=== PATIENT | female | born 1960 | race Caucasian/White ===

== ENCOUNTER 2020-06-25 07:39 | Outpatient (REF) | payer MEDICARE, MEDICAID, SELFPAY ==
[2020-06-25 11:40] LABS: Basophils Percent Auto 0.2 % (0-2); Hematocrit 39.4 % (37-47); Hemoglobin 12.2 g/dl (12.0-16.0); Imm Gran Abs Auto 0.05 X10*3/uL (0.00-0.03); Imm Gran Pct Auto 0.4 % (0.0-0.4); Lymphocytes Absolute Auto 5.1 X10*3/uL (1.2-4.9); Lymphocytes Percent Auto 36.4 % (20-40); MANUAL DIFF FLAG SCAN; Mean Corpuscular Hemoglobin 30.9 pg (27.0-33.0); Mean Corpuscular Volume 99.7 fL (80-98); Mean Platelet Volume 11.7 fL (9.4-12.3); Monocytes Percent Auto 7.2 % (2-11); Neut%MD 55.8 %; Neutrophils Absolute Auto 7.8 X10*3/uL (2.0-8.3); Neutrophils Percent Auto 55.8 % (45-73); Platelet Count 412 X10*3/uL (160-400); Red Blood Count 3.95 X10*6/uL (4.20-5.50); Red Cell Distribution Width 15.4 % (11.0-16.0); SCAN SMEAR FLAG 1; WBCANC 13.9 X10*3/uL; White Blood Count 13.9 X10*3/uL (4.8-10.8)
[2020-06-25 12:06] LABS: SLIDE REVIEW VERIFIED
== END 2020-06-25 07:40 | disposition home or self-care (01) ==
LOC: HO.HMGCLR 07:39
PROVIDERS: PCP Internal Medicine; Visit Provider Psychiatry & Neurology Psychiatry
DX: Z79.899 Other long term (current) drug therapy (principal)
CPT/HCPCS: 36415; 85025

== ENCOUNTER → 2020-07-15 09:27 | Outpatient (BNVA) | payer MEDICARE, MEDICAID, SELFPAY | PROVIDERS: PCP Internal Medicine; Referring Provider Internal Medicine; Visit Provider Dietitian, Registered | DX: Z76.89 Persons encountering health services in other specified circumstances (principal) ==

== ENCOUNTER → 2020-07-17 11:12 | Outpatient (BNVA) | payer MEDICARE, MEDICAID, SELFPAY | PROVIDERS: PCP Internal Medicine; Referring Provider Internal Medicine; Visit Provider Dietitian, Registered | DX: Z76.89 Persons encountering health services in other specified circumstances (principal) ==

== ENCOUNTER 2020-07-22 07:43 | Outpatient (REF) | payer MEDICARE, MEDICAID, SELFPAY ==
[2020-07-22 11:24] LABS: Basophils Percent Auto 0.2 % (0-2); Hematocrit 40.6 % (37-47); Hemoglobin 12.8 g/dl (12.0-16.0); Imm Gran Abs Auto 0.07 X10*3/uL (0.00-0.03); Imm Gran Pct Auto 0.4 % (0.0-0.4); Lymphocytes Percent Auto 30.1 % (20-40); MANUAL DIFF FLAG SCAN; Mean Corpuscular HGB Conc 31.5 g/dl (31.0-35.0); Mean Corpuscular Hemoglobin 30.9 pg (27.0-33.0); Mean Corpuscular Volume 98.1 fL (80-98); Mean Platelet Volume 11.6 fL (9.4-12.3); Monocytes Absolute Auto 1.4 X10*3/uL (0.1-1.2); Monocytes Percent Auto 8.3 % (2-11); Neutrophils Absolute Auto 10.1 X10*3/uL (2.0-8.3); Platelet Count 424 X10*3/uL (160-400); Red Blood Count 4.14 X10*6/uL (4.20-5.50); Red Cell Distribution Width 15.2 % (11.0-16.0); SCAN SMEAR FLAG 1; White Blood Count 16.6 X10*3/uL (4.8-10.8)
[2020-07-22 12:11] LABS: SLIDE REVIEW VERIFIED
== END 2020-07-22 07:44 | disposition home or self-care (01) ==
LOC: HO.HMGCLR 07:43
PROVIDERS: PCP Internal Medicine; Visit Provider Psychiatry & Neurology Psychiatry
DX: Z51.81 Encounter for therapeutic drug level monitoring (principal)
CPT/HCPCS: 36415; 85025

== ENCOUNTER 2020-07-26 09:50 | Outpatient (REF) | payer MEDICARE, MEDICAID, SELFPAY | END 2020-07-26 09:51 | disposition home or self-care (01) | LOC: HO.LAB 09:50 | PROVIDERS: PCP Internal Medicine; Visit Provider Internal Medicine | DX: Z20.828 Contact with and (suspected) exposure to other viral communicable diseases (principal) | CPT/HCPCS: C9803; U0003 ==

== ENCOUNTER 2020-08-24 07:47 | Outpatient (REF) | payer MEDICARE, MEDICAID, SELFPAY ==
[2020-08-24 08:33] LABS: Hematocrit 41.1 % (37-47); Hemoglobin 12.8 g/dl (12.0-16.0); Mean Corpuscular HGB Conc 31.1 g/dl (31.0-35.0); Mean Corpuscular Hemoglobin 30.6 pg (27.0-33.0); Mean Corpuscular Volume 98.3 fL (80-98); Mean Platelet Volume 11.6 fL (9.4-12.3); Platelet Count 395 X10*3/uL (160-400); Red Blood Count 4.18 X10*6/uL (4.20-5.50); Red Cell Distribution Width 14.8 % (11.0-16.0); White Blood Count 17.9 X10*3/uL (4.8-10.8)
== END 2020-08-24 07:48 | disposition home or self-care (01) ==
LOC: HO.LAB 07:47
PROVIDERS: PCP Internal Medicine; Visit Provider Psychiatry & Neurology Psychiatry
DX: Z79.899 Other long term (current) drug therapy (principal)
CPT/HCPCS: 36415; 85027

== ENCOUNTER → 2020-08-28 13:07 | Outpatient (BNVA) | payer MEDICARE, MEDICAID, SELFPAY | PROVIDERS: PCP Internal Medicine; Visit Provider Dietitian, Registered | DX: Z76.89 Persons encountering health services in other specified circumstances (principal) ==

== ENCOUNTER 2020-08-29 05:35 | Outpatient (REF) | payer MEDICARE, MEDICAID, SELFPAY ==
[2020-08-29 10:53] LABS: Basophils Percent Auto 0.1 % (0-2); Hematocrit 39.2 % (37-47); Hemoglobin 12.4 g/dl (12.0-16.0); Imm Gran Abs Auto 0.05 X10*3/uL (0.00-0.03); Imm Gran Pct Auto 0.3 % (0.0-0.4); Lymphocytes Absolute Auto 5.6 X10*3/uL (1.2-4.9); Lymphocytes Percent Auto 36.4 % (20-40); MANUAL DIFF FLAG SCAN; Mean Corpuscular HGB Conc 31.6 g/dl (31.0-35.0); Mean Platelet Volume 11.9 fL (9.4-12.3); Monocytes Absolute Auto 1.2 X10*3/uL (0.1-1.2); Monocytes Percent Auto 7.5 % (2-11); Neutrophils Absolute Auto 8.6 X10*3/uL (2.0-8.3); Neutrophils Percent Auto 55.7 % (45-73); Platelet Count 390 X10*3/uL (160-400); Red Cell Distribution Width 14.8 % (11.0-16.0); SCAN SMEAR FLAG 1; White Blood Count 15.4 X10*3/uL (4.8-10.8)
[2020-08-29 11:28] LABS: SLIDE REVIEW VERIFIED
== END 2020-08-29 05:36 | disposition home or self-care (01) ==
LOC: HO.LHD 05:35
PROVIDERS: Visit Provider Psychiatry & Neurology Psychiatry
DX: Z79.899 Other long term (current) drug therapy (principal); E11.9 Type 2 diabetes mellitus without complications
CPT/HCPCS: 36415; 85025

== ENCOUNTER 2020-09-16 13:23 | Outpatient (REF) | payer MEDICARE, MEDICAID, SELFPAY | END 2020-09-16 13:24 | disposition home or self-care (01) | LOC: HO.LAB 13:23 | PROVIDERS: Visit Provider Internal Medicine | DX: Z20.822 Contact with and (suspected) exposure to COVID-19 (principal) | CPT/HCPCS: 36415; C9803; U0003 ==

== ENCOUNTER 2020-09-19 08:38 | Outpatient (REF) | payer MEDICARE, MEDICAID, SELFPAY ==
[2020-09-19 11:32] LABS: Basophils Percent Auto 0.2 % (0-2); Hematocrit 40.2 % (37-47); Hemoglobin 12.6 g/dl (12.0-16.0); Imm Gran Abs Auto 0.06 X10*3/uL (0.00-0.03); Imm Gran Pct Auto 0.4 % (0.0-0.4); Lymphocytes Absolute Auto 5.1 X10*3/uL (1.2-4.9); Lymphocytes Percent Auto 33.6 % (20-40); MANUAL DIFF FLAG SCAN; Mean Corpuscular HGB Conc 31.3 g/dl (31.0-35.0); Mean Corpuscular Volume 98.8 fL (80-98); Mean Platelet Volume 11.9 fL (9.4-12.3); Monocytes Percent Auto 6.8 % (2-11); Neutrophils Absolute Auto 8.9 X10*3/uL (2.0-8.3); Platelet Count 413 X10*3/uL (160-400); Red Blood Count 4.07 X10*6/uL (4.20-5.50); Red Cell Distribution Width 15.2 % (11.0-16.0); SCAN SMEAR FLAG 1; White Blood Count 15.1 X10*3/uL (4.8-10.8)
[2020-09-19 13:46] LABS: SLIDE REVIEW VERIFIED
== END 2020-09-19 08:39 | disposition home or self-care (01) ==
LOC: HO.HMGCLR 08:38
PROVIDERS: PCP Internal Medicine; Visit Provider Psychiatry & Neurology Psychiatry
DX: Z79.899 Other long term (current) drug therapy (principal)
CPT/HCPCS: 36415; 85025

== ENCOUNTER → 2020-10-09 10:28 | Outpatient (BNVA) | payer MEDICARE, MEDICAID, SELFPAY | PROVIDERS: PCP Internal Medicine; Visit Provider Dietitian, Registered ==

== ENCOUNTER 2020-10-23 09:06 | Outpatient (REF) | payer MEDICARE, MEDICAID, SELFPAY ==
[2020-10-23 11:51] LABS: Alanine Aminotransferase 25 U/L (0-31); Alkaline Phosphatase 132 U/L (39-117); Anion Gap 12 (12-20); Aspartate Amino Transferase 19 U/L (5-31); Bilirubin Total 0.4 mg/dL (0.0-1.0); Blood Urea Nitrogen 22 mg/dL (9-16); Calcium 8.9 mg/dL (8.4-10.2); Carbon Dioxide 29 mmol/L (22-29); Chloride 102 mmol/L (96-108); Estimated Glomerular Filt Rate > 60; Glucose Random 179 mg/dL (60-115); Potassium 3.4 mmol/L (3.3-5.1); Sodium 140 mmol/L (135-145)
== END 2020-10-23 09:07 | disposition home or self-care (01) ==
LOC: HO.HMGCLDS 09:06
PROVIDERS: PCP Internal Medicine; Visit Provider Hospitalist
DX: R19.04 Left lower quadrant abdominal swelling, mass and lump (principal)
CPT/HCPCS: 36415; 80053

== ENCOUNTER 2020-10-25 10:05 | Outpatient (REF) | payer MEDICARE, MEDICAID, SELFPAY ==
--- NOTE | ~2020-10-25 | CT_ITS ---
EXAMINATION: CT ABDOMEN AND PELVIS WITH CONTRAST CLINICAL INFORMATION: Left lower quadrant abdominal swelling, mass, lump. COMPARISON: 09/24/2015 TECHNIQUE: Multidetector volumetric images were obtained from the superior aspect of the liver through the pubic symphysis following administration 85 mL of Omnipaque 350 intravenous contrast. Sagittal and coronal reformatted images were obtained on the technologist's workstation. Oral contrast: No This CT examination was performed using dose optimization techniques as appropriate, variously including the following: *Automated exposure control *Adjustment of mA and/or kV according to patient size (this includes techniques or standardized protocols for targeted exams where dose is matched to indication/reason for exam; i.e. extremities or head) *Use of iterative reconstruction technique DLP: 696 mGy-cm FINDINGS: LUNG BASES: Mild atelectasis in the lingula. Otherwise unremarkable. LIVER, GALLBLADDER, AND BILIARY TREE: No focal liver lesions. No biliary duct dilatation. Gallbladder appears unremarkable. PANCREAS: Stable small calcifications in the uncinate process of the pancreas. No acute inflammatory changes. SPLEEN: Spleen is not visualized, with surgical clips in the left upper quadrant, suggesting postsurgical changes. ADRENAL GLANDS: Unremarkable. KIDNEYS AND URETERS: Small hypodense lesion in the upper pole, left kidney, too small to characterize, probable cysts. No suspicious lesions otherwise seen. No calculi. No hydronephrosis. BLADDER: Unremarkable. GASTROINTESTINAL TRACT: Moderate to large volume of fecal matter in the large colon. There is heterogeneity in the region of the ascending colon, with intraluminal contents limiting evaluation. Underlying mass lesion cannot be excluded. No colonic wall thickening or pericolonic inflammatory changes. The stomach is nondistended. No dilated small bowel loops seen. Normal appendix. No ascites. No free air. ABDOMINAL WALL: There is an umbilical/left paraumbilical anterior abdominal wall hernia with a neck of approximately 7.1 cm transverse, 4.0 cm craniocaudal, containing herniated fat with mild stranding within the fatty tissue. Superior to this, there are 2 smaller foci of central ventral abdominal wall hernias containing fat noted. LYMPH NODES: No lymphadenopathy seen in the abdomen or pelvis. VASCULAR: No aneurysmal dilatation of the aorta. PELVIC VISCERA: Within normal limits. OSSEOUS STRUCTURES: Mild degenerative changes in the spine. Deformity of the left pubis, suspected to be related to remote trauma. No acute or suspicious osseous abnormality seen. CT/CT abdomen pelvis w con IMPRESSION: 1. There is umbilical/left periumbilical anterior abdominal wall hernia, with mild strandy signal changes in the herniating fatty tissue. The hernia has a neck of approximately 7.1 x 40. cm. There are 2 smaller areas of central anterior abdominal wall hernia superior to this, as detailed above. 2. No acute findings are seen within the abdomen or pelvis. 3. Moderate to large volume fecal matter in the large colon. This limits evaluation for mass lesions. Heterogeneous luminal contents of the colon. Clinically correlate. Further evaluation with endoscopy as clinically warranted.
[2020-10-25] MEDS: iohexoL 350 MG/ML 100 ML INFUS..BTL 85 ML IV (10:58)
[2020-10-25 11:42] LABS: MANUAL DIFF FLAG NO
[2020-10-25 11:53] LABS: Basophils Percent Auto 0.2 % (0-2); Hematocrit 35.7 % (37-47); Hemoglobin 11.2 g/dl (12.0-16.0); Imm Gran Abs Auto 0.05 X10*3/uL (0.00-0.03); Imm Gran Pct Auto 0.3 % (0.0-0.4); Lymphocytes Percent Auto 34.3 % (20-40); Mean Corpuscular HGB Conc 31.4 g/dl (31.0-35.0); Mean Corpuscular Volume 98.9 fL (80-98); Mean Platelet Volume 11.3 fL (9.4-12.3); Monocytes Absolute Auto 1.3 X10*3/uL (0.1-1.2); Monocytes Percent Auto 8.7 % (2-11); Neut%MD 56.5 %; Neutrophils Absolute Auto 8.1 X10*3/uL (2.0-8.3); Neutrophils Percent Auto 56.5 % (45-73); Platelet Count 365 X10*3/uL (160-400); Red Blood Count 3.61 X10*6/uL (4.20-5.50); Red Cell Distribution Width 15.2 % (11.0-16.0); WBCANC 14.4 X10*3/uL; White Blood Count 14.4 X10*3/uL (4.8-10.8)
== END 2020-10-25 10:06 | disposition home or self-care (01) ==
LOC: HO.CT 10:05
PROVIDERS: Absent Provider Psychiatry & Neurology Psychiatry; PCP Internal Medicine; Visit Provider Hospitalist
DX: R19.04 Left lower quadrant abdominal swelling, mass and lump (principal)
CPT/HCPCS: 36415; 74177; 85025; 85048; Q9967

== ENCOUNTER 2020-10-29 08:42 | Outpatient (REF) | payer MEDICARE, MEDICAID, SELFPAY ==
[2020-10-29 09:14] LABS: MANUAL DIFF FLAG NO
[2020-10-29 09:18] LABS: Basophils Percent Auto 0.1 % (0-2); Hematocrit 37.3 % (37-47); Hemoglobin 11.7 g/dl (12.0-16.0); Imm Gran Abs Auto 0.04 X10*3/uL (0.00-0.03); Imm Gran Pct Auto 0.3 % (0.0-0.4); Lymphocytes Absolute Auto 4.9 X10*3/uL (1.2-4.9); Lymphocytes Percent Auto 34.8 % (20-40); Mean Corpuscular HGB Conc 31.4 g/dl (31.0-35.0); Mean Corpuscular Hemoglobin 30.9 pg (27.0-33.0); Mean Corpuscular Volume 98.4 fL (80-98); Mean Platelet Volume 10.9 fL (9.4-12.3); Monocytes Absolute Auto 0.9 X10*3/uL (0.1-1.2); Monocytes Percent Auto 6.7 % (2-11); Neutrophils Absolute Auto 8.1 X10*3/uL (2.0-8.3); Neutrophils Percent Auto 58.1 % (45-73); Platelet Count 385 X10*3/uL (160-400); Red Blood Count 3.79 X10*6/uL (4.20-5.50); Red Cell Distribution Width 15.4 % (11.0-16.0)
[2020-10-29 09:22] LABS: Glucose Urine UA NEG (NEG); Leukocyte Esterase Urine 1+ (NEG); Nitrite Urine NEG (NEG); Specific Gravity - Urine 1.015 (1.005-1.025); UACC Culture Trigger YES; Urine Blood NEG (NEG); Urine Ketones NEG (NEG); Urine Protein NEG (NEG-TRACE)
[2020-10-29 09:23] LABS: Appearance Urine HAZY; Color Urine STRAW
[2020-10-29 09:39] LABS: Bacteria Urine 4+ /LPF; RBC Urine 0 /HPF (0); Squamous Epithelial Cell Urine TRACE /LPF
[2020-10-29 09:56] LABS: Alanine Aminotransferase 27 U/L (0-31); Alkaline Phosphatase 131 U/L (39-117); Anion Gap 10 (12-20); Aspartate Amino Transferase 17 U/L (5-31); Bilirubin Total 0.5 mg/dL (0.0-1.0); Blood Urea Nitrogen 19 mg/dL (9-16); Calcium 8.9 mg/dL (8.4-10.2); Carbon Dioxide 32 mmol/L (22-29); Chloride 107 mmol/L (96-108); Cholesterol 150 mg/dL; Estimated Glomerular Filt Rate > 60; Glucose Fasting 117 mg/dL (60-99); HDL Cholesterol 46 mg/dL; LDL Cholesterol Calculated 77 mg/dl; Potassium 3.9 mmol/L (3.3-5.1); Sodium 145 mmol/L (135-145); Total Protein 6.8 g/dL (6.5-8.0); Triglycerides 135 mg/dL
[2020-10-29 10:18] LABS: TSH reflex Free T4 2.14 uIU/mL (0.32-4.0); Vitamin D 25-OH Total 31.6 ng/mL (>30)
[2020-10-29 10:34] LABS: Estimated Average Glucose 131 mg/dL; Hemoglobin A1C 133.2393 umol/L; Hemoglobin A1c % 6.2 %
== END 2020-10-29 08:43 | disposition home or self-care (01) ==
LOC: HO.LAB 08:42
PROVIDERS: Absent Provider Nurse Practitioner Family; PCP Internal Medicine; Visit Provider Internal Medicine
DX: D72.829 Elevated white blood cell count, unspecified (principal); I87.303 Chronic venous hypertension (idiopathic) without complications of bilateral lower extremity; E78.00 Pure hypercholesterolemia, unspecified; E11.9 Type 2 diabetes mellitus without complications; E55.9 Vitamin D deficiency, unspecified; E66.9 Obesity, unspecified; R82.81 Pyuria
CPT/HCPCS: 36415; 80053; 80061; 81001; 81003; 82306; 83036; 84443; 85025; 87086; 87088; 87186

== ENCOUNTER 2020-11-15 08:07 | Outpatient (REF) | payer MEDICARE, MEDICAID, SELFPAY ==
[2020-11-15 09:30] LABS: Basophils Percent Auto 0.1 % (0-2); Eosinophils Percent Auto 0.1 % (0-4); Hematocrit 39.2 % (37-47); Hemoglobin 12.3 g/dl (12.0-16.0); Imm Gran Abs Auto 0.07 X10*3/uL (0.00-0.03); Imm Gran Pct Auto 0.4 % (0.0-0.4); Lymphocytes Absolute Auto 5.7 X10*3/uL (1.2-4.9); Lymphocytes Percent Auto 36.5 % (20-40); MANUAL DIFF FLAG SCAN; Mean Corpuscular HGB Conc 31.4 g/dl (31.0-35.0); Mean Corpuscular Hemoglobin 30.4 pg (27.0-33.0); Mean Platelet Volume 11.4 fL (9.4-12.3); Monocytes Absolute Auto 1.2 X10*3/uL (0.1-1.2); Monocytes Percent Auto 7.4 % (2-11); Neutrophils Absolute Auto 8.7 X10*3/uL (2.0-8.3); Neutrophils Percent Auto 55.5 % (45-73); Platelet Count 329 X10*3/uL (160-400); Red Blood Count 4.04 X10*6/uL (4.20-5.50); SCAN SMEAR FLAG 1; White Blood Count 15.6 X10*3/uL (4.8-10.8)
[2020-11-15 09:38] LABS: Estimated Average Glucose 134 mg/dL; Hemoglobin A1c % 6.3 %
[2020-11-15 09:42] LABS: Blood Urea Nitrogen 26 mg/dL (9-16); Estimated Glomerular Filt Rate > 60
[2020-11-15 09:53] LABS: SLIDE REVIEW VERIFIED
== END 2020-11-15 08:08 | disposition home or self-care (01) ==
LOC: HO.LAB 08:07
PROVIDERS: Nurse Practitioner Family; Absent Provider Psychiatry & Neurology Psychiatry; PCP Internal Medicine; Visit Provider Internal Medicine
DX: R19.04 Left lower quadrant abdominal swelling, mass and lump (principal); Z79.899 Other long term (current) drug therapy
CPT/HCPCS: 36415; 82565; 83036; 84520; 85025

== ENCOUNTER → 2020-11-27 09:19 | Outpatient (BNVA) | payer MEDICARE, MEDICAID, SELFPAY | PROVIDERS: PCP Internal Medicine; Visit Provider Surgery | DX: K43.2 Incisional hernia without obstruction or gangrene (principal) | CPT/HCPCS: 99202 ==

== ENCOUNTER 2020-12-06 08:57 | Outpatient (REF) | payer MEDICARE, MEDICAID, SELFPAY ==
[2020-12-06 09:33] LABS: MANUAL DIFF FLAG NO
[2020-12-06 09:38] LABS: Basophils Percent Auto 0.2 % (0-2); Hemoglobin 12.2 g/dl (12.0-16.0); Imm Gran Abs Auto 0.06 X10*3/uL (0.00-0.03); Imm Gran Pct Auto 0.4 % (0.0-0.4); Lymphocytes Absolute Auto 4.5 X10*3/uL (1.2-4.9); Lymphocytes Percent Auto 30.5 % (20-40); Mean Corpuscular HGB Conc 31.3 g/dl (31.0-35.0); Mean Corpuscular Hemoglobin 30.4 pg (27.0-33.0); Mean Corpuscular Volume 97.3 fL (80-98); Mean Platelet Volume 10.7 fL (9.4-12.3); Monocytes Absolute Auto 1.1 X10*3/uL (0.1-1.2); Monocytes Percent Auto 7.3 % (2-11); Neut%MD 61.6 %; Neutrophils Absolute Auto 9.2 X10*3/uL (2.0-8.3); Neutrophils Percent Auto 61.6 % (45-73); Platelet Count 389 X10*3/uL (160-400); Red Blood Count 4.01 X10*6/uL (4.20-5.50); Red Cell Distribution Width 14.7 % (11.0-16.0); WBCANC 14.9 X10*3/uL; White Blood Count 14.9 X10*3/uL (4.8-10.8)
== END 2020-12-06 08:58 | disposition home or self-care (01) ==
LOC: HO.LABR 08:57
PROVIDERS: PCP Internal Medicine; Visit Provider Psychiatry & Neurology Psychiatry
DX: Z79.899 Other long term (current) drug therapy (principal)
CPT/HCPCS: 36415; 85025; 85048

== ENCOUNTER 2021-01-06 07:54 | Outpatient (REF) | payer MEDICARE, MEDICAID, SELFPAY ==
[2021-01-06 09:10] LABS: MANUAL DIFF FLAG NO
[2021-01-06 09:15] LABS: Basophils Percent Auto 0.2 % (0-2); Hematocrit 39.3 % (37-47); Hemoglobin 12.3 g/dl (12.0-16.0); Imm Gran Abs Auto 0.05 X10*3/uL (0.00-0.03); Imm Gran Pct Auto 0.4 % (0.0-0.4); Lymphocytes Absolute Auto 4.6 X10*3/uL (1.2-4.9); Lymphocytes Percent Auto 33.7 % (20-40); Mean Corpuscular HGB Conc 31.3 g/dl (31.0-35.0); Mean Corpuscular Hemoglobin 30.6 pg (27.0-33.0); Mean Corpuscular Volume 97.8 fL (80-98); Mean Platelet Volume 10.8 fL (9.4-12.3); Monocytes Absolute Auto 1.1 X10*3/uL (0.1-1.2); Monocytes Percent Auto 7.8 % (2-11); Neutrophils Absolute Auto 7.8 X10*3/uL (2.0-8.3); Neutrophils Percent Auto 57.9 % (45-73); Platelet Count 388 X10*3/uL (160-400); Red Blood Count 4.02 X10*6/uL (4.20-5.50); Red Cell Distribution Width 14.9 % (11.0-16.0); White Blood Count 13.5 X10*3/uL (4.8-10.8)
[2021-01-06 09:31] LABS: Glucose Urine UA NEG (NEG); Leukocyte Esterase Urine 1+ (NEG); Nitrite Urine POS (NEG); UACC Culture Trigger YES; Urine Blood TRACE (NEG); Urine Ketones NEG (NEG); Urine Protein NEG (NEG-TRACE)
[2021-01-06 09:33] LABS: Appearance Urine HAZY; Color Urine YELLOW
[2021-01-06 09:37] LABS: Alanine Aminotransferase 40 U/L (0-31); Alkaline Phosphatase 141 U/L (39-117); Anion Gap 16 (12-20); Aspartate Amino Transferase 21 U/L (5-31); Bilirubin Total 0.6 mg/dL (0.0-1.0); Blood Urea Nitrogen 30 mg/dL (9-16); Calcium 9.1 mg/dL (8.4-10.2); Carbon Dioxide 30 mmol/L (22-29); Chloride 104 mmol/L (96-108); Cholesterol 166 mg/dL; Estimated Glomerular Filt Rate 54; Glucose Fasting 121 mg/dL (60-99); HDL Cholesterol 44 mg/dL; LDL Cholesterol Calculated 92 mg/dl; Potassium 3.8 mmol/L (3.3-5.1); Sodium 146 mmol/L (135-145); Total Protein 6.8 g/dL (6.5-8.0); Triglycerides 154 mg/dL
[2021-01-06 09:55] LABS: Bacteria Urine 1+ /LPF; RBC Urine 0-2 /HPF (0); Squamous Epithelial Cell Urine 1+ /LPF
[2021-01-06 09:58] LABS: Vitamin D 25-OH Total 33.5 ng/mL (>30)
[2021-01-06 10:22] LABS: Estimated Average Glucose 146 mg/dL; Hemoglobin A1c % 6.7 %
[2021-01-06 10:33] LABS: Creatinine Urine 62.57 mg/dL; Microalbum/Creatinine Ratio Ur 11.1 ug/mg cr
== END 2021-01-06 07:55 | disposition home or self-care (01) ==
LOC: HO.LABR 07:54
PROVIDERS: Absent Provider Internal Medicine; PCP Internal Medicine; Visit Provider Psychiatry & Neurology Psychiatry
DX: E11.9 Type 2 diabetes mellitus without complications (principal); R82.81 Pyuria; E66.9 Obesity, unspecified; E78.00 Pure hypercholesterolemia, unspecified; D72.829 Elevated white blood cell count, unspecified; I87.303 Chronic venous hypertension (idiopathic) without complications of bilateral lower extremity; E55.9 Vitamin D deficiency, unspecified; Z79.899 Other long term (current) drug therapy
CPT/HCPCS: 36415; 80053; 80061; 81001; 81003; 82043; 82306; 83036; 84443; 85025; 87086; 87088; 87186

== ENCOUNTER 2021-01-10 10:25 | Inpatient (IN) | payer MEDICARE, MEDICAID, SELFPAY ==
[2021-01-06 14:54] VITALS: BMI 35.9
--- NOTE | 2021-01-08 09:36 | HO.ANESPROP2 ---
Documented by User: Marina Edita 01/08/21 09:39 HPI - Anesthesia Eval Consult details Narrative: 60yo F for Incisional Hernia Repair with Possible Mesh Placement PMFSH Active Problems Active Problems: All Active Problems (Updated 11/27/20 @ 09:44 by Bassam Rubio MD) T2DM (type 2 diabetes mellitus) (Acute) Dermatitis (Acute) Abdominal wall mass of left lower quadrant (Acute) Incisional hernia (Acute) Umbilical hernia (Acute) Obesity (BMI 30-39.9) (Acute) Schizophrenia (Acute) Constipation (Acute) Pyuria (Acute) Leukocytosis (Acute) Primary osteoarthritis of both knees (Acute) Stasis edema of both lower extremities (Acute) Vitamin D deficiency (Acute) Diabetes mellitus (Acute) Pure hypercholesterolemia (Acute) Past Medical History Medical History Constipation Diabetes mellitus Incisional hernia Leukocytosis Obesity (BMI 30-39.9) Primary osteoarthritis of both knees Pure hypercholesterolemia Pyuria Schizophrenia Stasis edema of both lower extremities Umbilical hernia Vitamin D deficiency Family History Family History Father Medical history unknown Mother Diabetes Family/Other FH: mental illness Surgical History Surgical History H/O colonoscopy History of splenectomy Social History Social History Alcohol intake: never Smoking Status: Former smoker Use of substances other than those prescribed or required for medical reasons: No Advance Directives Information Provided: No Meds Allergies Allergy/AdvReac Type Severity Reaction Status Date / Time haloperidol [From HALDOL] Allergy Intermediate RASH,ACNE Verified 11/27/20 09:27 lithium [LITHIUM] Allergy Intermediate RASH,ACNE Verified 11/27/20 09:27 simvastatin Allergy Intermediate headaches Verified 01/06/21 14:44 furosemide AdvReac Intermediate rash Verified 01/06/21 14:44 hydroxyzine AdvReac Intermediate rash Verified 01/06/21 14:44 Home Medications Medication Instructions Recorded Confirmed Last Taken Type aripiprazole 10 mg tablet 10 mg PO DAILY 07/31/20 01/06/21 Unknown History clonazepam 1 mg tablet 1 mg PO BID PRN 07/31/20 01/06/21 Unknown History clozapine 100 mg tablet 200 mg PO BEDTIME 07/31/20 01/06/21 Unknown History clozapine 50 mg tablet 50 mg PO BEDTIME 07/31/20 01/06/21 Unknown History lurasidone 80 mg tablet 80 mg PO BEDTIME 07/31/20 01/06/21 Unknown History lactulose 10 g PO BEDTIME 01/06/21 01/06/21 Unknown History linaclotide [Linzess] 1 cap PO DAILY 01/06/21 01/06/21 Unknown History Exam Exam Date and Time: January 08, 2021 0936 Height,Weight and Vital Signs: Height 5 ft 3 in Weight 92 kg Pertinent Lab Results Pertinent Lab Results: Laboratory Tests 01/06/21 01/06/21 08:20 08:20 WBC 13.5 H Hgb 12.3 Hct 39.3 Plt Count 388 Sodium 146 H Potassium 3.8 Chloride 104 Carbon Dioxide 30 H BUN 30 H Creatinine 1.03 Assessment and Plan Assessment Anesthesia Assessment: Chart Reviewed Documented by User: Apple Huber 01/10/21 10:31 [facility] Past Medical History Medical History Constipation Diabetes mellitus Incisional hernia Leukocytosis Obesity (BMI 30-39.9) Primary osteoarthritis of both knees Pure hypercholesterolemia Pyuria Schizophrenia Stasis edema of both lower extremities Umbilical hernia Vitamin D deficiency Family History Family History Father Medical history unknown Mother Diabetes Family/Other FH: mental illness Surgical History Surgical History H/O colonoscopy History of splenectomy Social History Social History Alcohol intake: never Smoking Status: Former smoker Use of substances other than those prescribed or required for medical reasons: No Advance Directives Information Provided: No Meds Allergies Allergy/AdvReac Type Severity Reaction Status Date / Time haloperidol [From HALDOL] Allergy Intermediate RASH,ACNE Verified 11/27/20 09:27 lithium [LITHIUM] Allergy Intermediate RASH,ACNE Verified 11/27/20 09:27 simvastatin Allergy Intermediate headaches Verified 01/06/21 14:44 furosemide AdvReac Intermediate rash Verified 01/06/21 14:44 hydroxyzine AdvReac Intermediate rash Verified 01/06/21 14:44 Home Medications Medication Instructions Recorded Confirmed Last Taken Type aripiprazole 10 mg tablet 10 mg PO DAILY 07/31/20 01/06/21 Unknown History clonazepam 1 mg tablet 1 mg PO BID PRN 07/31/20 01/06/21 Unknown History clozapine 100 mg tablet 200 mg PO BEDTIME 07/31/20 01/06/21 Unknown History clozapine 50 mg tablet 50 mg PO BEDTIME 07/31/20 01/06/21 Unknown History lurasidone 80 mg tablet 80 mg PO BEDTIME 07/31/20 01/06/21 Unknown History lactulose 10 g PO BEDTIME 01/06/21 01/06/21 Unknown History linaclotide [Linzess] 1 cap PO DAILY 01/06/21 01/06/21 Unknown History Exam Airway Mallampati Class: II TM Dist: >3cm Neck ROM: Full Assessment and Plan Assessment Anesthesia Assessment: Anesthesia Plan Discussed Final Anesthetic Review NPO: Yes ASA Class: III Final Preanesthetic Review: No Changes in Pt Med Stat, Meds/Allgs Chart Reviewed, Consent Obtained/Reviewed and Anes Risks/Benef Reviewed Patient Risk: Intermediate Procedure Risk: Low Assessment/Block/Sedation in SS: Assess/Block/Sedation-SS Anesthetic Plan Anesthetic Plan: GA Disposition: Standard PACU
[2021-01-10] VITALS (12 sets, daily range): BP systolic 104–136; BP diastolic 67–75; PULSE 72–99; RESP 16–18; TEMP 36–36.8; O2SAT 93–97
--- NOTE | 2021-01-10 | ECG_ITS ---
Test Reason : DM,PVD, OBESITY Blood Pressure : / mmHG Vent. Rate : 092 BPM Atrial Rate : 092 BPM P-R Int : 172 ms QRS Dur : 084 ms QT Int : 392 ms P-R-T Axes : 050 036 031 degrees QTc Int : 484 ms Normal sinus rhythm Nonspecific ST abnormality Abnormal ECG When compared with ECG of 18-OCT-2019 11:36, No significant change was found Referred By: Marina Kohler Electronically Signed By:ARMAAN AYERS MD
[2021-01-10 10:46] LABS: COVID-19 Test Negative (Negative)
--- NOTE | 2021-01-10 10:52 | MHC.SHP ---
Pre-Procedural Eval Section A The patient is an INPATIENT: No Section B Chief Complaint: s/p Incisional hernia repair Details of Present Illness: has had large umbilical mass - had previous incision for splenectomy Relevant Family History (Specify if Yes): No Relevant Social History: None Present Medications: see Short Stay Collaborative assessment Medical History: Significant History (DM, schizophrenia,obesity, hyperlipidemia) History of Previous Operations: Relevant previous surgery/procedure and date(s) (splenectomy) Allergies: Allergies Allergy/AdvReac Type Severity Reaction Status Date / Time haloperidol [From HALDOL] Allergy Intermediate RASH,ACNE Verified 01/10/21 10:35 lithium [LITHIUM] Allergy Intermediate RASH,ACNE Verified 01/10/21 10:35 simvastatin Allergy Intermediate headaches Verified 01/10/21 10:35 risperidone [From Risperdal] Allergy Unknown Verified 01/10/21 10:35 furosemide AdvReac Intermediate rash Verified 01/10/21 10:35 hydroxyzine AdvReac Intermediate rash Verified 01/10/21 10:35 Review of Systems Sugical H&P ROS: Negative: Constitution, Cardiovascular, Respiratory, Neurological, Psychiatric, Hem-Onc, Allergic/Immunologic, Gastrointestinal, Genitourinary, Musculoskeletal, Integumentary, Endocrine and Eyes/Ears/Nose/Throat Exam Surgical H&P Exam: Normal: HEENT, Normal: Heart, Normal: Lungs, Normal: Extremities, Normal: Skin and Normal: Neurological and Significant Findings: Abdomen (hernia at level of umbilicus) Plan Diagnosis/Plan: Unchanged I have reviewed the history and physical and performed a pertinent physical examination on my patient. No changes have occurred unless specified.
[2021-01-10 10:55] LABS: Glucose, Whole Blood 113 mg/dL (60-115)
[2021-01-10] MEDS: Lactated Ringers 1,000 ML 100 ML IVCONT (11:05)
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
--- NOTE | 2021-01-10 12:34 | P.BOP_ITS ---
Brief Operative Note Date of Service: 01/10/21 Pre-op diagnosis: Multiple incisional hernias Post-op diagnosis: same Procedure: Repair of multiple incisional hernias with Ventralex mesh Implants: Mesh Surgeon: Bassam Rubio MD Anesthesia: GETA Was an Assistant Food Service Manager used for this Procedure?: No Estimated blood loss (mL): 20 Pathology: none sent Condition: stable Disposition: PACU
--- NOTE | 2021-01-10 14:21 | PC.NURSE ---
ROOM OBTAINED AND REPORT FAXED TO [facility]/SURG FLOOR. TELEPHONE REPORT ALSO GIVE TO BRIANNA CARDONA
[2021-01-10] MEDS: Lactated Ringers 1,000 ML 60 ML IVCONT (15:06)
--- NOTE | 2021-01-10 15:21 | MHC.CM.PN ---
PATIENT IS ACTIVE WITH [employer] [facility] OF [employer]. AGENCY ([phone]) IS AWARE OF POTENTIAL DC TOMORROW. PATIENT WILL NEED WOUND RN SKILLS FOR INCISION CARE AND SURGEON IS CONCERNED ABOUT PATIENT'S ABILITY TO MANAGE THIS
--- NOTE | 2021-01-10 15:38 | PM.EVENT ---
Event Note Date of Service: 01/10/21 Event Note: pt seen postop she underwent repair of incisional hernias with mesh looks well good pain control stable VS abd soft pt has schizophrenia, lives along, unreliable with self care discussed with telephonic case manager - pt may go home to her mother temporarily on discharge I explained to pt postop care, instructions hopefully she can be discharged tomorrow
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
[2021-01-10] MEDS: metFORMIN HCl ER 500 MG TAB.ER.24H PO (19:51)
[2021-01-10] MEDS: Lurasidone HCl 80 MG TABLET PO (19:52)
[2021-01-10] MEDS: oxyCODONE HCl Immed Release 5 MG TABLET 10 MG PO (20:02)
[2021-01-10] MEDS: ondansetron HCL 4 MG/2 ML VIAL IVPUSH (22:11)
[2021-01-10] MEDS: cloZAPine 25 MG TABLET 50 MG PO (22:16)
[2021-01-10] MEDS: cloZAPine 100 MG TABLET 200 MG PO (22:16)
[2021-01-11 00:07] VITALS: BP 106/66; PULSE 83; RESP 16; TEMP 36.4; O2SAT 90
[2021-01-11 04:45] VITALS: BP 113/70; PULSE 88; RESP 18; TEMP 36.1; O2SAT 94
--- NOTE | 2021-01-11 07:19 | HO.POSTANES ---
Post Anesthesia Evaluation Post Anesthesia Evaluation Vital Signs: Vital Signs Temp Pulse Resp BP Pulse Ox 01/11/21 04:45 97.0 F 88 18 113/70 94 01/11/21 00:07 97.5 F 83 16 106/66 90 L 01/10/21 19:56 97.9 F 99 18 136/75 94 Anesthesia: General Endotracheal-GETA Mental Status: Awake Pain Control: Satisfactory Nausea/Vomiting: None Hydration: Adequate Anesthesia-Related Issues: No Anes. Related Issues
[2021-01-11 07:46] VITALS: BP 114/68; PULSE 88; RESP 19; TEMP 36.3; O2SAT 94
--- NOTE | 2021-01-11 08:35 | P.PNGS_ITS ---
Subjective Subjective Date of Service: 01/11/21 Interval history: Patient is awake and alert, feels comfortable with only some incisional discomfort. She feels ready to go home to her mother's house. She reports she needs a ride to her mother's house Physical Exam Vital Signs: Vital Signs: Last Vital Signs Temp 97.4 F 01/11/21 07:46 Pulse 88 01/11/21 07:46 Resp 19 01/11/21 07:46 BP 114/68 01/11/21 07:46 Pulse Ox 94 01/11/21 07:46 Body Mass Index 35.9 Const: General: cooperative, comfortable and no acute distress Resp: Effort & Inspection: normal respiratory effort, no stridor and not tachypneic Auscultation: no wheezes GI: Other: Incision in the upper abdomen is clean, dry, and intact. Minimal incisional tenderness is identified. Skin: Other: Warm, dry, no rash Extrem: General: Yes no clubbing, cyanosis or edema Progress Note: A&P Assessment and plan (1) Incisional hernia: Status: Acute Assessment and Plan: Patient is stable postoperative day 1 following repair of an incisional hernia. Patient's abdomen is soft with mild incisional tenderness, wounds are clean and intact. Patient is ready for discharge to her mother's home with visiting nurses. She will require transportation to her mother's home. She should follow up with Dr. Rosalina carl in approximately 2 weeks. She should avoid any lifting greater than 10 lb. She will need visiting nurses for wound management. Fall Risk Details Current Medications: Current Medications Generic Name Dose Route Start Last Admin Trade Name Freq PRN Reason Stop Dose Admin Acetaminophen 650 mg 01/10/21 10:31 Acetaminophen 325 Mg Tablet PO ONCE PRN Pain, Mild (Pain Scale 1-3) Aripiprazole 10 mg 01/11/21 09:00 Aripiprazole 10 Mg Tablet PO DAILY RADHA Atorvastatin Calcium 10 mg 01/11/21 21:00 Atorvastatin Calcium 10 Mg Tablet PO BEDTIME RADHA Calcium Carbonate 500 mg 01/10/21 21:00 01/10/21 19:50 Calcium Carbonate 500 Mg Tablet PO 500 mg BID RADHA Administration Clonazepam 1 mg 01/10/21 14:43 Clonazepam 1 Mg Tablet PO BID PRN Anxiety Clozapine 50 mg 01/10/21 21:00 01/10/21 22:16 Clozapine 25 Mg Tablet PO 50 mg BEDTIME RADHA Administration Clozapine 200 mg 01/10/21 21:00 01/10/21 22:16 Clozapine 100 Mg Tablet PO 200 mg BEDTIME RADHA Administration Fentanyl 50 mcg 01/10/21 10:31 Fentanyl Citrate/Pf 100 Mcg/2 Ml Vial IVPUSH Q5M PRN Pain, Severe (Pain Scale 7-10) Hydrochlorothiazide 25 mg 01/11/21 09:00 Hydrochlorothiazide 25 Mg Tablet PO DAILY [facility] Protocol Lactated Ringer's 1,000 mls @ 60 mls/hr 01/10/21 13:00 01/11/21 06:52 Lr IVCONT Not Given .[id number] [facility] Ibuprofen 600 mg 01/10/21 12:34 Ibuprofen 600 Mg Tablet PO Q6H PRN Pain, Moderate (Pain Scale 4-6 Lactulose 10 gm 01/10/21 21:00 01/10/21 19:53 Lactulose 20 Gm/30 Ml Solution PO Not Given BEDTIME [facility] Lurasidone HCl 80 mg 01/10/21 21:00 01/10/21 19:52 Lurasidone Hcl 80 Mg Tablet PO 80 mg BEDTIME RADHA Administration Metformin HCl 500 mg 01/10/21 21:00 01/10/21 19:51 Metformin Hcl Er 500 Mg Tab.Er.24h PO 500 mg BEDTIME RADHA Administration Morphine Sulfate 3 mg 01/10/21 12:34 Morphine Sulfate 4 Mg/Ml Cartridge IVPUSH Q4H PRN Pain, Severe (Pain Scale 7-10) Non-Formulary Medication 1 cap 01/11/21 09:00 Linaclotide [Linzess] PO DAILY [facility] Ondansetron HCl 4 mg 01/10/21 10:31 01/10/21 22:11 Ondansetron Hcl 4 Mg/2 Ml Vial IVPUSH 4 mg ONCE PRN Administration Nausea and Vomiting Ondansetron HCl 4 mg 01/10/21 12:50 Ondansetron Hcl 4 Mg/2 Ml Vial IVPUSH Q8H PRN Nausea Oxycodone HCl 5 mg 01/10/21 10:31 Oxycodone Hcl Immed Release 5 Mg Tablet PO ONCE PRN Pain, Severe (Pain Scale 7-10) Oxycodone HCl 10 mg 01/10/21 12:34 01/10/21 20:02 Oxycodone Hcl Immed Release 5 Mg Tablet PO 10 mg Q4H PRN Administration Pain, Moderate (Pain Scale 4-6 Time Spent With Patient Time: Total time spent is greater than 50% in coordination of care (as documented) at patient's floor/unit and/or counseling patient: Time with patient: 15 - 24 minutes
--- NOTE | 2021-01-11 08:44 | P.F2F_ITS ---
Service Date Service Date: 01/11/21 Encounter Date of encounter: 01/11/21 Encounter: Patient evaluated following repair of incisional hernia and deemed ready for discharge. Reasons for Services Signs and symptoms assessed: Vital signs, abdominal examination Reason for care home: CV/CP assess and/or care, wound care and posto perative assessment and/or care MD Overseeing Care: Bassam Rubio Homebound: Leaving the home is medically contraindicated at this time without the asist of a device and/or another person due th the listed conditions above and below. Reason homebound: pain with ambulation, cognitively impaired / unsafe and weakness related to hospital stay Homebound supporting statement: Patient underwent recent abdominal surgery and has underlying medical conditions including diabetes and bipolar disorder. It is unsafe for the patient to leave the home as she has weak from the surgery. Certification: Based on the above findings, I certify that this patient is confined to the home and needs intermittent care home care, physical therapy and/or speech therapy, or continues to need occupational therapy. The patient is under my care, and I have initiated the establishment of the plan of care. The patient will be followed by a physician who will periodically review the plan of care.
[2021-01-11] MEDS: ARIPiprazole 10 MG TABLET PO (09:04)
[2021-01-11] MEDS: hydroCHLOROthiazide 25 MG TABLET PO (09:04)
--- NOTE | 2021-01-11 10:04 | P.PNIM_ITS ---
Subjective Subjective Date of Service: 01/11/21 Interval History: Seen in f/u for med consult, post day 1 for incicisional hernia, doing well, no acut issues Review of Systems Gen: no fever Resp: no sob, no cough CV: no chest, no NEVAREZ, no leg edema GI: No n/v, mild abd pain from incision Neuro: No confusion Physical Exam Vital Signs: Vital Signs: Last Vital Signs Temp 97.4 F 01/11/21 07:46 Pulse 88 01/11/21 07:46 Resp 19 01/11/21 07:46 BP 114/68 01/11/21 07:46 Pulse Ox 94 01/11/21 07:46 Body Mass Index 35.9 Const: General: cooperative, comfortable and no acute distress Resp: Effort & Inspection: normal respiratory effort, no stridor and not tachypneic Auscultation: no wheezes Cardio: Rate: regular rate Rhythm: regular rhythm Heart sounds: S1 normal heart sound present and S2 normal heart sound present GI: Other: Incision in the upper abdomen is clean, dry, and intact. Minimal incisional tenderness is identified. Extrem: General: Yes no clubbing, cyanosis or edema Objective Data Current Medications Generic Name Dose Route Start Last Admin Trade Name Freq PRN Reason Stop Dose Admin Acetaminophen 650 mg 01/10/21 10:31 Acetaminophen 325 Mg Tablet PO ONCE PRN Pain, Mild (Pain Scale 1-3) Aripiprazole 10 mg 01/11/21 09:00 01/11/21 09:04 Aripiprazole 10 Mg Tablet PO 10 mg DAILY RADHA Administration Atorvastatin Calcium 10 mg 01/11/21 21:00 Atorvastatin Calcium 10 Mg Tablet PO BEDTIME RADHA Calcium Carbonate 500 mg 01/10/21 21:00 01/11/21 09:04 Calcium Carbonate 500 Mg Tablet PO 500 mg BID RADHA Administration Clonazepam 1 mg 01/10/21 14:43 Clonazepam 1 Mg Tablet PO BID PRN Anxiety Clozapine 50 mg 01/10/21 21:00 01/10/21 22:16 Clozapine 25 Mg Tablet PO 50 mg BEDTIME RADHA Administration Clozapine 200 mg 01/10/21 21:00 01/10/21 22:16 Clozapine 100 Mg Tablet PO 200 mg BEDTIME RADHA Administration Fentanyl 50 mcg 01/10/21 10:31 Fentanyl Citrate/Pf 100 Mcg/2 Ml Vial IVPUSH Q5M PRN Pain, Severe (Pain Scale 7-10) Hydrochlorothiazide 25 mg 01/11/21 09:00 01/11/21 09:04 Hydrochlorothiazide 25 Mg Tablet PO 25 mg DAILY RADHA Administration Protocol Lactated Ringer's 1,000 mls @ 60 mls/hr 01/10/21 13:00 01/11/21 09:04 Lr IVCONT Infused .[id number] RADHA Infusion Ibuprofen 600 mg 01/10/21 12:34 Ibuprofen 600 Mg Tablet PO Q6H PRN Pain, Moderate (Pain Scale 4-6 Lactulose 10 gm 01/10/21 21:00 01/10/21 19:53 Lactulose 20 Gm/30 Ml Solution PO Not Given BEDTIME RADHA Lurasidone HCl 80 mg 01/10/21 21:00 01/10/21 19:52 Lurasidone Hcl 80 Mg Tablet PO 80 mg BEDTIME RADHA Administration Metformin HCl 500 mg 01/10/21 21:00 01/10/21 19:51 Metformin Hcl Er 500 Mg Tab.Er.24h PO 500 mg BEDTIME RADHA Administration Morphine Sulfate 3 mg 01/10/21 12:34 Morphine Sulfate 4 Mg/Ml Cartridge IVPUSH Q4H PRN Pain, Severe (Pain Scale 7-10) Non-Formulary Medication 1 cap 01/11/21 09:00 Linaclotide [Linzess] PO DAILY [facility] Ondansetron HCl 4 mg 01/10/21 10:31 01/10/21 22:11 Ondansetron Hcl 4 Mg/2 Ml Vial IVPUSH 4 mg ONCE PRN Administration Nausea and Vomiting Ondansetron HCl 4 mg 01/10/21 12:50 Ondansetron Hcl 4 Mg/2 Ml Vial IVPUSH Q8H PRN Nausea Oxycodone HCl 5 mg 01/10/21 10:31 Oxycodone Hcl Immed Release 5 Mg Tablet PO ONCE PRN Pain, Severe (Pain Scale 7-10) Oxycodone HCl 10 mg 01/10/21 12:34 01/10/21 20:02 Oxycodone Hcl Immed Release 5 Mg Tablet PO 10 mg Q4H PRN Administration Pain, Moderate (Pain Scale 4-6 Assessment and Plan (1) Incisional hernia: Status: Acute Assessment and Plan: 60 year female with HLD, schizophrenia s/p incisional hernia repair, pod 1, doing well. continue currentl management and if discharge can resume all previous home meds, singing off. Thanks
--- NOTE | 2021-01-11 10:26 | MHC.CM.PN ---
PATIENT IS DISCHARGED TO HER MOTHER'S HOUSE ([address] [place] [address]) VIA [facility]. TRANSPORT SCHEDULED FOR 1100 TRANSPORT. [facility] TO RESUME SERVICES.
--- NOTE | 2021-01-11 10:31 | MHC.CM.PN ---
DC PAPERWORK FAXED TO [phone] PER CONVERSATION WITH TAMANNA OF [facility] ([phone])
--- NOTE | 2021-02-04 16:51 | PM.DS ---
DS: Providers Provider Date of Service: 01/11/21 Date of admission: 01/10/21 10:25 Primary care physician: Abel Mejía MD Consults: 01/10/21 12:55 Consult to Hospitalist Routine Consulting Provider: Hospitalist Reason For Exam: DM DS: Diagnosis Discharge Diagnosis (1) Incisional hernia: Status: Resolved Problem details: 61-year-old female who underwent elective repair of multiple incisional hernias with a large Ventralex mesh, on January 10, 2021. She tolerated the procedure well. She had schizophrenia and lives alone so I felt that she would not be good with self-care discharge. I therefore kept her overnight. She was started or regular diet postoperatively. She continued to do well during her postop course. On postop day 1, she continued to have good pain control. After discussions with the case loader operator, it was felt that she would be okay to go home to her mother temporarily. She was therefore discharged on 2020. At the time of her discharge, she was tolerating diet, had stable vital signs. DS: Medications Discharge Medications Home Medications: Home Medications Medication Instructions Recorded Confirmed aripiprazole 10 mg tablet 10 mg PO DAILY 07/31/20 01/23/21 clonazepam 1 mg tablet 1 mg PO BID PRN 07/31/20 01/23/21 clozapine 100 mg tablet 200 mg PO BEDTIME 07/31/20 01/23/21 clozapine 50 mg tablet 50 mg PO BEDTIME 07/31/20 01/23/21 lurasidone 80 mg tablet 80 mg PO BEDTIME 07/31/20 01/23/21 Linzess 1 cap PO DAILY 01/06/21 01/23/21 lactulose 10 g PO BEDTIME 01/06/21 01/23/21 Previous Rx's Medication Instructions Recorded atorvastatin 10 mg tablet 10 mg PO DAILY 90 Days #90 tab 08/19/20 hydrochlorothiazide 25 mg tablet 25 mg PO DAILY #90 tab 09/27/20 triamcinolone acetonide 0.1 % 1 appl TOPICAL BID 30 Days #30 g 10/01/20 topical cream calcium carbonate 500 mg calcium 500 mg PO BID #56 tab 10/22/20 (1,250 mg) tablet metformin 500 mg tablet,extended 500 mg PO BEDTIME #28 tab 10/22/20 release 24 hr polyethylene glycol 3350 17 17 g PO DAILY #510 g 11/21/20 gram/dose oral powder ibuprofen 600 mg PO Q6H PRN #30 tab 01/10/21 oxycodone-acetaminophen [Percocet] 1 - 2 tab PO Q4-6H PRN #30 tab 01/10/21 DS: Summary Time Spent with Patient Time attestation: Total time spent providing and/or coordinating discharge services: Discharge coordination time: Less than 30 minutes Quality: Stroke Does the patient have a stroke diagnosis?: No Physical Exam Vital Signs: Vital Signs: Last Vital Signs Temp 97.4 F 01/11/21 07:46 Pulse 88 01/11/21 07:46 Resp 19 01/11/21 07:46 BP 114/68 01/11/21 07:46 Pulse Ox 94 01/11/21 07:46 Body Mass Index 35.9 Const: General: comfortable and no acute distress Orientation/consciousness: patient oriented x3 Neck: Neck: Yes no lymphadenopathy Resp: Auscultation: clear to auscultation bilaterally Cardio: Rhythm: regular rhythm GI: Other: Incisions clean and dry Palpation (GI): Soft to palpation, nontender and no guarding Neuro: General: patient oriented x3 DS: Data Data Completed and Pending Completed studies during hospitalization [Text1]: Procedures Supplement Abdominal Wall with Synthetic Substitute, Open Approach (01/10/21) Discharge Plan Discharge Patient Disposition: Home Health Service Discharge Diagnosis: incisional hernias [facility]errals: [facility] [Outside] - 1 Week Abel Mejía MD [Primary Care Provider] - 1 Week Bassam Rubio MD [Physician] - 1 Week Discharge Medications: New ibuprofen 600 mg tablet 600 mg PO Q6H PRN (Reason: pain) Qty: 30 RF: 0 oxycodone-acetaminophen [Percocet] 5-325 mg tablet 1 - 2 tab PO Q4-6H PRN (Reason: pain) Qty: 30 RF: 0 Continued atorvastatin 10 mg tablet 10 mg PO DAILY 90 Days Qty: 90 RF: 3 hydrochlorothiazide 25 mg tablet 25 mg PO DAILY Qty: 90 RF: 1 calcium carbonate [Oyster Shell Calcium 500] 500 mg calcium (1,250 mg) tablet 500 mg PO BID Qty: 56 RF: 3 metformin 500 mg tablet extended release 24 hr 500 mg PO BEDTIME Qty: 28 RF: 3 polyethylene glycol 3350 17 gram/dose powder 17 g PO DAILY Qty: 510 RF: 12 lactulose 10 gram/15 mL Syrup 10 g PO BEDTIME RF: 0 Linzess 290 mcg capsule 1 cap PO DAILY RF: 0 triamcinolone acetonide 0.1 % cream 1 appl topical BID 30 Days Qty: 30 RF: 0 clozapine 50 mg tablet 50 mg PO BEDTIME RF: 0 aripiprazole 10 mg tablet 10 mg PO DAILY RF: 0 clonazepam 1 mg tablet 1 mg PO BID PRN (Reason: Anxiety) RF: 0 clozapine 100 mg tablet 200 mg PO BEDTIME RF: 0 lurasidone 80 mg tablet 80 mg PO BEDTIME RF: 0 Discharge Orders: Discharge Order (Routine); Ordered 01/11/21 Ordered By: Roman Price Diet: advance to usual diet Activity on Discharge: No heavy lifting Stand Alone Forms: Patient Portal Discharge page Activity Restrictions/Additional Instructions: If the incision area is tender, you may apply an ice pack for short intervals (No more than 20 minutes on, followed by at least 20 minutes off). Do not apply heat. Do not use creams, lotions, or topical antibiotics unless instructed to do so by your surgeon. These can cause infection or allergic reaction. OK to shower Ok to change dressings daily with gauze No lifting more than 15 lb No strenuous activities Call the office for follow-up in 2 weeks - with Dr. Rubio Call Your Doctor If: -Your temperature exceeds 101.5? F -You experience excessive pain or swelling -You have an unexpected reaction to medication -You have excessive bleeding -You experience continued vomiting/nausea -Your incision begins to separate -Your incision shows signs of infection such as increased redness, swelling, excessive pain, drainage (light blood or clear fluid is normal) or heat Care Plan Goals: pain management Health Concerns: diabetes control pain control Plan of Treatment: pain management blood sugar control ffup in office no lifting Assessment: doing well postop Discharge Date/Time: 01/11/21 11:15
== END 2021-01-11 11:15 | disposition home health service (06) | DRG 355 ==
LOC: HO.SSSA 12:48 → HO.S3 14:07
PROVIDERS: Admitting Provider Surgery; PCP Internal Medicine; Visit Provider Surgery
PROC: 0WUF0JZ Supplement Abdominal Wall with Synthetic Substitute, Open Approach (ICD-10-PCS; principal; 2021-01-10 11:30)
DX: K43.2 Incisional hernia without obstruction or gangrene (principal); Z20.822 Contact with and (suspected) exposure to COVID-19; Z79.899 Other long term (current) drug therapy
CPT/HCPCS: 36415; 82947; 87635; 93005; 99024; C1781; J0131; J0690; J1100; J2250; J2405; J3010

== ENCOUNTER → 2021-01-23 11:25 | Outpatient (BNVA) | payer MEDICARE, MEDICAID, SELFPAY | PROVIDERS: PCP Internal Medicine; Visit Provider Surgery | DX: Z48.815 Encounter for surgical aftercare following surgery on the digestive system (principal); Z87.19 Personal history of other diseases of the digestive system | CPT/HCPCS: 99212 ==

== ENCOUNTER 2021-02-10 08:59 | Outpatient (REF) | payer MEDICARE, MEDICAID, SELFPAY ==
[2021-02-10 09:52] LABS: Basophils Percent Auto 0.1 % (0-2); Hematocrit 37.9 % (37-47); Imm Gran Abs Auto 0.06 X10*3/uL (0.00-0.03); Imm Gran Pct Auto 0.4 % (0.0-0.4); Lymphocytes Absolute Auto 5.1 X10*3/uL (1.2-4.9); Lymphocytes Percent Auto 34.8 % (20-40); MANUAL DIFF FLAG SCAN; Mean Corpuscular HGB Conc 31.7 g/dl (31.0-35.0); Mean Corpuscular Hemoglobin 30.7 pg (27.0-33.0); Mean Corpuscular Volume 96.9 fL (80-98); Mean Platelet Volume 10.7 fL (9.4-12.3); Monocytes Absolute Auto 1.2 X10*3/uL (0.1-1.2); Monocytes Percent Auto 8.4 % (2-11); Neutrophils Absolute Auto 8.2 X10*3/uL (2.0-8.3); Neutrophils Percent Auto 56.3 % (45-73); Platelet Count 378 X10*3/uL (160-400); Red Blood Count 3.91 X10*6/uL (4.20-5.50); Red Cell Distribution Width 15.4 % (11.0-16.0); SCAN SMEAR FLAG 1; White Blood Count 14.6 X10*3/uL (4.8-10.8)
[2021-02-10 10:22] LABS: SLIDE REVIEW VERIFIED
== END 2021-02-10 09:00 | disposition home or self-care (01) ==
LOC: HO.LABR 08:59
PROVIDERS: PCP Internal Medicine; Visit Provider Psychiatry & Neurology Psychiatry
DX: Z79.899 Other long term (current) drug therapy (principal)
CPT/HCPCS: 36415; 85025

== ENCOUNTER 2021-03-10 08:05 | Outpatient (REF) | payer MEDICARE, MEDICAID, SELFPAY ==
[2021-03-10 08:36] LABS: MANUAL DIFF FLAG NO
[2021-03-10 08:39] LABS: Basophils Percent Auto 0.1 % (0-2); Hematocrit 38.1 % (37-47); Imm Gran Abs Auto 0.06 X10*3/uL (0.00-0.03); Imm Gran Pct Auto 0.4 % (0.0-0.4); Lymphocytes Absolute Auto 4.8 X10*3/uL (1.2-4.9); Lymphocytes Percent Auto 34.2 % (20-40); Mean Corpuscular HGB Conc 31.5 g/dl (31.0-35.0); Mean Corpuscular Hemoglobin 30.5 pg (27.0-33.0); Mean Corpuscular Volume 96.9 fL (80-98); Mean Platelet Volume 10.4 fL (9.4-12.3); Monocytes Absolute Auto 1.2 X10*3/uL (0.1-1.2); Monocytes Percent Auto 8.3 % (2-11); Neutrophils Absolute Auto 8.1 X10*3/uL (2.0-8.3); Platelet Count 422 X10*3/uL (160-400); Red Blood Count 3.93 X10*6/uL (4.20-5.50); Red Cell Distribution Width 15.3 % (11.0-16.0); White Blood Count 14.2 X10*3/uL (4.8-10.8)
== END 2021-03-10 08:06 | disposition home or self-care (01) ==
LOC: HO.LABR 08:05
PROVIDERS: PCP Internal Medicine; Visit Provider Psychiatry & Neurology Psychiatry
DX: Z79.899 Other long term (current) drug therapy (principal)
CPT/HCPCS: 36415; 85025

== ENCOUNTER 2021-04-14 07:28 | Outpatient (REF) | payer MEDICARE, MEDICAID, SELFPAY ==
[2021-04-14 09:01] LABS: MANUAL DIFF FLAG NO
[2021-04-14 09:12] LABS: Estimated Average Glucose 143 mg/dL; Hemoglobin A1c % 6.6 %
[2021-04-14 09:13] LABS: Basophils Percent Auto 0.3 % (0-2); Hematocrit 39.7 % (37-47); Hemoglobin 12.5 g/dl (12.0-16.0); Imm Gran Abs Auto 0.07 X10*3/uL (0.00-0.03); Imm Gran Pct Auto 0.5 % (0.0-0.4); Lymphocytes Absolute Auto 4.9 X10*3/uL (1.2-4.9); Lymphocytes Percent Auto 35.4 % (20-40); Mean Corpuscular HGB Conc 31.5 g/dl (31.0-35.0); Mean Corpuscular Hemoglobin 30.6 pg (27.0-33.0); Mean Corpuscular Volume 97.3 fL (80-98); Mean Platelet Volume 11.5 fL (9.4-12.3); Monocytes Percent Auto 7.3 % (2-11); Neutrophils Absolute Auto 7.8 X10*3/uL (2.0-8.3); Neutrophils Percent Auto 56.5 % (45-73); Platelet Count 371 X10*3/uL (160-400); Red Blood Count 4.08 X10*6/uL (4.20-5.50); Red Cell Distribution Width 15.1 % (11.0-16.0); White Blood Count 13.8 X10*3/uL (4.8-10.8)
[2021-04-14 09:39] LABS: Alanine Aminotransferase 22 U/L (0-31); Albumin Level 4.1 g/dL (3.5-5.0); Alkaline Phosphatase 127 U/L (39-117); Anion Gap 14 (12-20); Aspartate Amino Transferase 14 U/L (5-31); Bilirubin Total 0.3 mg/dL (0.0-1.0); Blood Urea Nitrogen 24 mg/dL (9-16); Calcium 9.2 mg/dL (8.4-10.2); Carbon Dioxide 30 mmol/L (22-29); Chloride 104 mmol/L (96-108); Cholesterol 176 mg/dL; Estimated Glomerular Filt Rate 54; Glucose Fasting 122 mg/dL (60-99); HDL Cholesterol 49 mg/dL; LDL Cholesterol Calculated 90 mg/dl; Potassium 4.1 mmol/L (3.3-5.1); Sodium 144 mmol/L (135-145); Triglycerides 187 mg/dL
[2021-04-14 09:41] LABS: TSH reflex Free T4 1.47 uIU/mL (0.32-4.0); Vitamin D 25-OH Total 34.8 ng/mL (>30)
== END 2021-04-14 07:29 | disposition home or self-care (01) ==
LOC: HO.LAB 07:28
PROVIDERS: Absent Provider Internal Medicine; PCP Internal Medicine; Visit Provider Internal Medicine
DX: D72.829 Elevated white blood cell count, unspecified (principal); K59.00 Constipation, unspecified; E78.00 Pure hypercholesterolemia, unspecified; E11.9 Type 2 diabetes mellitus without complications; E66.9 Obesity, unspecified; E55.9 Vitamin D deficiency, unspecified
CPT/HCPCS: 36415; 80053; 80061; 82306; 83036; 84443; 85025

== ENCOUNTER 2021-04-15 10:34 | Outpatient (REF) | payer MEDICARE, MEDICAID, SELFPAY ==
[2021-04-15 10:51] LABS: Glucose Urine UA NEG (NEG); Leukocyte Esterase Urine 2+ (NEG); Nitrite Urine POS (NEG); PH 7.5 (5.0-8.0); UACC Culture Trigger YES; Urine Blood TRACE (NEG); Urine Ketones NEG (NEG); Urine Protein NEG (NEG-TRACE)
[2021-04-15 10:53] LABS: Appearance Urine HAZY; Color Urine YELLOW
[2021-04-15 11:29] LABS: Bacteria Urine 4+ /LPF; RBC Urine 0-2 /HPF (0); Renal Epithelial Cells Urine TRACE /LPF; Squamous Epithelial Cell Urine TRACE /LPF
[2021-04-15 11:47] LABS: Creatinine Urine 78.57 mg/dL; Microalbum/Creatinine Ratio Ur 17.8 ug/mg cr
== END 2021-04-15 10:35 | disposition home or self-care (01) ==
LOC: HO.LNP 10:34
PROVIDERS: Visit Provider Internal Medicine
DX: E11.9 Type 2 diabetes mellitus without complications (principal)
CPT/HCPCS: 81001; 82043

== ENCOUNTER 2021-05-06 08:25 | Outpatient (REF) | payer MEDICARE, MEDICAID, SELFPAY ==
[2021-05-06 09:34] LABS: Basophils Percent Auto 0.2 % (0-2); Hematocrit 39.1 % (37-47); Hemoglobin 12.4 g/dl (12.0-16.0); Imm Gran Abs Auto 0.08 X10*3/uL (0.00-0.03); Imm Gran Pct Auto 0.5 % (0.0-0.4); Lymphocytes Absolute Auto 5.5 X10*3/uL (1.2-4.9); MANUAL DIFF FLAG SCAN; Mean Corpuscular HGB Conc 31.7 g/dl (31.0-35.0); Mean Corpuscular Hemoglobin 30.8 pg (27.0-33.0); Mean Corpuscular Volume 97.3 fL (80-98); Mean Platelet Volume 11.4 fL (9.4-12.3); Monocytes Absolute Auto 1.1 X10*3/uL (0.1-1.2); Monocytes Percent Auto 6.7 % (2-11); Neutrophils Percent Auto 57.6 % (45-73); Platelet Count 368 X10*3/uL (160-400); Red Blood Count 4.02 X10*6/uL (4.20-5.50); Red Cell Distribution Width 14.9 % (11.0-16.0); SCAN SMEAR FLAG 1; White Blood Count 15.6 X10*3/uL (4.8-10.8)
[2021-05-06 10:11] LABS: SLIDE REVIEW VERIFIED
== END 2021-05-06 08:26 | disposition home or self-care (01) ==
LOC: HO.LABR 08:25
PROVIDERS: PCP Internal Medicine; Visit Provider Psychiatry & Neurology Psychiatry
DX: Z79.899 Other long term (current) drug therapy (principal)
CPT/HCPCS: 36415; 85025

== ENCOUNTER 2021-05-21 11:29 | Outpatient (REF) | payer MEDICARE, MEDICAID, SELFPAY ==
--- NOTE | ~2021-05-21 | MM_ITS ---
EXAMINATION: MM SCREENING DIGITAL BREAST TOMOSYNTHESIS, BILATERAL CLINICAL INFORMATION: Screening. Asymptomatic. The lifetime risk of breast cancer based on the Tyrer-Cuzick Model is 6.1%. COMPARISON: Mammography: September 12, 2018 and studies dating back to May 29, 2015 TECHNIQUE: Digital breast tomosynthesis is performed in both the craniocaudal and mediolateral oblique views along with computer-aided detection (CAD). Synthesized 2D images are generated from the tomosynthesis. Additional exaggerated craniocaudal view left breast performed. FINDINGS: The breasts are extremely dense, which lowers the sensitivity of mammography (ACR BI-RADS breast composition Category d). There are again noted to be prominent retroareolar ducts. There are some bilateral circumscribed densities again noted. MM/MM tomosynthesis screening BI IMPRESSION: There are no significant changes from prior study. ASSESSMENT: BI-RADS 2: Benign RECOMMENDATION: Routine annual mammography screening. This patient's information was entered into a reminder system with a target due date for their next mammogram.
== END 2021-05-21 11:30 | disposition home or self-care (01) ==
LOC: HO.MAMMO 11:29
PROVIDERS: PCP Internal Medicine; Visit Provider Nurse Practitioner Family
DX: Z12.31 Encounter for screening mammogram for malignant neoplasm of breast (principal)
CPT/HCPCS: 77063; 77067

== ENCOUNTER 2021-06-02 07:20 | Outpatient (REF) | payer MEDICARE, MEDICAID, SELFPAY ==
[2021-06-02 08:30] LABS: Basophils Percent Auto 0.2 % (0-2); Hematocrit 38.3 % (37-47); Hemoglobin 12.3 g/dl (12.0-16.0); Imm Gran Abs Auto 0.05 X10*3/uL (0.00-0.03); Imm Gran Pct Auto 0.4 % (0.0-0.4); Lymphocytes Absolute Auto 5.2 X10*3/uL (1.2-4.9); Lymphocytes Percent Auto 36.7 % (20-40); MANUAL DIFF FLAG SCAN; Mean Corpuscular HGB Conc 32.1 g/dl (31.0-35.0); Mean Corpuscular Hemoglobin 31.2 pg (27.0-33.0); Mean Corpuscular Volume 97.2 fL (80-98); Mean Platelet Volume 11.7 fL (9.4-12.3); Monocytes Absolute Auto 1.2 X10*3/uL (0.1-1.2); Monocytes Percent Auto 8.2 % (2-11); Neutrophils Absolute Auto 7.7 X10*3/uL (2.0-8.3); Neutrophils Percent Auto 54.5 % (45-73); Platelet Count 365 X10*3/uL (160-400); Red Blood Count 3.94 X10*6/uL (4.20-5.50); SCAN SMEAR FLAG 1; White Blood Count 14.1 X10*3/uL (4.8-10.8)
== END 2021-06-02 07:21 | disposition home or self-care (01) ==
LOC: HO.LABR 07:20
PROVIDERS: PCP Internal Medicine; Visit Provider Psychiatry & Neurology Psychiatry
DX: Z79.899 Other long term (current) drug therapy (principal)
CPT/HCPCS: 36415; 85025

== ENCOUNTER 2021-06-30 07:31 | Outpatient (REF) | payer MEDICARE, MEDICAID, SELFPAY ==
[2021-06-30 07:58] LABS: MANUAL DIFF FLAG NO
[2021-06-30 08:46] LABS: Basophils Percent Auto 0.1 % (0-2); Hematocrit 37.4 % (37.0-47.0); Hemoglobin 12.1 g/dl (12.0-16.0); Imm Gran Abs Auto 0.07 X10*3/uL (0.00-0.03); Imm Gran Pct Auto 0.4 % (0.0-0.4); Lymphocytes Absolute Auto 4.8 X10*3/uL (1.2-4.9); Lymphocytes Percent Auto 30.2 % (20-40); Mean Corpuscular HGB Conc 32.4 g/dl (31.0-35.0); Mean Corpuscular Hemoglobin 31.1 pg (27.0-33.0); Mean Corpuscular Volume 96.1 fL (80.0-98.0); Mean Platelet Volume 11.2 fL (9.4-12.3); Monocytes Absolute Auto 1.2 X10*3/uL (0.1-1.2); Monocytes Percent Auto 7.6 % (2-11); Neutrophils Absolute Auto 9.83 x10*3/uL (2.0-8.3); Neutrophils Percent Auto 61.7 % (45-73); Platelet Count 379 X10*3/uL (160-400); Red Blood Count 3.89 X10*6/uL (4.20-5.50); Red Cell Distribution Width 15.3 % (11.0-16.0)
[2021-06-30 08:54] LABS: Estimated Average Glucose 146 mg/dL; Hemoglobin A1c % 6.7 %
[2021-06-30 09:16] LABS: Alanine Aminotransferase 30 U/L (0-31); Albumin Level 4.2 g/dL (3.5-5.0); Alkaline Phosphatase 132 U/L (39-117); Anion Gap 14 (12-20); Aspartate Amino Transferase 18 U/L (5-31); Bilirubin Total 0.6 mg/dL (0.0-1.0); Blood Urea Nitrogen 22 mg/dL (9-16); Calcium 9.3 mg/dL (8.4-10.2); Carbon Dioxide 31 mmol/L (22-29); Chloride 102 mmol/L (96-108); Cholesterol 179 mg/dL; Estimated Glomerular Filt Rate 59; Glucose Fasting 131 mg/dL (60-99); HDL Cholesterol 47 mg/dL; LDL Cholesterol Calculated 96 mg/dl; Potassium 3.7 mmol/L (3.3-5.1); Sodium 143 mmol/L (135-145); Triglycerides 182 mg/dL
[2021-06-30 09:31] LABS: TSH reflex Free T4 1.85 uIU/mL (0.32-4.0); Vitamin D 25-OH Total 33.1 ng/mL (>30)
[2021-06-30 09:35] LABS: Appearance Urine HAZY; Color Urine YELLOW; Glucose Urine UA NEG (NEG); Leukocyte Esterase Urine 1+ (NEG); Nitrite Urine POS (NEG); UACC Culture Trigger YES; Urine Blood NEG (NEG); Urine Ketones NEG (NEG); Urine Protein NEG (NEG-TRACE)
[2021-06-30 10:01] LABS: Creatinine Urine 54.48 mg/dL
[2021-06-30 10:54] LABS: Bacteria Urine 2+ /LPF; Mucus Urine 1+ /LPF; RBC Urine 0 /HPF (0); Squamous Epithelial Cell Urine 1+ /LPF
== END 2021-06-30 07:32 | disposition home or self-care (01) ==
LOC: HO.LAB 07:31
PROVIDERS: Absent Provider Psychiatry & Neurology Psychiatry; PCP Internal Medicine; Visit Provider Internal Medicine
DX: E11.9 Type 2 diabetes mellitus without complications (principal); E78.00 Pure hypercholesterolemia, unspecified; I10 Essential (primary) hypertension; E55.9 Vitamin D deficiency, unspecified; Z79.899 Other long term (current) drug therapy
CPT/HCPCS: 36415; 80053; 80061; 81001; 82043; 82306; 83036; 84443; 85025; 87086; 87088; 87186

== ENCOUNTER 2021-08-05 08:33 | Outpatient (REF) | payer MEDICARE, MEDICAID, SELFPAY ==
[2021-08-05 08:46] LABS: MANUAL DIFF FLAG NO
[2021-08-05 08:58] LABS: Basophils Percent Auto 0.2 % (0-2); Hemoglobin 12.2 g/dl (12.0-16.0); Imm Gran Abs Auto 0.06 X10*3/uL (0.00-0.03); Imm Gran Pct Auto 0.4 % (0.0-0.4); Lymphocytes Percent Auto 26.1 % (20-40); Mean Corpuscular HGB Conc 32.1 g/dl (31.0-35.0); Mean Corpuscular Volume 96.7 fL (80.0-98.0); Mean Platelet Volume 10.8 fL (9.4-12.3); Monocytes Absolute Auto 1.1 X10*3/uL (0.1-1.2); Monocytes Percent Auto 7.3 % (2-11); Platelet Count 353 X10*3/uL (160-400); Red Blood Count 3.93 X10*6/uL (4.20-5.50); Red Cell Distribution Width 14.7 % (11.0-16.0); White Blood Count 15.2 X10*3/uL (4.8-10.8)
== END 2021-08-05 08:34 | disposition home or self-care (01) ==
LOC: HO.LAB 08:33
PROVIDERS: PCP Internal Medicine; Visit Provider Psychiatry & Neurology Psychiatry
DX: Z79.899 Other long term (current) drug therapy (principal)
CPT/HCPCS: 36415; 85025

== ENCOUNTER 2021-09-04 08:33 | Outpatient (REF) | payer MEDICARE, MEDICAID, SELFPAY ==
[2021-09-04 08:54] LABS: MANUAL DIFF FLAG NO
[2021-09-04 09:11] LABS: Basophils Percent Auto 0.1 % (0-2); Hematocrit 38.3 % (37.0-47.0); Hemoglobin 12.1 g/dl (12.0-16.0); Imm Gran Abs Auto 0.06 X10*3/uL (0.00-0.03); Imm Gran Pct Auto 0.4 % (0.0-0.4); Lymphocytes Absolute Auto 4.5 X10*3/uL (1.2-4.9); Lymphocytes Percent Auto 32.4 % (20-40); Mean Corpuscular HGB Conc 31.6 g/dl (31.0-35.0); Mean Corpuscular Hemoglobin 30.9 pg (27.0-33.0); Mean Corpuscular Volume 97.7 fL (80.0-98.0); Mean Platelet Volume 10.9 fL (9.4-12.3); Monocytes Absolute Auto 0.9 X10*3/uL (0.1-1.2); Monocytes Percent Auto 6.8 % (2-11); Neutrophils Absolute Auto 8.3 x10*3/uL (2.0-8.3); Neutrophils Percent Auto 60.3 % (45-73); Platelet Count 361 X10*3/uL (160-400); Red Blood Count 3.92 X10*6/uL (4.20-5.50); White Blood Count 13.8 X10*3/uL (4.8-10.8)
== END 2021-09-04 08:34 | disposition home or self-care (01) ==
LOC: HO.LABR 08:33
PROVIDERS: PCP Internal Medicine; Visit Provider Psychiatry & Neurology Psychiatry
DX: Z79.899 Other long term (current) drug therapy (principal)
CPT/HCPCS: 36415; 85025

== ENCOUNTER 2021-10-06 08:38 | Outpatient (REF) | payer MEDICARE, MEDICAID, SELFPAY ==
[2021-10-06 09:07] LABS: MANUAL DIFF FLAG NO
[2021-10-06 09:13] LABS: Basophils Percent Auto 0.2 % (0-2); Hematocrit 37.1 % (37.0-47.0); Hemoglobin 11.9 g/dl (12.0-16.0); Imm Gran Abs Auto 0.05 X10*3/uL (0.00-0.03); Imm Gran Pct Auto 0.4 % (0.0-0.4); Lymphocytes Absolute Auto 4.7 X10*3/uL (1.2-4.9); Lymphocytes Percent Auto 35.9 % (20-40); Mean Corpuscular HGB Conc 32.1 g/dl (31.0-35.0); Mean Corpuscular Hemoglobin 31.5 pg (27.0-33.0); Mean Corpuscular Volume 98.1 fL (80.0-98.0); Mean Platelet Volume 11.1 fL (9.4-12.3); Monocytes Percent Auto 7.9 % (2-11); Neutrophils Absolute Auto 7.3 x10*3/uL (2.0-8.3); Neutrophils Percent Auto 55.6 % (45-73); Platelet Count 355 X10*3/uL (160-400); Red Blood Count 3.78 X10*6/uL (4.20-5.50); Red Cell Distribution Width 15.1 % (11.0-16.0); White Blood Count 13.2 X10*3/uL (4.8-10.8)
== END 2021-10-06 08:39 | disposition home or self-care (01) ==
LOC: HO.LABR 08:38
PROVIDERS: PCP Internal Medicine; Visit Provider Psychiatry & Neurology Psychiatry
DX: Z79.899 Other long term (current) drug therapy (principal)
CPT/HCPCS: 36415; 85025

== ENCOUNTER 2021-11-04 08:42 | Outpatient (REF) | payer MEDICARE, MEDICAID, SELFPAY ==
[2021-11-04 09:09] LABS: MANUAL DIFF FLAG NO
[2021-11-04 10:02] LABS: Basophils Percent Auto 0.2 % (0-2); Hematocrit 36.7 % (37.0-47.0); Hemoglobin 11.4 g/dl (12.0-16.0); Imm Gran Abs Auto 0.05 X10*3/uL (0.00-0.03); Imm Gran Pct Auto 0.4 % (0.0-0.4); Lymphocytes Percent Auto 31.5 % (20-40); Mean Corpuscular HGB Conc 31.1 g/dl (31.0-35.0); Mean Corpuscular Hemoglobin 30.7 pg (27.0-33.0); Mean Corpuscular Volume 98.9 fL (80.0-98.0); Mean Platelet Volume 11.2 fL (9.4-12.3); Monocytes Absolute Auto 0.9 X10*3/uL (0.1-1.2); Neutrophils Absolute Auto 7.7 x10*3/uL (2.0-8.3); Neutrophils Percent Auto 60.9 % (45-73); Platelet Count 350 X10*3/uL (160-400); Red Blood Count 3.71 X10*6/uL (4.20-5.50); Red Cell Distribution Width 15.2 % (11.0-16.0); White Blood Count 12.6 X10*3/uL (4.8-10.8)
== END 2021-11-04 08:43 | disposition home or self-care (01) ==
LOC: HO.LABR 08:42
PROVIDERS: PCP Internal Medicine; Visit Provider Psychiatry & Neurology Psychiatry
DX: Z79.899 Other long term (current) drug therapy (principal)
CPT/HCPCS: 36415; 85025

== ENCOUNTER 2021-12-08 08:54 | Outpatient (REF) | payer MEDICARE, MEDICAID, SELFPAY ==
[2021-12-08 09:14] LABS: MANUAL DIFF FLAG NO
[2021-12-08 09:41] LABS: Basophils Percent Auto 0.2 % (0-2); Hematocrit 37.5 % (37.0-47.0); Hemoglobin 12.1 g/dl (12.0-16.0); Imm Gran Abs Auto 0.06 X10*3/uL (0.00-0.03); Imm Gran Pct Auto 0.3 % (0.0-0.4); Lymphocytes Absolute Auto 4.9 X10*3/uL (1.2-4.9); Lymphocytes Percent Auto 28.3 % (20-40); Mean Corpuscular HGB Conc 32.3 g/dl (31.0-35.0); Mean Corpuscular Hemoglobin 31.3 pg (27.0-33.0); Mean Corpuscular Volume 96.9 fL (80.0-98.0); Mean Platelet Volume 11.3 fL (9.4-12.3); Monocytes Absolute Auto 1.1 X10*3/uL (0.1-1.2); Monocytes Percent Auto 6.5 % (2-11); Neutrophils Absolute Auto 11.2 x10*3/uL (2.0-8.3); Neutrophils Percent Auto 64.7 % (45-73); Platelet Count 354 X10*3/uL (160-400); Red Blood Count 3.87 X10*6/uL (4.20-5.50); Red Cell Distribution Width 14.9 % (11.0-16.0); White Blood Count 17.3 X10*3/uL (4.8-10.8)
== END 2021-12-08 08:55 | disposition home or self-care (01) ==
LOC: HO.LABR 08:54
PROVIDERS: PCP Internal Medicine; Visit Provider Psychiatry & Neurology Psychiatry
DX: Z79.899 Other long term (current) drug therapy (principal)
CPT/HCPCS: 36415; 85025

== ENCOUNTER 2022-01-01 07:43 | Outpatient (REF) | payer MEDICARE, MEDICAID, SELFPAY ==
[2022-01-01 08:33] LABS: Basophils Percent Auto 0.2 % (0-2); Hematocrit 36.7 % (37.0-47.0); Imm Gran Abs Auto 0.06 X10*3/uL (0.00-0.03); Imm Gran Pct Auto 0.4 % (0.0-0.4); Lymphocytes Absolute Auto 2.5 X10*3/uL (1.2-4.9); Lymphocytes Percent Auto 17.8 % (20-40); MANUAL DIFF FLAG SCAN; Mean Corpuscular HGB Conc 32.7 g/dl (31.0-35.0); Mean Corpuscular Hemoglobin 31.2 pg (27.0-33.0); Mean Corpuscular Volume 95.3 fL (80.0-98.0); Mean Platelet Volume 11.1 fL (9.4-12.3); Monocytes Absolute Auto 1.9 X10*3/uL (0.1-1.2); Monocytes Percent Auto 13.7 % (2-11); Neutrophils Absolute Auto 9.4 x10*3/uL (2.0-8.3); Neutrophils Percent Auto 67.9 % (45-73); Platelet Count 352 X10*3/uL (160-400); Red Blood Count 3.85 X10*6/uL (4.20-5.50); Red Cell Distribution Width 14.9 % (11.0-16.0); SCAN SMEAR FLAG 1; White Blood Count 13.8 X10*3/uL (4.8-10.8)
[2022-01-01 08:40] LABS: Estimated Average Glucose 137 mg/dL; Hemoglobin A1c % 6.4 %
[2022-01-01 09:07] LABS: Alanine Aminotransferase 23 U/L (0-31); Albumin Level 3.9 g/dL (3.5-5.0); Alkaline Phosphatase 115 U/L (39-117); Anion Gap 15 (12-20); Aspartate Amino Transferase 18 U/L (5-31); Bilirubin Total 0.4 mg/dL (0.0-1.0); Blood Urea Nitrogen 25 mg/dL (9-16); Calcium 9.2 mg/dL (8.4-10.2); Carbon Dioxide 27 mmol/L (22-29); Chloride 103 mmol/L (96-108); Cholesterol 160 mg/dL; Estimated Glomerular Filt Rate 52; Glucose Fasting 128 mg/dL (60-99); HDL Cholesterol 47 mg/dL; LDL Cholesterol Calculated 92 mg/dl; Potassium 3.7 mmol/L (3.3-5.1); Sodium 141 mmol/L (135-145); Total Protein 6.7 g/dL (6.5-8.0); Triglycerides 108 mg/dL
[2022-01-01 09:19] LABS: SLIDE REVIEW VERIFIED
[2022-01-01 09:20] LABS: TSH reflex Free T4 0.77 uIU/mL (0.32-4.0); Vitamin D 25-OH Total 32.9 ng/mL (>30)
== END 2022-01-01 07:44 | disposition home or self-care (01) ==
LOC: HO.LAB 07:43
PROVIDERS: Absent Provider Internal Medicine; PCP Internal Medicine; Visit Provider Psychiatry & Neurology Psychiatry
DX: K59.00 Constipation, unspecified (principal); E11.9 Type 2 diabetes mellitus without complications; I10 Essential (primary) hypertension; E55.9 Vitamin D deficiency, unspecified; E78.00 Pure hypercholesterolemia, unspecified
CPT/HCPCS: 36415; 80053; 80061; 82306; 83036; 84443; 85025

== ENCOUNTER 2022-02-05 07:37 | Outpatient (REF) | payer MEDICARE, MEDICAID, SELFPAY ==
[2022-02-05 07:56] LABS: MANUAL DIFF FLAG NO
[2022-02-05 08:42] LABS: Basophils Percent Auto 0.2 % (0-2); Hematocrit 37.2 % (37.0-47.0); Hemoglobin 11.8 g/dl (12.0-16.0); Imm Gran Abs Auto 0.05 X10*3/uL (0.00-0.03); Imm Gran Pct Auto 0.4 % (0.0-0.4); Lymphocytes Absolute Auto 4.9 X10*3/uL (1.2-4.9); Lymphocytes Percent Auto 40.7 % (20-40); Mean Corpuscular HGB Conc 31.7 g/dl (31.0-35.0); Mean Corpuscular Hemoglobin 31.1 pg (27.0-33.0); Mean Corpuscular Volume 98.2 fL (80.0-98.0); Mean Platelet Volume 11.3 fL (9.4-12.3); Monocytes Absolute Auto 0.9 X10*3/uL (0.1-1.2); Monocytes Percent Auto 7.4 % (2-11); Neutrophils Absolute Auto 6.2 x10*3/uL (2.0-8.3); Neutrophils Percent Auto 51.3 % (45-73); Platelet Count 349 X10*3/uL (160-400); Red Blood Count 3.79 X10*6/uL (4.20-5.50); Red Cell Distribution Width 14.8 % (11.0-16.0); White Blood Count 12.1 X10*3/uL (4.8-10.8)
== END 2022-02-05 07:38 | disposition home or self-care (01) ==
LOC: HO.LABR 07:37
PROVIDERS: PCP Internal Medicine; Visit Provider Psychiatry & Neurology Psychiatry
DX: Z79.899 Other long term (current) drug therapy (principal)
CPT/HCPCS: 36415; 85025

== ENCOUNTER 2022-03-05 11:51 | Outpatient (REF) | payer MEDICARE, MEDICAID, SELFPAY ==
[2022-03-05 12:03] LABS: MANUAL DIFF FLAG NO
[2022-03-05 12:37] LABS: Basophils Percent Auto 0.2 % (0-2); Hematocrit 36.5 % (37.0-47.0); Hemoglobin 11.6 g/dl (12.0-16.0); Imm Gran Abs Auto 0.07 X10*3/uL (0.00-0.03); Imm Gran Pct Auto 0.5 % (0.0-0.4); Lymphocytes Percent Auto 30.1 % (20-40); Mean Corpuscular HGB Conc 31.8 g/dl (31.0-35.0); Mean Corpuscular Hemoglobin 30.7 pg (27.0-33.0); Mean Corpuscular Volume 96.6 fL (80.0-98.0); Mean Platelet Volume 11.3 fL (9.4-12.3); Monocytes Absolute Auto 0.8 X10*3/uL (0.1-1.2); Monocytes Percent Auto 6.1 % (2-11); Neutrophils Absolute Auto 8.4 x10*3/uL (2.0-8.3); Neutrophils Percent Auto 63.1 % (45-73); Platelet Count 394 X10*3/uL (160-400); Red Blood Count 3.78 X10*6/uL (4.20-5.50); Red Cell Distribution Width 14.6 % (11.0-16.0); White Blood Count 13.4 X10*3/uL (4.8-10.8)
== END 2022-03-05 11:52 | disposition home or self-care (01) ==
LOC: HO.LABR 11:51
PROVIDERS: PCP Internal Medicine; Visit Provider Psychiatry & Neurology Psychiatry
DX: Z79.899 Other long term (current) drug therapy (principal)
CPT/HCPCS: 36415; 85025

== ENCOUNTER 2022-04-02 08:39 | Outpatient (REF) | payer MEDICARE, MEDICAID, SELFPAY ==
[2022-04-02 09:00] LABS: MANUAL DIFF FLAG NO
[2022-04-02 09:42] LABS: Basophils Percent Auto 0.3 % (0-2); Hematocrit 36.8 % (37.0-47.0); Hemoglobin 11.5 g/dl (12.0-16.0); Imm Gran Abs Auto 0.06 X10*3/uL (0.00-0.03); Imm Gran Pct Auto 0.5 % (0.0-0.4); Lymphocytes Absolute Auto 4.4 X10*3/uL (1.2-4.9); Lymphocytes Percent Auto 37.5 % (20-40); Mean Corpuscular HGB Conc 31.3 g/dl (31.0-35.0); Mean Corpuscular Hemoglobin 30.4 pg (27.0-33.0); Mean Corpuscular Volume 97.4 fL (80.0-98.0); Mean Platelet Volume 11.1 fL (9.4-12.3); Monocytes Absolute Auto 1.5 X10*3/uL (0.1-1.2); Monocytes Percent Auto 12.4 % (2-11); Neutrophils Absolute Auto 5.8 x10*3/uL (2.0-8.3); Neutrophils Percent Auto 49.3 % (45-73); Platelet Count 341 X10*3/uL (160-400); Red Blood Count 3.78 X10*6/uL (4.20-5.50); White Blood Count 11.7 X10*3/uL (4.8-10.8)
== END 2022-04-02 08:40 | disposition home or self-care (01) ==
LOC: HO.LAB 08:39
PROVIDERS: PCP Internal Medicine; Visit Provider Psychiatry & Neurology Psychiatry
DX: Z79.899 Other long term (current) drug therapy (principal)
CPT/HCPCS: 36415; 85025

== ENCOUNTER 2022-04-11 07:07 | Outpatient (REF) | payer MEDICARE, MEDICAID, SELFPAY ==
[2022-04-11 07:55] LABS: Basophils Percent Auto 0.2 % (0-2); Eosinophils Percent Auto 0.1 % (0-4); Hematocrit 37.9 % (37.0-47.0); Hemoglobin 12.2 g/dl (12.0-16.0); Imm Gran Abs Auto 0.05 X10*3/uL (0.00-0.03); Imm Gran Pct Auto 0.3 % (0.0-0.4); Lymphocytes Absolute Auto 5.1 X10*3/uL (1.2-4.9); Lymphocytes Percent Auto 32.5 % (20-40); MANUAL DIFF FLAG SCAN; Mean Corpuscular HGB Conc 32.2 g/dl (31.0-35.0); Mean Corpuscular Hemoglobin 31.2 pg (27.0-33.0); Mean Corpuscular Volume 96.9 fL (80.0-98.0); Mean Platelet Volume 10.9 fL (9.4-12.3); Monocytes Absolute Auto 1.1 X10*3/uL (0.1-1.2); Monocytes Percent Auto 7.2 % (2-11); Neutrophils Absolute Auto 9.3 x10*3/uL (2.0-8.3); Neutrophils Percent Auto 59.7 % (45-73); Platelet Count 380 X10*3/uL (160-400); Red Blood Count 3.91 X10*6/uL (4.20-5.50); Red Cell Distribution Width 14.8 % (11.0-16.0); SCAN SMEAR FLAG 1; White Blood Count 15.6 X10*3/uL (4.8-10.8)
[2022-04-11 08:04] LABS: Estimated Average Glucose 131 mg/dL; Hemoglobin A1c % 6.2 %
[2022-04-11 08:16] LABS: Alanine Aminotransferase 37 U/L (0-31); Albumin Level 4.1 g/dL (3.5-5.0); Alkaline Phosphatase 137 U/L (39-117); Anion Gap 15 (12-20); Aspartate Amino Transferase 21 U/L (5-31); Bilirubin Total 0.5 mg/dL (0.0-1.0); Blood Urea Nitrogen 25 mg/dL (9-16); Calcium 8.9 mg/dL (8.4-10.2); Carbon Dioxide 31 mmol/L (22-29); Chloride 100 mmol/L (96-108); Cholesterol 185 mg/dL; Estimated Glomerular Filt Rate > 60; Glucose Fasting 123 mg/dL (60-99); HDL Cholesterol 52 mg/dL; LDL Cholesterol Calculated 97 mg/dl; Potassium 3.4 mmol/L (3.3-5.1); Sodium 143 mmol/L (135-145); Triglycerides 181 mg/dL
[2022-04-11 08:37] LABS: TSH reflex Free T4 1.94 uIU/mL (0.32-4.0); Vitamin D 25-OH Total 27.4 ng/mL (>30)
[2022-04-11 08:43] LABS: SLIDE REVIEW VERIFIED
[2022-04-11 10:02] LABS: Appearance Urine HAZY; Color Urine YELLOW; Glucose Urine UA NEG (NEG); Leukocyte Esterase Urine 1+ (NEG); Nitrite Urine NEG (NEG); UACC Culture Trigger YES; Urine Blood TRACE (NEG); Urine Ketones NEG (NEG); Urine Protein NEG (NEG-TRACE)
[2022-04-11 10:25] LABS: Microalbum/Creatinine Ratio Ur 9.9 ug/mg cr
[2022-04-11 10:53] LABS: Bacteria Urine 4+ /LPF; RBC Urine 0 /HPF (0); Renal Epithelial Cells Urine 1+ /LPF; Squamous Epithelial Cell Urine 2+ /LPF
== END 2022-04-11 07:08 | disposition home or self-care (01) ==
LOC: HO.LAB 07:07
PROVIDERS: PCP Internal Medicine; Visit Provider Internal Medicine
DX: E78.00 Pure hypercholesterolemia, unspecified (principal); E11.9 Type 2 diabetes mellitus without complications; E55.9 Vitamin D deficiency, unspecified; I10 Essential (primary) hypertension
CPT/HCPCS: 36415; 80053; 80061; 81001; 81003; 82043; 82306; 83036; 84443; 85025; 87086; 87088; 87186

== ENCOUNTER 2022-05-03 15:04 | Emergency (ER) | payer MEDICARE, MEDICAID, SELFPAY ==
[2022-05-03 15:28] VITALS: BP 138/90; PULSE 112; O2SAT 96
[2022-05-03 15:51] VITALS: BP 128/79; PULSE 97; RESP 20; TEMP 36.5; O2SAT 97; BMI 37.2
--- NOTE | 2022-05-03 18:41 | ED.EYEPROB ---
HPI - Eye Problem General Chief complaint: Eye Problems Stated complaint: L eye pain Time Seen by Provider: 05/03/22 18:41 Source: patient Mode of arrival: ambulatory Limitations: no limitations History of Present Illness HPI Narrative: Patient noticed purulent discharge from the left eye since yesterday getting worse with reaching thinks that something bit her in her eye with no swelling of the lid her right is also slightly red but no significant discharge no fever no chills no sore throat no other family member with same symptoms Related Data Home Medications Medication Instructions Recorded Confirmed aripiprazole 10 mg tablet 10 mg PO DAILY 07/31/20 01/23/22 clonazepam 1 mg tablet 1 mg PO BID PRN Anxiety 07/31/20 01/23/22 lurasidone 80 mg tablet 80 mg PO BEDTIME 07/31/20 01/23/22 furosemide 40 mg tablet 40 mg PO DAILY 11/18/21 01/23/22 Previous Rx's Medication Instructions Recorded polyethylene glycol 3350 17 17 g PO DAILY #510 grams 11/21/20 gram/dose oral powder ibuprofen 600 mg tablet 600 mg PO Q6H PRN pain #30 tabs 01/10/21 lancets 28 gauge (FreeStyle 28 gauge topical BID #100 caps 04/10/21 Lancets) nystatin 100,000 unit/gram topical 1 appl topical BID #60 grams 05/22/21 powder (Nystop) triamcinolone acetonide 0.1 % 1 appl topical BID 2 weeks #30 07/08/21 topical cream grams meclizine 12.5 mg tablet 12.5 mg PO TID PRN dizziness 30 07/16/21 days #90 tabs mometasone 0.1 % topical cream 1 appl topical DAILY PRN skin 07/18/21 irritation #45 grams bisacodyl 10 mg/30 mL enema (Fleet 10 mg (30 mL) CO DAILY PRN 08/01/21 Bisacodyl) constipation #888 mL hydrocortisone 1 % topical cream 1 appl topical TID PRN skin 08/01/21 (Anti-Itch (hydrocortisone)) irritation #28.4 grams cephalexin 500 mg tablet 500 mg PO Q12H 7 days #14 tabs 11/18/21 blood sugar diagnostic (FreeStyle #100 strips 12/01/21 Lite Strips) clozapine 100 mg tablet 200 mg PO BEDTIME 30 days #60 tabs 12/30/21 clozapine 50 mg tablet 50 mg PO BEDTIME 30 days #30 tabs 12/30/21 lactulose 10 gram/15 mL oral 10 g (15 mL) PO BEDTIME PRN 01/01/22 solution constipation #237 mL metformin 500 mg tablet,extended 500 mg PO BEDTIME #90 tabs 01/13/22 release 24 hr calcium carbonate 500 mg calcium 500 mg PO BID #56 tabs 02/10/22 (1,250 mg) tablet (Oyster Shell Calcium 500) atorvastatin 10 mg tablet 10 mg PO DAILY #28 tabs 03/10/22 hydrochlorothiazide 25 mg tablet 25 mg PO DAILY 30 days #30 tabs 03/10/22 amoxicillin 500 mg capsule 500 mg PO Q8H 7 days #21 caps 04/30/22 tobramycin 0.3 % eye drops 2 drp ophthalmic (eye) Q4H #5 mL 05/03/22 Allergies Allergy/AdvReac Type Severity Reaction Status Date / Time haloperidol [From HALDOL] Allergy Intermediate RASH,ACNE Verified 01/23/22 09:12 lithium [LITHIUM] Allergy Intermediate RASH,ACNE Verified 01/23/22 09:12 simvastatin Allergy Intermediate headaches Verified 01/23/22 09:12 risperidone [From Risperdal] Allergy Unknown Verified 01/23/22 09:12 furosemide AdvReac Intermediate rash Verified 01/23/22 09:12 hydroxyzine AdvReac Intermediate rash Verified 01/23/22 09:12 Review of Systems Review of Systems: Yes all other systems are reviewed and are negative PMFSH Past Medical History Medical History Constipation Diabetes mellitus type 2, controlled, without complications Incisional hernia Leukocytosis Obesity (BMI 30-39.9) Primary osteoarthritis of both knees Pure hypercholesterolemia Pyuria Schizophrenia Screening for breast cancer Stasis edema of both lower extremities Umbilical hernia Vitamin D deficiency Surgical History H/O colonoscopy History of incisional hernia repair (~01/10/21) History of splenectomy Family History Family History Father Medical history unknown Mother Diabetes Family/Other FH: mental illness Mental health disorder Social History Social History Household Members: None Housing: Apartment Do you presently have visiting nurse or other home services: Yes Alcohol intake: never Patient Tobacco Use Status: Former Tobacco user Quit Date: 35 years ago e-Cigarette/Vaping Use: Never Used Second Hand Smoke Exposure: No Advance Directives: No Advance Directives Information Provided: No service: No Current occupational status: disabled Cognitive needs: No Hearing needs: No Vision needs: No Physical Exam Vital Signs: Vital Signs: Last Vital Signs Temp 98.3 F 05/03/22 18:44 Pulse 100 05/03/22 18:44 Resp 18 05/03/22 18:44 BP 135/73 05/03/22 18:44 Pulse Ox 100 05/03/22 18:44 O2 Del Method 05/03/22 18:44 BMI result Body Mass Index 37.2 Appearance: Alert. Oriented X3. No acute distress. Eyes: PERRLA, left eye injected conjunctiva with purulent discharge right eye is slightly injected without discharge anterior chamber intact normal vision ENT: Pharynx normal. Oral Mucosa moist Neck: Normal inspection. Neck supple. CVS: Normal heart rate and rhythm. Pulses normal. Respiratory: No respiratory distress. Equal air entry bilateral, no wheezing/rales/rhonchi Skin: Skin warm and dry. Normal skin color. Normal skin turgor. Extremities: No lower extremity edema. No calf tenderness Neuro: Oriented X 3. Discharge Plan Discharge Clinical Impression: Bacterial conjunctivitis Patient Disposition: Home, Self-Care Instructions: Conjunctivitis (ED) Additional Instructions: Use eye drops as provided 1-2 drops every 4 hours to clear follow Up with PCP if not better Prescriptions: New tobramycin 0.3 % drops 2 drp ophthalmic (eye) Q4H Qty: 5 0RF No Action polyethylene glycol 3350 17 gram/dose powder 17 g PO DAILY Qty: 510 12RF lancets [FreeStyle Lancets] 28 gauge misc 28 gauge topical BID Qty: 100 6RF nystatin [Nystop] 100,000 unit/gram powder 1 appl topical BID Qty: 60 0RF triamcinolone acetonide 0.1 % cream 1 appl topical BID 14 Days Qty: 30 0RF meclizine 12.5 mg tablet 12.5 mg PO TID PRN (Reason: dizziness) 30 Days Qty: 90 0RF mometasone 0.1 % cream 1 appl topical DAILY PRN (Reason: skin irritation) Qty: 45 0RF Fleet Bisacodyl 10 mg/30 mL enema 10 mg CO DAILY PRN (Reason: constipation) Qty: 888 0RF (DME) FreeStyle Lite Strips Strip See Rx Instructions .ROUTE .COMPLEX Qty: 100 11RF Dose Instruction: USE TO TEST BLOOD SUGAR TWICE A DAY Rx Instructions: USE TO TEST BLOOD SUGAR TWICE A DAY clozapine 50 mg tablet 50 mg PO BEDTIME 30 Days Qty: 30 0RF clozapine 100 mg tablet 200 mg PO BEDTIME 30 Days Qty: 60 0RF lactulose 10 gram/15 mL solution 10 g PO BEDTIME PRN (Reason: constipation) Qty: 237 0RF metformin 500 mg tablet extended release 24 hr 500 mg PO BEDTIME Qty: 90 3RF calcium carbonate [Oyster Shell Calcium 500] 500 mg calcium (1,250 mg) tablet 500 mg PO BID Qty: 56 3RF atorvastatin 10 mg tablet 10 mg PO DAILY Qty: 28 6RF hydrochlorothiazide 25 mg tablet 25 mg PO DAILY 30 Days Qty: 30 2RF amoxicillin 500 mg capsule 500 mg PO Q8H 7 Days Qty: 21 0RF ibuprofen 600 mg tablet 600 mg PO Q6H PRN (Reason: pain) Qty: 30 0RF aripiprazole 10 mg tablet 10 mg PO DAILY clonazepam 1 mg tablet 1 mg PO BID PRN (Reason: Anxiety) lurasidone 80 mg tablet 80 mg PO BEDTIME hydrocortisone [Anti-Itch (HC)] 1 % cream 1 appl topical TID PRN (Reason: skin irritation) Qty: 28.4 0RF furosemide 40 mg tablet 40 mg PO DAILY cephalexin 500 mg tablet 500 mg PO Q12H 7 Days Qty: 14 0RF
[2022-05-03 18:44] VITALS: BP 135/73; PULSE 100; RESP 18; TEMP 36.8; O2SAT 100
[2022-05-03] MEDS: Tobramycin Sulfate 0.3% Sol Op 5 ML BTL 2 DROP EYE-BOTH (19:15)
== END 2022-05-03 19:16 | disposition home or self-care (01) ==
PROVIDERS: Emergency Provider Internal Medicine; PCP Internal Medicine
DX: H10.33 Unspecified acute conjunctivitis, bilateral (principal)
CPT/HCPCS: 99283

== ENCOUNTER 2022-05-05 08:53 | Outpatient (REF) | payer MEDICARE, MEDICAID, SELFPAY ==
[2022-05-05 09:04] LABS: MANUAL DIFF FLAG NO
[2022-05-05 09:20] LABS: Basophils Percent Auto 0.2 % (0-2); Hematocrit 38.6 % (37.0-47.0); Hemoglobin 12.4 g/dl (12.0-16.0); Imm Gran Abs Auto 0.14 X10*3/uL (0.00-0.03); Mean Corpuscular HGB Conc 32.1 g/dl (31.0-35.0); Mean Corpuscular Hemoglobin 30.5 pg (27.0-33.0); Mean Corpuscular Volume 95.1 fL (80.0-98.0); Monocytes Absolute Auto 0.9 X10*3/uL (0.1-1.2); Monocytes Percent Auto 6.3 % (2-11); Neutrophils Absolute Auto 8.5 x10*3/uL (2.0-8.3); Neutrophils Percent Auto 58.5 % (45-73); Platelet Count 384 X10*3/uL (160-400); Red Blood Count 4.06 X10*6/uL (4.20-5.50); Red Cell Distribution Width 14.7 % (11.0-16.0); White Blood Count 14.5 X10*3/uL (4.8-10.8)
== END 2022-05-05 08:54 | disposition home or self-care (01) ==
LOC: HO.LABR 08:53
PROVIDERS: PCP Internal Medicine; Visit Provider Psychiatry & Neurology Psychiatry
DX: Z79.899 Other long term (current) drug therapy (principal)
CPT/HCPCS: 36415; 85025

== ENCOUNTER 2022-06-02 08:38 | Outpatient (REF) | payer MEDICARE, MEDICAID, SELFPAY ==
[2022-06-02 08:48] LABS: MANUAL DIFF FLAG NO
[2022-06-02 09:22] LABS: Basophils Percent Auto 0.2 % (0-2); Hematocrit 38.3 % (37.0-47.0); Hemoglobin 12.2 g/dl (12.0-16.0); Imm Gran Abs Auto 0.06 X10*3/uL (0.00-0.03); Imm Gran Pct Auto 0.4 % (0.0-0.4); Lymphocytes Absolute Auto 4.5 X10*3/uL (1.2-4.9); Lymphocytes Percent Auto 27.9 % (20-40); Mean Corpuscular HGB Conc 31.9 g/dl (31.0-35.0); Mean Corpuscular Hemoglobin 30.4 pg (27.0-33.0); Mean Corpuscular Volume 95.5 fL (80.0-98.0); Mean Platelet Volume 10.8 fL (9.4-12.3); Monocytes Absolute Auto 1.1 X10*3/uL (0.1-1.2); Monocytes Percent Auto 6.6 % (2-11); Neutrophils Absolute Auto 10.6 x10*3/uL (2.0-8.3); Neutrophils Percent Auto 64.9 % (45-73); Platelet Count 382 X10*3/uL (160-400); Red Blood Count 4.01 X10*6/uL (4.20-5.50); Red Cell Distribution Width 15.3 % (11.0-16.0); White Blood Count 16.3 X10*3/uL (4.8-10.8)
== END 2022-06-02 08:39 | disposition home or self-care (01) ==
LOC: HO.LAB 08:38
PROVIDERS: PCP Internal Medicine; Visit Provider Psychiatry & Neurology Psychiatry
DX: Z79.899 Other long term (current) drug therapy (principal)
CPT/HCPCS: 36415; 85025

== ENCOUNTER 2022-07-06 08:50 | Outpatient (REF) | payer MEDICARE, MEDICAID, SELFPAY ==
[2022-07-06 10:13] LABS: Basophils Percent Auto 0.2 % (0-2); Hematocrit 36.4 % (37.0-47.0); Hemoglobin 11.6 g/dl (12.0-16.0); Imm Gran Abs Auto 0.04 X10*3/uL (0.00-0.03); Imm Gran Pct Auto 0.3 % (0.0-0.4); Lymphocytes Absolute Auto 5.1 X10*3/uL (1.2-4.9); Lymphocytes Percent Auto 35.8 % (20-40); MANUAL DIFF FLAG SCAN; Mean Corpuscular HGB Conc 31.9 g/dl (31.0-35.0); Mean Corpuscular Hemoglobin 30.9 pg (27.0-33.0); Mean Corpuscular Volume 96.8 fL (80.0-98.0); Mean Platelet Volume 11.6 fL (9.4-12.3); Monocytes Absolute Auto 0.9 X10*3/uL (0.1-1.2); Monocytes Percent Auto 6.6 % (2-11); Neutrophils Absolute Auto 8.2 x10*3/uL (2.0-8.3); Neutrophils Percent Auto 57.1 % (45-73); Platelet Count 377 X10*3/uL (160-400); Red Blood Count 3.76 X10*6/uL (4.20-5.50); Red Cell Distribution Width 15.9 % (11.0-16.0); SCAN SMEAR FLAG 1; White Blood Count 14.3 X10*3/uL (4.8-10.8)
[2022-07-06 10:44] LABS: SLIDE REVIEW VERIFIED
== END 2022-07-06 08:51 | disposition home or self-care (01) ==
LOC: HO.LAB 08:50
PROVIDERS: Absent Provider Psychiatry & Neurology Psychiatry; PCP Internal Medicine; Visit Provider Internal Medicine
DX: I10 Essential (primary) hypertension (principal); Z79.899 Other long term (current) drug therapy
CPT/HCPCS: 36415; 85025

== ENCOUNTER 2022-07-31 12:07 | Outpatient (REF) | payer MEDICARE, MEDICAID, SELFPAY ==
--- NOTE | ~2022-07-31 | MM_ITS ---
EXAMINATION: MM SCREENING DIGITAL BREAST TOMOSYNTHESIS, BILATERAL CLINICAL INFORMATION: Screening. Asymptomatic. The lifetime risk of breast cancer based on the Tyrer-Cuzick Model is 5%. COMPARISON: Mammography: 05/21/2021, 09/12/2018, 07/30/2017, 07/08/2017 TECHNIQUE: Digital breast tomosynthesis is performed in both the craniocaudal and mediolateral oblique views along with computer-aided detection (CAD). Synthesized 2D images are generated from the tomosynthesis. FINDINGS: The breasts are heterogeneously dense, which may obscure small masses (ACR BI-RADS breast composition Category c). There is a fibronodular parenchymal pattern similar to prior studies. Dominant focal nodular asymmetry anterior upper outer right breast is stable. There is no interval architectural abnormality. Scattered calcifications are again seen similar in number and distribution. The axilla and skin contours are unremarkable. There are no significant changes from prior studies. MM/MM tomosynthesis screening BI IMPRESSION: No mammographic evidence of malignancy. ASSESSMENT: BI-RADS 2: Benign RECOMMENDATION: Routine annual mammography screening. This patient's information was entered into a reminder system with a target due date for their next mammogram.
== END 2022-07-31 12:08 | disposition home or self-care (01) ==
LOC: HO.MAMMO 12:07
PROVIDERS: PCP Internal Medicine; Visit Provider Nurse Practitioner Family
DX: Z12.31 Encounter for screening mammogram for malignant neoplasm of breast (principal)
CPT/HCPCS: 77063; 77067

== ENCOUNTER 2022-08-03 08:56 | Outpatient (REF) | payer MEDICARE, MEDICAID, SELFPAY ==
[2022-08-03 09:11] LABS: MANUAL DIFF FLAG NO
[2022-08-03 09:57] LABS: Basophils Percent Auto 0.2 % (0-2); Hematocrit 36.8 % (37.0-47.0); Hemoglobin 11.5 g/dl (12.0-16.0); Imm Gran Abs Auto 0.06 X10*3/uL (0.00-0.03); Imm Gran Pct Auto 0.4 % (0.0-0.4); Lymphocytes Absolute Auto 4.8 X10*3/uL (1.2-4.9); Lymphocytes Percent Auto 35.4 % (20-40); Mean Corpuscular HGB Conc 31.3 g/dl (31.0-35.0); Mean Corpuscular Hemoglobin 30.4 pg (27.0-33.0); Mean Corpuscular Volume 97.4 fL (80.0-98.0); Monocytes Absolute Auto 1.1 X10*3/uL (0.1-1.2); Monocytes Percent Auto 7.9 % (2-11); Neutrophils Absolute Auto 7.6 x10*3/uL (2.0-8.3); Neutrophils Percent Auto 56.1 % (45-73); Platelet Count 390 X10*3/uL (160-400); Red Blood Count 3.78 X10*6/uL (4.20-5.50); Red Cell Distribution Width 15.5 % (11.0-16.0); White Blood Count 13.5 X10*3/uL (4.8-10.8)
== END 2022-08-03 08:57 | disposition home or self-care (01) ==
LOC: HO.LABR 08:56
PROVIDERS: PCP Internal Medicine; Visit Provider Psychiatry & Neurology Psychiatry
DX: Z79.899 Other long term (current) drug therapy (principal)
CPT/HCPCS: 36415; 85025

== ENCOUNTER 2022-08-28 08:52 | Outpatient (REF) | payer MEDICARE, MEDICAID, SELFPAY ==
[2022-08-28 09:29] LABS: Basophils Percent Auto 0.2 % (0-2); Hematocrit 37.3 % (37.0-47.0); Hemoglobin 11.8 g/dl (12.0-16.0); Imm Gran Abs Auto 0.07 X10*3/uL (0.00-0.03); Imm Gran Pct Auto 0.5 % (0.0-0.4); Lymphocytes Absolute Auto 5.5 X10*3/uL (1.2-4.9); Lymphocytes Percent Auto 36.5 % (20-40); MANUAL DIFF FLAG SCAN; Mean Corpuscular HGB Conc 31.6 g/dl (31.0-35.0); Mean Corpuscular Hemoglobin 30.8 pg (27.0-33.0); Mean Corpuscular Volume 97.4 fL (80.0-98.0); Mean Platelet Volume 10.1 fL (9.4-12.3); Monocytes Percent Auto 6.6 % (2-11); Neutrophils Absolute Auto 8.4 x10*3/uL (2.0-8.3); Neutrophils Percent Auto 56.2 % (45-73); Platelet Count 375 X10*3/uL (160-400); Red Blood Count 3.83 X10*6/uL (4.20-5.50); Red Cell Distribution Width 14.7 % (11.0-16.0); SCAN SMEAR FLAG 1; White Blood Count 14.9 X10*3/uL (4.8-10.8)
[2022-08-28 09:53] LABS: SLIDE REVIEW VERIFIED
== END 2022-08-28 08:53 | disposition home or self-care (01) ==
LOC: HO.LABR 08:52
PROVIDERS: PCP Internal Medicine; Visit Provider Psychiatry & Neurology Psychiatry
DX: Z79.899 Other long term (current) drug therapy (principal)
CPT/HCPCS: 36415; 85025

== ENCOUNTER 2022-09-28 09:04 | Outpatient (REF) | payer MEDICARE, MEDICAID, SELFPAY ==
[2022-09-28 09:17] LABS: MANUAL DIFF FLAG NO
[2022-09-28 09:50] LABS: Basophils Percent Auto 0.2 % (0-2); Hematocrit 39.1 % (37.0-47.0); Hemoglobin 12.4 g/dl (12.0-16.0); Imm Gran Abs Auto 0.04 X10*3/uL (0.00-0.03); Imm Gran Pct Auto 0.3 % (0.0-0.4); Lymphocytes Absolute Auto 4.8 X10*3/uL (1.2-4.9); Lymphocytes Percent Auto 37.1 % (20-40); Mean Corpuscular HGB Conc 31.7 g/dl (31.0-35.0); Mean Corpuscular Hemoglobin 30.6 pg (27.0-33.0); Mean Corpuscular Volume 96.5 fL (80.0-98.0); Mean Platelet Volume 10.7 fL (9.4-12.3); Monocytes Absolute Auto 1.1 X10*3/uL (0.1-1.2); Monocytes Percent Auto 8.1 % (2-11); Neutrophils Percent Auto 54.3 % (45-73); Platelet Count 411 X10*3/uL (160-400); Red Blood Count 4.05 X10*6/uL (4.20-5.50); Red Cell Distribution Width 14.5 % (11.0-16.0); White Blood Count 12.9 X10*3/uL (4.8-10.8)
== END 2022-09-28 09:05 | disposition home or self-care (01) ==
LOC: HO.LABR 09:04
PROVIDERS: PCP Internal Medicine; Visit Provider Psychiatry & Neurology Psychiatry
DX: Z79.899 Other long term (current) drug therapy (principal)
CPT/HCPCS: 36415; 85025

== ENCOUNTER 2022-10-05 08:34 | Outpatient (REF) | payer MEDICARE, MEDICAID, SELFPAY | END 2022-10-05 08:35 | disposition home or self-care (01) | LOC: HO.LAB 08:34 | PROVIDERS: PCP Internal Medicine; Visit Provider Internal Medicine | DX: Z13.89 Encounter for screening for other disorder (principal) ==

== ENCOUNTER 2022-10-12 07:45 | Outpatient (REF) | payer MEDICARE, MEDICAID, SELFPAY ==
[2022-10-12 09:08] LABS: Erythrocyte Sedimentation Rate 34 MM/HR (0-20)
[2022-10-12 09:14] LABS: Alanine Aminotransferase 23 U/L (0-31); Alkaline Phosphatase 120 U/L (39-117); Anion Gap 14 (12-20); Aspartate Amino Transferase 19 U/L (5-31); Bilirubin Total 0.6 mg/dL (0.0-1.0); Blood Urea Nitrogen 17 mg/dL (9-16); Calcium 9.4 mg/dL (8.4-10.2); Carbon Dioxide 29 mmol/L (22-29); Chloride 103 mmol/L (96-108); Cholesterol 177 mg/dL; Estimated Glomerular Filt Rate > 60; Glucose Fasting 116 mg/dL (60-99); HDL Cholesterol 51 mg/dL; LDL Cholesterol Calculated 92 mg/dl; Magnesium 2.3 mg/dL (1.6-2.6); Potassium 3.8 mmol/L (3.3-5.1); Sodium 142 mmol/L (135-145); Total Protein 6.5 g/dL (6.5-8.0); Triglycerides 173 mg/dL
[2022-10-12 09:34] LABS: Appearance Urine Cloudy; Color Urine Yellow; Glucose Urine UA Negative (Negative); Leukocyte Esterase Urine Moderate (2+) (Negative); Nitrite Urine Positive (Negative); PH 6.5 (5.0-9.0); UMIC TRIGGER UACC YES; Urine Blood Trace (Negative); Urine Ketones Negative (Negative); Urine Protein Negative (Neg-Trace)
[2022-10-12 09:37] LABS: Bacteria Urine 4+ (None Seen); Hyaline Casts Urine 0-2 /LPF (0-2); RBC Urine 0-2 /HPF (0-2); Squamous Epithelial Cell Urine 0-2 /HPF (0-2); UACC Culture Trigger YES; WBC Urine 21-50 /HPF (0-5)
[2022-10-12 09:43] LABS: Folate 18.5 ng/mL (> or = 4.0); TSH reflex Free T4 1.75 uIU/mL (0.32-4.0); Vitamin B12 766 pg/mL (200-900)
[2022-10-12 09:55] LABS: Creatinine Urine 50.63 mg/dL; Microalbum/Creatinine Ratio Ur 9.8 ug/mg cr
== END 2022-10-12 07:46 | disposition home or self-care (01) ==
LOC: HO.LAB 07:45
PROVIDERS: PCP Internal Medicine; Visit Provider Internal Medicine
DX: E78.00 Pure hypercholesterolemia, unspecified (principal); E53.8 Deficiency of other specified B group vitamins; R20.2 Paresthesia of skin; E11.9 Type 2 diabetes mellitus without complications; M79.7 Fibromyalgia; R82.90 Unspecified abnormal findings in urine; E55.9 Vitamin D deficiency, unspecified
CPT/HCPCS: 36415; 80053; 80061; 81001; 82043; 82306; 82607; 82746; 83735; 84443; 85652; 87086; 87088; 87186

== ENCOUNTER 2022-10-26 07:40 | Outpatient (REF) | payer MEDICARE, MEDICAID, SELFPAY ==
[2022-10-26 08:02] LABS: Basophils Percent Auto 0.1 % (0-2); Hematocrit 37.2 % (37.0-47.0); Hemoglobin 12.2 g/dl (12.0-16.0); Imm Gran Abs Auto 0.05 X10*3/uL (0.00-0.03); Imm Gran Pct Auto 0.3 % (0.0-0.4); Lymphocytes Absolute Auto 5.2 X10*3/uL (1.2-4.9); Lymphocytes Percent Auto 34.9 % (20-40); MANUAL DIFF FLAG SCAN; Mean Corpuscular HGB Conc 32.8 g/dl (31.0-35.0); Mean Corpuscular Hemoglobin 31.1 pg (27.0-33.0); Mean Corpuscular Volume 94.9 fL (80.0-98.0); Mean Platelet Volume 10.7 fL (9.4-12.3); Monocytes Absolute Auto 1.2 X10*3/uL (0.1-1.2); Monocytes Percent Auto 7.8 % (2-11); Neutrophils Absolute Auto 8.5 x10*3/uL (2.0-8.3); Neutrophils Percent Auto 56.9 % (45-73); Platelet Count 362 X10*3/uL (160-400); Red Blood Count 3.92 X10*6/uL (4.20-5.50); Red Cell Distribution Width 14.6 % (11.0-16.0); SCAN SMEAR FLAG 1; White Blood Count 14.9 X10*3/uL (4.8-10.8)
[2022-10-26 08:20] LABS: SLIDE REVIEW VERIFIED
== END 2022-10-26 07:41 | disposition home or self-care (01) ==
LOC: HO.LABR 07:40
PROVIDERS: PCP Internal Medicine; Visit Provider Psychiatry & Neurology Psychiatry
DX: Z79.899 Other long term (current) drug therapy (principal)
CPT/HCPCS: 36415; 85025

== ENCOUNTER 2022-11-03 07:42 | Outpatient (REF) | payer MEDICARE, MEDICAID, SELFPAY ==
--- NOTE | ~2022-11-03 | XR_ITS ---
EXAMINATION: XR LUMBOSACRAL SPINE CLINICAL INFORMATION: Lower back pain. COMPARISON: Portions of the MRI lumbar spine dated 02/10/2011. TECHNIQUE: AP, lateral, and both oblique views of the lumbosacral spine. FINDINGS: There is bony demineralization. There is a mild lumbar levoscoliosis. The lumbar disc spaces are well-maintained. No acute fracture or spondylolisthesis is seen. There is multi-level mild lumbar spondylosis. The posterior elements are intact. The paravertebral soft tissues are unremarkable. There is copious colonic stool, suggesting possible constipation. XR/XR lumbar spine 2-3V IMPRESSION: 1. There is a mild lumbar levoscoliosis. 2. The lumbar disc spaces are well-maintained. 3. There is multi-level mild lumbar spondylosis. 4. Findings suggest possible constipation.
--- NOTE | ~2022-11-03 | XR_ITS ---
EXAMINATION: XR HIP, RIGHT CLINICAL INFORMATION: Pain without injury. COMPARISON: Radiographs dated 07/05/2014. TECHNIQUE: AP and frog-leg lateral views of the right hip. FINDINGS: Bony alignment and mineralization are normal. The right acetabular joint space is well-maintained. There is mild subchondral sclerosis and irregularity of the right acetabular roof. No fracture or dislocation is seen. The right femoral head appears smooth. No foreign body is seen. XR/XR hip RT min 2V IMPRESSION: There is mild osteoarthritic change of the right hip. No fracture or dislocation is seen.
== END 2022-11-03 07:43 | disposition home or self-care (01) ==
LOC: HO.XRAY 07:42
PROVIDERS: PCP Internal Medicine; Visit Provider Internal Medicine
DX: M54.50 Low back pain, unspecified (principal); M25.551 Pain in right hip
CPT/HCPCS: 72100; 73502

== ENCOUNTER 2022-11-20 08:50 | Outpatient (REF) | payer MEDICARE, MEDICAID, SELFPAY ==
[2022-11-20 09:33] LABS: Basophils Percent Auto 0.3 % (0-2); Imm Gran Abs Auto 0.05 X10*3/uL (0.00-0.03); Imm Gran Pct Auto 0.4 % (0.0-0.4); Lymphocytes Absolute Auto 5.3 X10*3/uL (1.2-4.9); Lymphocytes Percent Auto 41.4 % (20-40); MANUAL DIFF FLAG SCAN; Mean Corpuscular HGB Conc 31.6 g/dl (31.0-35.0); Mean Corpuscular Volume 98.2 fL (80.0-98.0); Mean Platelet Volume 10.9 fL (9.4-12.3); Monocytes Absolute Auto 1.2 X10*3/uL (0.1-1.2); Monocytes Percent Auto 9.2 % (2-11); Neutrophils Absolute Auto 6.2 x10*3/uL (2.0-8.3); Neutrophils Percent Auto 48.7 % (45-73); Platelet Count 376 X10*3/uL (160-400); Red Blood Count 3.87 X10*6/uL (4.20-5.50); Red Cell Distribution Width 15.4 % (11.0-16.0); SCAN SMEAR FLAG 1; White Blood Count 12.7 X10*3/uL (4.8-10.8)
[2022-11-20 10:14] LABS: SLIDE REVIEW VERIFIED
== END 2022-11-20 08:51 | disposition home or self-care (01) ==
LOC: HO.LAB 08:50
PROVIDERS: PCP Psychiatry & Neurology Psychiatry; Visit Provider Psychiatry & Neurology Psychiatry
DX: Z79.899 Other long term (current) drug therapy (principal)
CPT/HCPCS: 36415; 85025

== ENCOUNTER 2022-12-16 09:09 | Outpatient (REF) | payer MEDICARE, MEDICAID, SELFPAY ==
[2022-12-16 10:32] LABS: Basophils Percent Auto 0.3 % (0-2); Hematocrit 39.9 % (37.0-47.0); Hemoglobin 12.6 g/dl (12.0-16.0); Imm Gran Abs Auto 0.07 X10*3/uL (0.00-0.03); Imm Gran Pct Auto 0.5 % (0.0-0.4); Lymphocytes Absolute Auto 5.2 X10*3/uL (1.2-4.9); Lymphocytes Percent Auto 36.9 % (20-40); MANUAL DIFF FLAG SCAN; Mean Corpuscular HGB Conc 31.6 g/dl (31.0-35.0); Mean Corpuscular Hemoglobin 30.8 pg (27.0-33.0); Mean Corpuscular Volume 97.6 fL (80.0-98.0); Mean Platelet Volume 11.3 fL (9.4-12.3); Monocytes Absolute Auto 1.2 X10*3/uL (0.1-1.2); Monocytes Percent Auto 8.1 % (2-11); Neutrophils Absolute Auto 7.7 x10*3/uL (2.0-8.3); Neutrophils Percent Auto 54.2 % (45-73); Platelet Count 398 X10*3/uL (160-400); Red Blood Count 4.09 X10*6/uL (4.20-5.50); Red Cell Distribution Width 15.3 % (11.0-16.0); SCAN SMEAR FLAG 1; White Blood Count 14.1 X10*3/uL (4.8-10.8)
[2022-12-16 11:16] LABS: SLIDE REVIEW VERIFIED
== END 2022-12-16 09:10 | disposition home or self-care (01) ==
LOC: HO.LABR 09:09
PROVIDERS: PCP Internal Medicine; Visit Provider Psychiatry & Neurology Psychiatry
DX: Z79.899 Other long term (current) drug therapy (principal)
CPT/HCPCS: 36415; 85025

== ENCOUNTER → 2022-12-24 09:12 | Outpatient (BNVA) | payer MEDICARE, MEDICAID, SELFPAY | PROVIDERS: PCP Internal Medicine; Visit Provider Surgery Vascular Surgery | DX: I83.11 Varicose veins of right lower extremity with inflammation (principal); E11.9 Type 2 diabetes mellitus without complications; Z90.81 Acquired absence of spleen | CPT/HCPCS: 99202 ==

== ENCOUNTER 2023-01-15 07:42 | Outpatient (REF) | payer MEDICARE, MEDICAID, SELFPAY ==
--- NOTE | ~2023-01-15 | US_ITS ---
EXAMINATION: US VENOUS REFLUX/INSUFFICIENCY CLINICAL INFORMATION: Varicose veins of lower extremity without inflammation COMPARISON: None. TECHNIQUE: Bilateral lower extremity venous insufficiency ultrasound was performed with velocity measurements. Color flow Doppler imaging was performed. FINDINGS: RIGHT SIDE: No evidence of DVT or venous reflux within the common femoral, mid femoral, or popliteal vein. GREATER SAPHENOUS VEIN: The right saphenofemoral junction measures 0.8cm. The reflux time is 0 ms. Proximal thigh measures 0.6cm. Reflux time is 0ms. Mid thigh measures 0.4cm. Reflux time is 0ms. Above-knee measures 0.4cm. Reflux time is 0ms. At the knee measures 0.6cm. Reflux time is 0ms. Below the knee measures 0.4cm. Reflux time is 0ms. Mid calf measures 0.3cm. Reflux time is 0ms. At the level of the ankle it measures0.3cm. Reflux time is 0ms. There is a lateral accessory saphenous which measures 0.4 cm at the saphenofemoral junction and 0.2 cm at the mid thigh. No reflux observed. SMALL SAPHENOUS VEIN: The upper right small saphenous vein measures 0.3 cm. Reflux time is 0ms. The midcalf portion of the small saphenous vein measures 0.2cm. Reflux time is 564ms. The distal calf portion of the small saphenous vein measures 0.3 cm. Reflux time 864 ms. There is a director industrial nursing at the level of the mid thigh which measures 0.2 cm in diameter and does not demonstrate reflux. There is a director industrial nursing at the level of the knee (34 cm from the calcaneus) which measures 0.2 cm and has refluxed time 2840 ms There is a director industrial nursing at the level of the mid calf which measures 0.5 cm and has no demonstrable reflux. There is a 0.3 cm varicose vein at the mid thigh which does not demonstrate reflux. LEFT SIDE: No evidence of DVT or venous reflux within the common femoral, mid femoral, or popliteal vein. GREATER SAPHENOUS VEIN: The left saphenofemoral junction measures 0.7cm. The reflux time is 0 ms. Proximal thigh measures 0.7cm. Reflux time is 0ms. Mid thigh measures 0.4cm. Reflux time is 0ms. Above-knee measures 0.4cm. Reflux time is 0ms. At the knee measures 0.4cm. Reflux time is 2084ms. Below the knee measures 0.4cm. Reflux time is 588ms. Mid calf measures 0.2cm. Reflux time is greater than 2664ms. At the level of the ankle it measures0.2cm. Reflux time is 2600ms. There is a lateral accessory saphenous vein which measures 0.4 cm and does not demonstrate reflux. At the mid thigh measures 0.3 cm and does not demonstrate reflux. SMALL SAPHENOUS VEIN: The upper left small saphenous vein measures 0.4 cm. Reflux time is 0ms. The lower small saphenous vein measures 0.3cm. Reflux time is 0ms. There is a 0.3 cm varicosity at the distal thigh which does not demonstrate reflux. There is a 0.3 cm varicosity of flow proximal calf which does not demonstrate reflux. US/US venous duplex LE BI IMPRESSION: On the right there is mild reflux within the mid to distal small saphenous vein. There is a director industrial nursing 34 cm from the calcaneus which has clinically significant reflux. On the left there is significant reflux within the great saphenous vein at and below the level of the knee.
[2023-01-15 08:06] LABS: MANUAL DIFF FLAG NO
[2023-01-15 08:20] LABS: Basophils Percent Auto 0.2 % (0-2); Hematocrit 37.4 % (37.0-47.0); Hemoglobin 11.8 g/dl (12.0-16.0); Imm Gran Abs Auto 0.07 X10*3/uL (0.00-0.03); Imm Gran Pct Auto 0.5 % (0.0-0.4); Lymphocytes Absolute Auto 4.7 X10*3/uL (1.2-4.9); Lymphocytes Percent Auto 35.7 % (20-40); Mean Corpuscular HGB Conc 31.6 g/dl (31.0-35.0); Mean Corpuscular Hemoglobin 31.1 pg (27.0-33.0); Mean Corpuscular Volume 98.4 fL (80.0-98.0); Mean Platelet Volume 10.7 fL (9.4-12.3); Monocytes Absolute Auto 1.2 X10*3/uL (0.1-1.2); Monocytes Percent Auto 9.1 % (2-11); Neutrophils Absolute Auto 7.1 x10*3/uL (2.0-8.3); Neutrophils Percent Auto 54.5 % (45-73); Platelet Count 418 X10*3/uL (160-400); Red Cell Distribution Width 15.4 % (11.0-16.0); White Blood Count 13.1 X10*3/uL (4.8-10.8)
== END 2023-01-15 07:43 | disposition home or self-care (01) ==
LOC: HO.US 07:42
PROVIDERS: Absent Provider Psychiatry & Neurology Psychiatry; PCP Internal Medicine; Visit Provider Surgery Vascular Surgery
DX: I83.11 Varicose veins of right lower extremity with inflammation (principal); Z79.899 Other long term (current) drug therapy
CPT/HCPCS: 36415; 85025; 93970

== ENCOUNTER 2023-02-01 07:48 | Outpatient (REF) | payer MEDICARE, MEDICAID, SELFPAY ==
[2023-02-01 08:39] LABS: Basophils Percent Auto 0.2 % (0-2); Eosinophils Percent Auto 0.1 % (0-4); Hematocrit 39.3 % (37.0-47.0); Hemoglobin 12.3 g/dl (12.0-16.0); Imm Gran Abs Auto 0.07 X10*3/uL (0.00-0.03); Imm Gran Pct Auto 0.5 % (0.0-0.4); Lymphocytes Absolute Auto 5.3 X10*3/uL (1.2-4.9); Lymphocytes Percent Auto 36.5 % (20-40); MANUAL DIFF FLAG SCAN; Mean Corpuscular HGB Conc 31.3 g/dl (31.0-35.0); Mean Corpuscular Hemoglobin 30.9 pg (27.0-33.0); Mean Corpuscular Volume 98.7 fL (80.0-98.0); Mean Platelet Volume 11.1 fL (9.4-12.3); Monocytes Percent Auto 6.9 % (2-11); Neutrophils Absolute Auto 8.1 x10*3/uL (2.0-8.3); Neutrophils Percent Auto 55.8 % (45-73); Platelet Count 378 X10*3/uL (160-400); Red Blood Count 3.98 X10*6/uL (4.20-5.50); Red Cell Distribution Width 15.1 % (11.0-16.0); SCAN SMEAR FLAG 1; White Blood Count 14.6 X10*3/uL (4.8-10.8)
[2023-02-01 08:52] LABS: Estimated Average Glucose 137 mg/dL; Hemoglobin A1c % 6.4 %
[2023-02-01 09:25] LABS: Alanine Aminotransferase 30 U/L (0-31); Alkaline Phosphatase 143 U/L (39-117); Anion Gap 13 (12-20); Aspartate Amino Transferase 18 U/L (5-31); Bilirubin Total 0.5 mg/dL (0.0-1.0); Blood Urea Nitrogen 21 mg/dL (9-16); Calcium 9.4 mg/dL (8.4-10.2); Carbon Dioxide 31 mmol/L (22-29); Chloride 106 mmol/L (96-108); Cholesterol 185 mg/dL; Estimated Glomerular Filt Rate > 60; Glucose Fasting 121 mg/dL (60-99); HDL Cholesterol 54 mg/dL; LDL Cholesterol Calculated 97 mg/dl; Sodium 146 mmol/L (135-145); Total Protein 7.2 g/dL (6.5-8.0); Triglycerides 174 mg/dL
[2023-02-01 09:27] LABS: SLIDE REVIEW VERIFIED
[2023-02-01 09:29] LABS: Vitamin D 25-OH Total 33.6 ng/mL (>30)
== END 2023-02-01 07:49 | disposition home or self-care (01) ==
LOC: HO.LAB 07:48
PROVIDERS: Visit Provider Internal Medicine
DX: E78.00 Pure hypercholesterolemia, unspecified (principal); E11.9 Type 2 diabetes mellitus without complications; E55.9 Vitamin D deficiency, unspecified; I10 Essential (primary) hypertension
CPT/HCPCS: 36415; 80053; 80061; 82306; 83036; 85025

== ENCOUNTER → 2023-02-02 09:34 | Outpatient (BNVA) | payer MEDICARE, MEDICAID, SELFPAY | PROVIDERS: PCP Internal Medicine; Visit Provider Surgery Vascular Surgery | DX: I83.11 Varicose veins of right lower extremity with inflammation (principal); I89.0 Lymphedema, not elsewhere classified | CPT/HCPCS: 99212 ==

== ENCOUNTER 2023-02-18 07:41 | Outpatient (REF) | payer MEDICARE, MEDICAID, SELFPAY ==
[2023-02-18 07:50] LABS: MANUAL DIFF FLAG NO
[2023-02-18 08:03] LABS: Basophils Percent Auto 0.2 % (0-2); Hematocrit 37.8 % (37.0-47.0); Imm Gran Abs Auto 0.06 X10*3/uL (0.00-0.03); Imm Gran Pct Auto 0.5 % (0.0-0.4); Lymphocytes Absolute Auto 4.5 X10*3/uL (1.2-4.9); Lymphocytes Percent Auto 33.8 % (20-40); Mean Corpuscular HGB Conc 31.7 g/dl (31.0-35.0); Mean Corpuscular Hemoglobin 30.9 pg (27.0-33.0); Mean Corpuscular Volume 97.4 fL (80.0-98.0); Mean Platelet Volume 10.3 fL (9.4-12.3); Monocytes Absolute Auto 0.9 X10*3/uL (0.1-1.2); Monocytes Percent Auto 6.9 % (2-11); Neutrophils Absolute Auto 7.8 x10*3/uL (2.0-8.3); Neutrophils Percent Auto 58.6 % (45-73); Platelet Count 406 X10*3/uL (160-400); Red Blood Count 3.88 X10*6/uL (4.20-5.50); Red Cell Distribution Width 14.9 % (11.0-16.0); White Blood Count 13.2 X10*3/uL (4.8-10.8)
== END 2023-02-18 07:42 | disposition home or self-care (01) ==
LOC: HO.LABR 07:41
PROVIDERS: Visit Provider Psychiatry & Neurology Psychiatry
DX: Z79.899 Other long term (current) drug therapy (principal)
CPT/HCPCS: 36415; 85025

== ENCOUNTER → 2023-03-05 09:57 | Outpatient (BNVA) | payer MEDICARE, MEDICAID, SELFPAY | PROVIDERS: PCP Internal Medicine; Visit Provider Surgery Vascular Surgery | DX: I83.11 Varicose veins of right lower extremity with inflammation (principal); E11.9 Type 2 diabetes mellitus without complications; E66.9 Obesity, unspecified; Z68.30 Body mass index [BMI] 30.0-30.9, adult | CPT/HCPCS: 36475 ==

== ENCOUNTER 2023-03-08 13:31 | Outpatient (REF) | payer MEDICARE, MEDICAID, SELFPAY | END 2023-03-08 13:32 | disposition home or self-care (01) | LOC: HO.US 13:31 | PROVIDERS: PCP Internal Medicine; Visit Provider Surgery Vascular Surgery | DX: M79.604 Pain in right leg (principal) | CPT/HCPCS: 93971 ==

== ENCOUNTER 2023-03-22 07:34 | Outpatient (REF) | payer MEDICARE, MEDICAID, SELFPAY ==
[2023-03-22 07:56] LABS: MANUAL DIFF FLAG NO
[2023-03-22 08:23] LABS: Basophils Percent Auto 0.2 % (0-2); Hematocrit 37.1 % (37.0-47.0); Hemoglobin 11.7 g/dl (12.0-16.0); Imm Gran Abs Auto 0.07 X10*3/uL (0.00-0.03); Imm Gran Pct Auto 0.6 % (0.0-0.4); Lymphocytes Absolute Auto 4.3 X10*3/uL (1.2-4.9); Lymphocytes Percent Auto 34.9 % (20-40); Mean Corpuscular HGB Conc 31.5 g/dl (31.0-35.0); Mean Corpuscular Hemoglobin 30.9 pg (27.0-33.0); Mean Corpuscular Volume 97.9 fL (80.0-98.0); Mean Platelet Volume 10.3 fL (9.4-12.3); Monocytes Absolute Auto 0.9 X10*3/uL (0.1-1.2); Monocytes Percent Auto 7.6 % (2-11); Neutrophils Absolute Auto 6.9 x10*3/uL (2.0-8.3); Neutrophils Percent Auto 56.7 % (45-73); Platelet Count 411 X10*3/uL (160-400); Red Blood Count 3.79 X10*6/uL (4.20-5.50); Red Cell Distribution Width 14.7 % (11.0-16.0); White Blood Count 12.2 X10*3/uL (4.8-10.8)
== END 2023-03-22 07:35 | disposition home or self-care (01) ==
LOC: HO.LABR 07:34
PROVIDERS: Visit Provider Psychiatry & Neurology Psychiatry
DX: Z79.899 Other long term (current) drug therapy (principal)
CPT/HCPCS: 36415; 85025

== ENCOUNTER 2023-03-23 09:38 | Outpatient (AMB) | payer MEDICARE, MEDICAID, SELFPAY ==
--- NOTE | 2023-03-23 09:41 | A.OFFVIS_ITS ---
Intake Intake Visit Reasons: follow up gsv rfa Intake Note: Patient is here for a Right SSV RFA follow up, patient stated her leg is worse after RFA, has more swelling now. Allergies haloperidol [From HALDOL] Allergy (Intermediate, Verified 03/23/23 09:45) RASH,ACNE lithium [LITHIUM] Allergy (Intermediate, Verified 03/23/23 09:45) RASH,ACNE simvastatin Allergy (Intermediate, Verified 03/23/23 09:45) headaches escitalopram Allergy (Mild, Verified 03/23/23 09:45) Blister risperidone [From Risperdal] Allergy (Verified 03/23/23 09:45) Unknown furosemide Adverse Reaction (Intermediate, Verified 03/23/23 09:45) rash hydroxyzine Adverse Reaction (Intermediate, Verified 03/23/23 09:45) rash HPI follow up gsv rfa HPI Details Very pleasant 63-year-old female presents for follow-up status post right great saphenous vein Cyanoacralate ablation. She reports no interval issues. She reports some mild improvement of the right lower extremity. She is still concerned about the overall swelling. In addition she is concerned about her left lower extremity as well. [facility] Medical History Constipation Diabetes mellitus type 2, controlled, without complications Incisional hernia Leukocytosis Obesity (BMI 30-39.9) Primary osteoarthritis of both knees Pure hypercholesterolemia Pyuria Schizophrenia Screening for breast cancer Stasis edema of both lower extremities Umbilical hernia Vitamin D deficiency Surgical History H/O colonoscopy History of incisional hernia repair (~01/10/21) History of splenectomy Family History Father Medical history unknown Mother Diabetes Family/Other FH: mental illness Mental health disorder Social History Household Members: None Housing: Apartment Do you presently have visiting nurse or other home services: Yes Alcohol intake: never Patient Tobacco Use Status: Former Tobacco user Quit Date: 35 years ago e-Cigarette/Vaping Use: Never Used Second Hand Smoke Exposure: No service: No Current occupational status: disabled Cognitive needs: No Hearing needs: No Vision needs: No Review of Systems Const Reports as per HPI ENT Reports no additional complaints Card Denies chest pain, Denies chest pain at rest and Denies chest pain with activity Resp Denies chest congestion and Denies cough GI Reports no additional complaints Musc Details: pain over varicosities, aching of lower extremities, swelling, cramping, heaviness and tiredness, itching Denies abnormal gait Skin/Breast Reports pruritus and Denies wounds Neuro Reports no additional complaints and Denies abnormal gait Psych Denies no additional complaints Physical Exam Const General: cooperative, healthy appearing and comfortable Orientation/consciousness: oriented to person, oriented to place and oriented to time Neck Carotids: no bruits Chest Chest palpation & inspection: normal inspection of the chest and normal palpation of entire chest wall Resp Effort & Inspection: normal respiratory effort and able to speak in complete sentences Cardio Rate: regular rate Heart sounds: S1 normal heart sound present and S2 normal heart sound present Peripheral pulses: Peripheral pulses 2+ throughout GI Inspection: Yes normal to inspection Skin Other: +2 edema, General skin exam: dry skin Neuro General: oriented to person, oriented to place and oriented to time Extrem Right lower extremity: full ROM, normal capillary refill and edema Left lower extremity: full ROM, normal capillary refill and edema Psych Mental Status: mental status grossly normal Results Reviewed Results Reviewed: Brief summary of venous insufficiency testing is as follows: right great saphenous vein: negative right small saphenous vein: Ablated right accessory vein: none present left great saphenous vein: Positive left small saphenous vein: negative left accessory vein: none present Please note there is no evidence of any venous aneurysms or significant tortuosity Assessment & Plan Assessment & Plan (1) Varicose veins of right lower extremity with inflammation: Comment: 03/05/2023 - right small saphenous vein radiofrequency ablation Code(s): I83.11 - Varicose veins of right lower extremity with inflammation (2) Varicose veins of left lower extremity with inflammation: Code(s): I83.12 - Varicose veins of left lower extremity with inflammation Plan: This patient has varicose veins with inflammation. They continue to be a source of discomfort for the patient. The patient has tried conservative treatment with compression, leg elevation and exercise program for over 3 months time. They have been compliant with all treatment. This has provided minimal relief for the patient. I do not anticipate this course of treatment will alter the underlying etiology. The patient has been scheduled for lower extremity venous treatment inclusive of --- left great saphenous vein Cyanoacralate ablation. Risks, benefits, and complications of this procedure has been disc ussed in detail with the patient including but not limited to bleeding, infection, and the development of a DVT. The patient has demonstrated a clear understanding and has consented. We will schedule the patient as soon as possible. Thank you for allowing us to participate in this patient's care. If there are any questions or concerns please do not hesitate to contact us. (3) Lymphedema: Code(s): I89.0 - Lymphedema, not elsewhere classified Plan: I do believe she has an element of lymphedema as well. We will treat venous disease 1st and then consider lymphedema pumps for her. Thank you for allowing us to assist in her care. Coding Level of Care Code Est Pt Level 4 (04595) Diagnoses Varicose veins of right lower extremity with inflammation I83.11 Varicose veins of left lower extremity with inflammation I83.12 Lymphedema I89.0
== END 2023-03-23 10:17 | disposition home or self-care (01) ==
PROVIDERS: PCP Internal Medicine; Visit Provider Surgery Vascular Surgery
DX: I83.11 Varicose veins of right lower extremity with inflammation (principal); I83.12 Varicose veins of left lower extremity with inflammation; I89.0 Lymphedema, not elsewhere classified
CPT/HCPCS: 99214

== ENCOUNTER → 2023-03-23 09:38 | Outpatient (BNVA) | payer MEDICARE, MEDICAID, SELFPAY | PROVIDERS: PCP Internal Medicine; Visit Provider Surgery Vascular Surgery | DX: I83.11 Varicose veins of right lower extremity with inflammation (principal); I83.12 Varicose veins of left lower extremity with inflammation; I89.0 Lymphedema, not elsewhere classified | CPT/HCPCS: 99212 ==

== ENCOUNTER 2023-04-23 08:03 | Outpatient (REF) | payer MEDICARE, MEDICAID, SELFPAY ==
[2023-04-23 09:01] LABS: Basophils Percent Auto 0.1 % (0-2); Eosinophils Percent Auto 0.1 % (0-4); Hematocrit 38.7 % (37.0-47.0); Hemoglobin 12.2 g/dl (12.0-16.0); Imm Gran Abs Auto 0.05 X10*3/uL (0.00-0.03); Imm Gran Pct Auto 0.3 % (0.0-0.4); Lymphocytes Absolute Auto 5.4 X10*3/uL (1.2-4.9); MANUAL DIFF FLAG SCAN; Mean Corpuscular HGB Conc 31.5 g/dl (31.0-35.0); Mean Corpuscular Volume 98.2 fL (80.0-98.0); Mean Platelet Volume 10.8 fL (9.4-12.3); Monocytes Absolute Auto 1.2 X10*3/uL (0.1-1.2); Monocytes Percent Auto 8.4 % (2-11); Neutrophils Absolute Auto 7.8 x10*3/uL (2.0-8.3); Neutrophils Percent Auto 54.1 % (45-73); Platelet Count 396 X10*3/uL (160-400); Red Blood Count 3.94 X10*6/uL (4.20-5.50); Red Cell Distribution Width 14.8 % (11.0-16.0); SCAN SMEAR FLAG 1; White Blood Count 14.4 X10*3/uL (4.8-10.8)
[2023-04-23 09:21] LABS: SLIDE REVIEW VERIFIED
== END 2023-04-23 08:04 | disposition home or self-care (01) ==
LOC: HO.LABR 08:03
PROVIDERS: Visit Provider Psychiatry & Neurology Psychiatry
DX: Z79.899 Other long term (current) drug therapy (principal)
CPT/HCPCS: 36415; 85025

== ENCOUNTER 2023-04-30 08:29 | Outpatient (AMB) | payer MEDICARE, MEDICAID, SELFPAY ==
--- NOTE | 2023-04-30 09:41 | A.OFFVIS_ITS ---
Intake Vital Signs 04/30/23 09:42 Height 5 ft 3 in Weight 203 lb BMI 36.0 Intake Visit Reasons: Left GSV Venaseal Allergies haloperidol [From HALDOL] Allergy (Intermediate, Verified 04/30/23 09:42) RASH,ACNE lithium [LITHIUM] Allergy (Intermediate, Verified 04/30/23 09:42) RASH,ACNE simvastatin Allergy (Intermediate, Verified 04/30/23 09:42) headaches escitalopram Allergy (Mild, Verified 04/30/23 09:42) Blister risperidone [From Risperdal] Allergy (Verified 04/30/23 09:42) Unknown furosemide Adverse Reaction (Intermediate, Verified 04/30/23 09:42) rash hydroxyzine Adverse Reaction (Intermediate, Verified 04/30/23 09:42) rash PFSH Medical History Constipation Diabetes mellitus type 2, controlled, without complications Incisional hernia Leukocytosis Obesity (BMI 30-39.9) Primary osteoarthritis of both knees Pure hypercholesterolemia Pyuria Schizophrenia Screening for breast cancer Stasis edema of both lower extremities Umbilical hernia Vitamin D deficiency Surgical History H/O colonoscopy History of incisional hernia repair (~01/10/21) History of splenectomy Family History Father Medical history unknown Mother Diabetes Family/Other FH: mental illness Mental health disorder Social History Household Members: None Housing: Apartment Do you presently have visiting nurse or other home services: Yes Alcohol intake: never Patient Tobacco Use Status: Former Tobacco user Quit Date: 35 years ago e-Cigarette/Vaping Use: Never Used Second Hand Smoke Exposure: No service: No Current occupational status: disabled Cognitive needs: No Hearing needs: No Vision needs: No Physical Exam Vital Signs: BMI result Body Mass Index 36.0 Office Procedures Vascular Office Procedure Details Details: Diagnosis: left Leg varicose veins with inflammation Procedure: Endovenous Ablation of the left Great Saphenous Vein and accessory saphenous veinwith VenaSeal Closure System Anesthesia: Local infiltration 5 cc, Estimated Blood Loss: min Specimen: none Duplex ultrasound was used to map out the insufficient saphenous vein, and access was determined and marked on the overlying skin. The depth and diameter of the vein(s) to be treated was documented. The patient was placed supine on the procedure table and the leg was prepped and draped using sterile technique. Ultasound guidance was again used to localize the access site. 1% lidocaine was injected as a local anesthetic in the subcutaneous tissues at the target location in the GSV in the lower leg. Using ultrasound guidance, access was gained at this location with the 19 gauge thin walled access needle and followed by introduction of a short guidewire, location confirmed with ultrasound. A sm all, 3 mm incision was made at the access site to allow for introduction and placement of the 7 Fr x7cm introducer/dilator. The dilator and guidewire were removed. The 0.035 guidewire from the VenaSeal kit was then introduced and positioned at the saphenofemoral junction using ultrasound guidance. The 80 cm 7 Fr introducer sheath/dilator was positioned 5cm from the saphenofemoral junction. The guidewire and dilator were removed, and the remaining sheath was flushed with sterile saline, with the syringe remaining in place prior to the next steps. The cyanoacrylate adhesive was precisely primed into the 5 F delivery catheter and this catheter/syringe combination was attached within the dispenser gun. This assembly was introduced through the 7F sheath and positioned 5 cm caudal of the saphenofemoral junction under ultrasound guidance. The steps from the IFU were followed for dispensing amounts, locations and compression times, 2 aliquots proximally with 3 minutes of compression, and 1 aliquot every 3 cm distally with 30 sec of compression along the course of the vessel. Following the last injection and compression sequence, the catheter and introducer sheath were pulled out from the access site. Hemostasis was achieved with manual compression and an adhesive bandage was applied to the incision. Ultrasound confirmed complete coaptation and closure of the treated segments of the GSV, and the absence of any DVT at the saphenofemoral junction. Treatment time was approximately 4 minutes and the vein length treated was 15 cm. in a similar fashion we addressed an accessory saphenous vein a little more distal and medial. This was once again accessed using 19 gauge thin wall access needle followed by a short guidewire. Once within we then placed the Cyanoacralate ablation kit through a separate 7 Danish sheath dilator. This was placed as far proximally as we could advance it and was held up by the tortuosity. Once we were in appropriate position we then delivered 1 aliquot every 3 cm with 30 seconds of compression along the course of the vessel. Treatment time was approximately 2 minutes with a treatment length of 10 cm The drapes were removed and the patient cleaned and prepared for discharge. Post op ultrasound check is scheduled for 48-72 hours and the patient was given written post-op instructions. 52169 - Endoven Ther Chem Adhes 1st [id number] - Chem Rosalia, subsequent vein All charges added?: Procedure code (CPT) selection complete Coding Level of Care Code Procedure Only Diagnoses CPT Codes Details - Vascular 3: 46208 - Endoven Ther Chem Adhes 1st ([id number])
[2023-04-30 09:42] VITALS: BMI 36.0
== END 2023-04-30 09:41 | disposition home or self-care (01) ==
PROVIDERS: PCP Internal Medicine; Visit Provider Surgery Vascular Surgery
DX: I83.12 Varicose veins of left lower extremity with inflammation (principal)
CPT/HCPCS: 36482; 36483

== ENCOUNTER → 2023-04-30 08:29 | Outpatient (BNVA) | payer MEDICARE, MEDICAID, SELFPAY | PROVIDERS: PCP Internal Medicine; Visit Provider Surgery Vascular Surgery | DX: I83.12 Varicose veins of left lower extremity with inflammation (principal) | CPT/HCPCS: 36482; 36483 ==

== ENCOUNTER 2023-05-04 09:44 | Outpatient (REF) | payer MEDICARE, MEDICAID, SELFPAY ==
--- NOTE | ~2023-05-04 | US_ITS ---
EXAMINATION: WITH DOPPLER OF LEFT LOWER EXTREMITY CLINICAL INFORMATION: Status post Venaseal procedure on 04/30/2023. COMPARISON: 01/15/2023. TECHNIQUE: Color flow triplex imaging and compression Doppler were performed as well as superficial ultrasound with Doppler. FINDINGS: TRIPLEX SCANNING OF LEFT LOWER EXTREMITY: Respiratory variation, normal compression and augmented flow are noted throughout the lower extremity. The visualized common femoral vein, femoral vein, profunda femoral vein, popliteal vein and the calf veins show no evidence of deep venous thrombosis. There is no evidence of Dodge's cyst. SUPERFICIAL ULTRASOUND WITH DOPPLER OF LEFT LOWER EXTREMITY: The left great saphenous vein is occluded from the access site to 1.7 cm before the saphenofemoral junction. There is no extension of thrombus into the deep system. US/US venous duplex LE LT IMPRESSION: 1. Normal triplex scan of the left lower extremity without evidence of deep venous thrombosis. 2. Excellent appearance status post Venaseal of the left great saphenous vein.
== END 2023-05-04 09:45 | disposition home or self-care (01) ==
LOC: HO.HMGCX 09:44
PROVIDERS: PCP Internal Medicine; Visit Provider Surgery Vascular Surgery
DX: M79.605 Pain in left leg (principal)
CPT/HCPCS: 93971

== ENCOUNTER 2023-05-13 09:13 | Outpatient (AMB) | payer MEDICARE, MEDICAID, SELFPAY ==
--- NOTE | 2023-05-13 09:28 | MHC.OFFVIS ---
Intake Vital Signs 05/13/23 09:29 Height 5 ft 3 in Weight 203 lb BMI 36.0 Intake Visit Reasons: 2 week follow up Left GSV Venaseal 04/30/23 Intake Note: 2 week follow up Left GSV Venaseal 04/30/2023 and Hx of Right SSV RFA 03/05/2023. Pt still have extreme LE swelling Right worse than Left LE. Pt states that she can't find shoes that fit. Accompanied by: Self / Same As Patient Allergies haloperidol [From HALDOL] Allergy (Intermediate, Verified 05/13/23 09:40) RASH,ACNE lithium [LITHIUM] Allergy (Intermediate, Verified 05/13/23 09:40) RASH,ACNE simvastatin Allergy (Intermediate, Verified 05/13/23 09:40) headaches escitalopram Allergy (Mild, Verified 05/13/23 09:40) Blister risperidone [From Risperdal] Allergy (Verified 05/13/23 09:40) Unknown furosemide Adverse Reaction (Intermediate, Verified 05/13/23 09:40) rash hydroxyzine Adverse Reaction (Intermediate, Verified 05/13/23 09:40) rash HPI 2 week follow up Left GSV Venaseal 04/30/23 HPI Details Very pleasant 63-year-old female presents for follow-up status post venous ablation. She continues to have persistent swollen lower extremities. They have been a source of pain and discomfort for her. She now presents for postprocedure follow-up. Of note postprocedure ultrasound was negative for DVT. She continues to have significantly swollen lower extremities which have been a source of discomfort for her. She is quite concerned about the swelling. She is now for follow-up. [facility] Medical History Diabetes mellitus type 2, controlled, without complications Screening for breast cancer Incisional hernia Umbilical hernia Obesity (BMI 30-39.9) Schizophrenia Constipation Pyuria Leukocytosis Primary osteoarthritis of both knees Stasis edema of both lower extremities Vitamin D deficiency Pure hypercholesterolemia Surgical History History of incisional hernia repair (~01/10/21) H/O colonoscopy History of splenectomy Family History Father Medical history unknown Mother Diabetes Family/Other FH: mental illness Mental health disorder Social History Household Members: None Housing: Apartment Do you presently have visiting nurse or other home services: Yes Alcohol intake: never Patient Tobacco Use Status: Former Tobacco user Quit Date: 35 years ago e-Cigarette/Vaping Use: Never Used Second Hand Smoke Exposure: No service: No Current occupational status: disabled Cognitive needs: No Hearing needs: No Vision needs: No Review of Systems Const Reports as per HPI ENT Reports no additional complaints Card Denies chest pain, Denies chest pain at rest and Denies chest pain with activity Resp Denies chest congestion and Denies cough GI Reports no additional complaints Musc Details: pain over varicosities, aching of lower extremities, swelling, cramping, heaviness and tiredness, itching Denies abnormal gait Skin/Breast Reports pruritus and Denies wounds Neuro Reports no additional complaints and Denies abnormal gait Psych Denies no additional complaints Physical Exam Vital Signs: BMI result Body Mass Index 36.0 Const General: cooperative, healthy appearing and comfortable Orientation/consciousness: oriented to person, oriented to place and oriented to time Neck Carotids: no bruits Chest Chest palpation & inspection: normal inspection of the chest and normal palpation of entire chest wall Resp Effort & Inspection: normal respiratory effort and able to speak in complete sentences Cardio Rate: regular rate Heart sounds: S1 normal heart sound present and S2 normal heart sound present Peripheral pulses: Peripheral pulses 2+ throughout GI Inspection: Yes normal to inspection Skin Other: +2 edema, large rope-like varicosities greater than 4 mm CEAP Classification C4 - skin color changes Ep - Etiology Primary As - superficial veins P - reflux General skin exam: dry skin Neuro General: oriented to person, oriented to place and oriented to time Extrem Other: Right in cm: Thigh 58 Knee 47 Calf 44 Ankle 37 Left in cm: Thigh 57 Knee 51 Calf 43 Ankle 34 Hip/abdomen 129 Right lower extremity: full ROM, normal capillary refill and edema Left lower extremity: full ROM, normal capillary refill and edema Psych Mental Status: mental status grossly normal Assessment & Plan Assessment & Plan (1) Varicose veins of right lower extremity with inflammation: Comment: 03/05/2023 - right small saphenous vein radiofrequency ablation Code(s): I83.11 - Varicose veins of right lower extremity with inflammation Plan: Patient has done well with her venous ablation is. She continues to have a significant amount of swelling. Will treat her for lymphedema. (2) Varicose veins of left lower extremity with inflammation: Comment: 04/30/2023 - left great saphenous vein Cyanoacralate ablation Code(s): I83.12 - Varicose veins of left lower extremity with inflammation (3) Lymphedema: Code(s): I89.0 - Lymphedema, not elsewhere classified Plan: In short the patient has late on sent lymphedema. The patient has been on conservative treatment for at least 3 months with minimal relief. In addition she has undergone bilateral venous ablation is with minimal relief. Patient has tried 30 mm of mercury compression garments, elevation, exercise healthy diet and doing manual says self MLD to the best of their ability for over 4 weeks but with no significant relief. She has been compliant with the program but has provided minimal relief. In addition on physical we are noticing hyperpigmentation, and hyperplasia. It appears that she has stage 2 lymphedema. Patient has completed multiple forms of conservative therapy yet significant symptoms remain. Patient requires the use of a pneumatic compression device which we will assist in trying to have the patient obtain them. A pneumatic compression device will help reduce swelling and other lymphedema comorbidities. Thank you for allowing us to assist in this patient's care. Coding Level of Care Code Est Pt Level 4 (92541) Diagnoses Varicose veins of right lower extremity with inflammation I83.11 Varicose veins of left lower extremity with inflammation I83.12 Lymphedema I89.0
[2023-05-13 09:29] VITALS: BMI 36.0
== END 2023-05-13 10:08 | disposition home or self-care (01) ==
PROVIDERS: PCP Internal Medicine; Visit Provider Surgery Vascular Surgery
DX: I83.11 Varicose veins of right lower extremity with inflammation (principal); I83.12 Varicose veins of left lower extremity with inflammation; I89.0 Lymphedema, not elsewhere classified
CPT/HCPCS: 99214

== ENCOUNTER → 2023-05-13 09:13 | Outpatient (BNVA) | payer MEDICARE, MEDICAID, SELFPAY | PROVIDERS: PCP Internal Medicine; Visit Provider Surgery Vascular Surgery | DX: I83.11 Varicose veins of right lower extremity with inflammation (principal); I83.12 Varicose veins of left lower extremity with inflammation; I89.0 Lymphedema, not elsewhere classified; Z98.890 Other specified postprocedural states | CPT/HCPCS: 99212 ==

== ENCOUNTER 2023-05-18 07:39 | Outpatient (REF) | payer MEDICARE, MEDICAID, SELFPAY ==
[2023-05-18 08:35] LABS: Basophils Percent Auto 0.3 % (0-2); Hematocrit 38.1 % (37.0-47.0); Hemoglobin 11.9 g/dl (12.0-16.0); Imm Gran Abs Auto 0.08 X10*3/uL (0.00-0.03); Imm Gran Pct Auto 0.6 % (0.0-0.4); Lymphocytes Absolute Auto 5.3 X10*3/uL (1.2-4.9); Lymphocytes Percent Auto 38.5 % (20-40); MANUAL DIFF FLAG SCAN; Mean Corpuscular HGB Conc 31.2 g/dl (31.0-35.0); Mean Corpuscular Hemoglobin 31.2 pg (27.0-33.0); Mean Platelet Volume 11.3 fL (9.4-12.3); Monocytes Absolute Auto 1.1 X10*3/uL (0.1-1.2); Monocytes Percent Auto 7.8 % (2-11); Neutrophils Absolute Auto 7.3 x10*3/uL (2.0-8.3); Neutrophils Percent Auto 52.8 % (45-73); Platelet Count 393 X10*3/uL (160-400); Red Blood Count 3.81 X10*6/uL (4.20-5.50); Red Cell Distribution Width 15.1 % (11.0-16.0); SCAN SMEAR FLAG 1; White Blood Count 13.9 X10*3/uL (4.8-10.8)
[2023-05-18 08:56] LABS: SLIDE REVIEW VERIFIED
== END 2023-05-18 07:40 | disposition home or self-care (01) ==
LOC: HO.LABR 07:39
PROVIDERS: Visit Provider Psychiatry & Neurology Psychiatry
DX: Z79.899 Other long term (current) drug therapy (principal)
CPT/HCPCS: 36415; 85025

== ENCOUNTER 2023-06-01 07:14 | Outpatient (REF) | payer MEDICARE, MEDICAID, SELFPAY ==
[2023-06-01 07:34] LABS: Hematocrit 37.5 % (37.0-47.0); Hemoglobin 12.1 g/dl (12.0-16.0); Mean Corpuscular HGB Conc 32.3 g/dl (31.0-35.0); Mean Corpuscular Hemoglobin 31.8 pg (27.0-33.0); Mean Corpuscular Volume 98.7 fL (80.0-98.0); Mean Platelet Volume 10.6 fL (9.4-12.3); Platelet Count 359 X10*3/uL (160-400)
[2023-06-01 07:44] LABS: WBC ABN SCTR FOR CBC 1
[2023-06-01 07:58] LABS: Lymphocytes Percent Manual 36 % (20-40); Monocytes Percent Manual 5 % (2-11)
[2023-06-01 08:00] LABS: Macrocytosis 1+ (5-14) /OIF; RBC Morphology NOTED
[2023-06-01 08:01] LABS: Acanthocytes 1+ (0-2) /OIF; Platelet Estimate NORMAL (NORMAL); Platelet Morphology Comment NORMAL; Polychromasia 1+ (0-2) /OIF
[2023-06-01 08:04] LABS: Band Neutrophils Percent 1 % (3-5); Neutrophils Percent Manual 58 % (45-73); Toxic Vacuolation PRESENT
[2023-06-01 08:06] LABS: Lymphocytes Absolute Manual 5.5 X10*3/uL (1.2-4.9); Monocytes Absolute Manual 0.8 X10*3/uL (0.1-1.2); White Blood Count 15.2 X10*3/uL (4.8-10.8)
== END 2023-06-01 07:15 | disposition home or self-care (01) ==
LOC: HO.LABR 07:14
PROVIDERS: Visit Provider Psychiatry & Neurology Psychiatry
DX: Z79.899 Other long term (current) drug therapy (principal)
CPT/HCPCS: 36415; 85007; 85027

== ENCOUNTER 2023-06-04 09:45 | Outpatient (AMB) | payer MEDICARE, MEDICAID, SELFPAY ==
[2023-06-04 09:47] VITALS: BP 126/80; PULSE 94; O2SAT 96; BMI 38.6
--- NOTE | 2023-06-04 09:47 | MHC.PC.OV ---
Vital Signs 06/04/23 09:47 Height 5 ft 3 in Weight 218 lb 2 oz BMI 38.6 BP 126/80 Blood Pressure Location Lt brachial Position Sitting Pulse 94 Pulse Source Pulse Oximeter Pulse Oximetry (%) 96 Oxygen Delivery Method Room Air Intake Visit Reasons: hyperlipidemia, lymphedema, DM, HTN, schizophrenia Insurance Sales Executive Required: No Accompanied by: Self / Same As Patient Allergies haloperidol [From HALDOL] Allergy (Intermediate, Verified 06/04/23 10:08) RASH,ACNE lithium [LITHIUM] Allergy (Intermediate, Verified 06/04/23 10:08) RASH,ACNE simvastatin Allergy (Intermediate, Verified 06/04/23 10:08) headaches escitalopram Allergy (Mild, Verified 06/04/23 10:08) Blister risperidone [From Risperdal] Allergy (Verified 06/04/23 10:08) Unknown furosemide Adverse Reaction (Intermediate, Verified 06/04/23 10:08) rash hydroxyzine Adverse Reaction (Intermediate, Verified 06/04/23 10:08) rash Medication List - Last Reconciled 06/04/23 by Abel Mejía MD aripiprazole 10 mg PO DAILY atorvastatin 10 mg PO DAILY bisacodyl (Fleet Bisacodyl) 10 mg (30 mL) UT DAILY PRN blood sugar diagnostic (FreeStyle Lite Strips) USE TO TEST BLOOD SUGAR TWICE A DAY calcium carbonate (Oyster Shell Calcium 500) 500 mg PO BID clonazepam 1 mg PO BID PRN clozapine 50 mg PO BEDTIME 30 days clozapine 200 mg (2 x 100 mg) PO BEDTIME 30 days compress.stocking,knee,reg,med As directed compress.stocking,knee,reg,med As directed docusate sodium 100 mg PO BID furosemide 40 mg PO DAILY hydrochlorothiazide 25 mg PO DAILY ibuprofen 600 mg PO Q6H PRN lactulose 10 grams (15 mL) PO BEDTIME PRN 5 days lancets (FreeStyle Lancets) 28 gauge topical BID Linzess (linaclotide) 290 mcg PO QAM PRN 30 days NS lurasidone 80 mg PO BEDTIME meclizine 12.5 mg PO TID PRN 30 days metformin ER 500 mg PO BEDTIME 90 days mometasone 0.1% 1 appl topical DAILY PRN nystatin (Nystop) 1 appl topical BID polyethylene glycol 3350 17 grams PO DAILY tizanidine 4 mg PO Q8H PRN [Tubi collections clerk socks As directed] [TUBIGRIP SOCKS (Large) As directed] Tobacco use date assessed: 06/04/23 Fall risk assessment: No Falls in past year Last assessed Fall Risk: 06/04/23 Dental Screening Dental Screen Date: 06/04/23 Did you have a dental visit in the last 12 months?: No Did you have a dental problem in the last 6 months where you did not have access to dental care?: No Was dental information given to patient?: No HPI hyperlipidemia, lymphedema, DM, HTN, schizophrenia HPI Details Patient comes in today for her follow up visit States that she feels okay Relates that she keeps choking on her big white pill lately whenever she tries to drink it Am not sure which medication patient is referring to but she states that it has potassium in the name Have advised patient that she can try to cut the medication in half (unless it is an ER formulation) and try swallowing the 2 halves separately instead She denies any headaches or dizziness Denies any chest pains, no SOB No nausea/vomiting, no abdominal pain No change in bowel habits noted She last had her follow up labs done back in January 2023 as I have not seen her since September 2022 but she had a more recent CBC done (ordered by psychiatry) which shows persistent leucocytosis Adds that she has been losing a lot of her hair lately and would like to see if she can get this checked out before she loses all of her hair PFSH Medical History Diabetes mellitus type 2, controlled, without complications Screening for breast cancer Incisional hernia Umbilical hernia Obesity (BMI 30-39.9) Schizophrenia Constipation Pyuria Leukocytosis Primary osteoarthritis of both knees Stasis edema of both lower extremities Vitamin D deficiency Pure hypercholesterolemia Surgical History History of incisional hernia repair (~01/10/21) H/O colonoscopy History of splenectomy Family History Father Medical history unknown Mother Diabetes Family/Other FH: mental illness Mental health disorder Social History Household Members: None Housing: Apartment Do you presently have visiting nurse or other home services: Yes Alcohol intake: never Patient Tobacco Use Status: Former Tobacco user Quit Date: 35 years ago e-Cigarette/Vaping Use: Never Used Second Hand Smoke Exposure: No service: No Current occupational status: disabled Cognitive needs: No Hearing needs: No Vision needs: No Questionnaire PHQ-9 Over the last 2 weeks, how often have you been bothered by any of the following problems? 1. Little interest or pleasure in doing things: several days 2. Feeling down, depressed, or hopeless: not at all 3. Trouble falling or staying asleep, or sleeping too much: several days 4. Feeling tired or having little energy: not at all 5. Poor appetite or overeating: nearly every day 6. Feeling bad about yourself - or that you are a failure or have let yourself or your family down: several days 7. Trouble concentrating on things, such as reading the newspaper or watching television: several days 8. Moving or speaking so slowly that other people could have noticed. Or the opposite - being so fidgety or restless that you have been moving around a lot more than usual: not at all 9. Thoughts that you would be better off or of hurting yourself in some way: several days Total score: 8 Depression Screening Interpretation: Positive Depression Screening Follow-up: Existing condition and In treatment (sees psychiatry) Depression Screening Done: Yes 42265 - PHQ-9 Billing: Yes Source: Developed by Drs. Cody Askew, Coni Madden, Jose L Frost and colleagues, with an educational mansoor from [employer]. Thrive Questionnaire Date Thrive assessed: 06/04/23 I am a: Patient What is your living situation today?: I have a steady place to live Within the past 12 months, did the food you bought not last and you didn't have the money to get more?: Never true Within the past 12 months, did you worry whether your food would run out before you got money to buy more?: Never true Do you have trouble paying for medicines?: No Do you have trouble getting transportation to medical appointments?: No Do you have trouble paying your heating and electricity bill?: No Do you have trouble taking care of your child, family member or friend?: No Do you have trouble with day-to-day activities such as bathing, preparing meals, shopping, managing finances, etc.?: No Are you currently unemployed and looking for a job?: No Are you interested in more education?: No Please select the resources that you would like help with: None Currently or been in a relationship where the following occur: no concerns reported AUDIT C Alcohol Use Questionnaire (AUDIT-C) 1. How often do you have a drink containing alcohol?: Never 3. How often do you have six or more drinks on one occasion?: Never Total Score: 0 Score Reviewed/Action Taken: Yes ROSA-7 AMB Questionnaire ROSA-7 Date ROSA - 7 assessed: 06/04/23 Feeling nervous, anxious, or on edge: 0 = Not at all Not being able to stop or control worryin = Not at all Worrying too much about different things: 0 = Not at all Trouble relaxin = Not at all Being so restless that it is hard to sit still: 0 = Not at all Becoming easily annoyed or irritable: 0 = Not at all Feeling afraid as if something awful might happen: 0 = Not at all Total ROSA-7 score (0-4 normal; 5-9 mild; 10-14 moderate; 15-21 severe): 0 Source: Developed by Drs. Cody Askew, Coni Madden, Jose L Frost and colleagues, with an educational mansoor from [employer]. Review of Systems Const Denies chills, Reports fatigue (mild), Denies fever(s) and Denies headache(s) ENT Denies dysphagia, Denies dizziness, Denies otalgia, Denies headache(s), Denies neck pain, Denies odynophagia and Denies sore throat Card Denies chest pain, Denies palpitations and Denies dyspnea Resp Denies cough and Denies dyspnea GI Denies abdominal pain, Reports constipation (on and off, better controlled lately), Denies dysphagia, Denies heartburn, Denies diarrhea, Denies nausea, Denies odynophagia and Denies vomiting Denies difficulty voiding, Denies nocturia and Denies dysuria Musc Reports arthralgias (both knees) and Denies neck pain Skin/Breast Reports alopecia and Denies rash Neuro Denies dizziness and Denies headache(s) Endo Reports fatigue (mild) and Denies palpitations Dawood/Lymph Details: increased swelling of both legs lately, slightly worse in the right leg Physical exam (Primary Care) Vital Signs: Last Vital Signs Pulse 94 06/04/23 09:47 BP 126/80 06/04/23 09:47 Pulse Ox 96 06/04/23 09:47 Oxygen Delivery Method Room Air 06/04/23 09:47 BMI result Body Mass Index 38.6 Tobacco/Smoking Status: Tobacco use Status Tobacco use date assessed 06/04/23 06/04/23 09:57 Patient Tobacco Use Status Former Tobacco user 06/04/23 09:57 e-Cigarette/Vaping Use Never Used 06/04/23 09:57 PHQ-9: PHQ-9 Score PHQ-9: Total score 8 06/04/23 10:10 Depression Screening Interpretation: Positive Depression Screening Follow-up: Existing condition and In treatment (sees psychiatry) Thrive Assessment: Date of Thrive Assessment Date Thrive assessed 06/04/23 06/04/23 09:57 Currently or been in a relationship where the following occur: no concerns reported Const General: no acute distress and alert HENMT Ears: TM's normal bilaterally and EAC's normal Throat: Yes posterior oropharynx normal and Yes tonsils normal (no TP congestion noted) Neck Neck: Yes no lymphadenopathy and Yes supple Resp Auscultation: clear to auscultation bilaterally, no rales and no wheezes Cardio Rate: regular rate Rhythm: regular rhythm Heart sounds: no murmurs GI Palpation (GI): Soft to palpation and nontender Auscultation: normal bowel sounds General: Yes no CVA tenderness Back/Spine/Pelvis Back: no CVA tenderness Skin Rashes: no rashes Extrem General: Yes edema (2+ bilaterally, slightly worse on the right lower extremity) Right lower extremity: knee Details: tenderness; no swelling Left lower extremity: knee Details: tenderness; no swelling Results AMB Hemoglobin A1c AMB Hemoglobin A1c 7.3 % Last Edit by Joanne Bueno on 06/04/23 10:03 Results Reviewed Results Reviewed: Laboratory Last Values Hgb A1c (Clinic) 7.3 % (4.0-6.0) H 06/04/23 10:02 Laboratory Tests 07/31/20 02/01/23 06/01/23 10:31 08:00 07:28 WBC 15.2 H Hgb 12.1 Hct 37.5 Plt Count 359 Sodium 146 H Potassium 4.0 Estimated GFR > 60 Fasting Glucose 121 H Hgb A1c (Clinic) 7.2 H Hemoglobin A1c % 6.4 Calcium 9.4 AST 18 ALT 30 Triglycerides 174 Cholesterol 185 LDL Cholesterol, Calc 97 HDL Cholesterol 54 25-OH Vitamin D Total 33.6 Assessment and Plan Assessment & Plan (1) Leukocytosis: Code(s): D72.829 - Elevated white blood cell count, unspecified Qualifiers: Leukocytosis type: unspecified Qualified Code(s): D72.829 - Elevated white blood cell count, unspecified Plan: WBC count remains elevated on her most recent labs done a couple of weeks ago, most likely due to her psych medication (Clozaril) BUT her recent CBC shows (+) toxic vacuolation on her peripheral smear Will refer her to hematology for urgent consultation - may need to have Rx changed if necessary depending on hematology recommendations (2) Pure hypercholesterolemia: Code(s): E78.00 - Pure hypercholesterolemia, unspecified Plan: Has not had any follow up labs done recently but her last fasting lipid profile in January 2023 were well-controlled Reinforced low cholesterol diet Continue Atorvastatin 10 mg QD Will recheck her labs and fasting lipids in 3 months for follow-up (3) Diabetes mellitus type 2, controlled, without complications: Code(s): E11.9 - Type 2 diabetes mellitus without complications Qualifiers: Diabetes mellitus intermodal customer service insulin use: without prison use Qualified Code(s): E11.9 - Type 2 diabetes mellitus without complications Plan: In-office HgbA1c done today is at 7.3% (HgbA1c was at 6.4% a few months ago in January 2023) - goal is < 7.0% Reinforced diabetic diet Continue Metformin ER 500 mg QD for now Follow up with (diabetic) general production laborer as scheduled (4) Vitamin D deficiency: Code(s): E55.9 - Vitamin D deficiency, unspecified Plan: Continue Vitamin D3 1000 units QD (5) Constipation: Code(s): K59.00 - Constipation, unspecified Qualifiers: Constipation type: unspecified constipation type Qualified Code(s): K59.00 - Constipation, unspecified Plan: States that this has been better controlled lately Reinforced increased oral fluids and dietary fiber Continue Bisacodyl 10 mg suppositories PRN and Lactulose solution when needed Advised to also continue Metamucil daily; may take Senna additionally as needed (6) Hair loss: Code(s): L65.9 - Nonscarring hair loss, unspecified Plan: Likely due to telogen phase hair loss but per patient's request, will send her for some labs NISH for further evaluation (7) Primary osteoarthritis of both knees: Code(s): M17.0 - Bilateral primary osteoarthritis of knee Plan: X-rays done a couple of years ago showed (+) mild osteoarthritis changes in both knees Encouraged again to continue with regular exercises to help minimize her joint pain and stiffness Consider referral to Orthopedics if her knee pain progesses (8) Stasis edema of both lower extremities: Code(s): I87.303 - Chronic venous hypertension (idiopathic) without complications of bilateral lower extremity Plan: Her edema is diffuse and chronic so DVT is unlikely in this case; patient does continue to follow up with vascular surgery (Dr. Natarajan) regularly Have encouraged patient again to continue to elevate her legs and feet as often as she can and to try getting her compression or support stockings back on as soon as she is able to get them on Continue Hydrochlorothiazide 25 mg once a day in AM as needed for increased edema (9) Schizophrenia: Code(s): F20.9 - Schizophrenia, unspecified Qualifiers: Schizophrenia type: unspecified Qualified Code(s): F20.9 - Schizophrenia, unspecified Plan: Continue Trihexyphenidyl 5 mg once a day, Clozaril 125 mg 1 & 1/2 tablet once a day at bedtime, Abilify 20 mg 2 tablets once a day, Latuda 120 mg once a day and Clonazepam 1 mg once a day as needed Follow-up with Psychiatry as scheduled (10) Obesity (BMI 30-39.9): Code(s): E66.9 - Obesity, unspecified Plan: Reinforced diet/exercise as tolerated/lose weight Plan Follow up in 3 months Orders: Orders AMB Hemoglobin A1c Today Z13.9 - Encounter for screening, unspecified Magnesium Today E83.42 - Hypomagnesemia, L65.9 - Nonscarring hair loss, unspecified, R53.83 - Other fatigue Complete Blood Count Auto Diff 3 Months I10 - Essential (primary) hypertension Comprehensive [place]. Panel Fast 3 Months E78.00 - Pure hypercholesterolemia, unspecified Vitamin D 25-OH Total 3 Months E55.9 - Vitamin D deficiency, unspecified Hemoglobin A1c 3 Months E11.9 - Type 2 diabetes mellitus without complications Comprehensive Met. Panel Today L65.9 - Nonscarring hair loss, unspecified, R53.83 - Other fatigue TSH reflex Free T4 Today L65.9 - Nonscarring hair loss, unspecified, R53.83 - Other fatigue Erythrocyte Sedimentation Rate Today L65.9 - Nonscarring hair loss, unspecified, R53.83 - Other fatigue Lipid Panel 3 Months E78.00 - Pure hypercholesterolemia, unspecified TSH reflex Free T4 3 Months E78.00 - Pure hypercholesterolemia, unspecified UA CC w/rflx Micro + Cult 3 Months R30.0 - Dysuria Microalbumin, Random (w Creat) 3 Months E11.9 - Type 2 diabetes mellitus without complications Referrals Hematology & Oncology Referral D72.829 - Elevated white blood cell count, unspecified Coding Level of Care Code Est Pt Level 4 (84638) Diagnoses Leukocytosis, unspecified type D72.829 Leukocytosis type: unspecified Pure hypercholesterolemia E78.00 Controlled type 2 diabetes mellitus without complication, without long-term current use of insulin E11.9 Diabetes mellitus intermodal customer service insulin use: without intermodal customer service use Vitamin D deficiency E55.9 Constipation, unspecified constipation type K59.00 Constipation type: unspecified constipation type Hair loss L65.9 Primary osteoarthritis of both knees M17.0 Stasis edema of both lower extremities I87.303 Schizophrenia, unspecified type F20.9 Schizophrenia type: unspecified Obesity (BMI 30-39.9) E66.9
== END 2023-06-04 10:21 | disposition home or self-care (01) ==
PROVIDERS: PCP Internal Medicine; Visit Provider Internal Medicine
DX: E11.9 Type 2 diabetes mellitus without complications (principal); D72.829 Elevated white blood cell count, unspecified; E78.00 Pure hypercholesterolemia, unspecified; F20.9 Schizophrenia, unspecified; E55.9 Vitamin D deficiency, unspecified; K59.00 Constipation, unspecified; L65.9 Nonscarring hair loss, unspecified; M17.0 Bilateral primary osteoarthritis of knee; I87.303 Chronic venous hypertension (idiopathic) without complications of bilateral lower extremity; E66.9 Obesity, unspecified
CPT/HCPCS: 83036; 99214

== ENCOUNTER 2023-06-04 10:29 | Outpatient (REF) | payer MEDICARE, MEDICAID, SELFPAY ==
[2023-06-04 11:29] LABS: Alanine Aminotransferase 22 U/L (0-31); Albumin Level 3.9 g/dL (3.5-5.0); Alkaline Phosphatase 126 U/L (39-117); Anion Gap 17 (12-20); Aspartate Amino Transferase 19 U/L (5-31); Bilirubin Total 0.3 mg/dL (0.0-1.0); Blood Urea Nitrogen 26 mg/dL (9-16); Calcium 9.7 mg/dL (8.4-10.2); Carbon Dioxide 25 mmol/L (22-29); Chloride 105 mmol/L (96-108); Estimated Glomerular Filt Rate > 60; Glucose Random 140 mg/dL (60-115); Magnesium 2.4 mg/dL (1.6-2.6); Potassium 3.8 mmol/L (3.3-5.1); Sodium 143 mmol/L (135-145); Total Protein 7.4 g/dL (6.5-8.0)
[2023-06-04 11:44] LABS: TSH reflex Free T4 1.62 uIU/mL (0.32-4.0)
== END 2023-06-04 10:30 | disposition home or self-care (01) ==
LOC: HO.LAB 10:29
PROVIDERS: PCP Internal Medicine; Visit Provider Internal Medicine
DX: E83.42 Hypomagnesemia (principal); L65.9 Nonscarring hair loss, unspecified; R53.83 Other fatigue
CPT/HCPCS: 36415; 80053; 83735; 84443; 85652

== ENCOUNTER 2023-06-16 13:58 | Outpatient (REF) | payer MEDICARE, MEDICAID, SELFPAY ==
[2023-06-16 14:17] LABS: MANUAL DIFF FLAG NO
[2023-06-16 14:59] LABS: Basophils Percent Auto 0.2 % (0-2); Hematocrit 37.1 % (37.0-47.0); Hemoglobin 11.9 g/dl (12.0-16.0); Imm Gran Abs Auto 0.14 X10*3/uL (0.00-0.03); Lymphocytes Absolute Auto 4.8 X10*3/uL (1.2-4.9); Mean Corpuscular HGB Conc 32.1 g/dl (31.0-35.0); Mean Corpuscular Hemoglobin 30.9 pg (27.0-33.0); Mean Corpuscular Volume 96.4 fL (80.0-98.0); Mean Platelet Volume 10.9 fL (9.4-12.3); Monocytes Absolute Auto 1.2 X10*3/uL (0.1-1.2); Monocytes Percent Auto 8.7 % (2-11); Neutrophils Absolute Auto 7.9 x10*3/uL (2.0-8.3); Neutrophils Percent Auto 56.1 % (45-73); Platelet Count 397 X10*3/uL (160-400); Red Blood Count 3.85 X10*6/uL (4.20-5.50); Red Cell Distribution Width 15.1 % (11.0-16.0); White Blood Count 14.2 X10*3/uL (4.8-10.8)
== END 2023-06-16 13:59 | disposition home or self-care (01) ==
LOC: HO.LABR 13:58
PROVIDERS: PCP Internal Medicine; Visit Provider Psychiatry & Neurology Psychiatry
DX: Z79.899 Other long term (current) drug therapy (principal)
CPT/HCPCS: 36415; 85025

== ENCOUNTER 2023-07-16 09:32 | Outpatient (REF) | payer MEDICARE, MEDICAID, SELFPAY ==
[2023-07-16 10:25] LABS: Basophils Percent Auto 0.2 % (0-2); Hematocrit 38.5 % (37.0-47.0); Hemoglobin 12.2 g/dl (12.0-16.0); Imm Gran Abs Auto 0.05 X10*3/uL (0.00-0.03); Imm Gran Pct Auto 0.3 % (0.0-0.4); Lymphocytes Absolute Auto 5.3 X10*3/uL (1.2-4.9); MANUAL DIFF FLAG SCAN; Mean Corpuscular HGB Conc 31.7 g/dl (31.0-35.0); Mean Corpuscular Hemoglobin 31.4 pg (27.0-33.0); Mean Corpuscular Volume 99.2 fL (80.0-98.0); Mean Platelet Volume 10.8 fL (9.4-12.3); Monocytes Percent Auto 6.5 % (2-11); Neutrophils Absolute Auto 8.4 x10*3/uL (2.0-8.3); Platelet Count 406 X10*3/uL (160-400); Red Blood Count 3.88 X10*6/uL (4.20-5.50); Red Cell Distribution Width 14.9 % (11.0-16.0); SCAN SMEAR FLAG 1; White Blood Count 14.7 X10*3/uL (4.8-10.8)
[2023-07-16 10:42] LABS: SLIDE REVIEW VERIFIED
== END 2023-07-16 09:33 | disposition home or self-care (01) ==
LOC: HO.LABR 09:32
PROVIDERS: PCP Internal Medicine; Visit Provider Psychiatry & Neurology Psychiatry
DX: Z79.899 Other long term (current) drug therapy (principal)
CPT/HCPCS: 36415; 85025

== ENCOUNTER 2023-07-16 10:36 | Outpatient (AMB) | payer MEDICARE, MEDICAID, SELFPAY ==
[2023-07-16 10:40] VITALS: BP 102/64; PULSE 65; O2SAT 96; BMI 37.4
--- NOTE | 2023-07-16 10:40 | A.OFFPC_ITS ---
Vital Signs 07/16/23 10:40 Height 5 ft 3 in Weight 211 lb BMI 37.4 BP 102/64 Blood Pressure Location Lt brachial Position Sitting Pulse 65 Pulse Source Pulse Oximeter Pulse Oximetry (%) 96 Oxygen Delivery Method Room Air Intake Visit Reasons: PE Intake Note: Patient is here today for a physical. Publishing Editor Required: No Allergies haloperidol [From HALDOL] Allergy (Intermediate, Verified 07/16/23 12:21) RASH,ACNE lithium [LITHIUM] Allergy (Intermediate, Verified 07/16/23 12:21) RASH,ACNE simvastatin Allergy (Intermediate, Verified 07/16/23 12:21) headaches escitalopram Allergy (Mild, Verified 07/16/23 12:21) Blister risperidone [From Risperdal] Allergy (Verified 07/16/23 12:21) Unknown furosemide Adverse Reaction (Intermediate, Verified 07/16/23 12:21) rash hydroxyzine Adverse Reaction (Intermediate, Verified 07/16/23 12:21) rash Medication List - Last Reconciled 07/16/23 by MAURISIO Jaffe aripiprazole 10 mg PO DAILY atorvastatin 10 mg PO DAILY bisacodyl (Fleet Bisacodyl) 10 mg (30 mL) [place] DAILY PRN blood sugar diagnostic (FreeStyle Lite Strips) USE TO TEST BLOOD SUGAR TWICE A DAY calcium carbonate (Oyster Shell Calcium 500) 500 mg PO BID clonazepam 1 mg PO BID PRN clozapine 50 mg PO BEDTIME 30 days clozapine 200 mg (2 x 100 mg) PO BEDTIME 30 days compress.stocking,knee,reg,med As directed compress.stocking,knee,reg,med As directed docusate sodium 100 mg PO BID furosemide 40 mg PO DAILY hydrochlorothiazide 25 mg PO DAILY ibuprofen 600 mg PO Q6H PRN lactulose 10 grams (15 mL) PO BEDTIME PRN 5 days lancets (FreeStyle Lancets) 28 gauge topical BID Linzess (linaclotide) 290 mcg PO QAM PRN 30 days NS lurasidone 80 mg PO BEDTIME meclizine 12.5 mg PO TID PRN 30 days metformin ER 500 mg PO BEDTIME 90 days mometasone 0.1% 1 appl topical DAILY PRN nystatin (Nystop) 1 appl topical BID polyethylene glycol 3350 17 grams PO DAILY tizanidine 4 mg PO Q8H PRN [Tubi milk house worker socks As directed] [TUBIGRIP SOCKS (Large) As directed] Tobacco use date assessed: 07/16/23 Fall risk assessment: No Falls in past year Last assessed Fall Risk: 07/16/23 Dental Screening Dental Screen Date: 07/16/23 Did you have a dental visit in the last 12 months?: Yes Did you have a dental problem in the last 6 months where you did not have access to dental care?: No Was dental information given to patient?: Patient has dentist HPI PE HPI Details Patient is a 63-year-old female who presents today for physical exam. Patient of Dr. Mejía. Medical history significant for hypercholesterolemia, schizophrenia-followed by Psychiatry and therapist, obesity, diabetes type 2, lymphedema-followed by Dr. Natarajan. Today we discussed patient's need for colon cancer screening, patient has declined colonoscopy or a Cologuard, denies changes in bowels. She has an upcoming mammogram 07/2023. We also discussed patient's need for Pap smear, bone density screening, and pneumonia vaccine. Patient has declined pneumonia vaccine - reports she is allergic to it. Up-to-date with eye exam. No shortness of breath or chest pain. [facility] Medical History Diabetes mellitus type 2, controlled, without complications Screening for breast cancer Incisional hernia Umbilical hernia Obesity (BMI 30-39.9) Schizophrenia Constipation Pyuria Leukocytosis Primary osteoarthritis of both knees Stasis edema of both lower extremities Vitamin D deficiency Pure hypercholesterolemia Surgical History History of incisional hernia repair (~01/10/21) H/O colonoscopy History of splenectomy Family History Father Medical history unknown Mother Diabetes Family/Other FH: mental illness Mental health disorder Social History Household Members: None Housing: Apartment Do you presently have visiting nurse or other home services: Yes Alcohol intake: never Patient Tobacco Use Status: Former Tobacco user Quit Date: 35 years ago e-Cigarette/Vaping Use: Never Used Second Hand Smoke Exposure: No service: No Current occupational status: disabled Cognitive needs: No Hearing needs: No Vision needs: No Questionnaire PHQ-9 Over the last 2 weeks, how often have you been bothered by any of the following problems? 1. Little interest or pleasure in doing things: not at all 2. Feeling down, depressed, or hopeless: not at all 3. Trouble falling or staying asleep, or sleeping too much: not at all 4. Feeling tired or having little energy: not at all 5. Poor appetite or overeating: not at all 6. Feeling bad about yourself - or that you are a failure or have let yourself or your family down: not at all 7. Trouble concentrating on things, such as reading the newspaper or watching television: not at all 8. Moving or speaking so slowly that other people could have noticed. Or the opposite - being so fidgety or restless that you have been moving around a lot more than usual: not at all 9. Thoughts that you would be better off or of hurting yourself in some way: not at all Total score: 0 Depression Screening Interpretation: Negative Depression Screening Done: Yes 59036 - PHQ-9 Billing: Yes Source: Developed by Drs. Cody Askew, Coni Madden, Jose L Frost and colleagues, with an educational mansoor from [employer]. Thrive Questionnaire Date Thrive assessed: 06/04/23 I am a: Patient What is your living situation today?: I have a steady place to live Within the past 12 months, did the food you bought not last and you didn't have the money to get more?: Never true Within the past 12 months, did you worry whether your food would run out before you got money to buy more?: Never true Do you have trouble paying for medicines?: No Do you have trouble getting transportation to medical appointments?: No Do you have trouble paying your heating and electricity bill?: No Do you have trouble taking care of your child, family member or friend?: No Do you have trouble with day-to-day activities such as bathing, preparing meals, shopping, managing finances, etc.?: No Are you currently unemployed and looking for a job?: No Are you interested in more education?: No Please select the resources that you would like help with: None Currently or been in a relationship where the following occur: no concerns reported AUDIT C Alcohol Use Questionnaire (AUDIT-C) 1. How often do you have a drink containing alcohol?: Never 3. How often do you have six or more drinks on one occasion?: Never Total Score: 0 Score Reviewed/Action Taken: No ROSA-7 AMB Questionnaire ROSA-7 Date ROSA - 7 assessed: 07/16/23 Feeling nervous, anxious, or on edge: 0 = Not at all Not being able to stop or control worryin = Not at all Worrying too much about different things: 0 = Not at all Trouble relaxin = Not at all Being so restless that it is hard to sit still: 0 = Not at all Becoming easily annoyed or irritable: 0 = Not at all Feeling afraid as if something awful might happen: 0 = Not at all Total ROSA-7 score (0-4 normal; 5-9 mild; 10-14 moderate; 15-21 severe): 0 Source: Developed by Drs. Cody Askew, Coni Madden, Jose L Frost and colleagues, with an educational mansoor from [employer]. ROSA-7 Assessment Billing ROSA-7 Assessment Tool: ROSA-7 Assessment 86116 Review of Systems Const Denies body aches, Denies chills, Denies fever(s) and Denies headache(s) Eyes Denies change in vision ENT Denies dizziness, Denies otalgia, Denies headache(s), Denies nasal discharge, Denies sinus pain and Denies sore throat Card Denies chest pain, Denies edema, Reports leg edema, Denies lightheadedness and Denies dyspnea Resp Denies cough, Denies dyspnea and Denies wheezing GI Denies abdominal pain, Denies constipation, Denies diarrhea, Denies nausea and Denies vomiting Denies dysuria Musc Denies myalgias Skin/Breast Denies rash Neuro Denies dizziness and Denies headache(s) Aller/Immun Denies wheezing Physical exam (Primary Care) Vital Signs: Last Vital Signs Pulse 65 07/16/23 10:40 BP 102/64 07/16/23 10:40 Pulse Ox 96 07/16/23 10:40 Oxygen Delivery Method Room Air 07/16/23 10:40 BMI result Body Mass Index 37.4 Tobacco/Smoking Status: Tobacco use Status Tobacco use date assessed 07/16/23 07/16/23 10:42 Patient Tobacco Use Status Former Tobacco user 07/16/23 10:42 e-Cigarette/Vaping Use Never Used 07/16/23 10:42 PHQ-9: PHQ-9 Score PHQ-9: Total score 0 07/16/23 12:00 Depression Screening Interpretation: Negative Thrive Assessment: Date of Thrive Assessment Date Thrive assessed 06/04/23 07/16/23 10:42 Currently or been in a relationship where the following occur: no concerns reported Const General: cooperative and no acute distress Orientation/consciousness: patient oriented x3 HENMT Other: Bilateral TM partially obstructed by cerumen, visualized TMs normal Head: Yes normocephalic and Yes atraumatic Face and sinus: Yes sinuses nontender Mouth: oropharynx normal and moist mucous membranes Throat: Yes posterior oropharynx normal Eyes General: appearance normal, both eyes and all related structures Pupils: Equal, round and reactive pupils present EOM: EOMs intact bilaterally Neck Neck: Yes normal visual inspection, Yes full ROM and Yes no lymphadenopathy Thyroid: Thyroid normal Resp Effort & Inspection: normal respiratory effort and able to speak in complete sentences Auscultation: clear to auscultation bilaterally, no crackles, no rales, no rhonchi and no wheezes Cardio Rate: regular rate Rhythm: regular rhythm Heart sounds: S1 normal heart sound present, S2 normal heart sound present and no murmurs GI Palpation (GI): Soft to palpation, not firm, nontender, no guarding, not rigid and no hepatosplenomegaly Auscultation: normal bowel sounds General: No CVA tenderness Back/Spine/Pelvis Back: No CVA tenderness Skin General skin exam: no rashes or lesions noted Neuro General: patient oriented x3 Cranial nerves: Yes Equal, round and reactive pupils present Gait exam (Neuro): Normal gait present Extrem Other: Trace edema to bilateral lower extremity right greater than left General: Yes full ROM Assessment and Plan Assessment & Plan (1) Colonoscopy refused: Code(s): Z53.20 - Procedure and treatment not carried out because of patient's decision for unspecified reasons (2) Post-menopausal: Code(s): Z78.0 - Asymptomatic menopausal state (3) Cervical cancer screening: Code(s): Z12.4 - Encounter for screening for malignant neoplasm of cervix (4) Adult general medical exam: Code(s): Z00.00 - Encounter for general adult medical examination without abnormal findings (5) Diabetes mellitus type 2, controlled, without complications: Code(s): E11.9 - Type 2 diabetes mellitus without complications Qualifiers: Diabetes mellitus prison insulin use: without prison use Qualified Code(s): E11.9 - Type 2 diabetes mellitus without complications Plan: A1c 7.3 05/2023 Continue current treatment Low carbohydrate diet (6) Obesity (BMI 30-39.9): Code(s): E66.9 - Obesity, unspecified Plan: Healthy food choices and exercise as tolerated (7) Schizophrenia: Code(s): F20.9 - Schizophrenia, unspecified Qualifiers: Schizophrenia type: unspecified Qualified Code(s): F20.9 - Schizophrenia, unspecified Plan: Continue to follow-up with psychiatry and therapist (8) Leukocytosis: Code(s): D72.829 - Elevated white blood cell count, unspecified Qualifiers: Leukocytosis type: unspecified Qualified Code(s): D72.829 - Elevated white blood cell count, unspecified Plan: Patient has referral to see Hematology (9) Pure hypercholesterolemia: Code(s): E78.00 - Pure hypercholesterolemia, unspecified Plan: Continue atorvastatin Low-cholesterol diet Plan Follow-up with PCP in 3 months Orders: Orders XR DEXA axial skeleton Today Z78.0 - Asymptomatic menopausal state Referrals [employer] Referral Z12.4 - Encounter for screening for malignant neoplasm of cervix Coding Level of Care Code Est Pt Prev Care >65y(97662) Diagnoses Colonoscopy refused Z53.20 Post-menopausal Z78.0 Cervical cancer screening Z12.4 Adult general medical exam Z00.00 Controlled type 2 diabetes mellitus without complication, without long-term current use of insulin E11.9 Diabetes mellitus prison insulin use: without prison use Obesity (BMI 30-39.9) E66.9 Schizophrenia, unspecified type F20.9 Schizophrenia type: unspecified Leukocytosis, unspecified type D72.829 Leukocytosis type: unspecified Pure hypercholesterolemia E78.00 Additional Codes ROSA-7 Assessment Billing - ROSA-7 Assessment Tool: ROSA-7 Assessment 64055 ([id number])
== END 2023-07-16 12:41 | disposition home or self-care (01) ==
PROVIDERS: Visit Provider Nurse Practitioner Family
DX: Z00.00 Encounter for general adult medical examination without abnormal findings (principal); E11.9 Type 2 diabetes mellitus without complications; F20.9 Schizophrenia, unspecified; Z53.20 Procedure and treatment not carried out because of patient's decision for unspecified reasons; Z78.0 Asymptomatic menopausal state; E66.9 Obesity, unspecified; D72.829 Elevated white blood cell count, unspecified; E78.00 Pure hypercholesterolemia, unspecified
CPT/HCPCS: 99397

== ENCOUNTER 2023-08-12 07:57 | Outpatient (REF) | payer MEDICARE, MEDICAID, SELFPAY ==
--- NOTE | ~2023-08-12 | MM_ITS ---
EXAMINATION: BONE DENSITOMETRY CLINICAL INDICATION: Asymptomatic menopausal state. COMPARISON: This is the patient's baseline examination. TECHNIQUE: Using a [employer] DXA System (software version: 13.1) manufactured by [employer], dual-energy x-ray absorptiometry was performed of the lumbar spine and left hip. The images are of good technical quality. Summary results are attached. FINDINGS: LEFT FEMUR, NECK: BMD 0.789 g/cm2, Z-score -1.0, T-score -1.8, osteopenia. LEFT FEMUR, TOTAL: BMD 0.963 g/cm2, Z-score 0.1, T-score -0.4, normal. AP SPINE L1-L2 (excluding L3 and L4): The data of L1-L4 has been changed to exclude the L3 and L4 vertebral bodies, because degenerative sclerosis at these levels may cause overestimation of lumbar spine density. BMD 0.856 g/cm2, Z-score -2.1, T-score -2.6, osteoporosis. IDENTIFIED RISK FACTORS: Early menopause, secondary osteoporosis. HISTORY OF FRACTURE: None listed. MEDICATIONS: Calcium supplements or multivitamin. MM/XR DEXA axial skeleton IMPRESSION: 1. DIAGNOSIS: Osteoporosis based on the lowest T-score value of -2.6 in the lumbar spine applying World Health Organization criteria. 2. 10-YEAR FRACTURE RISK PREDICTION, FRAX: According to the guidelines, FRAX calculation should only be performed on patients in the osteopenia bone density category. Therefore, FRAX was not performed on this patient. 3. Treatment Recommendations: NOF guidelines recommend consideration for treatment in postmenopausal women and men age 50 and older presenting with the following: -A hip or vertebral (clinical or morphometric) fracture. -T-score less than or equal to -2.5 at the femoral neck or spine after appropriate evaluation to exclude secondary causes. -Low bone mass at the hip or spine and a 10-year fracture probability by FRAX of greater than or equal to 3% for hip fracture or greater than or equal to 20% for major osteoporotic fracture based on the [place] adapted WHO algorithm. 4. Other Recommendations: All treatment decisions require clinical judgment and consideration of individual patient factors, including patient preferences, comorbidities, previous drug use, risk factors not captured in the FRAX model (e.g. frailty, falls, vitamin D deficiency, increased bone turnover, interval significant decline in bone density) and possible under or overestimation of fracture risk by FRAX. Additional medical evaluation for secondary cause of low bone mineral density may be appropriate. FUTURE SCAN RECOMMENDATION: People with diagnosed cases of osteoporosis or at high risk for fracture should have regular bone mineral density tests. For patients eligible for Medicare, routine testing is allowed once every 2 years. The testing frequency can be increased to one year for patients who have rapidly progressing disease, those who are receiving or discontinuing medical therapy to restore bone mass, or have additional risk factors.
--- NOTE | ~2023-08-12 | MM_ITS ---
EXAMINATION: MM SCREENING DIGITAL BREAST TOMOSYNTHESIS, BILATERAL CLINICAL INFORMATION: Screening. Asymptomatic. COMPARISON: Mammography: 07/31/2022, 05/21/2021, and dating back to 2012. TECHNIQUE: Digital breast tomosynthesis is performed in both the craniocaudal and mediolateral oblique views along with computer-aided detection (CAD). Synthesized 2D images are generated from the tomosynthesis. In addition, an extra full-field left MLO nipple in profile view was done. FINDINGS: The breasts are heterogeneously dense, which may obscure small masses (ACR BI-RADS breast composition Category c). There is a fibronodular parenchymal pattern similar to prior studies. Dominant focal nodular asymmetry anterior upper outer right breast is stable. There is no interval architectural abnormality. Numerous circumscribed densities in both breasts are consistent with benign waxing and waning cysts, or numerous fibroadenomas. Prominent retroareolar ducts are again noted bilaterally. Scattered calcifications are again seen similar in number and distribution. No aggressive changes. The axilla and skin contours are unremarkable. There are no significant changes from prior studies MM/MM tomosynthesis screening BI IMPRESSION: No mammographic evidence of malignancy. Stable benign findings as described. ASSESSMENT: BI-RADS BI-RADS 2 - Benign Findings RECOMMENDATION: Routine annual mammography screening. 1 year F/U This examination should not preclude the clinical evaluation of a suspicious palpable abnormality. This patient's information was entered into a reminder system with a target due date for their next mammogram.
== END 2023-08-12 07:58 | disposition home or self-care (01) ==
LOC: HO.MAMMO 07:57
PROVIDERS: PCP Internal Medicine; Visit Provider Nurse Practitioner Family
DX: Z12.31 Encounter for screening mammogram for malignant neoplasm of breast (principal); Z13.820 Encounter for screening for osteoporosis; Z78.0 Asymptomatic menopausal state
CPT/HCPCS: 77063; 77067; 77080

== ENCOUNTER → 2023-08-12 09:00 | Outpatient (BNV) | payer MEDICARE, MEDICAID, SELFPAY | PROVIDERS: PCP Internal Medicine; Visit Provider Radiology Diagnostic Radiology | DX: Z12.31 Encounter for screening mammogram for malignant neoplasm of breast (principal) | CPT/HCPCS: 77063; 77067 ==

== ENCOUNTER 2023-08-13 07:45 | Outpatient (REF) | payer MEDICARE, MEDICAID, SELFPAY ==
[2023-08-13 08:51] LABS: Basophils Percent Auto 0.2 % (0-2); Hematocrit 37.7 % (37.0-47.0); Hemoglobin 12.1 g/dl (12.0-16.0); Imm Gran Abs Auto 0.08 X10*3/uL (0.00-0.03); Imm Gran Pct Auto 0.5 % (0.0-0.4); Lymphocytes Absolute Auto 5.4 X10*3/uL (1.2-4.9); MANUAL DIFF FLAG SCAN; Mean Corpuscular HGB Conc 32.1 g/dl (31.0-35.0); Mean Corpuscular Hemoglobin 31.3 pg (27.0-33.0); Mean Corpuscular Volume 97.4 fL (80.0-98.0); Mean Platelet Volume 11.1 fL (9.4-12.3); Monocytes Absolute Auto 1.1 X10*3/uL (0.1-1.2); Monocytes Percent Auto 7.2 % (2-11); Neutrophils Absolute Auto 8.1 x10*3/uL (2.0-8.3); Neutrophils Percent Auto 55.1 % (45-73); Platelet Count 404 X10*3/uL (160-400); Red Blood Count 3.87 X10*6/uL (4.20-5.50); Red Cell Distribution Width 15.3 % (11.0-16.0); SCAN SMEAR FLAG 1; White Blood Count 14.6 X10*3/uL (4.8-10.8)
[2023-08-13 10:07] LABS: SLIDE REVIEW VERIFIED
== END 2023-08-13 07:46 | disposition home or self-care (01) ==
LOC: HO.LABR 07:45
PROVIDERS: PCP Internal Medicine; Visit Provider Psychiatry & Neurology Psychiatry
DX: Z79.899 Other long term (current) drug therapy (principal)
CPT/HCPCS: 36415; 85025

== ENCOUNTER 2023-08-23 14:40 | Inpatient (IN) | payer MEDICARE, MEDICAID, SELFPAY ==
--- NOTE | ~2023-08-23 | CT_ITS ---
EXAM: CT scan of the head and cervical spine. INDICATION: Reason for Exam Fall TECHNIQUE: A noncontrast CT scan was performed from the skull base to the vertex. A noncontrast CT scan of the cervical spine was performed from the base of the skull through T1 at 2.5 mm and 1.25 mm collimation. Coronal and sagittal reformats were obtained at the acquisition workstation. This CT examination was performed using dose optimization techniques as appropriate, variously including the following: *Automated exposure control *Adjustment of mA and/or kV according to patient size (this includes techniques or standardized protocols for targeted exams where dose is matched to indication/reason for exam; i.e. extremities or head) *Use of iterative reconstruction technique DLP: 619 and 340 mGy-cm COMPARISON: None FINDINGS: Head: There is no evidence of acute intracranial hemorrhage or territorial infarction. Cruz-white matter differentiation is preserved. No abnormal mass effect or midline shift. No extra-axial fluid collections. No abnormal attenuation is demonstrated within the brain parenchyma. Scattered periventricular and deep white matter hypodensities consistent with microangiopathy. The ventricles and sulcal spaces are proportional without hydrocephalus. Proportional prominence of the ventricles and sulcal spaces. No acute osseous or soft tissue abnormalities. The mastoid air cells and visualized portions of the paranasal sinuses are well aerated. Cervical Spine: The atlantooccipital and atlantoaxial articulations remain well aligned. Straightening of the normal cervical lordosis. Otherwise, there is anatomic alignment of the vertebral bodies and posterior elements. No evidence of acute fracture or subluxation. The vertebral body heights and disc spaces are maintained. There is no prevertebral soft tissue swelling. The thyroid gland and remaining cervical soft tissues are normal in appearance. The lung apices demonstrate no abnormalities. CT/CT cervical spine wo IV con IMPRESSION: No acute intracranial pathology. No fracture subluxation cervical spine.
--- NOTE | ~2023-08-23 | CT_ITS ---
EXAMINATION: CT PELVIS WITHOUT CONTRAST CLINICAL INFORMATION: Fall. Pain. COMPARISON: None available. AP pelvis and right hip 08/23/2023. TECHNIQUE: Helical scanning was performed with submillimeter collimation through the pelvis. Sagittal and coronal multiplanar 2-D reconstructions were obtained. This CT examination was performed using dose optimization techniques as appropriate, variously including the following: *Automated exposure control *Adjustment of mA and/or kV according to patient size (this includes techniques or standardized protocols for targeted exams where dose is matched to indication/reason for exam; i.e. extremities or head) *Use of iterative reconstruction technique DLP: 824 mGy-cm FINDINGS: PELVIS: There is minimal gas and stool in the colon. The small bowel loops are nondistended. No free air or free fluid seen. The uterus is midline. No adnexal mass or abnormal lymph nodes seen. The lower anterior abdominal wall is unremarkable. OSSEOUS STRUCTURES: There is normal symmetry of bilateral SI joints. Visualized pelvis and the sacrum is unremarkable. Old healed fracture right anterior superior pubic ramus. There is normal symmetry of bilateral hip joint space. No visible acute fractures involving either hips especially no abnormality or lucency seen involving the right hip. CT/CT pelvis wo IV con IMPRESSION: No acute fracture or dislocation right hip or pelvis. There is old healed fracture with exuberant callus and right superior pubic ramus.
--- NOTE | ~2023-08-23 | XR_ITS ---
EXAMINATION: XR CHEST CLINICAL INFORMATION: Cough. COMPARISON: Chest x-ray 11/01/2018 TECHNIQUE: Frontal view of the chest was obtained. FINDINGS: The lungs are well-expanded without acute pneumonic process. Heart size is normal. There is mild interstitial prominence. No gross bony abnormality. No pleural effusion. Mild scoliosis XR/XR chest 1V IMPRESSION: Mild interstitial prominence similar to previous study from 11/01/2018. No consolidation seen.
--- NOTE | ~2023-08-23 | XR_ITS ---
EXAMINATION: XR BILATERAL HIPS WITH AP PELVIS CLINICAL INFORMATION: Right lower extremity pain. Fall from home. COMPARISON: November 03, 2022 TECHNIQUE: AP view of the pelvis and single views of each hip were obtained. FINDINGS: There are old healed fractures of the superior and inferior right pubic rami in the region of the pubis with associated degenerative change at the pubic symphysis. There is no evidence of acute fracture or diastasis of the pelvis. No evidence of widening of the sacroiliac joints. Hip joint spaces appear maintained. Views of the right hip demonstrate a faintly seen low-density region about the neck of the proximal right femur without displacement or angular abnormality. This is likely artifactual in nature, however, a nondisplaced compression fracture cannot be excluded and if patient has clinical appearance of hip fracture then CT of the pelvis would be of help in further evaluation. Mild marginal spurring is present. There is no evidence of acute fracture or dislocation of the left hip. XR/XR hip BI w PEL1V IMPRESSION: No acute fracture or diastasis of the pelvis. Probable artifact involving the neck of the proximal right femur, however, this could represent a nondisplaced compression fracture and CT of the pelvis would be of help in further evaluation.
[2023-08-23 14:46] VITALS: BP 140/70; BP 95/29; PULSE 87; PULSE 88; RESP 16; TEMP 37.5; O2SAT 90; O2SAT 95; BMI 38.3
--- NOTE | 2023-08-23 15:03 | ECG_ITS ---
Test Reason : DIABETES Blood Pressure : / mmHG Vent. Rate : 084 BPM Atrial Rate : 084 BPM P-R Int : 168 ms QRS Dur : 084 ms QT Int : 384 ms P-R-T Axes : 052 069 041 degrees QTc Int : 453 ms Normal sinus rhythm Normal ECG When compared with ECG of 10-JAN-2021 10:30, No significant change was found Referred By: Beth Ortiz Electronically Signed By:LIZZETTE DOMINGO
[2023-08-23 15:08] LABS: Glucose, Whole Blood 161 mg/dL (60-115)
[2023-08-23 15:36] LABS: MANUAL DIFF FLAG NO
[2023-08-23 15:37] LABS: Venous Blood Gas Refer to POC result
[2023-08-23 15:39] LABS: VBG Base Excess 6.7 mmol/L; VBG HCO3 32 mmol/L (22-26); VBG pCO2 49 mmHg; VBG pH 7.41 (7.32-7.43); VBG pO2 43 mmHg
[2023-08-23 15:40] LABS: Basophils Percent Auto 0.1 % (0-2); Eosinophils Percent Auto 0.1 % (0-4); Hematocrit 35.8 % (37.0-47.0); Hemoglobin 11.6 g/dl (12.0-16.0); Imm Gran Abs Auto 0.07 X10*3/uL (0.00-0.03); Imm Gran Pct Auto 0.4 % (0.0-0.4); Lymphocytes Absolute Auto 2.7 X10*3/uL (1.2-4.9); Mean Corpuscular HGB Conc 32.4 g/dl (31.0-35.0); Mean Corpuscular Hemoglobin 30.7 pg (27.0-33.0); Mean Corpuscular Volume 94.7 fL (80.0-98.0); Mean Platelet Volume 10.4 fL (9.4-12.3); Monocytes Absolute Auto 2.1 X10*3/uL (0.1-1.2); Monocytes Percent Auto 12.6 % (2-11); Neutrophils Absolute Auto 12.1 x10*3/uL (2.0-8.3); Neutrophils Percent Auto 70.8 % (45-73); Platelet Count 322 X10*3/uL (160-400); Red Blood Count 3.78 X10*6/uL (4.20-5.50); Red Cell Distribution Width 15.6 % (11.0-16.0); SCAN SMEAR FLAG 1
[2023-08-23 15:44] LABS: INTERNATIONAL NORM RATIO 1.1 (0.9-1.1); Prothrombin Time 12.8 SEC (11.1-13.3)
[2023-08-23 15:52] LABS: Lactic Acid 0.9 mmol/L (0.5-2.0)
[2023-08-23] MEDS: 0.9 % Sodium Chloride 1,000 ML 999 ML IV ×2 (16:00→16:59)
[2023-08-23 16:01] LABS: Ethanol < 10 mg/dL
[2023-08-23 16:05] LABS: Anion Gap 16 (12-20); COVID-19 Test Negative (Negative); IDNOW Serial# 6674DD1D
[2023-08-23 16:06] LABS: B Type Natriuretic Peptide 36 pg/mL (<100)
[2023-08-23 16:08] LABS: Beta-Hydroxybutyrate 0.35 mmol/L (0.02-0.27)
[2023-08-23 16:10] LABS: Alanine Aminotransferase 45 U/L (0-31); Albumin Level 3.5 g/dL (3.5-5.0); Alkaline Phosphatase 89 U/L (39-117); Aspartate Amino Transferase 111 U/L (5-31); Bilirubin Total 0.2 mg/dL (0.0-1.0); Blood Urea Nitrogen 25 mg/dL (9-16); Calcium 8.6 mg/dL (8.4-10.2); Carbon Dioxide 26 mmol/L (22-29); Chloride 106 mmol/L (96-108); Estimated Glomerular Filt Rate 52; Glucose Random 159 mg/dL (60-115); Potassium 3.9 mmol/L (3.3-5.1); Sodium 144 mmol/L (135-145); Total Protein 7.4 g/dL (6.5-8.0)
[2023-08-23 16:11] LABS: IDNOW Serial# 58CA691E; Influenza A Positive (Negative); Influenza B2 Negative (Negative)
--- NOTE | 2023-08-23 16:14 | ED.FALL ---
HPI - Fall General Chief Complaint: Fall Stated Complaint: FOUND ON FLOOR,FELL T-1,NO OBV INJURY PER EMS Time Seen by Provider: 08/23/23 15:03 Source: patient Mode of arrival: EMS History of Present Illness HPI Narrative: 63-year-old female is brought in by EMS after being found on the floor today and suspected to have an unwitnessed fall and was on the floor all night. The boyfriend found her. Patient has complaints of right hip pain is known diabetic but otherwise denies any drug or alcohol use. Related Data Home Medications Medication Instructions Recorded Confirmed aripiprazole 10 mg tablet 10 mg PO DAILY 07/31/20 07/16/23 clonazepam 1 mg tablet 1 mg PO BID PRN Anxiety 07/31/20 07/16/23 lurasidone 80 mg tablet 80 mg PO BEDTIME 07/31/20 07/16/23 furosemide 40 mg tablet 40 mg PO DAILY 11/18/21 07/16/23 docusate sodium 100 mg capsule 100 mg PO BID 02/02/23 07/16/23 Previous Rx's Medication Instructions Recorded nystatin 100,000 unit/gram topical 1 appl topical BID #60 grams 05/22/21 powder (Nystop) mometasone 0.1 % topical cream 1 appl topical DAILY PRN skin 07/18/21 irritation #45 grams bisacodyl 10 mg/30 mL enema (Fleet 10 mg (30 mL) CO DAILY PRN 08/01/21 Bisacodyl) constipation #888 mL clozapine 100 mg tablet 200 mg (2 x 100 mg) PO BEDTIME 30 12/30/21 days #60 tabs clozapine 50 mg tablet 50 mg PO BEDTIME 30 days #30 tabs 12/30/21 TUBIGRIP SOCKS (Large) #2 ea 07/31/22 polyethylene glycol 3350 17 17 g PO DAILY #510 grams 08/14/22 gram/dose oral powder Tubi assistant womens volleyball coach socks #2 ea 09/14/22 compress.stocking,knee,reg,med #2 ea 09/14/22 compress.stocking,knee,reg,med #2 ea 09/17/22 metformin 500 mg tablet,extended 500 mg PO BEDTIME 90 days #90 tabs 10/19/22 release 24 hr tizanidine 4 mg tablet 4 mg PO Q8H PRN muscle spasms/pain 10/29/22 #30 tabs ibuprofen 600 mg tablet 600 mg PO Q6H PRN pain #30 tabs 11/10/22 hydrochlorothiazide 25 mg tablet 25 mg PO DAILY #90 tabs 03/09/23 atorvastatin 10 mg tablet 10 mg PO DAILY #28 tabs 04/06/23 calcium carbonate 500 mg calcium 500 mg PO BID #56 tabs 05/05/23 (1,250 mg) tablet (Oyster Shell Calcium 500) meclizine 12.5 mg tablet 12.5 mg PO TID PRN dizziness 30 06/02/23 days #90 tabs Linzess 290 mcg capsule 290 mcg PO QAM PRN severe 06/16/23 (linaclotide) constipation 30 days #30 caps lactulose 10 gram/15 mL oral 10 g (15 mL) PO BEDTIME PRN 06/23/23 solution constipation 5 days #75 mL blood sugar diagnostic (Prodigy No #100 ea 08/03/23 Coding strips) blood sugar diagnostic (Prodigy No #50 ea 08/16/23 Coding strips) blood-glucose meter (MocoSpacey #1 ea 08/16/23 Pocket Meter kit) lancets 28 gauge (EximSoft-Trianz Lancets) #100 ea 08/16/23 Allergies Allergy/AdvReac Type Severity Reaction Status Date / Time haloperidol [From HALDOL] Allergy Intermediate RASH,ACNE Verified 07/16/23 12:21 lithium [LITHIUM] Allergy Intermediate RASH,ACNE Verified 07/16/23 12:21 simvastatin Allergy Intermediate headaches Verified 07/16/23 12:21 escitalopram Allergy Mild Blister Verified 07/16/23 12:21 risperidone [From Risperdal] Allergy Unknown Verified 07/16/23 12:21 furosemide AdvReac Intermediate rash Verified 07/16/23 12:21 hydroxyzine AdvReac Intermediate rash Verified 07/16/23 12:21 Review of Systems Review of Systems: Pertinent positives and negatives as stated in [facility] Past Medical History Source: nursing notes reviewed Medical History Diabetes mellitus type 2, controlled, without complications Screening for breast cancer Incisional hernia Umbilical hernia Obesity (BMI 30-39.9) Schizophrenia Constipation Pyuria Leukocytosis Primary osteoarthritis of both knees Stasis edema of both lower extremities Vitamin D deficiency Pure hypercholesterolemia Surgical History History of incisional hernia repair (~01/10/21) H/O colonoscopy History of splenectomy Family History Family History Father Medical history unknown Mother Diabetes Family/Other FH: mental illness Mental health disorder Social History Social History Household Members: None Housing: Apartment Do you presently have visiting nurse or other home services: Yes Alcohol intake: never Patient Tobacco Use Status: Former Tobacco user Quit Date: 35 years ago e-Cigarette/Vaping Use: Never Used Second Hand Smoke Exposure: No Advance Directives: No Advance Directives Information Provided: No service: No Current occupational status: disabled Cognitive needs: No Hearing needs: No Vision needs: No Physical Exam Vital Signs: Vital Signs: Last Vital Signs Temp 99.5 F 08/23/23 14:46 Pulse 88 08/23/23 14:46 Resp 16 08/23/23 14:46 BP 95/29 L 08/23/23 14:46 Pulse Ox 95 08/23/23 14:46 O2 Del Method Nasal Cannula 08/23/23 14:46 Oxygen Flow Rate 3 08/23/23 14:46 BMI result Body Mass Index 38.3 VITAL SIGNS: Reviewed. GENERAL: Well developed, well nourished, in no acute distress. HEAD: Normocephalic/atraumatic EYES: PERRLA, EOMI EARS: Ext canals without abnormality, TMs non-bulging and non-erythematous NOSE: Nares patent bilateral OROPHARYNX: no oral lesions noted, posterior pharynx clear and non-erythematous without noted tonsillar enlargement/erythema/exudates NECK: C-collar in place without midline cervical spine tenderness to palpation or step-offs. LUNGS: Normal breath sounds. No adventitious sounds or accessory muscle use. SpO2<95> on supplemental nasal cannula CARDIOVASCULAR: Regular rate and rhythm without noted murmurs ABDOMEN: Soft, non-tender, non-distended with bowel sounds. MUSCULOSKELETAL: No tenderness, deformities, or effusions noted on gross inspection. EXTREMITIES: No cyanosis, clubbing or edema. SKIN: Inspection of the skin reveals no rashes, +diaphoresis NEUROLOGIC: Alert and oriented x 3. Strength and sensation to light touch were grossly intact x 4. Medications Administered Generic Name Dose Route Start Last Admin Trade Name Freq PRN Reason Stop Dose Admin Sodium Chloride 1,000 mls @ 999 mls/hr 08/23/23 15:45 08/23/23 16:00 Ns IV 08/23/23 16:45 999 mls/hr .Q1H1M RADHA Administration Medical Decision Making Medical Decision Making MDM Narrative: 63-year-old female with history and clinical presentation, DDX: Dehydration, viral illness, DKA/HHS, rhabdomyolysis Signed out to Dr Pino - labs, CT head/cervical spine - Flu+ - ?Rhabdo Differential Diagnosis Differential Diagnoses: The differential diagnosis associated with the presentation includes Please see the discussion above Admission/Observation Consideration of admission/observation: Escalation of care including admission/observation considered Please see the discussion above Lab Data 08/23/23 15:21 08/23/23 15:21 Labs: Lab Results 08/23/23 08/23/23 08/23/23 Range/Units 15:04 15:21 15:33 WBC 17.0 H (4.8-10.8) X10*3/uL RBC 3.78 L (4.20-5.50) X10*6/uL Hgb 11.6 L (12.0-16.0) g/dl Hct 35.8 L (37.0-47.0) % MCV 94.7 (80.0-98.0) fL MCH 30.7 (27.0-33.0) pg MCHC 32.4 (31.0-35.0) g/dl RDW 15.6 (11.0-16.0) % Plt Count 322 (160-400) X10*3/uL MPV 10.4 (9.4-12.3) fL Immature Gran % (Auto) 0.4 (0.0-0.4) % Neut % (Auto) 70.8 (45-73) % Lymph % (Auto) 16.0 L (20-40) % [place] % (Auto) 12.6 H (2-11) % Eos % (Auto) 0.1 (0-4) % Baso % (Auto) 0.1 (0-2) % Lymph # (Auto) 2.7 (1.2-4.9) X10*3/uL [place] # (Auto) 2.1 H (0.1-1.2) X10*3/uL Eos # (Auto) 0.0 (0.0-0.4) X10*3/uL Baso # (Auto) 0.0 (0.0-0.2) X10*3/uL Abs Immat Gran (auto) 0.07 H (0.00-0.03) X10*3/uL Absolute Neuts (auto) 12.1 H (2.0-8.3) x10*3/uL Absolute Nucleated RBC 0.000 (0.0-0.012) X10*3/uL Nucleated RBC % (auto) 0.0 (0.0-0.2) /100WBC PT 12.8 (11.1-13.3) SEC INR 1.1 (0.9-1.1) VBG pH 7.41 (7.32-7.43) VBG pCO2 49 mmHg VBG pO2 43 mmHg VBG HCO3 32 H (22-26) mmol/L VBG O2 Saturation 66.0 % VBG Base Excess 6.7 mmol/L Sodium 144 (135-145) mmol/L Potassium 3.9 (3.3-5.1) mmol/L Chloride 106 (96-108) mmol/L Carbon Dioxide 26 (22-29) mmol/L Anion Gap 16 (12-20) BUN 25 H (9-16) mg/dL Creatinine 1.06 (0.5-1.4) mg/dL Estim Creat Clear Calc 59.0 Estimated GFR 52 POC Glucose 161 H (60-115) mg/dL Random Glucose 159 H (60-115) mg/dL Lactic Acid 0.9 (0.5-2.0) mmol/L Calcium 8.6 D (8.4-10.2) mg/dL Total Bilirubin 0.2 (0.0-1.0) mg/dL AST 111 H (5-31) U/L ALT 45 H (0-31) U/L Alkaline Phosphatase 89 (39-117) U/L Total Creatine Kinase 3346 H (26-140) U/L Troponin I High Sens 15.0 (<3.5-17.0) ng/L B-Natriuretic Peptide 36 (<100) pg/mL Total Protein 7.4 (6.5-8.0) g/dL Albumin 3.5 (3.5-5.0) g/dL Beta-Hydroxybutyrate 0.35 H (0.02-0.27) mmol/L Ethyl Alcohol < 10 mg/dL COVID-19 (JANICE) Negative (Negative) COVID-19 Clin Com See Note Influenza Type A (ALLISON) Positive A (Negative) Influenza Type B (ALILSON) Negative (Negative) Influenza A & B Note See Note Critical Care Time Critical Care Time Critical Care Time: Yes Total Critical Care Time: 60 Attestation: I personally attest to this time spent taking care of the patient. Discharge Plan Discharge Clinical Impression: Fall Prescriptions: No Action nystatin [Nystop] 100,000 unit/gram powder 1 appl topical BID Qty: 60 0RF mometasone 0.1 % cream 1 appl topical DAILY PRN (Reason: skin irritation) Qty: 45 0RF Fleet Bisacodyl 10 mg/30 mL enema 10 mg CO DAILY PRN (Reason: constipation) Qty: 888 0RF clozapine 50 mg tablet 50 mg PO BEDTIME 30 Days Qty: 30 0RF clozapine 100 mg tablet 200 mg PO BEDTIME 30 Days Qty: 60 0RF (DME) TUBIGRIP SOCKS (Large) large See Rx Instructions .Route .MEDSUPPLY Qty: 2 0RF Hold Instructions: Dose Change Rx Instructions: As directed polyethylene glycol 3350 17 gram/dose powder 17 g PO DAILY Qty: 510 12RF (DME) Tubi assistant womens volleyball coach socks Medium See Rx Instructions .Route .MEDSUPPLY Qty: 2 0RF Rx Instructions: As directed (DME) compress.stocking,knee,reg,med Misc See Rx Instructions .Route Qty: 2 0RF Rx Instructions: As directed (DME) compress.stocking,knee,reg,med Misc See Rx Instructions .Route Qty: 2 0RF Rx Instructions: As directed metformin 500 mg tablet extended release 24 hr 500 mg PO BEDTIME 90 Days Qty: 90 3RF tizanidine 4 mg tablet 4 mg PO Q8H PRN (Reason: muscle spasms/pain) Qty: 30 0RF ibuprofen 600 mg tablet 600 mg PO Q6H PRN (Reason: pain) Qty: 30 0RF hydrochlorothiazide 25 mg tablet 25 mg PO DAILY Qty: 90 0RF atorvastatin 10 mg tablet 10 mg PO DAILY Qty: 28 6RF calcium carbonate [Oyster Shell Calcium 500] 500 mg calcium (1,250 mg) tablet 500 mg PO BID Qty: 56 3RF meclizine 12.5 mg tablet 12.5 mg PO TID PRN (Reason: dizziness) 30 Days Qty: 90 0RF Linzess 290 mcg capsule 290 mcg PO QAM PRN (Reason: severe constipation) 30 Days Qty: 30 1RF lactulose 10 gram/15 mL solution 10 g PO BEDTIME PRN (Reason: constipation) 5 Days Qty: 75 3RF (DME) Prodigy No Coding Strip See Rx Instructions .ROUTE .MEDSULY Qty: 100 12RF Rx Instructions: As directed twice a day (DME) blood-glucose meter [Prodigy Pocket Meter] Kit See Rx Instructions .Route Qty: 1 0RF Rx Instructions: test twice per day (DME) Prodigy No Coding Strip See Rx Instructions .Route Qty: 50 8RF Rx Instructions: test twice per day (DME) lancets [Prodigy Lancets] 28 gauge misc See Rx Instructions .Route Qty: 100 8RF Rx Instructions: test twice per day aripiprazole 10 mg tablet 10 mg PO DAILY clonazepam 1 mg tablet 1 mg PO BID PRN (Reason: Anxiety) lurasidone 80 mg tablet 80 mg PO BEDTIME furosemide 40 mg tablet 40 mg PO DAILY docusate sodium 100 mg capsule 100 mg PO BID
[2023-08-23 16:57] VITALS: BP 99/62; PULSE 82; RESP 16; TEMP 37.2; O2SAT 99
[2023-08-23 17:00] VITALS: BP 99/62; PULSE 82; RESP 18; O2SAT 100
--- NOTE | 2023-08-23 17:48 | PM.IMHP ---
History of Present Illness Date of Service: 08/23/23 Attending physician on admission: Davie Junior Chief Complaint: Weakness, fall at home Pt is a 63-year-old female with a PMH significant for?HLD, [id number] diabetes type 2, varicose veins s/p venous ablation, and schizophrenia who presents to the ED for evaluation after being found on the floor of her apartment and suspected for being there overnight. Pt is alert and oriented x4, but with some noticeable cognitive delay. Patient appears to answer appropriately but is slow to respond and has noticeable tardive dyskinesia-like movements of her mouth. Patient states yesterday morning she felt lightheaded, dizzy, and confused, stating she was not ?thinking right?. Patient cannot further specify how she noted her confusion. Sometime before noon she was walking in her apartment when she became quite lightheaded and dizzy and fell, striking her head on the floor. Patient states she was unable to stand up and remained on the floor throughout the day and night, and up until this afternoon at around 14:00 when a friend stopped by and found her. She also reports right leg pain and inability to move her right leg. Denies any recent sick contacts, but notes she developed a nonproductive cough a few days ago. No shortness of breath, fever, chills, nausea, vomiting, abdominal pain. States she has been eating and drinking normally. Reports has been taking her medications as prescribed. No chest pain/pressure, palpitations. Patient reports she ambulates on her own and does not use any assistive devices. Denies any PMH of COPD or asthma, not on home O2. In the ED pt was low-grade temperature of 99.5 degrees, and soft BP of 95/29, satting at 86% on RA, improved to 95% on 3 L NC. Labs were significant for patient tested positive for influenza type A, leukocytosis of 17.0, BUN of 25, creatinine 1.06, AST 111, ALT 45, CPK 3346, and beta hydroxybutyrate mildly elevated at 0.35. Electrolytes WNL. Lactic acid 0.9. Troponin detectable at 15.0. BNP 36. Ethyl alcohol negative. UA pending. CT?of head negative for acute intracranial pathology. CT of cervical spine found no fracture or subluxation of the cervical spine. EKG demonstrated normal sinus rhythm without evidence of significant ST elevations or depressions. Pt was treated with IVF. Pt will be admitted to the hospital for treatment and further evaluation of acute hypoxic respiratory failure in setting of influenza infection, as well as rhabdomyolysis s/p fall at home in the setting of influenza infection. Review of Systems Review of Systems: Lightheadedness, dizziness Confusion Nonproductive cough Fall at home Right leg pain and inability to lift right leg Denies fever, chills, nausea, vomiting, abdominal pain No increased fatigue Denies chest pain/pressure, palpitations No shortness of breath [facility] Medical History Diabetes mellitus type 2, controlled, without complications Screening for breast cancer Incisional hernia Umbilical hernia Obesity (BMI 30-39.9) Schizophrenia Constipation Pyuria Leukocytosis Primary osteoarthritis of both knees Stasis edema of both lower extremities Vitamin D deficiency Pure hypercholesterolemia Family History Father Medical history unknown Mother Diabetes Family/Other FH: mental illness Mental health disorder Surgical History History of incisional hernia repair (~01/10/21) H/O colonoscopy History of splenectomy Social History Household Members: None Housing: Other Housing Other:: [place] [facility] Do you presently have visiting nurse or other home services: No Alcohol intake: never Patient Tobacco Use Status: Former Tobacco user Quit Date: 35 years ago Smoked in Last 30 Days: No e-Cigarette/Vaping Use: Never Used Patient Interested in Nicotine Replacement: No Patient Given Instructions on How to Stop Smoking: No Second Hand Smoke Exposure: No Use of substances other than those prescribed or required for medical reasons: No Currently Displaying Signs/Symptoms of Drug Intoxication Withdrawal: No Any prior treatment program specific to substance use: No Have you been hit, kicked, punched, or otherwise hurt by someone within the past year? If so, by whom?: No Do you feel safe in your current relationship?: No Current Relationship Is there a partner from a previous relationship who is making you feel unsafe now?: No Advance Directives: No Advance Directives Information Provided: No Do you have thoughts of harming others: None Do you have a plan to hurt others: No Plan Recently lost weight without trying: No Eating poorly because of decreased appetite: No Nutrition Risks: No Nutritional Risk Patient : No : No Poor oral hygiene: No service: No Current occupational status: disabled Cognitive needs: No Hearing needs: No Vision needs: No Meds Allergies Allergy/AdvReac Type Severity Reaction Status Date / Time haloperidol [From HALDOL] Allergy Intermediate RASH,ACNE Verified 07/16/23 12:21 lithium [LITHIUM] Allergy Intermediate RASH,ACNE Verified 07/16/23 12:21 simvastatin Allergy Intermediate headaches Verified 07/16/23 12:21 escitalopram Allergy Mild Blister Verified 07/16/23 12:21 risperidone [From Risperdal] Allergy Unknown Verified 07/16/23 12:21 furosemide AdvReac Intermediate rash Verified 07/16/23 12:21 hydroxyzine AdvReac Intermediate rash Verified 07/16/23 12:21 Home Medications Medication Instructions Recorded Confirmed Last Taken Type aripiprazole 10 mg tablet 10 mg PO DAILY 07/31/20 08/23/23 Unknown History lurasidone 80 mg tablet 80 mg PO BEDTIME 07/31/20 08/23/23 Unknown History furosemide 40 mg tablet 40 mg PO DAILY 11/18/21 07/16/23 Unknown History docusate sodium 100 mg capsule 100 mg PO BID 02/02/23 08/23/23 Unknown History clonazepam 0.5 mg tablet 0.5 mg PO BID PRN Anxiety 08/23/23 08/23/23 Unknown History Physical Exam Vital Signs and Narrative: Vital Signs: Last Vital Signs Temp 99.0 F 08/23/23 16:57 Pulse 82 08/23/23 17:00 Resp 18 08/23/23 17:00 BP 99/62 08/23/23 17:00 Pulse Ox 100 08/23/23 17:00 O2 Del Method Nasal Cannula 08/23/23 17:00 O2 Flow Rate 3 08/23/23 17:00 Oxygen Flow Rate 3 08/23/23 14:46 BMI result Body Mass Index 38.3 Constitutional: Alert but appears slighlty somnolent, cooperative and responding appropriately, though is slow to repond. In no acute distress. Mental Status: Oriented to person, place and time. Eyes: Pupils are equal, round, and reactive to light. Ear, Nose, and Throat: Oropharynx clear, mucous membranes moist. Ears and nose without deformities. Trachea midline. Involuntary twitching at movements of mouth, more pronounced on left side. Respiratory: Diffuse wheezing bilaterally. Cardiovascular: S1, S2 regular. No murmurs, rubs, or gallops. Gastrointestinal: Abdomen soft, non-tender, non-distended, obese. Normal bowel sounds. Neurologic: Cranial nerves II-XII are grossly intact bilaterally. No focal neurological deficits. 1/5 strength in LLE, 2/5 strength in RLE. Diffuse tenderness to right thigh, lower extremity, and ankle Skin: Warm, dry. Musculoskeletal: No cyanosis or clubbing. Extremities: Bilateral non-pitting edema. Psychiatric: Cooperative, slow to respond, flat affect. Results Labs 08/23/23 15:21 08/23/23 15:21 Labs: Laboratory Results - last 24 hr 08/23/23 08/23/23 08/23/23 15:04 15:21 15:33 MCV 94.7 MCH 30.7 MCHC 32.4 RDW 15.6 Plt Count 322 MPV 10.4 Immature Gran % (Auto) 0.4 Neut % (Auto) 70.8 Lymph % (Auto) 16.0 L [place] % (Auto) 12.6 H Eos % (Auto) 0.1 Baso % (Auto) 0.1 Lymph # (Auto) 2.7 [place] # (Auto) 2.1 H Eos # (Auto) 0.0 Baso # (Auto) 0.0 Abs Immat Gran (auto) 0.07 H Absolute Neuts (auto) 12.1 H Absolute Nucleated RBC 0.000 Nucleated RBC % (auto) 0.0 PT 12.8 INR 1.1 VBG pH 7.41 VBG pCO2 49 VBG pO2 43 VBG HCO3 32 H VBG O2 Saturation 66.0 VBG Base Excess 6.7 Anion Gap 16 Estim Creat Clear Calc 59.0 Estimated GFR 52 POC Glucose 161 H Random Glucose 159 H Lactic Acid 0.9 Calcium 8.6 D Total Bilirubin 0.2 AST 111 H ALT 45 H Alkaline Phosphatase 89 Total Creatine Kinase 3346 H B-Natriuretic Peptide 36 Total Protein 7.4 Albumin 3.5 Beta-Hydroxybutyrate 0.35 H Ethyl Alcohol < 10 COVID-19 (JANICE) Negative COVID-19 Clin Com See Note Influenza Type A (ALLISON) Positive A Influenza Type B (ALLISON) Negative Influenza A & B Note See Note Imaging Radiologist's Impressions: Impressions Cervical Spine CT 08/23/23 17:12 IMPRESSION: No acute intracranial pathology. No fracture subluxation cervical spine. Head CT 08/23/23 17:12 IMPRESSION: No acute intracranial pathology. No fracture subluxation cervical spine. Assessment and Plan (1) Rhabdomyolysis: Status: Acute (2) Influenza A: Status: Acute Plan Pt is a 63-year-old female with a PMH significant for?HLD, [id number] diabetes type 2, varicose veins s/p venous ablation, and schizophrenia who presents to the ED for evaluation after being found on the floor of her apartment and suspected for being there overnight. Pt will be admitted to the hospital for treatment and further evaluation of acute hypoxic respiratory failure in setting of influenza infection, as well as rhabdomyolysis s/p fall at home in the setting of influenza infection. Acute hypoxic respiratory failure in the setting of influenza A infection Patient satting as low as 86% on RA, not on home O2, diffuse wheezing upon auscultation, tested positive for influenza type A Will treat with Tamiflu, DuoNebs, Solu-Medrol, Mucinex Pt does not meet sepsis criteria: leukocytosis but no fever, tachycardia, or tachypnea; lactic acid WNL at 0.9 Titrate supplemental O2 >92, wean as tolerated Monitor respiratory status Rhabdomyolysis in the setting of influenza A infection Patient with lightheadedness, dizziness, fall at home with prolonged overnight stay on the floor Creatinine kinase 3346 Pt received 2L IVF in ED Will place on maintenance IVF Follow CPK, BMP Fall at home In the setting of above CT of head and cervical spine negative for acute pathology Pt complaining of right leg pain and inability to move right leg Will get X-ray of hips and pelvis Consider additional imaging if warranted Check tox screen PT consult HLD Continue statin HTN BP soft, hold hydrochlorothiazide for now Non insulin-dependent diabetes type 2 Hold metformin Sliding scale insulin Diabetic diet Mood disorder Continue home meds Full Code Attending:?Dr. Junior DVT Prophylaxis: Lovenox Pt will require a hospitalization of at least two nights for treatment of acute hypoxic respiratory failure and rhabdomyolysis in the setting of influenza A infection. Pt will be treated with IVF, Tamiflu, breathing treatments, supplemental O2, IV steroids, and close monitoring. Quality Stroke Does the patient have a stroke diagnosis?: No VTE Prior VTE?: No VTE Risk Level:: Medical - moderate - high VTE Device Contraindication: Treatment Not Indicated VTE Drug Contraindication: N/A - Med Ordered
--- NOTE | 2023-08-23 18:00 | PC.NURSE ---
Patient alert and oriented x 2. Lives at home alone. Patient is usually independent at home. Patient was slurring her words sounded drunk but she said she doesn't drink. tele: sinus rythym At home does not use oxygen when EMS arrived O2 sat was 86% applied 4 L NC went up to 98%. Patient c/o right shoulder and mid back pain. cpk elevated fluids running. Flu A +. Patient to be admitted. Will continue with plan of care
--- NOTE | 2023-08-23 18:26 | PHA.MEDREC ---
Pharmacy Consult ? Medication Reconciliation Pharmacy has completed the medication reconciliation.Med rec completed by pharmacy claim history only. Patient is unsure of medications, and family is not available and would not know. Patient states she has a visiting nurse who we placed a call and left a message with. Patient states she has not taken medications for about 3 days.
[2023-08-23 19:12] VITALS: BP 93/53; PULSE 82; TEMP 36.9; O2SAT 99
[2023-08-23] MEDS: Enoxaparin Sodium 40 MG/0.4 ML SYRINGE SUBCUT (20:13)
[2023-08-23 20:17] VITALS: BP 100/59; PULSE 86; RESP 18; TEMP 36.9; O2SAT 97
--- NOTE | 2023-08-23 20:55 | PC.NURSE ---
Patient hasn't voided since she got here will bladder scan patient before she goes to [facility].
[2023-08-23 21:35] VITALS: BP 116/68; PULSE 85; RESP 16; TEMP 36.2; O2SAT 98
[2023-08-23 22:39] LABS: Appearance Urine Cloudy; Color Urine Dark Yellow; Glucose Urine UA Negative (Negative); Leukocyte Esterase Urine Trace (Negative); Nitrite Urine Positive (Negative); PH 5.5 (5.0-9.0); UMIC TRIGGER UACC YES; Urine Blood Large (3+) (Negative); Urine Ketones Trace mg/dL (Negative); Urine Protein 30 (1+) mg/dL (Neg-Trace)
[2023-08-23 22:46] LABS: Amphetamine Screen Urine Not Detected (Not Detect); Barbiturates, Urine Not Detected (Not Detect); Benzodiazepines Screen Urine Not Detected (Not Detect); Cannabinoid Screen Urine Not Detected (Not Detect); Cocaine Screen Urine Not Detected (Not Detect); Fentanyl, urine Not Detected (Not Detect); Opiate Screen Urine Not Detected (Not Detect); Phencyclidine Screen Urine Not Detected (Not Detect)
[2023-08-23 22:52] LABS: Bacteria Urine 4+ (None Seen); Hyaline Casts Urine 0-2 /LPF (0-2); RBC Urine 0-2 /HPF (0-2); UACC Culture Trigger YES; WBC Urine 0-5 /HPF (0-5)
[2023-08-24] VITALS (8 sets, daily range): BP systolic 96–126; BP diastolic 55–73; PULSE 67–80; RESP 16–18; TEMP 36–36.3; O2SAT 92–98
[2023-08-24] MEDS: Lactated Ringers 1,000 ML 100 ML IVCONT ×2 (01:22→11:14)
[2023-08-24] MEDS: methylPREDNISolone Sod Succ 40 MG/ML VIAL IVPUSH ×2 (01:22→12:03)
--- NOTE | 2023-08-24 07:13 | PC.NURSE ---
0145, PATIENT OOB TO BEDSIDE COMMODE WITH ASSIST OF TWO, FELT URGE FOR BM, NO RESULTS. PT DENIED BLADDER PAIN OR PRESSURE TO VOID, BTB, BLADDER SCAN REVEALED 110ML. NOTED PATIENT WAS ST CATH'D PREVIOUS SHIFT CLOSE TO 2200 FOR 600ML. RESCAN 0530 FOR 185ML. CONTINUED TO MONITOR. PT ORDER CAME OVERNIGHT FOR TAMIFLU TAB, HOWEVER, PT DECLINED TO TAKE IT SHE STATED SHE HAD A REACTION ONCE TO THE FLU SHOT. EXPLAINED AND EDUCATED THE MEDICINE WAS TO HELP, BUT NO LUCK. HOSPITALIST ON DUTY WAS ALERTED VIA TIGER TEXT AND ACKNOWLEDGED THE MESSAGE.
[2023-08-24 07:19] LABS: Hematocrit 32.8 % (37.0-47.0); Hemoglobin 10.3 g/dl (12.0-16.0); Mean Corpuscular HGB Conc 31.4 g/dl (31.0-35.0); Mean Corpuscular Hemoglobin 30.4 pg (27.0-33.0); Mean Corpuscular Volume 96.8 fL (80.0-98.0); Mean Platelet Volume 11.2 fL (9.4-12.3); Platelet Count 297 X10*3/uL (160-400); Red Blood Count 3.39 X10*6/uL (4.20-5.50); Red Cell Distribution Width 15.9 % (11.0-16.0); White Blood Count 14.4 X10*3/uL (4.8-10.8)
[2023-08-24] MEDS: Albuterol/Iprat 2.5/0.5MG 3 ML AMPUL.NEB INHALE ×4 (07:32→19:51)
[2023-08-24 07:39] LABS: Anion Gap 13 (12-20); Blood Urea Nitrogen 19 mg/dL (9-16); Calcium 7.9 mg/dL (8.4-10.2); Carbon Dioxide 24 mmol/L (22-29); Chloride 110 mmol/L (96-108); Creatinine Clr Calc Pharmacy 83.3; Estimated Glomerular Filt Rate > 60; Glucose Random 173 mg/dL (60-115); Potassium 3.7 mmol/L (3.3-5.1); Sodium 143 mmol/L (135-145)
[2023-08-24 07:39] LABS: Glucose, Whole Blood 178 mg/dL (60-115)
[2023-08-24] MEDS: cefTRIAXone sodium 1 GM in 0.9 % Sodium Chloride 50 ML IV (08:10)
[2023-08-24] MEDS: Insulin Lispro 100 UNIT/ML 3 ML VIAL SUBCUT ×4 (08:11→21:16)
[2023-08-24] MEDS: ARIPiprazole 10 MG TABLET PO (08:11)
[2023-08-24] MEDS: Atorvastatin Calcium 10 MG TABLET PO (08:12)
[2023-08-24] MEDS: Oseltamivir Phosphate 30 MG CAPSULE PO ×2 (08:14→21:16)
[2023-08-24] MEDS: 0.9 % Sodium Chloride Flush 3 ML SYRINGE IVFLUSH ×2 (08:14→16:37)
--- NOTE | 2023-08-24 09:08 | PHA.MEDREC ---
Pharmacy Consult ? Medication Reconciliation Pharmacy has completed the medication reconciliation. Patients nurse Kourtney ([phone]) sent over a list.
--- NOTE | 2023-08-24 10:57 | MHC.CM.PN ---
Addendum entered by Denise Willis RN 08/24/23 14:56: [facility] does not have a copy of HCP. Attempted to address with patient, but visitor was present. CM will continue to follow. Original Note: IMM DELIVERED. CM MET WITH PATIENT AT BEDSIDE. A+OX4, BUT SLIGHT DELAY WHEN SPEAKING WITH PATIENT, BASELINE. PATIENT LIVES AT HOME ALONE, INDEPENDENT W/ AMBULATION AND ADL'S. [facility] 1X WEEKLY FOR MED MANAGEMENT. PER [facility] PATIENT'S MOTHER IS HCP. COPY REQUESTED. PCP: PRANEETH GEORGE MD DP: PHYSICAL THERAPY RECOMMENDING STR. PATIENT IS AGREEABLE AND HAS BEEN TO [facility] IN THE PAST, PREFERS TO RETURN THERE. REFERRAL SENT IN [place]. PATIENT IS OK WITH LOCAL STR SEARCH IF NOT ACCEPTED BY [facility].
[2023-08-24 11:24] LABS: Glucose, Whole Blood 164 mg/dL (60-115)
--- NOTE | 2023-08-24 11:46 | HO.PM.IMPN ---
Subjective Subjective Date of Service: 08/24/23 Review of Systems Follow up Flu, UTI doing well, no pain Physical Exam Vital Signs: Vital Signs: Last Vital Signs Temp 97.2 F 08/24/23 07:36 Pulse 72 08/24/23 11:34 Resp 16 08/24/23 11:34 BP 110/61 08/24/23 08:56 Pulse Ox 98 08/24/23 08:56 O2 Del Method Nasal Cannula 08/24/23 07:36 O2 Flow Rate 2 08/24/23 07:36 Oxygen Flow Rate 3 08/23/23 14:46 BMI result Body Mass Index 38.3 Appearing in no acute distress lung sounds are clear to auscultation heart regular rate rhythm, clear S1, S2 positive bowel sounds, abdomen is soft, nontender neuro patient is alert x3, no focal deficits Objective Data Active Medications Acetaminophen (Acetaminophen 325 Mg Tablet) 650 mg PO Q6H PRN PRN Reason: Pain, Mild (Pain Scale 1-3) Albuterol/Ipratropium (Albuterol/Iprat 2.5/0.5mg 3 Ml Ampul.Neb) 3 ml INHALE RQ4H WHILE AWAKE [facility] Last Admin: 08/24/23 11:32 Dose: 3 ml Documented By: LILY Aripiprazole (Aripiprazole 10 Mg Tablet) 10 mg PO DAILY [facility] Last Admin: 08/24/23 08:11 Dose: 10 mg Documented By: ELY Atorvastatin Calcium (Atorvastatin Calcium 10 Mg Tablet) 10 mg PO DAILY [facility] Last Admin: 08/24/23 08:12 Dose: 10 mg Documented By: ELY Calcium Carbonate (Calcium Carbonate 500 Mg Tablet) 500 mg PO BID [facility] Last Admin: 08/24/23 08:12 Dose: 500 mg Documented By: ELY Clonazepam (Clonazepam 0.5 Mg Tablet) 0.5 mg PO BID PRN PRN Reason: Anxiety Clozapine (Clozapine 100 Mg Tablet) 200 mg PO BEDTIME RADHA Clozapine (Clozapine 25 Mg Tablet) 50 mg PO BEDTIME RADHA Clozapine (Clozapine 25 Mg Tablet) 25 mg PO BEDTIME [facility] Dextrose (Dextrose 50 % 25 Gm/50 Ml Syringe) 25 gm IVPUSH Q15M PRN; Protocol PRN Reason: per Hypoglycemia Standing Ord. Docusate Sodium (Docusate Sodium 100 Mg Capsule) 100 mg PO DAILY PRN PRN Reason: Constipation Docusate Sodium (Docusate Sodium 100 Mg Capsule) 100 mg PO BID [facility] Last Admin: 08/24/23 08:13 Dose: Not Given Documented By: ELY Non-Admin Reason: Patient Refused Enoxaparin Sodium (Enoxaparin Sodium 40 Mg/0.4 Ml Syringe) 40 mg SUBCUT Q24H [facility] Last Admin: 08/23/23 20:13 Dose: 40 mg Documented By: ABRAHAN Glucose (Glucose Gel 15 Gm Gel..Gram.) 15 gm PO Q15M PRN; Protocol PRN Reason: per Hypoglycemia Standing Ord. Guaifenesin/Dextromethorphan (Guaifenesin Dm 600/30 1 Tab Tab.Er.12h) 1 tab PO BID PRN PRN Reason: Cough Lactated Ringer's (Lr) 1,000 mls @ 100 mls/hr IVCONT .Q10H [facility] Last Admin: 08/24/23 11:14 Dose: 100 mls/hr Documented By: ELY Ceftriaxone Sodium 1 gm/ (Sodium Chloride) 50 mls @ 100 mls/hr IV Q24H [facility] Last Infusion: 08/24/23 08:54 Dose: Infused Documented By: ELY Insulin Human Lispro (Insulin Lispro 100 Unit/Ml 3 Ml Vial) 0 unit SUBCUT QIDACHS [facility]; Protocol Last Admin: 08/24/23 08:11 Dose: 2 unit Documented By: ELY Lactulose (Lactulose 20 Gm/30 Ml Solution) 10 gm PO BEDTIME PRN PRN Reason: constipation Lurasidone HCl (Lurasidone Hcl 80 Mg Tablet) 80 mg PO BEDTIME [facility] Meclizine HCl (Meclizine Hcl 12.5 Mg Tablet) 12.5 mg PO TID PRN PRN Reason: dizziness Methylprednisolone Sodium Succinate (Methylprednisolone Sod Succ 40 Mg/Ml Vial) 40 mg IVPUSH Q12H [facility] Last Admin: 08/24/23 01:22 Dose: 40 mg Documented By: SHERIN Ondansetron HCl (Ondansetron Hcl 4 Mg/2 Ml Vial) 4 mg IVPUSH Q8H PRN PRN Reason: Nausea and Vomiting Oseltamivir Phosphate (Oseltamivir Phosphate 30 Mg Capsule) 30 mg PO Q12H [facility] Stop: 08/28/23 21:01 Last Admin: 08/24/23 08:14 Dose: 30 mg Documented By: ELY Polyethylene Glycol (Polyethylene Glycol 3350 17 Gm Powd.Pack) 17 gm PO DAILY [facility] Last Admin: 08/24/23 08:13 Dose: Not Given Documented By: ELY Non-Admin Reason: Patient Refused Sodium Chloride (0.9 % Sodium Chloride Flush 3 Ml Syringe) 3 ml IVFLUSH QSHIFT [facility] Last Admin: 08/24/23 08:14 Dose: 3 ml Documented By: ELY Labs 08/24/23 05:50 08/24/23 05:50 Labs: Laboratory Results - last 24 hr 08/23/23 08/23/23 08/23/23 15:04 15:21 15:33 MCV 94.7 MCH 30.7 MCHC 32.4 RDW 15.6 Plt Count 322 MPV 10.4 Immature Gran % (Auto) 0.4 Neut % (Auto) 70.8 Lymph % (Auto) 16.0 L Kem[place] % (Auto) 12.6 H Eos % (Auto) 0.1 Baso % (Auto) 0.1 Lymph # (Auto) 2.7 Kem[place] # (Auto) 2.1 H Eos # (Auto) 0.0 Baso # (Auto) 0.0 Abs Immat Gran (auto) 0.07 H Absolute Neuts (auto) 12.1 H Absolute Nucleated RBC 0.000 Nucleated RBC % (auto) 0.0 PT 12.8 INR 1.1 VBG pH 7.41 VBG pCO2 49 VBG pO2 43 VBG HCO3 32 H VBG O2 Saturation 66.0 VBG Base Excess 6.7 Anion Gap 16 Estim Creat Clear Calc 59.0 Estimated GFR 52 POC Glucose 161 H Random Glucose 159 H Lactic Acid 0.9 Calcium 8.6 D Total Bilirubin 0.2 AST 111 H ALT 45 H Alkaline Phosphatase 89 Total Creatine Kinase 3346 H B-Natriuretic Peptide 36 Total Protein 7.4 Albumin 3.5 Beta-Hydroxybutyrate 0.35 H Urine Color Urine Appearance Urine pH Ur Specific [place] Urine Protein Urine Glucose (UA) Urine Ketones Urine Blood Urine Nitrite Ur Leukocyte Esterase Urine RBC Urine WBC Ur Squamous Epith Cells Urine Bacteria Hyaline Casts Urine Opiates Screen Urine Fentanyl Screen Ur Barbiturates Screen Ur Phencyclidine Scrn Ur Amphetamines Screen U Benzodiazepines Scrn Urine Cocaine Screen U Marijuana (THC) Screen Ethyl Alcohol < 10 COVID-19 (JANICE) Negative COVID-19 Clin Com See Note Influenza Type A (ALLISON) Positive A Influenza Type B (ALLISON) Negative Influenza A & B Note See Note 08/23/23 08/24/23 08/24/23 22:18 05:50 07:34 MCV 96.8 MCH 30.4 MCHC 31.4 RDW 15.9 Plt Count 297 MPV 11.2 Immature Gran % (Auto) Neut % (Auto) Lymph % (Auto) Kem[place] % (Auto) Eos % (Auto) Baso % (Auto) Lymph # (Auto) Kem[place] # (Auto) Eos # (Auto) Baso # (Auto) Abs Immat Gran (auto) Absolute Neuts (auto) Absolute Nucleated RBC 0.000 Nucleated RBC % (auto) 0.0 PT INR VBG pH VBG pCO2 VBG pO2 VBG HCO3 VBG O2 Saturation VBG Base Excess Anion Gap 13 Estim Creat Clear Calc 83.3 Estimated GFR > 60 POC Glucose 178 H Random Glucose 173 H Lactic Acid Calcium 7.9 L D Total Bilirubin AST ALT Alkaline Phosphatase Total Creatine Kinase B-Natriuretic Peptide Total Protein Albumin Beta-Hydroxybutyrate Urine Color Dark Yellow Urine Appearance Cloudy Urine pH 5.5 Ur Specific [place] 1.020 Urine Protein 30 (1+) H Urine Glucose (UA) Negative Urine Ketones Trace Urine Blood Large (3+) H Urine Nitrite Positive H Ur Leukocyte Esterase Trace H Urine RBC 0-2 Urine WBC 0-5 Ur Squamous Epith Cells 3-5 Urine Bacteria 4+ Hyaline Casts 0-2 Urine Opiates Screen Not Detected Urine Fentanyl Screen Not Detected Ur Barbiturates Screen Not Detected Ur Phencyclidine Scrn Not Detected Ur Amphetamines Screen Not Detected U Benzodiazepines Scrn Not Detected Urine Cocaine Screen Not Detected U Marijuana (THC) Screen Not Detected Ethyl Alcohol COVID-19 (JANICE) COVID-19 Clin Com Influenza Type A (ALLISON) Influenza Type B (ALLISON) Influenza A & B Note 08/24/23 08/24/23 09:08 11:17 MCV MCH MCHC RDW Plt Count MPV Immature Gran % (Auto) Neut % (Auto) Lymph % (Auto) Kem[place] % (Auto) Eos % (Auto) Baso % (Auto) Lymph # (Auto) Kem[place] # (Auto) Eos # (Auto) Baso # (Auto) Abs Immat Gran (auto) Absolute Neuts (auto) Absolute Nucleated RBC Nucleated RBC % (auto) PT INR VBG pH VBG pCO2 VBG pO2 VBG HCO3 VBG O2 Saturation VBG Base Excess Anion Gap Estim Creat Clear Calc Estimated GFR POC Glucose 164 H Random Glucose Lactic Acid Calcium Total Bilirubin AST ALT Alkaline Phosphatase Total Creatine Kinase 2384 H B-Natriuretic Peptide Total Protein Albumin Beta-Hydroxybutyrate Urine Color Urine Appearance Urine pH Ur Specific [place] Urine Protein Urine Glucose (UA) Urine Ketones Urine Blood Urine Nitrite Ur Leukocyte Esterase Urine RBC Urine WBC Ur Squamous Epith Cells Urine Bacteria Hyaline Casts Urine Opiates Screen Urine Fentanyl Screen Ur Barbiturates Screen Ur Phencyclidine Scrn Ur Amphetamines Screen U Benzodiazepines Scrn Urine Cocaine Screen U Marijuana (THC) Screen Ethyl Alcohol COVID-19 (JANICE) COVID-19 Clin Com Influenza Type A (ALLISON) Influenza Type B (ALLISON) Influenza A & B Note Assessment and Plan (1) Influenza A: Status: Acute Plan Pt is a 63-year-old female with a PMH significant for?HLD, [id number] diabetes type 2, varicose veins s/p venous ablation, and schizophrenia who presents to the ED for evaluation after being found on the floor of her apartment and suspected for being there overnight. Pt will be admitted to the hospital for treatment and further evaluation of acute hypoxic respiratory failure in setting of influenza infection, as well as rhabdomyolysis s/p fall at home in the setting of influenza infection. Acute hypoxic respiratory failure in the setting of influenza A infection Initially hypoxic but resolved Continue Tamiflu, DuoNebs, Solu-Medrol, Mucinex Pt does not meet sepsis criteria: leukocytosis but no fever, tachycardia, or tachypnea; lactic acid WNL at 0.9 Titrate supplemental O2 >92, wean as tolerated Monitor respiratory status Rhabdomyolysis in the setting of influenza A infection Patient with lightheadedness, dizziness, fall at home with prolonged overnight stay on the floor Creatinine kinase 3346, down to 2384 Continue maintenance IVF Follow CPK, BMP UTI Rocephin follow urine cx Fall at home In the setting of above CT of head and cervical spine negative for acute pathology Pt complaining of right leg pain and inability to move right leg PT consult>rec STR Hip x-ray pending HLD Continue statin HTN BP soft, hold hydrochlorothiazide for now Non insulin-dependent diabetes type 2 Hold metformin Sliding scale insulin Diabetic diet Mood disorder Continue home meds Obesity. BMI 30.3 Discussed importance of weight management as this may be contributing to worsening of other comorbidities Full Code Attending:?Dr. Resendiz DVT Prophylaxis: Lovenox Continued hospital stay for treatment of acute hypoxic respiratory failure and rhabdomyolysis in the setting of influenza A infection. Pt will be treated with IVF, Tamiflu, breathing treatments, supplemental O2, IV steroids, and close monitoring. Quality Stroke Does the patient have a stroke diagnosis?: No VTE Prior VTE?: No VTE Risk Level:: Medical - moderate - high VTE Device Contraindication: Treatment Not Indicated VTE Drug Contraindication: N/A - Med Ordered
--- NOTE | 2023-08-24 15:36 | PC.NURSE ---
Patient with no void this shift. Bladder scanned for >933. Patient unable to void. Order placed for gramajo. 18F gramajo placed. Immediate return of large amt clear yellow urine. Gramajo tube secured.
[2023-08-24 16:39] LABS: Glucose, Whole Blood 209 mg/dL (60-115)
--- NOTE | 2023-08-24 16:57 | PC.NURSE ---
Hands edema,lower leg edema present,lungs congested crackles,no resp distress,ELLIE Davila notified,IV fluids stopped
--- NOTE | 2023-08-24 17:19 | PC.NURSE ---
HENOK Hannon offerred to patient to get out of bed for dinner,patient refused stating she is to tired.
[2023-08-24 20:59] LABS: Glucose, Whole Blood 207 mg/dL (60-115)
[2023-08-24] MEDS: Enoxaparin Sodium 40 MG/0.4 ML SYRINGE SUBCUT (21:15)
[2023-08-24] MEDS: Lurasidone HCl 80 MG TABLET PO (21:16)
[2023-08-24] MEDS: cloZAPine 25 MG TABLET PO (21:16)
[2023-08-24] MEDS: Docusate Sodium 100 MG CAPSULE PO (21:16)
[2023-08-25] MEDS: methylPREDNISolone Sod Succ 40 MG/ML VIAL IVPUSH ×2 (00:30→12:21)
[2023-08-25] MEDS: clonazePAM 0.5 MG TABLET PO (00:39)
[2023-08-25] MEDS: 0.9 % Sodium Chloride Flush 3 ML SYRINGE IVFLUSH ×4 (01:46→21:02)
[2023-08-25 03:53] VITALS: BP 134/68; PULSE 65; RESP 16; TEMP 36.6; O2SAT 95
[2023-08-25 06:25] LABS: Hematocrit 33.7 % (37.0-47.0); Hemoglobin 11.1 g/dl (12.0-16.0); Mean Corpuscular HGB Conc 32.9 g/dl (31.0-35.0); Mean Corpuscular Hemoglobin 31.3 pg (27.0-33.0); Mean Corpuscular Volume 94.9 fL (80.0-98.0); Mean Platelet Volume 10.9 fL (9.4-12.3); Platelet Count 343 X10*3/uL (160-400); Red Blood Count 3.55 X10*6/uL (4.20-5.50); Red Cell Distribution Width 15.6 % (11.0-16.0); White Blood Count 13.1 X10*3/uL (4.8-10.8)
[2023-08-25 06:48] LABS: Anion Gap 14 (12-20); Blood Urea Nitrogen 17 mg/dL (9-16); Calcium 9.1 mg/dL (8.4-10.2); Carbon Dioxide 26 mmol/L (22-29); Chloride 109 mmol/L (96-108); Creatinine Clr Calc Pharmacy 83.3; Estimated Glomerular Filt Rate > 60; Glucose Random 203 mg/dL (60-115); Potassium 3.9 mmol/L (3.3-5.1); Sodium 145 mmol/L (135-145)
[2023-08-25 07:05] VITALS: BP 122/73; PULSE 64; RESP 16; TEMP 36.6; O2SAT 94
[2023-08-25 07:20] LABS: Glucose, Whole Blood 191 mg/dL (60-115)
[2023-08-25] MEDS: Insulin Lispro 100 UNIT/ML 3 ML VIAL SUBCUT ×4 (07:37→20:58)
[2023-08-25] MEDS: cefTRIAXone sodium 1 GM in 0.9 % Sodium Chloride 50 ML IV (07:37)
[2023-08-25] MEDS: Atorvastatin Calcium 10 MG TABLET PO (07:37)
[2023-08-25] MEDS: Oseltamivir Phosphate 30 MG CAPSULE PO ×2 (07:37→20:57)
[2023-08-25] MEDS: Docusate Sodium 100 MG CAPSULE PO ×2 (07:37→20:58)
[2023-08-25] MEDS: ARIPiprazole 10 MG TABLET PO (07:37)
[2023-08-25] MEDS: polyethylene glycoL 3350 17 GM POWD.PACK PO (07:41)
--- NOTE | 2023-08-25 08:02 | PC.RT ---
Pt initially stated she wanted to do the duoneb breathing Tx. I did the standard clinical assessment, poured the neb and then she stated she did not want to do it because it maldonado her eyes. I convniced her to try it and we could adjust the mask. After about 10 seconds she said she did not want to do it because of the irritation to the eyes. Reaching out to MD in regards to a d/c of the duoneb. Pt states she is not having a hard time breathing
[2023-08-25 09:16] VITALS: BP 122/73; PULSE 64; O2SAT 94
[2023-08-25 11:03] LABS: Glucose, Whole Blood 180 mg/dL (60-115)
--- NOTE | 2023-08-25 13:01 | P.PNIM_ITS ---
Subjective Subjective Date of Service: 08/25/23 Interval History: no acute issues overnight Review of Systems Denies chest pain Denies shortness of breath Denies nausea vomiting diarrhea Denies fever chills Physical Exam 2 Vital Signs: Vital Signs: Last Vital Signs Temp 98 F 08/25/23 07:05 Pulse 64 08/25/23 09:16 Resp 16 08/25/23 07:05 BP 122/73 08/25/23 09:16 Pulse Ox 94 08/25/23 09:16 O2 Del Method Nasal Cannula 08/25/23 07:05 O2 Flow Rate 1 08/25/23 07:05 Oxygen Flow Rate 3 08/23/23 14:46 BMI result Body Mass Index 38.3 Const: Other: awake alert no acute distress Resp: Other: clear to auscultation bilaterally no rales rhonchi or wheezes Cardio: Other: no S4; positive S1-S2; no S3 murmurs rubs gallops GI: Other: soft nontender nondistended normoactive bowel sounds Neuro: Other: cranial nerves 2-12 grossly intact as tested. Motor is 5/5 all extremities. Sensation is intact cognition slow but appropriate Extrem: Other: no edema bilaterally Objective Data Active Medications Acetaminophen (Acetaminophen 325 Mg Tablet) 650 mg PO Q6H PRN PRN Reason: Pain, Mild (Pain Scale 1-3) Albuterol Sulfate (Albuterol Sulfate 90 Mcg 8 Gm Inhaler) 2 puff INHALE RQ4H PRN PRN Reason: Wheezing Aripiprazole (Aripiprazole 10 Mg Tablet) 10 mg PO DAILY [facility] Last Admin: 08/25/23 07:37 Dose: 10 mg Documented By: ARMEN Atorvastatin Calcium (Atorvastatin Calcium 10 Mg Tablet) 10 mg PO DAILY [facility] Last Admin: 08/25/23 07:37 Dose: 10 mg Documented By: ARMEN Calcium Carbonate (Calcium Carbonate 500 Mg Tablet) 500 mg PO BID [facility] Last Admin: 08/25/23 07:37 Dose: 500 mg Documented By: ARMEN Clonazepam (Clonazepam 0.5 Mg Tablet) 0.5 mg PO BID PRN PRN Reason: Anxiety Last Admin: 08/25/23 00:39 Dose: 0.5 mg Documented By: SHERIN Clozapine (Clozapine 100 Mg Tablet) 200 mg PO BEDTIME [facility] Clozapine (Clozapine 25 Mg Tablet) 50 mg PO DAILY@2100 [facility] Stop: 08/25/23 21:01 Clozapine (Clozapine 25 Mg Tablet) 100 mg PO DAILY@2100 [facility] Stop: 08/26/23 21:01 Clozapine (Clozapine 25 Mg Tablet) 50 mg PO BEDTIME [facility] Dextrose (Dextrose 50 % 25 Gm/50 Ml Syringe) 25 gm IVPUSH Q15M PRN; Protocol PRN Reason: per Hypoglycemia Standing Ord. Docusate Sodium (Docusate Sodium 100 Mg Capsule) 100 mg PO DAILY PRN PRN Reason: Constipation Docusate Sodium (Docusate Sodium 100 Mg Capsule) 100 mg PO BID [facility] Last Admin: 08/25/23 07:37 Dose: 100 mg Documented By: ARMEN Enoxaparin Sodium (Enoxaparin Sodium 40 Mg/0.4 Ml Syringe) 40 mg SUBCUT Q24H [facility] Last Admin: 08/24/23 21:15 Dose: 40 mg Documented By: TIN Glucose (Glucose Gel 15 Gm Gel..Gram.) 15 gm PO Q15M PRN; Protocol PRN Reason: per Hypoglycemia Standing Ord. Guaifenesin/Dextromethorphan (Guaifenesin Dm 600/30 1 Tab Tab.Er.12h) 1 tab PO BID PRN PRN Reason: Cough Lactated Ringer's (Lr) 1,000 mls @ 100 mls/hr IVCONT .Q10H [facility] Last Infusion: 08/24/23 17:09 Dose: Infused Documented By: TIN Ceftriaxone Sodium 1 gm/ (Sodium Chloride) 50 mls @ 100 mls/hr IV Q24H [facility] Last Infusion: 08/25/23 08:18 Dose: Infused Documented By: ARMEN Insulin Human Lispro (Insulin Lispro 100 Unit/Ml 3 Ml Vial) 0 unit SUBCUT QIDACHS [facility]; Protocol Last Admin: 08/25/23 12:21 Dose: 2 unit Documented By: ARMNE Lactulose (Lactulose 20 Gm/30 Ml Solution) 10 gm PO BEDTIME PRN PRN Reason: constipation Lurasidone HCl (Lurasidone Hcl 80 Mg Tablet) 80 mg PO BEDTIME [facility] Last Admin: 08/24/23 21:16 Dose: 80 mg Documented By: TIN Meclizine HCl (Meclizine Hcl 12.5 Mg Tablet) 12.5 mg PO TID PRN PRN Reason: dizziness Methylprednisolone Sodium Succinate (Methylprednisolone Sod Succ 40 Mg/Ml Vial) 40 mg IVPUSH Q12H [facility] Last Admin: 08/25/23 12:21 Dose: 40 mg Documented By: ARMEN Ondansetron HCl (Ondansetron Hcl 4 Mg/2 Ml Vial) 4 mg IVPUSH Q8H PRN PRN Reason: Nausea and Vomiting Oseltamivir Phosphate (Oseltamivir Phosphate 30 Mg Capsule) 30 mg PO Q12H [facility] Stop: 08/28/23 21:01 Last Admin: 08/25/23 07:37 Dose: 30 mg Documented By: ARMEN Polyethylene Glycol (Polyethylene Glycol 3350 17 Gm Powd.Pack) 17 gm PO DAILY [facility] Last Admin: 08/25/23 07:41 Dose: 17 gm Documented By: ARMEN Sodium Chloride (0.9 % Sodium Chloride Flush 3 Ml Syringe) 3 ml IVFLUSH QSHIFT [facility] Last Admin: 08/25/23 07:41 Dose: 3 ml Documented By: ARMEN Labs 08/25/23 05:54 08/25/23 05:54 Labs: Laboratory Results - last 24 hr 08/24/23 08/24/23 08/25/23 16:21 20:54 05:54 MCV 94.9 MCH 31.3 MCHC 32.9 RDW 15.6 Plt Count 343 MPV 10.9 Absolute Nucleated RBC 0.000 Nucleated RBC % (auto) 0.0 Anion Gap 14 Estim Creat Clear Calc 83.3 Estimated GFR > 60 POC Glucose 209 H 207 H Random Glucose 203 H Calcium 9.1 D Total Creatine Kinase 1040 H 08/25/23 08/25/23 07:16 10:59 MCV MCH MCHC RDW Plt Count MPV Absolute Nucleated RBC Nucleated RBC % (auto) Anion Gap Estim Creat Clear Calc Estimated GFR POC Glucose 191 H 180 H Random Glucose Calcium Total Creatine Kinase Microbiology Microbiology Results: Microbiology 08/23/23 22:18 Urine Culture - Preliminary Urine Catheterized - Villarreal Catheter Gram negative hoda 08/23/23 17:06 Blood Culture - Preliminary Blood - Venous No growth after 24 hours. 08/23/23 16:17 Blood Culture - Preliminary Blood - Venous No growth after 24 hours. Assessment and Plan (1) Influenza A: Status: Acute (2) Rhabdomyolysis: Status: Acute (3) T2DM (type 2 diabetes mellitus): Status: Acute Plan Pt is a 63-year-old female with a PMH significant for?HLD, [id number] diabetes type 2, varicose veins s/p venous ablation, and schizophrenia who presents to the ED for evaluation after being found on the floor of her apartment and suspected for being there overnight. Pt will be admitted to the hospital for treatment and further evaluation of acute hypoxic respiratory failure in setting of influenza infection, as well as rhabdomyolysis s/p fall at home in the setting of influenza infection. 1.Acute hypoxic respiratory failure in the setting of influenza A infection Initially hypoxic but resolved; responding well to therapy -Tamiflu( LD 08/28), DuoNebs, Solu-Medrol, Mucinex -Titrate supplemental O2 >92, wean as tolerated - follow clinically 2.Rhabdomyolysis - CPKs trending downward and response to volume repletion -Continue volume repletion with lactated Ringer's - repeat CPK in am -follow renals/divalents 3.UTI - preliminary Gram-negative rods in urine; history of E coli - blood cultures negative times 24 hours - continue Rocephin(2) - await final culturecx 4.Fall at home -PT consult recommend short-term rehab - await formal hip x-ray reading 5.HTN - acceptable control - adjust as clinically indicated 6.Non insulin-dependent diabetes type 2 -will add back metformin -lispro correctional scale - adjust as indicated Full Code Lovenox requires ongoing hospitalization to treat hypoxic respiratory failure in the backdrop of influenza a; also requires IV antibiotics pending identification of urinary pathogen. Quality Stroke Does the patient have a stroke diagnosis?: No VTE Prior VTE?: No VTE Risk Level:: Medical - moderate - high VTE Device Contraindication: Treatment Not Indicated VTE Drug Contraindication: N/A - Med Ordered
--- NOTE | 2023-08-25 13:43 | MHC.CM.PN ---
EMR reviewed. Per MD rounds patient not medically cleared for DC. Hip xray still pending report - spoke w/ correction officer reformatory in xray who will look into this. Sent updates to [facility] and awaiting response on request for bed offer. Yesterday patient named brother Gerard Caceres ([phone]) as HCP. Copy placed in chart. CM will continue to follow.
[2023-08-25 15:53] VITALS: BP 146/78; PULSE 55; RESP 18; TEMP 36.4; O2SAT 94
[2023-08-25 16:27] LABS: Glucose, Whole Blood 219 mg/dL (60-115)
[2023-08-25 19:04] VITALS: BP 135/82; PULSE 61; RESP 18; TEMP 36.4; O2SAT 96
[2023-08-25 20:30] LABS: Glucose, Whole Blood 240 mg/dL (60-115)
[2023-08-25] MEDS: Lurasidone HCl 80 MG TABLET PO (20:57)
[2023-08-25] MEDS: cloZAPine 25 MG TABLET 50 MG PO (20:57)
[2023-08-25] MEDS: Enoxaparin Sodium 40 MG/0.4 ML SYRINGE SUBCUT (20:58)
[2023-08-26] MEDS: methylPREDNISolone Sod Succ 40 MG/ML VIAL IVPUSH ×2 (02:02→12:30)
[2023-08-26 03:01] VITALS: BP 108/64; PULSE 57; RESP 17; TEMP 36.2; O2SAT 94
[2023-08-26 07:20] VITALS: BP 126/79; PULSE 56; RESP 16; TEMP 36.4; O2SAT 95
[2023-08-26 07:29] LABS: Glucose, Whole Blood 144 mg/dL (60-115)
[2023-08-26 08:58] LABS: Hematocrit 35.4 % (37.0-47.0); Hemoglobin 11.4 g/dl (12.0-16.0); Mean Corpuscular HGB Conc 32.2 g/dl (31.0-35.0); Mean Corpuscular Hemoglobin 31.1 pg (27.0-33.0); Mean Corpuscular Volume 96.7 fL (80.0-98.0); Mean Platelet Volume 11.5 fL (9.4-12.3); NRBC Pct Auto 0.2 /100WBC (0.0-0.2); Platelet Count 333 X10*3/uL (160-400); Red Blood Count 3.66 X10*6/uL (4.20-5.50); Red Cell Distribution Width 15.7 % (11.0-16.0); White Blood Count 18.4 X10*3/uL (4.8-10.8)
[2023-08-26 09:10] LABS: Anion Gap 14 (12-20); Blood Urea Nitrogen 29 mg/dL (9-16); Carbon Dioxide 28 mmol/L (22-29); Chloride 108 mmol/L (96-108); Creatinine Clr Calc Pharmacy 77.2; Estimated Glomerular Filt Rate > 60; Glucose Random 171 mg/dL (60-115); Potassium 3.8 mmol/L (3.3-5.1); Sodium 146 mmol/L (135-145)
[2023-08-26 09:55] VITALS: BP 126/79; PULSE 56; O2SAT 95
[2023-08-26] MEDS: cefTRIAXone sodium 1 GM in 0.9 % Sodium Chloride 50 ML IV (10:13)
[2023-08-26] MEDS: 0.9 % Sodium Chloride Flush 3 ML SYRINGE IVFLUSH ×3 (10:13→20:11)
[2023-08-26] MEDS: ARIPiprazole 10 MG TABLET PO (10:14)
[2023-08-26] MEDS: Atorvastatin Calcium 10 MG TABLET PO (10:14)
[2023-08-26] MEDS: Oseltamivir Phosphate 30 MG CAPSULE PO ×2 (10:14→20:10)
[2023-08-26 11:03] LABS: Glucose, Whole Blood 147 mg/dL (60-115)
--- NOTE | 2023-08-26 13:13 | MHC.CM.PN ---
EMR reviewed. Per MD rounds patient not medically cleared for DC, requiring CT of pelvis. Plan remains STR. 1st choice [facility] will not have a bed until Wednesday 08/29 r/t flu dx, [facility] has offered a bed once medically cleared. Reviewed with patient. Plan to go to [facility] if dc prior to 08/29. CM will continue to follow for dc needs.
--- NOTE | 2023-08-26 15:43 | P.PNIM_ITS ---
Subjective Subjective Date of Service: 08/26/23 Interval History: seen and examined this morning follow up for fall, rhabdo, UTI, Flu denies sob Review of Systems Review of Systems: Yes all other systems are reviewed and are negative Constitutional Constitutional: Denies chills and Denies fever(s) ENT Ears, Nose, Mouth, and Throat: Denies dizziness Neurologic Neurologic: Denies dizziness Physical Exam 2 Vital Signs: Vital Signs: Last Vital Signs Temp 97.5 F 08/26/23 07:20 Pulse 56 08/26/23 09:55 Resp 16 08/26/23 07:20 BP 126/79 08/26/23 09:55 Pulse Ox 95 08/26/23 09:55 O2 Del Method Nasal Cannula 08/26/23 07:20 O2 Flow Rate 2.0 08/26/23 07:20 Oxygen Flow Rate 3 08/23/23 14:46 BMI result Body Mass Index 38.3 Const: General: cooperative, comfortable and no acute distress; No alert or awake Nutritional Appearance: overweight Resp: Effort & Inspection: normal respiratory effort, able to speak in complete sentences, no respiratory distress and no use of accessory muscles Cardio: Rate: regular rate GI: Inspection: No distended Palpation (GI): Soft to palpation and nontender Extrem: General: Yes no pedal edema Objective Data Active Medications Acetaminophen (Acetaminophen 325 Mg Tablet) 650 mg PO Q6H PRN PRN Reason: Pain, Mild (Pain Scale 1-3) Albuterol Sulfate (Albuterol Sulfate 90 Mcg 8 Gm Inhaler) 2 puff INHALE RQ4H PRN PRN Reason: Wheezing Aripiprazole (Aripiprazole 10 Mg Tablet) 10 mg PO DAILY [facility] Last Admin: 08/26/23 10:14 Dose: 10 mg Documented By: SIVA Atorvastatin Calcium (Atorvastatin Calcium 10 Mg Tablet) 10 mg PO DAILY [facility] Last Admin: 08/26/23 10:14 Dose: 10 mg Documented By: SIVA Calcium Carbonate (Calcium Carbonate 500 Mg Tablet) 500 mg PO BID [facility] Last Admin: 08/26/23 10:14 Dose: 500 mg Documented By: SIVA Clonazepam (Clonazepam 0.5 Mg Tablet) 0.5 mg PO BID PRN PRN Reason: Anxiety Last Admin: 08/25/23 00:39 Dose: 0.5 mg Documented By: SHERIN Clozapine (Clozapine 100 Mg Tablet) 200 mg PO BEDTIME [facility] Clozapine (Clozapine 25 Mg Tablet) 100 mg PO DAILY@2100 [facility] Stop: 08/26/23 21:01 Clozapine (Clozapine 25 Mg Tablet) 50 mg PO BEDTIME [facility] Dextrose (Dextrose 50 % 25 Gm/50 Ml Syringe) 25 gm IVPUSH Q15M PRN; Protocol PRN Reason: per Hypoglycemia Standing Ord. Docusate Sodium (Docusate Sodium 100 Mg Capsule) 100 mg PO DAILY PRN PRN Reason: Constipation Docusate Sodium (Docusate Sodium 100 Mg Capsule) 100 mg PO BID [facility] Last Admin: 08/26/23 10:14 Dose: Not Given Documented By: SIVA Non-Admin Reason: Patient Refused Enoxaparin Sodium (Enoxaparin Sodium 40 Mg/0.4 Ml Syringe) 40 mg SUBCUT Q24H [facility] Last Admin: 08/25/23 20:58 Dose: 40 mg Documented By: TERRANCE Glucose (Glucose Gel 15 Gm Gel..Gram.) 15 gm PO Q15M PRN; Protocol PRN Reason: per Hypoglycemia Standing Ord. Guaifenesin/Dextromethorphan (Guaifenesin Dm 600/30 1 Tab Tab.Er.12h) 1 tab PO BID PRN PRN Reason: Cough Ceftriaxone Sodium 1 gm/ (Sodium Chloride) 50 mls @ 100 mls/hr IV Q24H [facility] Last Infusion: 08/26/23 10:43 Dose: Infused Documented By: SIVA Insulin Human Lispro (Insulin Lispro 100 Unit/Ml 3 Ml Vial) 0 unit SUBCUT QIDACHS [facility]; Protocol Last Admin: 08/26/23 12:18 Dose: Not Given Documented By: SIVA Non-Admin Reason: No Insulin Coverage Lactulose (Lactulose 20 Gm/30 Ml Solution) 10 gm PO BEDTIME PRN PRN Reason: constipation Lurasidone HCl (Lurasidone Hcl 80 Mg Tablet) 80 mg PO BEDTIME [facility] Last Admin: 08/25/23 20:57 Dose: 80 mg Documented By: TERRANCE Meclizine HCl (Meclizine Hcl 12.5 Mg Tablet) 12.5 mg PO TID PRN PRN Reason: dizziness Methylprednisolone Sodium Succinate (Methylprednisolone Sod Succ 40 Mg/Ml Vial) 40 mg IVPUSH Q12H [facility] Last Admin: 08/26/23 12:30 Dose: 40 mg Documented By: SIVA Ondansetron HCl (Ondansetron Hcl 4 Mg/2 Ml Vial) 4 mg IVPUSH Q8H PRN PRN Reason: Nausea and Vomiting Oseltamivir Phosphate (Oseltamivir Phosphate 30 Mg Capsule) 30 mg PO Q12H [facility] Stop: 08/28/23 21:01 Last Admin: 08/26/23 10:14 Dose: 30 mg Documented By: SIVA Polyethylene Glycol (Polyethylene Glycol 3350 17 Gm Powd.Pack) 17 gm PO DAILY [facility] Last Admin: 08/26/23 10:14 Dose: Not Given Documented By: SIVA Non-Admin Reason: Patient Refused Sodium Chloride (0.9 % Sodium Chloride Flush 3 Ml Syringe) 3 ml IVFLUSH QSHIFT [facility] Last Admin: 08/26/23 10:13 Dose: 3 ml Documented By: SIVA Labs 08/26/23 08:34 08/26/23 08:34 Labs: Laboratory Results - last 24 hr 08/25/23 08/25/23 08/26/23 16:20 20:23 07:23 MCV MCH MCHC RDW Plt Count MPV Absolute Nucleated RBC Nucleated RBC % (auto) Anion Gap Estim Creat Clear Calc Estimated GFR POC Glucose 219 H 240 H 144 H Random Glucose Calcium 08/26/23 08/26/23 08:34 10:57 MCV 96.7 MCH 31.1 MCHC 32.2 RDW 15.7 Plt Count 333 MPV 11.5 Absolute Nucleated RBC 0.040 H Nucleated RBC % (auto) 0.2 Anion Gap 14 Estim Creat Clear Calc 77.2 Estimated GFR > 60 POC Glucose 147 H Random Glucose 171 H Calcium 9.0 Microbiology Microbiology Results: Microbiology 08/23/23 22:18 Urine Culture - Final Urine Catheterized - Gramajo Catheter Escherichia coli 08/23/23 17:06 Blood Culture - Preliminary Blood - Venous No growth after 48 hours. 08/23/23 16:17 Blood Culture - Preliminary Blood - Venous No growth after 48 hours. Assessment and Plan (1) Influenza A: Status: Acute (2) Rhabdomyolysis: Status: Acute Plan Pt is a 63-year-old female with a PMH significant for?HLD, iyd-mfboqsq-hzqkabsmg diabetes type 2, varicose veins s/p venous ablation, and schizophrenia who presents to the ED for evaluation after being found on the floor of her apartment and suspected for being there overnight. Pt will be admitted to the hospital for treatment and further evaluation of acute hypoxic respiratory failure in setting of influenza infection, as well as rhabdomyolysis s/p fall at home in the setting of influenza infection. Acute hypoxic respiratory failure due to influenza A infection continues to require 2L NC -continue Tamiflu( LD 08/28), DuoNebs, Solu-Medrol, Mucinex -Titrate supplemental O2 >92, wean as tolerated Rhabdomyolysis CPK trending down with IVF UTI Urine culture growing andres-sensitive e.coli BCx negative to date continue Rocephin, started 08/24 urinary retention s/p gramajo placement will remove gramajo, for voiding trial Fall at home PT consult recommend short-term rehab hip xray recommending pelvis CT - pelvis CT ordered HTN - acceptable control - adjust as clinically indicated Non insulin-dependent diabetes type 2 metformin on hold Continue SSI, follow POCs h/o schizophrenia continue baseline meds Obesity. BMI 38.3 Discussed importance of weight management as this may be contributing to worsening of other comorbidities Full Code DVT ppx - Lovenox attending - Dr. Resendiz requires ongoing hospitalization to treat hypoxic respiratory failure in the backdrop of influenza a; also requires IV antibiotics pending identification of urinary pathogen. Quality Stroke Does the patient have a stroke diagnosis?: No VTE Prior VTE?: No VTE Risk Level:: Medical - moderate - high VTE Device Contraindication: Treatment Not Indicated VTE Drug Contraindication: N/A - Med Ordered
[2023-08-26 16:00] VITALS: BP 128/76; PULSE 56; RESP 16; TEMP 36.5; O2SAT 91
[2023-08-26 16:09] LABS: Glucose, Whole Blood 250 mg/dL (60-115)
[2023-08-26] MEDS: Insulin Lispro 100 UNIT/ML 3 ML VIAL SUBCUT ×2 (17:14→20:10)
[2023-08-26 19:45] VITALS: BP 144/80; PULSE 50; RESP 18; TEMP 36.1; O2SAT 95
[2023-08-26 20:02] LABS: Glucose, Whole Blood 305 mg/dL (60-115)
[2023-08-26] MEDS: Lurasidone HCl 80 MG TABLET PO (20:10)
[2023-08-26] MEDS: Docusate Sodium 100 MG CAPSULE PO (20:10)
[2023-08-26] MEDS: cloZAPine 25 MG TABLET 100 MG PO (20:10)
[2023-08-26] MEDS: Enoxaparin Sodium 40 MG/0.4 ML SYRINGE SUBCUT (20:11)
[2023-08-27] MEDS: methylPREDNISolone Sod Succ 40 MG/ML VIAL IVPUSH ×2 (00:53→12:04)
[2023-08-27 04:00] VITALS: PULSE 55; RESP 18; TEMP 36.2; O2SAT 92
[2023-08-27 04:58] VITALS: BP 124/63
[2023-08-27 07:30] VITALS: BP 157/71; PULSE 52; RESP 18; TEMP 36.2; O2SAT 92
[2023-08-27 07:36] LABS: Glucose, Whole Blood 225 mg/dL (60-115)
[2023-08-27] MEDS: Insulin Lispro 100 UNIT/ML 3 ML VIAL SUBCUT ×2 (08:38→12:04)
[2023-08-27] MEDS: cefTRIAXone sodium 1 GM in 0.9 % Sodium Chloride 50 ML IV (08:38)
[2023-08-27] MEDS: Atorvastatin Calcium 10 MG TABLET PO (08:39)
[2023-08-27] MEDS: ARIPiprazole 10 MG TABLET PO (08:39)
[2023-08-27] MEDS: Oseltamivir Phosphate 30 MG CAPSULE PO (08:39)
[2023-08-27] MEDS: 0.9 % Sodium Chloride Flush 3 ML SYRINGE IVFLUSH (08:47)
[2023-08-27 10:29] VITALS: BP 157/71; PULSE 52; O2SAT 92
--- NOTE | 2023-08-27 10:34 | MHC.CM.PN ---
Addendum entered by Denise Willis RN 08/27/23 12:17: Per PA patient is medically cleared for DC and will DC on 2L O2. BLS [facility]pm [facility]. Patient, PA, and RN aware. Patient states she will notify friends/family as needed. IMM delivered. Original Note: EMR reviewed. Per MD rounds patient is not medically cleared for dc at this time, due to O2 requirements. [facility] updated. Potential DC to [facility] tomorrow. [facility]st choice is [facility] and they have a bed Wednesday. CM will continue to follow.
[2023-08-27 11:26] LABS: Glucose, Whole Blood 224 mg/dL (60-115)
--- NOTE | 2023-08-27 12:52 | P.DS_ITS ---
DS: Providers Provider Date of Service: 08/27/23 Date of admission: 08/23/23 19:15 Date of discharge: 08/27/23 Primary care physician: Abel Mejía MD Attending physician on discharge: Moose Resendiz Discharging clinician: Fanny Pires DS: Diagnosis Discharge Diagnosis (1) Influenza A: Status: Acute (2) Rhabdomyolysis: Status: Acute DS: Summary Hospital Course Hospital Course: From H&P on the day of admission Pt is a 63-year-old female with a PMH significant for?HLD, nul-dqvsiup-ytogclogi diabetes type 2, varicose veins s/p venous ablation, and schizophrenia who presents to the ED for evaluation after being found on the floor of her apartment and suspected for being there overnight. Pt is alert and oriented x4, but with some noticeable cognitive delay. Patient appears to answer appropriately but is slow to respond and has noticeable tardive dyskinesia-like movements of her mouth. Patient states yesterday morning she felt lightheaded, dizzy, and confused, stating she was not ?thinking right?. Patient cannot further specify how she noted her confusion. Sometime before noon she was walking in her apartment when she became quite lightheaded and dizzy and fell, striking her head on the floor. Patient states she was unable to stand up and remained on the floor throughout the day and night, and up until this afternoon at around 14:00 when a friend stopped by and found her. She also reports right leg pain and inability to move her right leg. Denies any recent sick contacts, but notes she developed a nonproductive cough a few days ago. No shortness of breath, fever, chills, nausea, vomiting, abdominal pain. States she has been eating and drinking normally. Reports has been taking her medications as prescribed. No chest pain/pressure, palpitations. Patient reports she ambulates on her own and does not use any assistive devices. Denies any PMH of COPD or asthma, not on home O2. In the ED pt was low-grade temperature of 99.5 degrees, and soft BP of 95/29, satting at 86% on RA, improved to 95% on 3 L NC. Labs were significant for patient tested positive for influenza type A, leukocytosis of 17.0, BUN of 25, creatinine 1.06, AST 111, ALT 45, CPK 3346, and beta hydroxybutyrate mildly elevated at 0.35. Electrolytes WNL. Lactic acid 0.9. Troponin detectable at 15.0. BNP 36. Ethyl alcohol negative. UA pending. CT?of head negative for acute intracranial pathology. CT of cervical spine found no fracture or subluxation of the cervical spine. EKG demonstrated normal sinus rhythm without evidence of significant ST elevations or depressions. Pt was treated with IVF. Pt will be admitted to the hospital for treatment and further evaluation of acute hypoxic respiratory failure in setting of influenza infection, as well as rhabdomyolysis s/p fall at home in the setting of influenza infection. Acute hypoxic respiratory failure due to influenza A infection She was treated with Tamiflu, breathing treatments and steroids. Her symptoms are improving but she continues to require 2L NC. Wean as tolerated. Rhabdomyolysis CPK trending down with IVF UTI Urine culture growing andres-sensitive e.coli . BCx negative to date. She was treated with IV Rocephin, started 08/24. will be discharged to complete course of po antibiotics. urinary retention. s/p gramajo placement. gramajo was removed and patient has been voiding independently Fall at home PT consult recommend short-term rehab. Hip xray recommended pelvis CT. Pelvis CT obtained and shows no fracture anticipate less then 30 day stay at SNF. leukocytosis related to steroids - also appears to have chronic leukocytosis. outpatient follow up recommended Time Attestation Discharge coordination time: Greater than 30 minutes Quality: Safe Use of Opioids Does Pt have an Active Cancer Diagnosis on the Problem List?: No Quality: Stroke Does the patient have a stroke diagnosis?: No Physical Exam Vital Signs: Vital Signs: Last Vital Signs Temp 97.1 F 08/27/23 07:30 Pulse 52 08/27/23 10:29 Resp 18 08/27/23 07:30 BP 157/71 H 08/27/23 10:29 Pulse Ox 92 08/27/23 10:29 O2 Del Method Nasal Cannula 08/27/23 07:30 O2 Flow Rate 2 08/27/23 07:30 Oxygen Flow Rate 3 08/23/23 14:46 BMI result Body Mass Index 38.3 Const: General: cooperative, comfortable and no acute distress; No alert or awake Nutritional Appearance: overweight Resp: Effort & Inspection: normal respiratory effort, able to speak in complete sentences, no respiratory distress and no use of accessory muscles Cardio: Rate: regular rate GI: Inspection: No distended Palpation (GI): Soft to palpation and nontender Extrem: General: Yes no pedal edema DS: Data Data Completed and Pending Completed studies during hospitalization [Text1]: Procedures Supplement Abdominal Wall with Synthetic Substitute, Open Approach (01/10/21) Labs on day of discharge: Laboratory Results - last 24 hr 08/26/23 08/26/23 08/27/23 16:05 19:56 07:28 POC Glucose 250 H 305 H 225 H 08/27/23 11:22 POC Glucose 224 H Preliminary micro results at discharge 08/23/23 17:06 Blood Culture - Preliminary Blood - Venous No growth after 48 hours. 08/23/23 16:17 Blood Culture - Preliminary Blood - Venous No growth after 48 hours. Discharge Plan Discharge Anticipated Discharge Date/Time: 08/27/23 13:04 Patient Disposition: Xfer SNF Discharge Diagnosis: fall rhabdomyolysis UTI influenza Referrals: Abel Mejía MD [Primary Care Provider] - 1 Week Discharge Medications: New oseltamivir 30 mg Capsule 30 mg PO Q12H Qty: 3 0RF cefuroxime axetil 250 mg tablet 250 mg PO BID 3 Days Qty: 6 0RF prednisone 20 mg tablet 40 mg PO DAILY 4 Days Qty: 8 0RF Continued nystatin [Nystop] 100,000 unit/gram powder 1 appl topical BID Qty: 60 0RF clozapine 50 mg tablet 50 mg PO BEDTIME 30 Days Qty: 30 0RF clozapine 100 mg tablet 200 mg PO BEDTIME 30 Days Qty: 60 0RF polyethylene glycol 3350 17 gram/dose powder 17 g PO DAILY Qty: 510 12RF metformin 500 mg tablet extended release 24 hr 500 mg PO BEDTIME 90 Days Qty: 90 3RF hydrochlorothiazide 25 mg tablet 25 mg PO DAILY Qty: 90 0RF atorvastatin 10 mg tablet 10 mg PO DAILY Qty: 28 6RF calcium carbonate [Oyster Shell Calcium 500] 500 mg calcium (1,250 mg) tablet 500 mg PO BID Qty: 56 3RF Linzess 290 mcg capsule 290 mcg PO QAM PRN (Reason: severe constipation) 30 Days Qty: 30 1RF lactulose 10 gram/15 mL solution 10 g PO BEDTIME PRN (Reason: constipation) 5 Days Qty: 75 3RF clonazepam 0.5 mg Tablet 0.5 mg PO BID PRN (Reason: Anxiety) multivitamin Tablet 1 tab PO DAILY calcium carbonate [Calcium 500] 500 mg calcium (1,250 mg) Tablet 500 mg PO BID aripiprazole 10 mg tablet 10 mg PO DAILY lurasidone 80 mg tablet 80 mg PO BEDTIME docusate sodium 100 mg capsule 100 mg PO BID No Action (DME) TUBIGRIP SOCKS (Large) large See Rx Instructions .Route .MEDSUPPLY Qty: 2 0RF Hold Instructions: Dose Change Rx Instructions: As directed (DME) [employer]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 Medium See Rx Instructions .Route .MEDSUPPLY Qty: 2 0RF Rx Instructions: As directed (DME) compress.stocking,knee,reg,med Misc See Rx Instructions .Route Qty: 2 0RF Rx Instructions: As directed (DME) compress.stocking,knee,reg,med Misc See Rx Instructions .Route Qty: 2 0RF Rx Instructions: As directed (DME) Prodigy No Coding Strip See Rx Instructions .ROUTE .MEDSUPPLY Qty: 100 12RF Rx Instructions: As directed twice a day (DME) blood-glucose meter [Prodigy Pocket Meter] Kit See Rx Instructions .Route Qty: 1 0RF Rx Instructions: test twice per day (DME) Prodigy No Coding Strip See Rx Instructions .Route Qty: 50 8RF Rx Instructions: test twice per day (DME) lancets [Prodigy Lancets] 28 gauge misc See Rx Instructions .Route Qty: 100 8RF Rx Instructions: test twice per day Discharge Orders: Discharge Order (Routine); Ordered 08/27/23 Ordered By: Fanny Pires Activity on Discharge: As tolerated Stand Alone Forms: Patient Portal Discharge page Care Plan Goals: see below Health Concerns: UTI influenza A rhabdomyolysis Plan of Treatment: complete 3 more doses of tamiflu complete 3 more days of antibiotics for UTI complete 4 more days of prednisone continue all other medications as prescribed call to schedule follow up with PCP Assessment: see discharge summary
--- NOTE | 2023-08-27 15:02 | P.CDIM_ITS ---
PROVIDER RESPONSE TEXT: To clarify, the appropriate diagnosis supported by the clinical indicators: Diabetes mellitus Type 2 with hyperglycemia QUERY TEXT: PHYSICIAN'S DOCUMENTATION REQUEST Date of Query: 08/27/2023 09:53 AM EST Patient Name: Kristin Caceres Admit Date: 08/24/2023 Dear Fanny Pires, A review of the medical record indicates additional documentation may be needed. Please review below and update the documentation accordingly. Clinical Indicators: LABS; POC Glucose 305 H Please clarify the following regarding the Complications of Diabetes Mellitus (DM): Diabetes mellitus Type 2 with hyperglycemia Other Other (explain) Clinically unable to determine (explain) Thank you, Tish Franklin, CCS, CDIS Use of terms such as suspected, likely, concern for, or probable (associated with a specific diagnosi s that is being evaluated, monitored, or treated as if it exists) are acceptable and can be coded in the inpatient se tting, when documented at the time of discharge. Please use your independent medical judgment in providing your response. THIS QUERY IS PART OF THE PERMANENT MEDICAL RECORD
== END 2023-08-27 16:21 | disposition skilled nursing facility (03) | DRG 193 ==
LOC: HO.ED 16:27 → HO.EDOVER 19:28 → HO.S3 20:28
PROVIDERS: Hospitalist; Nurse Practitioner Acute Care; Student in an Organized Health Care Education/Training Program; Admitting Provider Student in an Organized Health Care Education/Training Program; Emergency Provider Emergency Medicine; PCP Internal Medicine; Visit Provider Physician Assistant Medical
DX: J10.1 Influenza due to other identified influenza virus with other respiratory manifestations (principal); J96.01 Acute respiratory failure with hypoxia; M62.82 Rhabdomyolysis; N39.0 Urinary tract infection, site not specified; R33.9 Retention of urine, unspecified; I10 Essential (primary) hypertension; B96.20 Unspecified Escherichia coli [E. coli] as the cause of diseases classified elsewhere; E66.9 Obesity, unspecified; Z68.38 Body mass index [BMI] 38.0-38.9, adult; E78.5 Hyperlipidemia, unspecified; F20.9 Schizophrenia, unspecified; W19.XXXA Unspecified fall, initial encounter; E11.65 Type 2 diabetes mellitus with hyperglycemia; Z87.891 Personal history of nicotine dependence; Z79.84 Long term (current) use of oral hypoglycemic drugs; Z79.899 Other long term (current) drug therapy
CPT/HCPCS: 36415; 70450; 71045; 72125; 72192; 73521; 80048; 80053; 80307; 81001; 82010; 82550; 82803; 82947; 83605; 83880; 84484; 85025; 85027; 85610; 87040; 87086; 87088; 87186; 87502; 87635; 93005; 94640; 97116; 97162; 99285; C1758; J0696; J1650; J2920; J7120

== ENCOUNTER → 2023-08-23 15:03 | Outpatient (BNV) | payer MEDICARE, MEDICAID, SELFPAY | PROVIDERS: Admitting Provider Student in an Organized Health Care Education/Training Program; Emergency Provider Emergency Medicine; PCP Internal Medicine; Visit Provider Internal Medicine | DX: E11.9 Type 2 diabetes mellitus without complications (principal) | CPT/HCPCS: 93010 ==

== ENCOUNTER → 2023-08-23 19:15 | Outpatient (BNV) | payer MEDICARE, MEDICAID, SELFPAY | PROVIDERS: Admitting Provider Student in an Organized Health Care Education/Training Program; Emergency Provider Emergency Medicine; PCP Internal Medicine; Visit Provider Student in an Organized Health Care Education/Training Program | DX: J10.1 Influenza due to other identified influenza virus with other respiratory manifestations (principal); M62.82 Rhabdomyolysis | CPT/HCPCS: 99223; 99232; 99233; 99239 ==

== ENCOUNTER 2023-09-21 08:44 | Outpatient (AMB) | payer MEDICARE, MEDICAID, SELFPAY ==
--- NOTE | 2023-09-21 08:47 | A.OFFPC_ITS ---
Vital Signs 09/21/23 08:48 Height 5 ft 3 in Weight 206 lb BMI 36.5 BP 126/84 Blood Pressure Location Lt brachial Position Sitting Pulse 114 H Pulse Source Pulse Oximeter Pulse Oximetry (%) 97 Oxygen Delivery Method Room Air Intake Visit Reasons: HDF Reference Investigator Required: No Accompanied by: Self / Same As Patient Allergies haloperidol [From HALDOL] Allergy (Intermediate, Verified 09/21/23 09:29) RASH,ACNE lithium [LITHIUM] Allergy (Intermediate, Verified 09/21/23 09:29) RASH,ACNE simvastatin Allergy (Intermediate, Verified 09/21/23 09:29) headaches escitalopram Allergy (Mild, Verified 09/21/23 09:29) Blister risperidone [From Risperdal] Allergy (Verified 09/21/23 09:29) Unknown furosemide Adverse Reaction (Intermediate, Verified 09/21/23 09:29) rash hydroxyzine Adverse Reaction (Intermediate, Verified 09/21/23 09:29) rash Medication List - Last Reconciled 09/21/23 by Abel Mejía MD aripiprazole 10 mg PO DAILY atorvastatin 10 mg PO DAILY blood sugar diagnostic (Prodigy No Coding strips) As directed twice a day blood sugar diagnostic (Prodigy No Coding strips) test twice per day blood-glucose meter (Lumenergi Pocket Meter kit) test twice per day calcium carbonate 500 mg PO BID calcium carbonate (Oyster Shell Calcium 500) 500 mg PO BID cefuroxime axetil 250 mg PO BID 3 days clonazepam 0.5 mg PO BID PRN clozapine 50 mg PO BEDTIME 30 days clozapine 200 mg (2 x 100 mg) PO BEDTIME 30 days compress.stocking,knee,reg,med As directed compress.stocking,knee,reg,med As directed docusate sodium 100 mg PO BID hydrochlorothiazide 25 mg PO DAILY lactulose 10 grams (15 mL) PO BEDTIME PRN 5 days lancets (Prodigy Lancets) test twice per day Linzess (linaclotide) 290 mcg PO QAM PRN 30 days NS lurasidone 80 mg PO BEDTIME metformin ER 500 mg PO BEDTIME 90 days multivitamin 1 tab PO DAILY nystatin (Nystop) 1 appl topical BID oseltamivir 30 mg PO Q12H polyethylene glycol 3350 17 grams PO DAILY prednisone 40 mg (2 x 20 mg) PO DAILY 4 days [Tubi flatwork catcher socks As directed] [TUBIGRIP SOCKS (Large) As directed] Tobacco use date assessed: 09/21/23 Fall risk assessment: 2 + Falls in past year Last assessed Fall Risk: 09/21/23 Dental Screening Dental Screen Date: 09/21/23 Did you have a dental visit in the last 12 months?: No Did you have a dental problem in the last 6 months where you did not have access to dental care?: No Was dental information given to patient?: No HPI HDF HPI Details Patient comes in today for her HDF follow up visit She was admitted to [facility] for a few days at the end of last month after she was fo und on the floor at home by a friend She apparently felt lightheaded, fell and hit her head on the floor but thinks that she did not pass out although she was unable to get up due to inability to move her right leg She reportedly remained on the floor for several hours, at least overnight, and was found by her friend the next day when she stopped by to check in on her and brought her to the ER for further evaluation Patient tested positive for influenza A at the hospital and also had elevated CPK level and leucocytosis consistent with rhabdomyolysis She was subsequently admitted and started on IV fluid hydration and was also started on Tx for influenza She had cervical spine CT done which came out negative for acute injuries She also subsequently had pelvic x-rays and CT done for further evaluation of her bilateral hip pain - imaging studies all came back negative She presently continues to experience increased pain over both hips and states that she has difficulty moving about due to the pain Reports that she spent some time in short-term rehab and was just discharged from rehab a couple of weeks ago She denies any headaches or dizziness Denies any chest pains, no SOB No nausea/vomiting, no abdominal pain No change in bowel habits noted [facility] Medical History T2DM (type 2 diabetes mellitus) Diabetes mellitus type 2, controlled, without complications Screening for breast cancer Incisional hernia Umbilical hernia Obesity (BMI 30-39.9) Schizophrenia Constipation Pyuria Leukocytosis Primary osteoarthritis of both knees Stasis edema of both lower extremities Vitamin D deficiency Pure hypercholesterolemia Surgical History History of incisional hernia repair (~01/10/21) H/O colonoscopy History of splenectomy Family History Father Medical history unknown Mother Diabetes Family/Other FH: mental illness Mental health disorder Social History Household Members: None Housing: Other Housing Other:: [place] [facility] Do you presently have visiting nurse or other home services: No Alcohol intake: never Patient Tobacco Use Status: Former Tobacco user Quit Date: 35 years ago e-Cigarette/Vaping Use: Never Used Second Hand Smoke Exposure: No service: No Current occupational status: disabled Cognitive needs: No Hearing needs: No Vision needs: No Questionnaire PHQ-9 Over the last 2 weeks, how often have you been bothered by any of the following problems? 1. Little interest or pleasure in doing things: not at all 2. Feeling down, depressed, or hopeless: not at all 3. Trouble falling or staying asleep, or sleeping too much: not at all 4. Feeling tired or having little energy: not at all 5. Poor appetite or overeating: not at all 6. Feeling bad about yourself - or that you are a failure or have let yourself or your family down: not at all 7. Trouble concentrating on things, such as reading the newspaper or watching television: not at all 8. Moving or speaking so slowly that other people could have noticed. Or the opposite - being so fidgety or restless that you have been moving around a lot more than usual: not at all 9. Thoughts that you would be better off or of hurting yourself in some way: not at all Total score: 0 Depression Screening Interpretation: Negative Depression Screening Done: Yes 02679 - PHQ-9 Billing: Yes Source: Developed by Drs. Cody Askew, Coni Madden, Jose L Frost and colleagues, with an educational mansoor from [employer]. Thrive Questionnaire Date Thrive assessed: 09/21/23 I am a: Patient What is your living situation today?: I have a steady place to live Within the past 12 months, did the food you bought not last and you didn't have the money to get more?: Never true Within the past 12 months, did you worry whether your food would run out before you got money to buy more?: Never true Do you have trouble paying for medicines?: No Do you have trouble getting transportation to medical appointments?: No Do you have trouble paying your heating and electricity bill?: No Do you have trouble taking care of your child, family member or friend?: No Do you have trouble with day-to-day activities such as bathing, preparing meals, shopping, managing finances, etc.?: No Are you currently unemployed and looking for a job?: No Are you interested in more education?: No Please select the resources that you would like help with: None Currently or been in a relationship where the following occur: no concerns reported THRIVE Score: 0 AUDIT C Alcohol Use Questionnaire (AUDIT-C) 1. How often do you have a drink containing alcohol?: Never 3. How often do you have six or more drinks on one occasion?: Never Total Score: 0 Score Reviewed/Action Taken: Yes ROSA-7 AMB Questionnaire ROSA-7 Date ROSA - 7 assessed: 09/21/23 Feeling nervous, anxious, or on edge: 0 = Not at all Not being able to stop or control worryin = Not at all Worrying too much about different things: 0 = Not at all Trouble relaxin = Not at all Being so restless that it is hard to sit still: 0 = Not at all Becoming easily annoyed or irritable: 0 = Not at all Feeling afraid as if something awful might happen: 0 = Not at all Total ROSA-7 score (0-4 normal; 5-9 mild; 10-14 moderate; 15-21 severe): 0 Source: Developed by Drs. Cody Askew, Coni Madden, Jose L Frost and colleagues, with an educational mansoor from [employer]. ROSA-7 Assessment Billing ROSA-7 Assessment Tool: ROSA-7 Assessment 01155 Review of Systems Const Denies chills, Reports fatigue, Denies fever(s) and Denies headache(s) ENT Denies dysphagia, Denies dizziness, Denies otalgia, Denies headache(s), Denies neck pain, Denies odynophagia and Denies sore throat Card Denies chest pain, Denies palpitations and Denies dyspnea Resp Denies chest congestion, Denies cough and Denies dyspnea GI Denies abdominal pain, Reports constipation (on and off, better controlled lately), Denies dysphagia, Denies heartburn, Denies diarrhea, Denies nausea, Denies odynophagia and Denies vomiting Denies difficulty voiding, Denies nocturia, Denies dysuria and Denies urinary urgency Musc Details: c/o difficulty moving her right leg often recently Reports arthralgias (both knees and more recently over both hips, L>R), Denies muscle weakness and Denies neck pain Skin/Breast Denies rash Neuro Denies dizziness and Denies headache(s) Endo Reports fatigue and Denies palpitations Dawood/Lymph Details: on and off swelling of both legs, slightly worse in the right leg Physical exam (Primary Care) Vital Signs: Last Vital Signs Pulse 114 H 09/21/23 08:48 BP 126/84 09/21/23 08:48 Pulse Ox 97 09/21/23 08:48 Oxygen Delivery Method Room Air 09/21/23 08:48 BMI result Body Mass Index 36.5 Tobacco/Smoking Status: Tobacco use Status Tobacco use date assessed 09/21/23 09/21/23 08:55 Patient Tobacco Use Status Former Tobacco user 09/21/23 08:55 e-Cigarette/Vaping Use Never Used 09/21/23 08:55 PHQ-9: PHQ-9 Score PHQ-9: Total score 0 09/21/23 08:55 Depression Screening Interpretation: Negative Thrive Assessment: Date of Thrive Assessment Date Thrive assessed 09/21/23 09/21/23 08:55 Currently or been in a relationship where the following occur: no concerns reported Const General: no acute distress and alert HENMT Throat: Yes posterior oropharynx normal and Yes tonsils normal (no TP congestion noted) Neck Neck: Yes no lymphadenopathy and Yes supple Resp Auscultation: clear to auscultation bilaterally, no rales and no wheezes Cardio Rate: regular rate Rhythm: regular rhythm Heart sounds: no murmurs GI Palpation (GI): Soft to palpation and nontender Auscultation: normal bowel sounds General: Yes no CVA tenderness Back/Spine/Pelvis Back: no CVA tenderness Skin Rashes: no rashes Extrem General: Yes edema (2+ bilaterally, slightly worse on the right lower extremity) Right lower extremity: hip/thigh Details: tenderness Location: of the hip and knee Details: tenderness; no swelling Left lower extremity: hip/thigh Details: tenderness Location: of the hip and knee Details: tenderness; no swelling Assessment and Plan Assessment & Plan (1) Bilateral hip pain: Code(s): M25.551 - Pain in right hip; M25.552 - Pain in left hip Plan: Patient is advised/reassured that her pelvic CT and x-rays done last month came out normal with NO significant findings in BOTH of her hip. She did have an old healed fracture of the right anterior superior pubic ramus seen but it is unclear at this time if this has anything to do with her hip pain and leg pain Will refer her to physical therapy for further evaluation and management of her bilateral hip pain (2) Rhabdomyolysis: Code(s): M62.82 - Rhabdomyolysis Qualifiers: Rhabdomyolysis type: non-traumatic Qualified Code(s): M62.82 - Rhabdomyolysis Plan: Resolving Will send her for some repeat labs NISH for follow up, especially of her CPK level and renal function (3) Influenza A: Code(s): J10.1 - Influenza due to other identified influenza virus with other respiratory manifestations Plan: Resolved - patient tested positive for Influenza A last month and developed acute hypoxic respiratory failure Was treated with Tamiflu, empiric Abx and oral Prednisone as well as supportive measures Her oxygen saturation today is at 97% on room air (4) Pure hypercholesterolemia: Code(s): E78.00 - Pure hypercholesterolemia, unspecified Plan: Reinforced low cholesterol diet Continue Atorvastatin 10 mg QD (5) Diabetes mellitus type 2, controlled, without complications: Code(s): E11.9 - Type 2 diabetes mellitus without complications Qualifiers: 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: without long haul truck driver use Qualified Code(s): E11.9 - Type 2 diabetes mellitus without complications Plan: In-office HgbA1c was at 7.3% back in May 2023 - goal is < 7.0% Will recheck her HgbA1c NISH for follow up Reinforced diabetic diet Continue Metformin ER 500 mg QD for now Follow up with (diabetic) land checker as scheduled (6) Vitamin D deficiency: Code(s): E55.9 - Vitamin D deficiency, unspecified Plan: Continue Vitamin D3 1000 units QD (7) Constipation: Code(s): K59.00 - Constipation, unspecified Qualifiers: Constipation type: unspecified constipation type Qualified Code(s): K59.00 - Constipation, unspecified Plan: States that this has been better controlled lately Reinforced increased oral fluids and dietary fiber Continue Bisacodyl 10 mg suppositories PRN and Lactulose solution when needed; continue Metamucil daily and may also take Senna additionally as needed (8) Primary osteoarthritis of both knees: Code(s): M17.0 - Bilateral primary osteoarthritis of knee Plan: X-rays done a couple of years ago showed (+) mild osteoarthritis changes in both knees Encouraged again to continue with regular exercises to help minimize her joint pain and stiffness Will consider referral to Orthopedics if her knee pain progesses (9) Stasis edema of both lower extremities: Code(s): I87.303 - Chronic venous hypertension (idiopathic) without complications of bilateral lower extremity Plan: Her edema is diffuse and chronic; patient continues to follow up with vascular surgery (Dr. Natarajan) regularly Have encouraged patient again to continue to elevate her legs and feet as often as she can and to try getting her compression or support stockings back on as soon as she is able to get them on Continue Hydrochlorothiazide 25 mg once a day in AM as needed for increased e irwin (10) Schizophrenia: Code(s): F20.9 - Schizophrenia, unspecified Qualifiers: Schizophrenia type: unspecified Qualified Code(s): F20.9 - Schizophrenia, unspecified Plan: Continue Trihexyphenidyl 5 mg once a day, Clozaril 125 mg 1 & 1/2 tablet once a day at bedtime, Abilify 20 mg 2 tablets once a day, Latuda 120 mg once a day and Clonazepam 1 mg once a day as needed Follow-up with Psychiatry as scheduled (11) Obesity (BMI 30-39.9): Code(s): E66.9 - Obesity, unspecified Plan: Reinforced diet/exercise as tolerated/lose weight Plan Follow up as scheduled next month Orders: Orders CK, Total+Isoenzymes, Serum Today M62.82 - Rhabdomyolysis Comprehensive Met. 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
[2023-09-21 08:48] VITALS: BP 126/84; PULSE 114; O2SAT 97; BMI 36.5
== END 2023-09-21 09:31 | disposition home or self-care (01) ==
PROVIDERS: PCP Internal Medicine; Visit Provider Internal Medicine
DX: E11.9 Type 2 diabetes mellitus without complications (principal); F20.9 Schizophrenia, unspecified; M25.551 Pain in right hip; M25.552 Pain in left hip; E55.9 Vitamin D deficiency, unspecified; M62.82 Rhabdomyolysis; J10.1 Influenza due to other identified influenza virus with other respiratory manifestations; E78.00 Pure hypercholesterolemia, unspecified; K59.00 Constipation, unspecified; M17.0 Bilateral primary osteoarthritis of knee; I87.303 Chronic venous hypertension (idiopathic) without complications of bilateral lower extremity; E66.9 Obesity, unspecified
CPT/HCPCS: 99214

== ENCOUNTER 2023-09-30 09:17 | Outpatient (REF) | payer MEDICARE, MEDICAID, SELFPAY ==
[2023-09-30 09:45] LABS: MANUAL DIFF FLAG NO
[2023-09-30 10:38] LABS: Basophils Percent Auto 0.2 % (0-2); Hematocrit 36.5 % (37.0-47.0); Hemoglobin 11.4 g/dl (12.0-16.0); Imm Gran Abs Auto 0.08 X10*3/uL (0.00-0.03); Imm Gran Pct Auto 0.6 % (0.0-0.4); Lymphocytes Absolute Auto 4.9 X10*3/uL (1.2-4.9); Lymphocytes Percent Auto 34.1 % (20-40); Mean Corpuscular HGB Conc 31.2 g/dl (31.0-35.0); Mean Corpuscular Hemoglobin 30.5 pg (27.0-33.0); Mean Corpuscular Volume 97.6 fL (80.0-98.0); Mean Platelet Volume 11.2 fL (9.4-12.3); Monocytes Absolute Auto 1.1 X10*3/uL (0.1-1.2); Monocytes Percent Auto 7.8 % (2-11); Neutrophils Absolute Auto 8.2 x10*3/uL (2.0-8.3); Neutrophils Percent Auto 57.3 % (45-73); Platelet Count 427 X10*3/uL (160-400); Red Blood Count 3.74 X10*6/uL (4.20-5.50); Red Cell Distribution Width 15.9 % (11.0-16.0); White Blood Count 14.3 X10*3/uL (4.8-10.8)
[2023-09-30 10:48] LABS: Estimated Average Glucose 169 mg/dL; Hemoglobin A1c % 7.5 % (<6.0)
[2023-09-30 11:22] LABS: Alanine Aminotransferase 19 U/L (0-31); Albumin Level 3.7 g/dL (3.5-5.0); Alkaline Phosphatase 117 U/L (39-117); Anion Gap 10 (12-20); Aspartate Amino Transferase 17 U/L (5-31); Bilirubin Total 0.2 mg/dL (0.0-1.0); Blood Urea Nitrogen 14 mg/dL (9-16); Calcium 9.4 mg/dL (8.4-10.2); Carbon Dioxide 30 mmol/L (22-29); Chloride 106 mmol/L (96-108); Cholesterol 178 mg/dL (<200); Estimated Glomerular Filt Rate > 60; Glucose Fasting 152 mg/dL (60-99); Glucose Random 152 mg/dL (60-115); HDL Cholesterol 46 mg/dL (>40); LDL Cholesterol Calculated 86 mg/dL (<100); Potassium 3.4 mmol/L (3.3-5.1); Sodium 143 mmol/L (135-145); Triglycerides 234 mg/dL (<150)
[2023-09-30 11:38] LABS: Vitamin D 25-OH Total 31.5 ng/mL (>30)
[2023-10-04 21:29] LABS: CK-BB None Detected (None Detected); CK-MB 0 % (<5); CK-MM 100 % (95-100); Creatine Kinase,Total,Serum 47 U/L (29-143)
== END 2023-09-30 09:18 | disposition home or self-care (01) ==
LOC: HO.LAB 09:17
PROVIDERS: Absent Provider Psychiatry & Neurology Psychiatry; PCP Internal Medicine; Visit Provider Internal Medicine
DX: E78.00 Pure hypercholesterolemia, unspecified (principal); E55.9 Vitamin D deficiency, unspecified; E11.9 Type 2 diabetes mellitus without complications; M62.82 Rhabdomyolysis; Z79.899 Other long term (current) drug therapy
CPT/HCPCS: 36415; 80053; 80061; 82306; 82552; 83036; 84443; 85025

== ENCOUNTER 2023-10-01 14:26 | Outpatient (REF) | payer MEDICARE, MEDICAID, SELFPAY ==
[2023-10-01 14:35] LABS: Appearance Urine Clear; Color Urine Yellow; Glucose Urine UA Negative (Negative); Leukocyte Esterase Urine Trace (Negative); Nitrite Urine Negative (Negative); UMIC TRIGGER UACC YES; Urine Blood Negative (Negative); Urine Ketones Negative (Negative); Urine Protein Negative (Neg-Trace)
[2023-10-01 14:38] LABS: Bacteria Urine 2+ (None Seen); Hyaline Casts Urine 0-2 /LPF (0-2); RBC Urine 0-2 /HPF (0-2); Squamous Epithelial Cell Urine 0-2 /HPF (0-2); WBC Urine 0-5 /HPF (0-5)
[2023-10-01 16:12] LABS: Creatinine Urine 23.28 mg/dL; Microalbumin Urine < 5.0 mg/L
== END 2023-10-01 14:27 | disposition home or self-care (01) ==
LOC: HO.LNP 14:26
PROVIDERS: Visit Provider Internal Medicine
DX: E11.9 Type 2 diabetes mellitus without complications (principal); R30.0 Dysuria
CPT/HCPCS: 81001; 82043; 82570

== ENCOUNTER 2023-10-17 08:47 | Outpatient (REF) | payer MEDICARE, MEDICAID, SELFPAY ==
[2023-10-18 09:14] LABS: Appearance Urine Clear; Color Urine Yellow; Glucose Urine UA Negative (Negative); Leukocyte Esterase Urine Trace (Negative); Nitrite Urine Negative (Negative); UMIC TRIGGER UACC YES; Urine Blood Negative (Negative); Urine Ketones Negative (Negative); Urine Protein Negative (Neg-Trace)
[2023-10-18 09:19] LABS: Bacteria Urine None Seen (None Seen); Hyaline Casts Urine 0-2 /LPF (0-2); RBC Urine 0-2 /HPF (0-2); Squamous Epithelial Cell Urine 0-2 /HPF (0-2); WBC Urine 0-5 /HPF (0-5)
== END 2023-10-17 08:48 | disposition home or self-care (01) ==
LOC: HO.LNP 08:47
PROVIDERS: Visit Provider Internal Medicine
DX: R30.0 Dysuria (principal)
CPT/HCPCS: 81001; 81003

== ENCOUNTER 2023-10-22 10:18 | Outpatient (AMB) | payer MEDICARE, MEDICAID, SELFPAY ==
[2023-10-22 10:57] VITALS: BP 100/68; PULSE 94; O2SAT 95; BMI 37.6
--- NOTE | 2023-10-22 10:57 | A.OFFPC_ITS ---
Vital Signs 10/22/23 10:57 Height 5 ft 3 in Weight 212 lb 2 oz BMI 37.6 BP 100/68 Blood Pressure Location Lt brachial Position Sitting Pulse 94 Pulse Source Pulse Oximeter Pulse Oximetry (%) 95 Oxygen Delivery Method Room Air Intake Visit Reasons: DM Artificial Fly Tier Required: No Accompanied by: Self / Same As Patient Allergies haloperidol [From HALDOL] Allergy (Intermediate, Verified 10/22/23 11:27) RASH,ACNE lithium [LITHIUM] Allergy (Intermediate, Verified 10/22/23 11:27) RASH,ACNE simvastatin Allergy (Intermediate, Verified 10/22/23 11:27) headaches escitalopram Allergy (Mild, Verified 10/22/23 11:27) Blister risperidone [From Risperdal] Allergy (Verified 10/22/23 11:27) Unknown furosemide Adverse Reaction (Intermediate, Verified 10/22/23 11:27) rash hydroxyzine Adverse Reaction (Intermediate, Verified 10/22/23 11:27) rash Medication List - Last Reconciled 10/22/23 by Abel Mejía MD aripiprazole 10 mg PO DAILY atorvastatin 10 mg PO DAILY blood sugar diagnostic (Prodigy No Coding strips) As directed twice a day blood sugar diagnostic (Prodigy No Coding strips) test twice per day blood-glucose meter (iConnect CRM Pocket Meter kit) test twice per day calcium carbonate 500 mg PO BID calcium carbonate (Oyster Shell Calcium 500) 500 mg PO BID clonazepam 0.5 mg PO BID PRN clozapine 50 mg PO BEDTIME 30 days clozapine 200 mg (2 x 100 mg) PO BEDTIME 30 days compress.stocking,knee,reg,med As directed compress.stocking,knee,reg,med As directed docusate sodium 100 mg PO BID hydrochlorothiazide 25 mg PO DAILY lactulose 10 grams (15 mL) PO BEDTIME PRN 5 days lancets (Prodigy Lancets) test twice per day Linzess (linaclotide) 290 mcg PO QAM PRN 30 days NS lurasidone 80 mg PO BEDTIME metformin ER 500 mg PO BEDTIME 90 days multivitamin 1 tab PO DAILY nystatin (Nystop) 1 appl topical BID oseltamivir 30 mg PO Q12H polyethylene glycol 3350 17 grams PO DAILY [Tubi network director socks As directed] [TUBIGRIP SOCKS (Large) As directed] Tobacco use date assessed: 09/21/23 Fall risk assessment: No Falls in past year Last assessed Fall Risk: 10/22/23 HPI DM HPI Details Patient comes in today for her follow up visit States that she feels okay although she has a couple of issues that she would like to have addressed States that she has been experiencing recurrent numbness of her right ring finger lately Have advised her that this is the finger that her ring is on and have explained to her that her symptoms may just be due to compression from her ring but patient does not think this is likely and would like to have her finger checked out further Adds that she continues to lose a lot of hair often and would like to get this checked out further States that she mentioned this to her psychiatrist to see if any of her current psych meds may be causing this but states that she was instructed by her psychiatrist to discuss this with her PCP instead She denies any headaches or dizziness Denies any chest pains, no SOB No nausea/vomiting, no abdominal pain No change in bowel habits noted She had her follow up labs done earlier this month - to discuss her results [facility] Medical History T2DM (type 2 diabetes mellitus) Diabetes mellitus type 2, controlled, without complications Screening for breast cancer Incisional hernia Umbilical hernia Obesity (BMI 30-39.9) Schizophrenia Constipation Pyuria Leukocytosis Primary osteoarthritis of both knees Stasis edema of both lower extremities Vitamin D deficiency Pure hypercholesterolemia Surgical History History of incisional hernia repair (~01/10/21) H/O colonoscopy History of splenectomy Family History Father Medical history unknown Mother Diabetes Family/Other FH: mental illness Mental health disorder Social History Household Members: None Housing: Other Housing Other:: [place] Housing Do you presently have visiting nurse or other home services: No Alcohol intake: never Patient Tobacco Use Status: Former Tobacco user Quit Date: 35 years ago e-Cigarette/Vaping Use: Never Used Second Hand Smoke Exposure: No service: No Current occupational status: disabled Cognitive needs: No Hearing needs: No Vision needs: No Questionnaire PHQ-9 Over the last 2 weeks, how often have you been bothered by any of the following problems? Depression Screening Interpretation: Negative Depression Screening Done: Yes Source: Developed by Drs. Cody Askew, Coni Madden, Jose L Frost and colleagues, with an educational mansoor from [employer]. Thrive Questionnaire Date Thrive assessed: 09/21/23 Currently or been in a relationship where the following occur: no concerns reported THRIVE Score: 0 ROSA-7 AMB Questionnaire ROSA-7 Date ROSA - 7 assessed: 09/21/23 Source: Developed by Drs. Cody Askew, Coni Madden, Jose L Frost and colleagues, with an educational mansoor from [employer]. Review of Systems Const Denies chills, Reports fatigue, Denies fever(s) and Denies headache(s) ENT Denies dysphagia, Denies dizziness, Denies otalgia, Denies headache(s), Denies neck pain, Denies odynophagia and Denies sore throat Card Denies chest pain, Denies palpitations and Denies dyspnea Resp Denies chest congestion, Denies cough and Denies dyspnea GI Denies abdominal pain, Reports constipation (on and off, better controlled lately), Denies dysphagia, Denies heartburn, Denies diarrhea, Denies nausea, Denies odynophagia and Denies vomiting Denies difficulty voiding, Denies nocturia, Denies dysuria and Denies urinary urgency Musc Reports arthralgias (both knees and more recently over both hips, L>R), Denies muscle weakness, Denies neck pain and Reports numbness (recurrent, over the right ring (4th) finger) Skin/Breast Reports alopecia and Denies rash Neuro Denies dizziness, Denies headache(s) and Reports numbness (recurrent, over the right ring (4th) finger) Endo Reports fatigue and Denies palpitations Physical exam (Primary Care) Vital Signs: Last Vital Signs Pulse 94 10/22/23 10:57 BP 100/68 10/22/23 10:57 Pulse Ox 95 10/22/23 10:57 Oxygen Delivery Method Room Air 10/22/23 10:57 BMI result Body Mass Index 37.6 Tobacco/Smoking Status: Tobacco use Status Tobacco use date assessed 09/21/23 10/22/23 10:58 Patient Tobacco Use Status Former Tobacco user 10/22/23 10:58 e-Cigarette/Vaping Use Never Used 10/22/23 10:58 Depression Screening Interpretation: Negative Thrive Assessment: Date of Thrive Assessment Date Thrive assessed 09/21/23 10/22/23 10:58 Currently or been in a relationship where the following occur: no concerns reported Const General: no acute distress and alert HENMT Throat: Yes posterior oropharynx normal and Yes tonsils normal (no TP congestion noted) Neck Neck: Yes no lymphadenopathy and Yes supple Resp Auscultation: clear to auscultation bilaterally, no rales and no wheezes Cardio Rate: regular rate Rhythm: regular rhythm Heart sounds: no murmurs GI Palpation (GI): Soft to palpation and nontender Auscultation: normal bowel sounds General: Yes no CVA tenderness Back/Spine/Pelvis Back: no CVA tenderness Extrem General: Yes edema (1+ bilaterally, slightly worse on the right lower extremity) Right lower extremity: hip/thigh Details: tenderness Location: of the hip and knee Details: tenderness; no swelling Left lower extremity: hip/thigh Details: tenderness Location: of the hip and knee Details: tenderness; no swelling Results Reviewed Results Reviewed: Laboratory Tests 07/31/20 09/30/23 09/30/23 10:31 09:43 09:43 WBC 14.3 H Hgb 11.4 L Hct 36.5 L Plt Count 427 H D Sodium 143 Potassium 3.4 Creatinine 0.79 Estimated GFR > 60 Fasting Glucose 152 H Hgb A1c (Clinic) 7.2 H Hemoglobin A1c % 7.5 H Calcium 9.4 AST 17 ALT Triglycerides 234 H Cholesterol 178 LDL Cholesterol, Calc 86 HDL Cholesterol 46 25-OH Vitamin D Total 31.5 TSH 1.90 Ur Specific [place] Urine Protein Urine Glucose (UA) Urine Blood Urine Nitrite Ur Leukocyte Esterase 09/30/23 10/17/23 10/17/23 09:43 22:00 22:00 WBC Hgb Hct Plt Count Sodium Potassium Creatinine Estimated GFR Fasting Glucose Hgb A1c (Clinic) Hemoglobin A1c % Calcium AST ALT 19 Triglycerides Cholesterol LDL Cholesterol, Calc HDL Cholesterol 25-OH Vitamin D Total TSH Ur Specific [place] 1.010 Urine Protein Negative Urine Glucose (UA) Negative Urine Blood Negative Urine Nitrite Negative Ur Leukocyte Esterase Trace H Assessment and Plan Assessment & Plan (1) Pure hypercholesterolemia: Code(s): E78.00 - Pure hypercholesterolemia, unspecified Plan: Results of her labs done a few weeks ago reviewed and discussed with patient Reinforced low cholesterol diet Continue Atorvastatin 10 mg QD Will have patient recheck her labs and fasting lipids in 3 months for follow up (2) Diabetes mellitus type 2, controlled, without complications: Code(s): E11.9 - Type 2 diabetes mellitus without complications Qualifiers: Diabetes mellitus penitentiary insulin use: without penitentiary use Qualified Code(s): E11.9 - Type 2 diabetes mellitus without complications Plan: Her HgbA1c was at 7.5% on her labs done a few weeks ago (in-office HgbA1c was at 7.3% back in May 2023) - goal is < 7.0% Reinforced diabetic diet Continue Metformin ER 500 mg QD; will start her additionally on Januvia 100 mg Q AM Advised that if her insurance company would not cover Januvia, then we will consider increasing her Metformin ER to BID dosing instead Follow up with (diabetic) dental office coordinator as scheduled (3) Vitamin D deficiency: Code(s): E55.9 - Vitamin D deficiency, unspecified Plan: Continue Vitamin D3 1000 units QD (4) Constipation: Code(s): K59.00 - Constipation, unspecified Qualifiers: Constipation type: unspecified constipation type Qualified Code(s): K59.00 - Constipation, unspecified Plan: States that this has been better controlled lately Reinforced increased oral fluids and dietary fiber Continue Bisacodyl 10 mg suppositories PRN and Lactulose solution when needed; continue Metamucil daily and may also take Senna additionally as needed (5) Primary osteoarthritis of both knees: Code(s): M17.0 - Bilateral primary osteoarthritis of knee Plan: X-rays done a couple of years ago showed (+) mild osteoarthritis changes in both knees She is encouraged again to continue with regular exercises to help minimize her joint pain and stiffness Will consider referral to Orthopedics if her knee pain progesses (6) Bilateral hip pain: Code(s): M25.551 - Pain in right hip; M25.552 - Pain in left hip Plan: Her pelvic CT and x-rays done a few months ago came out normal with NO significant findings in BOTH of her hip. She did have an old healed fracture of the right anterior superior pubic ramus seen but it is unclear at this time if this has anything to do with her hip pain and leg pain She was referred to physical therapy for further evaluation and management of her bilateral hip pain but states that she has not yet been contacted regarding this States that her hips are currently no longer bothering her and she would like to hold off on physical therapy for now; will call again for order if her hip pains flare up again (7) Numbness of finger: Code(s): R20.0 - Anesthesia of skin Plan: Have advised patient that as this is the finger that her ring is on, her symptoms may just be due to compression (compression neuropathy) from her ring but patient does not believe this is likely Will send her for x-rays of her right ring finger for further evaluation (8) Hair loss: Code(s): L65.9 - Nonscarring hair loss, unspecified Plan: Will refer her to dermatology, per her request, for further evaluation and management of her recent increasing hair loss (9) Stasis edema of both lower extremities: Code(s): I87.303 - Chronic venous hypertension (idiopathic) without complications of bilateral lower extremity Plan: Her edema is diffuse and chronic; patient continues to follow up with vascular surgery (Dr. Natarajan) regularly Have encouraged patient again to continue to elevate her legs and feet as often as she can and to try getting her compression or support stockings back on as soon as she is able to get them on Continue Hydrochlorothiazide 25 mg once a day in AM as needed for increased edema (10) Schizophrenia: Code(s): F20.9 - Schizophrenia, unspecified Qualifiers: Schizophrenia type: unspecified Qualified Code(s): F20.9 - Schizophrenia, unspecified Plan: Continue Trihexyphenidyl 5 mg once a day, Clozaril 125 mg 1 & 1/2 tablet once a day at bedtime, Abilify 20 mg 2 tablets once a day, Latuda 120 mg once a day and Clonazepam 1 mg once a day as needed Follow-up with Psychiatry as scheduled (11) Obesity (BMI 30-39.9): Code(s): E66.9 - Obesity, unspecified Plan: Reinforced diet/exercise as tolerated/lose weight Plan Follow up in 3 months Orders: Orders XR hand RT min 3V Today R20.0 - Anesthesia of skin Hemoglobin A1c 3 Months E11.9 - Type 2 diabetes mellitus without complications Lipid Panel 3 Months E78.00 - Pure hypercholesterolemia, unspecified Microalbumin, Random (w Creat) 3 Months E11.9 - Type 2 diabetes mellitus without complications UA CC w/rflx Micro + Cult 3 Months R30.0 - Dysuria Vitamin B12 and Folate 3 Months E53.8 - Deficiency of other specified B group vitamins Vitamin D 25-OH Total 3 Months E55.9 - Vitamin D deficiency, unspecified Comprehensive [place]. Panel Fast 3 Months E78.00 - Pure hypercholesterolemia, unspecified Complete Blood Count Auto Diff 3 Months D64.9 - Anemia, unspecified TSH reflex Free T4 3 Months E78.00 - Pure hypercholesterolemia, unspecified Referrals Dermatology Referral L65.9 - Nonscarring hair loss, unspecified Medications: New Januvia (sitagliptin phosphate) 100 mg PO DAILY 30 tabs 3RF NS Coding Level of Care Code Est Pt Level 4 (96548) Diagnoses Pure hypercholesterolemia E78.00 Controlled type 2 diabetes mellitus without complication, without long-term current use of insulin E11.9 Diabetes mellitus penitentiary insulin use: without penitentiary use Vitamin D deficiency E55.9 Constipation, unspecified constipation type K59.00 Constipation type: unspecified constipation type Primary osteoarthritis of both knees M17.0 Bilateral hip pain M25.551; M25.552 Numbness of finger R20.0 Hair loss L65.9 Stasis edema of both lower extremities I87.303 Schizophrenia, unspecified type F20.9 Schizophrenia type: unspecified Obesity (BMI 30-39.9) E66.9
== END 2023-10-22 11:32 | disposition home or self-care (01) ==
PROVIDERS: PCP Internal Medicine; Visit Provider Internal Medicine
DX: E11.9 Type 2 diabetes mellitus without complications (principal); F20.9 Schizophrenia, unspecified; E66.9 Obesity, unspecified; Z68.37 Body mass index [BMI] 37.0-37.9, adult; E78.00 Pure hypercholesterolemia, unspecified; E55.9 Vitamin D deficiency, unspecified; K59.00 Constipation, unspecified; M17.0 Bilateral primary osteoarthritis of knee; M25.551 Pain in right hip; M25.552 Pain in left hip; R20.0 Anesthesia of skin; L65.9 Nonscarring hair loss, unspecified
CPT/HCPCS: 99214

== ENCOUNTER 2023-11-01 08:28 | Outpatient (REF) | payer MEDICARE, MEDICAID, SELFPAY ==
--- NOTE | ~2023-11-01 | XR_ITS ---
EXAMINATION: XR HAND, RIGHT CLINICAL INFORMATION: Right ring finger (4th finger) feels numb all the time, patient unable to remove jewelry stating no injury, feels numbness in right hand. COMPARISON: None available. TECHNIQUE: PA, lateral, and oblique views of the right hand. FINDINGS: Moderate degenerative changes in the 1st carpometacarpal joint with joint space narrowing and hypertrophic change. The bones are diffusely demineralized. Corticated ossicle just distal to the minimally imaged ulna may represent an accessory ossification center or old avulsion fracture of the ulnar styloid. XR/XR hand RT min 3V IMPRESSION: 1. Moderate degenerative changes 1st carpometacarpal joint. 2. Corticated ossicle just distal to the minimally imaged ulna may represent an accessory ossification center or old avulsion fracture of the ulnar styloid. 3. Recommend follow up imaging in 10-14 days if fracture is suspected.
[2023-11-01 08:46] LABS: MANUAL DIFF FLAG NO
[2023-11-01 09:27] LABS: Basophils Absolute Auto 0.1 X10*3/uL (0.0-0.2); Basophils Percent Auto 0.2 % (0-2); Hematocrit 36.5 % (37.0-47.0); Hemoglobin 11.7 g/dl (12.0-16.0); Imm Gran Abs Auto 0.12 X10*3/uL (0.00-0.03); Imm Gran Pct Auto 0.6 % (0.0-0.4); Lymphocytes Absolute Auto 4.7 X10*3/uL (1.2-4.9); Lymphocytes Percent Auto 22.1 % (20-40); Mean Corpuscular HGB Conc 32.1 g/dl (31.0-35.0); Mean Corpuscular Hemoglobin 31.4 pg (27.0-33.0); Mean Corpuscular Volume 97.9 fL (80.0-98.0); Monocytes Absolute Auto 1.3 X10*3/uL (0.1-1.2); Neutrophils Absolute Auto 15.2 x10*3/uL (2.0-8.3); Neutrophils Percent Auto 71.1 % (45-73); Platelet Count 406 X10*3/uL (160-400); Red Blood Count 3.73 X10*6/uL (4.20-5.50); Red Cell Distribution Width 15.7 % (11.0-16.0); White Blood Count 21.3 X10*3/uL (4.8-10.8)
== END 2023-11-01 08:29 | disposition home or self-care (01) ==
LOC: HO.XRAY 08:28
PROVIDERS: Absent Provider Internal Medicine; PCP Internal Medicine; Visit Provider Psychiatry & Neurology Psychiatry
DX: R20.0 Anesthesia of skin (principal)
CPT/HCPCS: 36415; 73130; 85025

== ENCOUNTER 2023-12-02 09:05 | Outpatient (AMB) | payer MEDICARE, MEDICAID, SELFPAY ==
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
[2023-12-02 09:09] VITALS: BMI 37.6
== END 2023-12-02 09:49 | disposition home or self-care (01) ==
PROVIDERS: PCP Internal Medicine; Visit Provider Surgery Vascular Surgery
DX: I89.0 Lymphedema, not elsewhere classified (principal); I83.11 Varicose veins of right lower extremity with inflammation; I83.12 Varicose veins of left lower extremity with inflammation
CPT/HCPCS: 99213

== ENCOUNTER → 2023-12-02 09:05 | Outpatient (BNVA) | payer MEDICARE, MEDICAID, SELFPAY | PROVIDERS: PCP Internal Medicine; Visit Provider Surgery Vascular Surgery | DX: I83.11 Varicose veins of right lower extremity with inflammation (principal); I83.12 Varicose veins of left lower extremity with inflammation; I89.0 Lymphedema, not elsewhere classified | CPT/HCPCS: 99212 ==

== ENCOUNTER 2023-12-09 07:56 | Outpatient (REF) | payer MEDICARE, MEDICAID, SELFPAY ==
[2023-12-09 08:05] LABS: MANUAL DIFF FLAG NO
[2023-12-09 08:41] LABS: Basophils Percent Auto 0.1 % (0-2); Hematocrit 37.5 % (37.0-47.0); Imm Gran Abs Auto 0.05 X10*3/uL (0.00-0.03); Imm Gran Pct Auto 0.4 % (0.0-0.4); Lymphocytes Absolute Auto 4.6 X10*3/uL (1.2-4.9); Mean Corpuscular Hemoglobin 30.8 pg (27.0-33.0); Mean Corpuscular Volume 96.4 fL (80.0-98.0); Mean Platelet Volume 10.5 fL (9.4-12.3); Monocytes Percent Auto 7.1 % (2-11); Neutrophils Absolute Auto 8.6 x10*3/uL (2.0-8.3); Neutrophils Percent Auto 60.4 % (45-73); Platelet Count 409 X10*3/uL (160-400); Red Blood Count 3.89 X10*6/uL (4.20-5.50); Red Cell Distribution Width 14.8 % (11.0-16.0); White Blood Count 14.3 X10*3/uL (4.8-10.8)
== END 2023-12-09 07:57 | disposition home or self-care (01) ==
LOC: HO.LABR 07:56
PROVIDERS: Visit Provider Psychiatry & Neurology Psychiatry
DX: Z79.899 Other long term (current) drug therapy (principal)
CPT/HCPCS: 36415; 85025

== ENCOUNTER 2024-01-05 11:31 | Outpatient (REF) | payer OTHER, SELFPAY ==
[2024-01-05 12:01] LABS: Basophils Percent Auto 0.2 % (0-2); Hematocrit 37.5 % (37.0-47.0); Hemoglobin 12.1 g/dl (12.0-16.0); Imm Gran Abs Auto 0.07 X10*3/uL (0.00-0.03); Imm Gran Pct Auto 0.4 % (0.0-0.4); Lymphocytes Absolute Auto 5.7 X10*3/uL (1.2-4.9); Lymphocytes Percent Auto 35.9 % (20-40); MANUAL DIFF FLAG SCAN; Mean Corpuscular HGB Conc 32.3 g/dl (31.0-35.0); Mean Corpuscular Hemoglobin 31.2 pg (27.0-33.0); Mean Corpuscular Volume 96.6 fL (80.0-98.0); Mean Platelet Volume 10.4 fL (9.4-12.3); Monocytes Absolute Auto 1.3 X10*3/uL (0.1-1.2); Neutrophils Absolute Auto 8.8 x10*3/uL (2.0-8.3); Neutrophils Percent Auto 55.5 % (45-73); Platelet Count 397 X10*3/uL (160-400); Red Blood Count 3.88 X10*6/uL (4.20-5.50); Red Cell Distribution Width 14.8 % (11.0-16.0); SCAN SMEAR FLAG 1; White Blood Count 15.8 X10*3/uL (4.8-10.8)
[2024-01-05 12:37] LABS: SLIDE REVIEW VERIFIED
== END 2024-01-05 11:32 | disposition home or self-care (01) ==
LOC: HO.LABR 11:31
PROVIDERS: PCP Internal Medicine; Visit Provider Psychiatry & Neurology Psychiatry
DX: Z79.899 Other long term (current) drug therapy (principal)
CPT/HCPCS: 36415; 85025

== ENCOUNTER 2024-02-03 07:28 | Outpatient (REF) | payer OTHER, SELFPAY ==
[2024-02-03 08:21] LABS: Basophils Percent Auto 0.2 % (0-2); Hemoglobin 12.3 g/dl (12.0-16.0); Imm Gran Abs Auto 0.08 X10*3/uL (0.00-0.03); Imm Gran Pct Auto 0.5 % (0.0-0.4); Lymphocytes Absolute Auto 5.8 X10*3/uL (1.2-4.9); Lymphocytes Percent Auto 35.6 % (20-40); MANUAL DIFF FLAG SCAN; Mean Corpuscular HGB Conc 32.4 g/dl (31.0-35.0); Mean Corpuscular Hemoglobin 31.1 pg (27.0-33.0); Mean Platelet Volume 10.7 fL (9.4-12.3); Monocytes Absolute Auto 1.1 X10*3/uL (0.1-1.2); Neutrophils Absolute Auto 9.2 x10*3/uL (2.0-8.3); Neutrophils Percent Auto 56.7 % (45-73); Platelet Count 408 X10*3/uL (160-400); Red Blood Count 3.96 X10*6/uL (4.20-5.50); Red Cell Distribution Width 14.8 % (11.0-16.0); SCAN SMEAR FLAG 1; White Blood Count 16.2 X10*3/uL (4.8-10.8)
[2024-02-03 10:22] LABS: SLIDE REVIEW VERIFIED
== END 2024-02-03 07:29 | disposition home or self-care (01) ==
LOC: HO.LABR 07:28
PROVIDERS: PCP Internal Medicine; Visit Provider Psychiatry & Neurology Psychiatry
DX: Z79.899 Other long term (current) drug therapy (principal)
CPT/HCPCS: 36415; 85025

== ENCOUNTER 2024-02-10 09:26 | Outpatient (AMB) | payer OTHER, SELFPAY ==
--- NOTE | 2024-02-10 09:32 | A.OFFPC_ITS ---
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: No Accompanied by: Self / Same As Patient Allergies haloperidol [From HALDOL] Allergy (Intermediate, Verified 02/10/24 10:40) RASH,ACNE lithium [LITHIUM] Allergy (Intermediate, Verified 02/10/24 10:40) RASH,ACNE simvastatin Allergy (Intermediate, Verified 02/10/24 10:40) headaches escitalopram Allergy (Mild, Verified 02/10/24 10:40) Blister risperidone [From Risperdal] Allergy (Verified 02/10/24 10:40) Unknown furosemide Adverse Reaction (Intermediate, Verified 02/10/24 10:40) rash hydroxyzine Adverse Reaction (Intermediate, Verified 02/10/24 10:40) rash Medication List - Last Reconciled 02/10/24 by Abel Mejía MD aripiprazole 10 mg PO DAILY atorvastatin 10 mg PO DAILY blood sugar diagnostic ([employer] No Coding strips) test twice per day blood-glucose meter ([employer] Pocket Meter kit) test twice per day calcium carbonate (Oyster Shell Calcium 500) 500 mg PO BID clonazepam 0.5 mg PO BID PRN clozapine 50 mg PO BEDTIME 30 days clozapine 200 mg (2 x 100 mg) PO BEDTIME 30 days compress.stocking,knee,reg,med As directed docusate sodium 100 mg PO BID hydrochlorothiazide 25 mg PO DAILY ibuprofen 200 mg PO Q6H PRN Januvia (sitagliptin phosphate) 100 mg PO DAILY NS lactulose 10 grams (15 mL) PO BEDTIME PRN 5 days lancets ([place] Lancets) test twice per day Linzess (linaclotide) 290 mcg PO QAM PRN 30 days NS lurasidone 80 mg PO BEDTIME metformin ER 500 mg PO BEDTIME 90 days multivitamin 1 tab PO DAILY nystatin (Nystop) 1 appl topical BID polyethylene glycol 3350 17 grams PO DAILY tramadol 50 mg PO BID PRN 10 days [Tubi 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 socks As directed] [TUBIGRIP SOCKS (Large) As directed] Tobacco use date assessed: 09/21/23 Fall risk assessment: 1 Fall in past year Last assessed Fall Risk: 02/10/24 Dental Screening Dental Screen Date: 02/10/24 Did you have a dental visit in the last 12 months?: No Did you have a dental problem in the last 6 months where you did not have access to dental care?: No Was dental information given to patient?: Patient has dentist HPI 3mth f/u HPI Details Patient comes in today for her follow up visit States that she accidentally slipped and fell at the hospital when she went there to get her CBC done for her psychiatrist last week States that she did not go to the ER after her fall - was offered to be brought to the ER by the personnel who helped her but she declined States that her left knee is still presently bruised with some pain and discomfort but her left ankle has been hurting and swollen since Relates (+) pain now in her left ankle whether she is sitting or standing States that she otherwise feels okay She denies any headaches or dizziness Denies any chest pains, no SOB No nausea/vomiting, no abdominal pain No change in bowel habits noted She was not able to get her follow up labs done prior to her appointment today - states that she completely forgot about getting them done [facility] Medical History T2DM (type 2 diabetes mellitus) Diabetes mellitus type 2, controlled, without complications Screening for breast cancer Incisional hernia Umbilical hernia Obesity (BMI 30-39.9) Schizophrenia Constipation Pyuria Leukocytosis Primary osteoarthritis of both knees Stasis edema of both lower extremities Vitamin D deficiency Pure hypercholesterolemia Surgical History History of incisional hernia repair (~01/10/21) H/O colonoscopy History of splenectomy Family History Father Medical history unknown Mother Diabetes Family/Other FH: mental illness Mental health disorder Social History Household Members: None Housing: Other Housing Other:: [place] [facility] Do you presently have visiting nurse or other home services: No Alcohol intake: never Patient Tobacco Use Status: Former Tobacco user e-Cigarette/Vaping Use: Never Used Second Hand Smoke Exposure: No service: No Current occupational status: disabled Cognitive needs: No Hearing needs: No Vision needs: No Questionnaire PHQ-9 Over the last 2 weeks, how often have you been bothered by any of the following problems? 1. Little interest or pleasure in doing things: not at all 2. Feeling down, depressed, or hopeless: more than half the days 3. Trouble falling or staying asleep, or sleeping too much: not at all 4. Feeling tired or having little energy: more than half the days 5. Poor appetite or overeating: several days 6. Feeling bad about yourself - or that you are a failure or have let yourself or your family down: not at all 7. Trouble concentrating on things, such as reading the newspaper or watching television: not at all 8. Moving or speaking so slowly that other people could have noticed. Or the opposite - being so fidgety or restless that you have been moving around a lot more than usual: not at all 9. Thoughts that you would be better off or of hurting yourself in some way: not at all Total score: 5 Depression Screening Interpretation: Positive Depression Screening Follow-up: Existing condition and In treatment Depression Screening Done: Yes 53634 - PHQ-9 Billing: Yes Source: Developed by Drs. Cody Askew, Coni Madden, Jose L Frost and colleagues, with an educational mansoor from [employer]. Thrive Questionnaire Date Thrive assessed: 02/10/24 I am a: Patient What is your living situation today?: I have a steady place to live Within the past 12 months, did the food you bought not last and you didn't have the money to get more?: Never true Within the past 12 months, did you worry whether your food would run out before you got money to buy more?: Never true Do you have trouble paying for medicines?: No Do you have trouble getting transportation to medical appointments?: No Do you have trouble paying your heating and electricity bill?: No Do you have trouble taking care of your child, family member or friend?: No Do you have trouble with day-to-day activities such as bathing, preparing meals, shopping, managing finances, etc.?: No Are you currently unemployed and looking for a job?: No Are you interested in more education?: No Please select the resources that you would like help with: None Currently or been in a relationship where the following occur: no concerns reported THRIVE Score: 0 AUDIT C Alcohol Use Questionnaire (AUDIT-C) 1. How often do you have a drink containing alcohol?: Never 3. How often do you have six or more drinks on one occasion?: Never Total Score: 0 Score Reviewed/Action Taken: Yes ROSA-7 AMB Questionnaire ROSA-7 Date ROSA - 7 assessed: 02/10/24 Feeling nervous, anxious, or on edge: 1 = Several days Not being able to stop or control worryin = Not at all Worrying too much about different things: 0 = Not at all Trouble relaxin = Not at all Being so restless that it is hard to sit still: 0 = Not at all Becoming easily annoyed or irritable: 0 = Not at all Feeling afraid as if something awful might happen: 0 = Not at all Total ROSA-7 score (0-4 normal; 5-9 mild; 10-14 moderate; 15-21 severe): 1 Source: Developed by Drs. Cody Askew, Coni Madden, Jose L Frost and colleagues, with an educational mansoor from [employer]. Review of Systems Const Denies chills, Reports fatigue, Denies fever(s) and Denies headache(s) ENT Denies dysphagia, Denies dizziness, Denies otalgia, Denies headache(s), Denies neck pain, Denies odynophagia and Denies sore throat Card Denies chest pain, Denies palpitations and Denies dyspnea Resp Denies chest congestion, Denies cough and Denies dyspnea GI Denies abdominal pain, Reports constipation (on and off, better controlled lately), Denies dysphagia, Denies heartburn, Denies diarrhea, Denies nausea, Denies odynophagia and Denies vomiting Denies difficulty voiding, Denies nocturia, Denies dysuria and Denies urinary urgency Musc Reports arthralgias (both knees and hips (L>R); more recently on L knee and L ankle - see HPI), Reports joint swelling (left ankle - see HPI), Denies neck pain and Reports numbness (recurrent, over the right ring (4th) finger) Skin/Breast Denies rash Neuro Denies dizziness, Denies headache(s) and Reports numbness (recurrent, over the right ring (4th) finger) Endo Reports fatigue and Denies palpitations Physical exam (Primary Care) Vital Signs: Last Vital Signs Pulse 92 02/10/24 09:34 BP 132/80 02/10/24 09:34 Pulse Ox 98 02/10/24 09:34 Oxygen Delivery Method Room Air 02/10/24 09:34 BMI result Body Mass Index 37.7 Tobacco/Smoking Status: Tobacco use Status Tobacco use date assessed 09/21/23 02/10/24 09:39 Patient Tobacco Use Status Former Tobacco user 02/10/24 09:39 e-Cigarette/Vaping Use Never Used 02/10/24 09:39 PHQ-9: PHQ-9 Score PHQ-9: Total score 5 02/10/24 10:52 Depression Screening Interpretation: Positive Depression Screening Follow-up: Existing condition and In treatment Thrive Assessment: Date of Thrive Assessment Date Thrive assessed 02/10/24 02/10/24 09:39 Currently or been in a relationship where the following occur: no concerns reported Const General: no acute distress and alert HENMT Ears: TM's normal bilaterally and EAC's normal Throat: Yes posterior oropharynx normal and Yes tonsils normal (no TP congestion noted) Neck Neck: Yes no lymphadenopathy and Yes supple Thyroid: Thyroid normal Resp Auscultation: clear to auscultation bilaterally, no rales and no wheezes Cardio Rate: regular rate Rhythm: regular rhythm Heart sounds: no murmurs GI Palpation (GI): Soft to palpation and nontender Auscultation: normal bowel sounds General: Yes no CVA tenderness Back/Spine/Pelvis Back: no CVA tenderness Skin Rashes: no rashes Extrem General: Yes edema (1+ bilaterally, but increases swelling around the left ankle at present) Right lower extremity: hip/thigh Details: tenderness Location: of the hip and knee Details: tenderness; no swelling Left lower extremity: hip/thigh Details: tenderness Location: of the hip, knee Details: tenderness and ecchymosis; no swelling and ankle Details: tenderness and swelling Details: diffusely (but especially around the lateral malleolar area) Results AMB Hemoglobin A1c AMB Hemoglobin A1c 7.0 % Last Edit by ANALILIA Carcamo on 02/10/24 09:4 0 Results Reviewed Results Reviewed: Laboratory Last Values Hgb A1c (Clinic) 7.0 % (4.0-6.0) H 02/10/24 09:31 Laboratory Tests 07/31/20 02/03/24 02/10/24 10:31 07:57 09:31 WBC 16.2 H Hgb 12.3 Hct 38.0 Plt Count 408 H Hgb A1c (Clinic) 7.2 H 7.0 H Assessment and Plan Assessment & Plan (1) Pure hypercholesterolemia: Code(s): E78.00 - Pure hypercholesterolemia, unspecified Plan: Patient was not able to get her follow up labs done prior to her appointment today (forgot) - states that she will try to get them done as soon as possible Reinforced low cholesterol diet Continue Atorvastatin 10 mg QD Will have patient recheck her labs and fasting lipids again in 3 months for follow up (2) Diabetes mellitus type 2, controlled, without complications: Code(s): E11.9 - Type 2 diabetes mellitus without complications Qualifiers: Diabetes mellitus custodial insulin use: without olericulture 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 Qualified Code(s): E11.9 - Type 2 diabetes mellitus without complications Plan: Her in-office HgbA1c today is at 7.0% (her HgbA1c was at 7.5% a few months ago) - goal is < 7.0% Reinforced diabetic diet Continue Metformin ER 500 mg QD and Januvia 100 mg Q AM Follow up with her (diabetic) school photographer as scheduled (3) Vitamin D deficiency: Code(s): E55.9 - Vitamin D deficiency, unspecified Plan: Continue Vitamin D3 1000 units QD (4) Constipation: Code(s): K59.00 - Constipation, unspecified Qualifiers: Constipation type: unspecified constipation type Qualified Code(s): K59.00 - Constipation, unspecified Plan: States that this has been controlled lately Reinforced increased oral fluids and dietary fiber Continue Bisacodyl 10 mg suppositories PRN and Lactulose solution when needed; continue Metamucil daily and she may also take Senna additionally as needed (5) Primary osteoarthritis of both knees: Code(s): M17.0 - Bilateral primary osteoarthritis of knee Plan: X-rays done a couple of years ago showed (+) mild osteoarthritis changes in both knees She is encouraged again to continue with regular exercises to help minimize her joint pain and stiffness Will consider referral to Orthopedics if her knee pain progesses With her recent left knee pain and residual bruising following her fall last week, will send her for repeat x-rays of the left knee for further evaluation (6) Bilateral hip pain: Code(s): M25.551 - Pain in right hip; M25.552 - Pain in left hip Plan: Her pelvic CT and x-rays done a few months ago came out normal with NO significant findings in BOTH of her hip. She did have an old healed fracture of the right anterior superior pubic ramus seen but it is unclear if this has anything to do with her hip pain and leg pain She was referred to physical therapy for further evaluation and management of her bilateral hip pain but states that she was not contacted for appointment and since her hips have not been bothering her as much lately, she would like to hold off on physical therapy referral and she will call again for order if her hip pains flare up again (7) Stasis edema of both lower extremities: Code(s): I87.303 - Chronic venous hypertension (idiopathic) without complications of bilateral lower extremity Plan: Her edema is diffuse and chronic; patient continues to follow up with vascular surgery (Dr. Natarajan) regularly Have encouraged patient again to continue to elevate her legs and feet as often as she can and to try getting her compression or support stockings back on as soon as she is able to get them on Continue Hydrochlorothiazide 25 mg once a day in AM as needed for increased edema (8) Pain and swelling of left ankle: Code(s): M25.572 - Pain in left ankle and joints of left foot; M25.472 - Effusion, left ankle Plan: S/P fall at the hospital last week when she went for her labs by psychiatry Will send her for x-rays of the left ankle for further evaluation - advised that her left ankle, especially around the lateral malleolar area, appears very swollen and this raises concerns for possible ankle fracture (9) Hair loss: Code(s): L65.9 - Nonscarring hair loss, unspecified Plan: Per her request, she was previously referred to dermatology for further evaluation and management of her recent increasing hair loss (10) Schizophrenia: Code(s): F20.9 - Schizophrenia, unspecified Qualifiers: Schizophrenia type: unspecified Qualified Code(s): F20.9 - Schizophrenia, unspecified Plan: Continue Trihexyphenidyl 5 mg once a day, Clozaril 125 mg 1 & 1/2 tablet once a day at bedtime, Abilify 20 mg 2 tablets once a day, Latuda 120 mg once a day and Clonazepam 1 mg once a day as needed Follow-up with Psychiatry as scheduled (11) Obesity (BMI 30-39.9): Code(s): E66.9 - Obesity, unspecified Plan: Reinforced diet/exercise as tolerated/lose weight Plan Follow up in 3 months Orders: Orders AMB Hemoglobin A1c Today E11.9 - Type 2 diabetes mellitus without complications XR ankle LT min 3V Today M25.472 - Effusion, left ankle, M25.572 - Pain in left ankle and joints of left foot, Z91.81 - History of falling XR knee LT 4V Today M25.562 - Pain in left knee, Z91.81 - History of falling Hemoglobin A1c 3 Months E11.9 - Type 2 diabetes mellitus without complications Lipid Panel 3 Months E78.00 - Pure hypercholesterolemia, unspecified Complete Blood Count Auto Diff 3 Months D64.9 - Anemia, unspecified Comprehensive [place]. Panel Fast 3 Months E78.00 - Pure hypercholesterolemia, unspecified TSH reflex Free T4 3 Months E78.00 - Pure hypercholesterolemia, unspecified UA CC w/rflx Micro + Cult 3 Months R30.0 - Dysuria Microalbumin, Random (w Creat) 3 Months E11.9 - Type 2 diabetes mellitus without complications Medications: New [lightweight cane] As directed 1 ea 0RF M17.0 - Bilateral primary osteoarthritis of knee, M25.551 - Pain in right hip, M25.552 - Pain in left hip, R26.81 - Unsteadiness on feet tramadol 50 mg PO BID 10 days PRN 20 tabs 0RF pain Resumed [TUBIGRIP SOCKS (Large)] As directed 2 ea 0RF I87.303 - Chronic venous hypertension (idiopathic) without complications of bilateral lower extremity [TUBIGRIP SOCKS (Large)] As directed 2 ea 0RF I87.303 - Chronic venous hypertension (idiopathic) without complications of bilateral lower extremity Coding Level of Care Code Est Pt Level 4 (05776) Complex EM visit Add On G2211 Diagnoses Pure hypercholesterolemia E78.00 Controlled type 2 diabetes mellitus without complication, without long-term current use of insulin E11.9 Diabetes mellitus 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
[2024-02-10 09:34] VITALS: BP 132/80; PULSE 92; O2SAT 98; BMI 37.7
== END 2024-02-10 10:39 | disposition home or self-care (01) ==
PROVIDERS: PCP Internal Medicine; Visit Provider Internal Medicine
DX: E78.00 Pure hypercholesterolemia, unspecified (principal); E11.9 Type 2 diabetes mellitus without complications; E55.9 Vitamin D deficiency, unspecified; K59.00 Constipation, unspecified; M17.0 Bilateral primary osteoarthritis of knee; M25.551 Pain in right hip; M25.552 Pain in left hip; I87.303 Chronic venous hypertension (idiopathic) without complications of bilateral lower extremity; M25.572 Pain in left ankle and joints of left foot; M25.472 Effusion, left ankle; L65.9 Nonscarring hair loss, unspecified; F20.9 Schizophrenia, unspecified
CPT/HCPCS: 83036; 99214; G2211

== ENCOUNTER 2024-02-10 10:56 | Outpatient (REF) | payer OTHER, SELFPAY ==
--- NOTE | ~2024-02-10 | XR_ITS ---
EXAMINATION: XR KNEE, LEFT CLINICAL INFORMATION: Radiographs dated 07/05/2017. COMPARISON: Radiographs dated 07/05/2017. TECHNIQUE: AP, lateral, tunnel, and sunrise views of the left knee. FINDINGS: Bony alignment and mineralization are normal. The lateral, medial and patellofemoral joint space compartments are well-maintained. There is minimal peripheral osteophyte formation of the upper articular surface of the patella. No fracture, dislocation or joint effusion is seen. There is no foreign body XR/XR ankle LT min 3V IMPRESSION: 1. There is minimal osteoarthritic change of the left patellofemoral compartment. 2. No fracture, dislocation or left knee joint effusion is seen EXAMINATION: XR ANKLE, LEFT CLINICAL INFORMATION: Pain. COMPARISON: None available. TECHNIQUE: AP, lateral, and mortise views of the left ankle. FINDINGS: Bony alignment and mineralization are normal. The ankle mortise is intact. No fracture, dislocation or left ankle joint effusion is seen. Boehler's angle is normal. There is a moderate plantar calcaneal spur. There is generalized soft tissue swelling. No focal soft gas or foreign body is seen. IMPRESSION: 1. No fracture, dislocation or left ankle joint effusion is seen. 2. There is a small left calcaneal plantar spur.
--- NOTE | ~2024-02-10 | XR_ITS ---
EXAMINATION: XR KNEE, LEFT CLINICAL INFORMATION: Radiographs dated 07/05/2017. COMPARISON: Radiographs dated 07/05/2017. TECHNIQUE: AP, lateral, tunnel, and sunrise views of the left knee. FINDINGS: Bony alignment and mineralization are normal. The lateral, medial and patellofemoral joint space compartments are well-maintained. There is minimal peripheral osteophyte formation of the upper articular surface of the patella. No fracture, dislocation or joint effusion is seen. There is no foreign body XR/XR knee LT 4V IMPRESSION: 1. There is minimal osteoarthritic change of the left patellofemoral compartment. 2. No fracture, dislocation or left knee joint effusion is seen EXAMINATION: XR ANKLE, LEFT CLINICAL INFORMATION: Pain. COMPARISON: None available. TECHNIQUE: AP, lateral, and mortise views of the left ankle. FINDINGS: Bony alignment and mineralization are normal. The ankle mortise is intact. No fracture, dislocation or left ankle joint effusion is seen. Boehler's angle is normal. There is a moderate plantar calcaneal spur. There is generalized soft tissue swelling. No focal soft gas or foreign body is seen. IMPRESSION: 1. No fracture, dislocation or left ankle joint effusion is seen. 2. There is a small left calcaneal plantar spur.
== END 2024-02-10 10:57 | disposition home or self-care (01) ==
LOC: HO.LAB 10:56
PROVIDERS: PCP Internal Medicine; Visit Provider Internal Medicine
DX: M25.562 Pain in left knee (principal); M25.572 Pain in left ankle and joints of left foot; M25.472 Effusion, left ankle; Z91.81 History of falling
CPT/HCPCS: 73564; 73610

== ENCOUNTER 2024-03-06 07:19 | Outpatient (REF) | payer OTHER, SELFPAY ==
[2024-03-06 07:31] LABS: MANUAL DIFF FLAG NO
[2024-03-06 07:40] LABS: Basophils Percent Auto 0.2 % (0-2); Hematocrit 36.6 % (37.0-47.0); Hemoglobin 11.8 g/dl (12.0-16.0); Imm Gran Abs Auto 0.05 X10*3/uL (0.00-0.03); Imm Gran Pct Auto 0.3 % (0.0-0.4); Lymphocytes Absolute Auto 4.3 X10*3/uL (1.2-4.9); Mean Corpuscular HGB Conc 32.2 g/dl (31.0-35.0); Mean Corpuscular Hemoglobin 31.1 pg (27.0-33.0); Mean Corpuscular Volume 96.6 fL (80.0-98.0); Mean Platelet Volume 10.5 fL (9.4-12.3); Monocytes Absolute Auto 1.1 X10*3/uL (0.1-1.2); Monocytes Percent Auto 7.2 % (2-11); Neutrophils Absolute Auto 9.3 x10*3/uL (2.0-8.3); Neutrophils Percent Auto 63.3 % (45-73); Platelet Count 356 X10*3/uL (160-400); Red Blood Count 3.79 X10*6/uL (4.20-5.50); Red Cell Distribution Width 15.3 % (11.0-16.0); White Blood Count 14.7 X10*3/uL (4.8-10.8)
== END 2024-03-06 07:20 | disposition home or self-care (01) ==
LOC: HO.LABR 07:19
PROVIDERS: PCP Internal Medicine; Visit Provider Psychiatry & Neurology Psychiatry
DX: Z79.899 Other long term (current) drug therapy (principal)
CPT/HCPCS: 36415; 85025

== ENCOUNTER 2024-04-11 07:42 | Outpatient (REF) | payer OTHER, SELFPAY ==
[2024-04-11 07:52] LABS: MANUAL DIFF FLAG NO
[2024-04-11 07:59] LABS: Basophils Percent Auto 0.2 % (0-2); Hematocrit 36.6 % (37.0-47.0); Hemoglobin 11.9 g/dl (12.0-16.0); Imm Gran Pct Auto 0.6 % (0.0-0.4); Lymphocytes Absolute Auto 4.4 X10*3/uL (1.2-4.9); Lymphocytes Percent Auto 27.8 % (20-40); Mean Corpuscular HGB Conc 32.5 g/dl (31.0-35.0); Mean Corpuscular Hemoglobin 31.3 pg (27.0-33.0); Mean Corpuscular Volume 96.3 fL (80.0-98.0); Mean Platelet Volume 10.3 fL (9.4-12.3); Monocytes Absolute Auto 1.2 X10*3/uL (0.1-1.2); Monocytes Percent Auto 7.4 % (2-11); Neutrophils Absolute Auto 10.1 x10*3/uL (2.0-8.3); Platelet Count 361 X10*3/uL (160-400); Red Cell Distribution Width 15.2 % (11.0-16.0); White Blood Count 15.8 X10*3/uL (4.8-10.8)
== END 2024-04-11 07:43 | disposition home or self-care (01) ==
LOC: HO.LABR 07:42
PROVIDERS: PCP Internal Medicine; Visit Provider Psychiatry & Neurology Psychiatry
DX: Z79.899 Other long term (current) drug therapy (principal)
CPT/HCPCS: 36415; 85025

== ENCOUNTER 2024-05-12 07:59 | Outpatient (AMB) | payer OTHER, SELFPAY ==
[2024-05-12 08:07] VITALS: BP 112/76; PULSE 78; O2SAT 98; BMI 39.0
--- NOTE | 2024-05-12 08:07 | AM.OFFWIN_ITS ---
Intake Vital Signs 05/12/24 08:07 Height 5 ft 3 in Weight 220 lb BMI 39.0 BP 112/76 Blood Pressure Location Rt brachial Position Sitting Pulse 78 Pulse Source Pulse Oximeter Pulse Oximetry (%) 98 Oxygen Delivery Method Room Air Intake Visit Reasons: EP bite on face from bug Intake Note: Patient here for bite on right side of face which happened about 1 week ago. Patient Tobacco Use Status: Former Tobacco user Allergies haloperidol [From HALDOL] Allergy (Intermediate, Verified 05/12/24 08:09) RASH,ACNE lithium [LITHIUM] Allergy (Intermediate, Verified 05/12/24 08:09) RASH,ACNE simvastatin Allergy (Intermediate, Verified 05/12/24 08:09) headaches escitalopram Allergy (Mild, Verified 05/12/24 08:09) Blister risperidone [From Risperdal] Allergy (Verified 05/12/24 08:09) Unknown furosemide Adverse Reaction (Intermediate, Verified 05/12/24 08:09) rash hydroxyzine Adverse Reaction (Intermediate, Verified 05/12/24 08:09) rash Do you need a note to return to daycare/school/sports/work: No HPI HPI Comments History of Present Illness Details Patient is a 64-year-old female complaining of a bug bite just below her lip on the right side of her mouth. She states it has been there about a week and she has been putting alcohol wipes on it. She denies any drainage or warmth. She states she has had bug bites like this in the past and they take a long time to go away. [facility] Medical History T2DM (type 2 diabetes mellitus) Diabetes mellitus type 2, controlled, without complications Screening for breast cancer Incisional hernia Umbilical hernia Obesity (BMI 30-39.9) Schizophrenia Constipation Pyuria Leukocytosis Primary osteoarthritis of both knees Stasis edema of both lower extremities Vitamin D deficiency Pure hypercholesterolemia Surgical History History of incisional hernia repair (~01/10/21) H/O colonoscopy History of splenectomy Family History Father Medical history unknown Mother Diabetes Family/Other FH: mental illness Mental health disorder Social History Household Members: None Housing: Other Housing Other:: [place] [facility] Do you presently have visiting nurse or other home services: No Alcohol intake: never Patient Tobacco Use Status: Former Tobacco user e-Cigarette/Vaping Use: Never Used Second Hand Smoke Exposure: No service: No Current occupational status: disabled Cognitive needs: No Hearing needs: No Vision needs: No Review of Systems Const All systems reviewed & are unremarkable except as noted in HPI and below Physical Exam Vital Signs: Last Vital Signs Pulse 78 05/12/24 08:07 BP 112/76 05/12/24 08:07 Pulse Ox 98 05/12/24 08:07 Oxygen Delivery Method Room Air 05/12/24 08:07 BMI result Body Mass Index 39.0 Const General: cooperative, healthy appearing, comfortable, no acute distress and well developed Orientation/consciousness: patient oriented x3 Limitations: no limitations Eyes General: appearance normal, both eyes and all related structures Resp Effort & Inspection: normal respiratory effort and able to speak in complete sentences Skin Other: 0.3 cm erythematous papule, no drainage, no fluctuance, no warmth, no signs of infection noted Neuro General: patient oriented x3 Assessment & Plan Assessment & Plan (1) Bug bite of face without infection: Code(s): S00.86XA - Insect bite (nonvenomous) of other part of head, initial encounter; W57.XXXA - Bitten or stung by nonvenomous insect and other nonvenomous arthropods, initial encounter Plan: Recommended applying Aquaphor or Neosporin twice a day and keeping it clean and dry. If no improvement, she should follow up with her PCP. Plan See above Coding Level of Care Code Est Pt Level 2 (60441) Diagnoses Bug bite of face without infection S00.86XA; W57.XXXA
== END 2024-05-12 08:32 | disposition home or self-care (01) ==
PROVIDERS: PCP Internal Medicine; Visit Provider Physician Assistant
DX: S00.86XA Insect bite (nonvenomous) of other part of head, initial encounter (principal); W57.XXXA Bitten or stung by nonvenomous insect and other nonvenomous arthropods, initial encounter
CPT/HCPCS: 99212

== ENCOUNTER 2024-05-25 08:53 | Outpatient (REF) | payer OTHER, SELFPAY ==
[2024-05-25 09:51] LABS: MANUAL DIFF FLAG NO
[2024-05-25 09:56] LABS: Basophils Percent Auto 0.2 % (0-2); Hematocrit 37.2 % (37.0-47.0); Hemoglobin 11.8 g/dl (12.0-16.0); Imm Gran Abs Auto 0.08 X10*3/uL (0.00-0.03); Imm Gran Pct Auto 0.5 % (0.0-0.4); Lymphocytes Absolute Auto 3.4 X10*3/uL (1.2-4.9); Lymphocytes Percent Auto 22.1 % (20-40); Mean Corpuscular HGB Conc 31.7 g/dl (31.0-35.0); Mean Corpuscular Hemoglobin 30.7 pg (27.0-33.0); Mean Corpuscular Volume 96.9 fL (80.0-98.0); Mean Platelet Volume 10.5 fL (9.4-12.3); Monocytes Absolute Auto 1.2 X10*3/uL (0.1-1.2); Monocytes Percent Auto 7.7 % (2-11); Neutrophils Absolute Auto 10.8 x10*3/uL (2.0-8.3); Neutrophils Percent Auto 69.5 % (45-73); Platelet Count 372 X10*3/uL (160-400); Red Blood Count 3.84 X10*6/uL (4.20-5.50); Red Cell Distribution Width 15.4 % (11.0-16.0); White Blood Count 15.5 X10*3/uL (4.8-10.8)
== END 2024-05-25 08:54 | disposition home or self-care (01) ==
LOC: HO.LABR 08:53
PROVIDERS: PCP Internal Medicine; Visit Provider Psychiatry & Neurology Psychiatry
DX: Z79.899 Other long term (current) drug therapy (principal)
CPT/HCPCS: 36415; 85025

== ENCOUNTER 2024-06-06 09:44 | Outpatient (AMB) | payer OTHER, MEDICAID, SELFPAY ==
[2024-06-06 09:45] VITALS: BMI 39.0
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
== END 2024-06-06 10:06 | disposition home or self-care (01) ==
PROVIDERS: PCP Internal Medicine; Visit Provider Surgery Vascular Surgery
DX: I89.0 Lymphedema, not elsewhere classified (principal); I83.12 Varicose veins of left lower extremity with inflammation; I83.11 Varicose veins of right lower extremity with inflammation
CPT/HCPCS: 99214

== ENCOUNTER → 2024-06-06 09:44 | Outpatient (BNVA) | payer OTHER, SELFPAY | PROVIDERS: PCP Internal Medicine; Visit Provider Surgery Vascular Surgery | DX: I89.0 Lymphedema, not elsewhere classified (principal); I83.12 Varicose veins of left lower extremity with inflammation; I83.11 Varicose veins of right lower extremity with inflammation | CPT/HCPCS: 99212 ==

== ENCOUNTER 2024-06-15 11:37 | Outpatient (AMB) | payer MEDICARE, MEDICAID, SELFPAY ==
[2024-06-15 11:54] VITALS: BP 118/64; PULSE 92; O2SAT 96; BMI 38.8
--- NOTE | 2024-06-15 11:54 | MHC.PC.OV ---
Vital Signs 06/15/24 11:54 Height 5 ft 3 in Weight 219 lb BMI 38.8 BP 118/64 Blood Pressure Location Lt brachial Position Sitting Pulse 92 Pulse Source Pulse Oximeter Pulse Oximetry (%) 96 Oxygen Delivery Method Room Air Intake Visit Reasons: 3 month f/u Services Rep Required: No Accompanied by: Self / Same As Patient Allergies haloperidol [From HALDOL] Allergy (Intermediate, Verified 06/15/24 12:41) RASH,ACNE lithium [LITHIUM] Allergy (Intermediate, Verified 06/15/24 12:41) RASH,ACNE simvastatin Allergy (Intermediate, Verified 06/15/24 12:41) headaches escitalopram Allergy (Mild, Verified 06/15/24 12:41) Blister risperidone [From Risperdal] Allergy (Verified 06/15/24 12:41) Unknown furosemide Adverse Reaction (Intermediate, Verified 06/15/24 12:41) rash hydroxyzine Adverse Reaction (Intermediate, Verified 06/15/24 12:41) rash Medication List - Last Reconciled 06/15/24 by Abel Mejía MD aripiprazole 10 mg PO DAILY atorvastatin 10 mg PO DAILY blood sugar diagnostic (Prodigy No Coding strips) test twice per day blood sugar diagnostic (FreeStyle Lite Strips) As directed once a day blood-glucose meter (Prodigy Pocket Meter kit) test twice per day blood-glucose meter (FreeStyle Lite Meter kit) As directed calcium carbonate (Oyster Shell Calcium 500) 500 mg PO BID clonazepam 0.5 mg PO BID PRN clozapine 50 mg PO BEDTIME 30 days clozapine 200 mg (2 x 100 mg) PO BEDTIME 30 days compress.stocking,knee,reg,med As directed [COMPRESSION STOCKINGS with ZIPPERS As directed] docusate sodium 100 mg PO BID hydrochlorothiazide 25 mg PO DAILY ibuprofen 200 mg PO Q6H PRN Januvia (sitagliptin phosphate) 100 mg PO DAILY NS lactulose 10 grams (15 mL) PO BEDTIME PRN 3 days lancets (Prodigy Lancets) test twice per day lancets (FreeStyle Lancets) As directed once a day [lightweight cane As directed] Linzess (linaclotide) 290 mcg PO QAM PRN 30 days NS lurasidone 80 mg PO BEDTIME metformin ER 500 mg PO BEDTIME 90 days multivitamin 1 tab PO DAILY nystatin (Nystop) 1 appl topical BID polyethylene glycol 3350 17 grams PO DAILY tramadol 50 mg PO BID PRN 10 days [Tubi consultant intern socks As directed] [TUBIGRIP SOCKS (Large) As directed] Tobacco use date assessed: 06/15/24 Fall risk assessment: No Falls in past year Last assessed Fall Risk: 06/15/24 Dental Screening Dental Screen Date: 06/15/24 Did you have a dental visit in the last 12 months?: No Did you have a dental problem in the last 6 months where you did not have access to dental care?: No Was dental information given to patient?: No HPI 3 month f/u HPI Details Patient comes in today for her follow up visit States that she feels dizzy often - she describes the symptoms as more of a feeling of unsteadiness She has also been experiencing recurrent pain and discomfort in her right hip She denies any recent injury or trauma to her right hip although she calls experiencing a fracture in her hip from a fall sometime last year She denies any exertional chest pains, no increased shortness of breath No nausea/vomiting, no abdominal pain No change in bowel habits noted States that she had some labs done a few weeks ago but these just included her CBC that was likely ordered by Psychiatry [facility] Medical History (Updated 06/15/24 @ 18:46 by Abel Mejía MD) Diabetes mellitus T2DM (type 2 diabetes mellitus) Diabetes mellitus type 2, controlled, without complications Screening for breast cancer Incisional hernia Umbilical hernia Obesity (BMI 30-39.9) Schizophrenia Constipation Pyuria Leukocytosis Primary osteoarthritis of both knees Stasis edema of both lower extremities Vitamin D deficiency Pure hypercholesterolemia Surgical History History of incisional hernia repair (~01/10/21) H/O colonoscopy History of splenectomy Family History Father Medical history unknown Mother Diabetes Family/Other FH: mental illness Mental health disorder Social History Household Members: None Housing: Other Housing Other:: [place] Housing Do you presently have visiting nurse or other home services: No Alcohol intake: never Patient Tobacco Use Status: Former Tobacco user e-Cigarette/Vaping Use: Never Used Second Hand Smoke Exposure: No service: No Current occupational status: disabled Cognitive needs: No Hearing needs: No Vision needs: No Questionnaire PHQ-9 Over the last 2 weeks, how often have you been bothered by any of the following problems? 1. Little interest or pleasure in doing things: not at all 2. Feeling down, depressed, or hopeless: more than half the days 3. Trouble falling or staying asleep, or sleeping too much: not at all 4. Feeling tired or having little energy: more than half the days 5. Poor appetite or overeating: several days 6. Feeling bad about yourself - or that you are a failure or have let yourself or your family down: not at all 7. Trouble concentrating on things, such as reading the newspaper or watching television: not at all 8. Moving or speaking so slowly that other people could have noticed. Or the opposite - being so fidgety or restless that you have been moving around a lot more than usual: not at all 9. Thoughts that you would be better off or of hurting yourself in some way: not at all Total score: 5 Depression Screening Interpretation: Positive Depression Screening Follow-up: Existing condition and In treatment Depression Screening Done: Yes 93030 - PHQ-9 Billing: Yes Source: Developed by Drs. Cody Askew, Coni Madden, Jose L Frost and colleagues, with an educational mansoor from [employer]. Thrive Questionnaire Date Thrive assessed: 06/15/24 I am a: Patient What is your living situation today?: I have a steady place to live Within the past 12 months, did the food you bought not last and you didn't have the money to get more?: Never true Within the past 12 months, did you worry whether your food would run out before you got money to buy more?: Never true Do you have trouble paying for medicines?: No Do you have trouble getting transportation to medical appointments?: No Do you have trouble paying your heating and electricity bill?: No Do you have trouble taking care of your child, family member or friend?: No Do you have trouble with day-to-day activities such as bathing, preparing meals, shopping, managing finances, etc.?: No Are you currently unemployed and looking for a job?: No Are you interested in more education?: No Please select the resources that you would like help with: None Currently or been in a relationship where the following occur: No concerns reported THRIVE Score: 0 AUDIT C Alcohol Use Questionnaire (AUDIT-C) 1. How often do you have a drink containing alcohol?: Never 3. How often do you have six or more drinks on one occasion?: Never Total Score: 0 Score Reviewed/Action Taken: Yes ROSA-7 AMB Questionnaire ROSA-7 Date ROSA - 7 assessed: 06/15/24 Feeling nervous, anxious, or on edge: 1 = Several days Not being able to stop or control worryin = Not at all Worrying too much about different things: 0 = Not at all Trouble relaxin = Not at all Being so restless that it is hard to sit still: 0 = Not at all Becoming easily annoyed or irritable: 0 = Not at all Feeling afraid as if something awful might happen: 0 = Not at all Total ROSA-7 score (0-4 normal; 5-9 mild; 10-14 moderate; 15-21 severe): 1 Source: Developed by Drs. Cody Askew, Coni Madden, Jose L Frost and colleagues, with an educational mansoor from [employer]. Review of Systems Const Denies chills, Reports fatigue, Denies fever(s) and Denies headache(s) ENT Denies dysphagia, Reports dizziness (recurrent but she describes this as more of unsteadiness), Denies otalgia, Denies headache(s), Denies neck pain, Denies odynophagia and Denies sore throat Card Denies chest pain, Denies palpitations and Denies dyspnea Resp Denies chest congestion, Denies cough, Denies dyspnea, Denies stridor and Denies wheezing GI Denies abdominal pain, Reports constipation (on and off, better controlled lately), Denies dysphagia, Denies heartburn, Denies diarrhea, Denies nausea, Denies odynophagia and Denies vomiting Denies difficulty voiding, Denies nocturia, Denies dysuria and Denies urinary urgency Musc Denies back pain, Reports arthralgias (both knees and right hip) and Denies neck pain Skin/Breast Denies rash Neuro Reports dizziness (recurrent but she describes this as more of unsteadiness) and Denies headache(s) Endo Reports fatigue and Denies palpitations Aller/Immun Denies wheezing Physical exam (Primary Care) Vital Signs: Last Vital Signs Pulse 92 06/15/24 11:54 BP 118/64 06/15/24 11:54 Pulse Ox 96 06/15/24 11:54 Oxygen Delivery Method Room Air 06/15/24 11:54 BMI result Body Mass Index 38.8 Tobacco/Smoking Status: Tobacco use Status Tobacco use date assessed 06/15/24 06/15/24 11:59 Patient Tobacco Use Status Former Tobacco user 06/15/24 11:59 e-Cigarette/Vaping Use Never Used 06/15/24 11:59 PHQ-9: PHQ-9 Score PHQ-9: Total score 5 06/15/24 12:45 Depression Screening Interpretation: Positive Depression Screening Follow-up: Existing condition and In treatment Thrive Assessment: Date of Thrive Assessment Date Thrive assessed 06/15/24 06/15/24 11:59 Currently or been in a relationship where the following occur: No concerns reported Const General: no acute distress and alert HENMT Ears: TM's normal bilaterally and EAC's normal Throat: Yes posterior oropharynx normal and Yes tonsils normal (no TP congestion noted) Neck Neck: Yes no lymphadenopathy and Yes supple Thyroid: Thyroid normal Resp Auscultation: clear to auscultation bilaterally, no rales and no wheezes Cardio Rate: regular rate Rhythm: regular rhythm Heart sounds: no murmurs GI Palpation (GI): Soft to palpation and nontender Auscultation: normal bowel sounds General: Yes no CVA tenderness Back/Spine/Pelvis Back: no CVA tenderness Skin Rashes: no rashes Extrem General: No clubbing, No cyanosis and Yes edema (2+ bilaterally) Right lower extremity: hip/thigh Details: tenderness Location: of the hip and knee Details: tenderness; no swelling Left lower extremity: knee Details: tenderness and ecchymosis; no swelling Results Reviewed Results Reviewed: Laboratory Tests 07/31/20 05/25/24 10:31 09:50 WBC 15.5 H Hgb 11.8 L Hct 37.2 Plt Count 372 Hgb A1c (Clinic) 7.2 H Coding Level of Care Code Est Pt Level 4 (71285) Diagnoses Pure hypercholesterolemia E78.00 Type 2 diabetes mellitus without complication, without long-term current use of insulin E11.9 Diabetes mellitus type: type 2 Diabetes mellitus group home insulin use: without superintendent marine [employer] use Diabetes mellitus complication status: without complication Vitamin D deficiency E55.9 Constipation, unspecified constipation type K59.00 Constipation type: unspecified constipation type Primary osteoarthritis of both knees M17.0 Right hip pain M25.551 Lymphedema I89.0 Schizophrenia, unspecified type F20.9 Schizophrenia type: unspecified Obesity (BMI 30-39.9) E66.9 Assessment & Plan Assessment & Plan (1) Pure hypercholesterolemia: Code(s): E78.00 - Pure hypercholesterolemia, unspecified Category: Medical Plan: Patient was not able to get her follow up labs done prior to her visit today She is instructed to go and get them done NISH as she has not had her cholesterol levels checked since September 2023 - her lab orders are printed out and handed to patient today, in case they are not able to locate her lab orders Reinforced low cholesterol diet Continue Atorvastatin 10 mg QD Will have patient recheck her labs and fasting lipids again in 3 months for follow up (2) Diabetes mellitus: Code(s): E11.9 - Type 2 diabetes mellitus without complications Category: Medical Qualifiers: Diabetes mellitus type: type 2 Diabetes mellitus superintendent [employer] insulin use: without superintendent marine [employer] use Diabetes mellitus complication status: without complication Qualified Code(s): E11.9 - Type 2 diabetes mellitus without complications Plan: Her in-office HgbA1c was at 7.0% when checked previously in 2023 (HgbA1c was previously at 7.5% earlier this year) - goal is < 7.0% Reinforced diabetic diet Continue Metformin ER 500 mg QD and Januvia 100 mg Q AM 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 (3) Vitamin D deficiency: Code(s): E55.9 - Vitamin D deficiency, unspecified Category: Medical Plan: Continue Vitamin D3 1000 units QD (4) Constipation: Code(s): K59.00 - Constipation, unspecified Category: Medical Qualifiers: Constipation type: unspecified constipation type Qualified Code(s): K59.00 - Constipation, unspecified Plan: Better controlled lately Reinforced increased oral fluids and dietary fiber Continue Bisacodyl 10 mg suppositories PRN and Lactulose solution when needed; continue Metamucil daily and she can also take Senna additionally as needed (5) Primary osteoarthritis of both knees: Code(s): M17.0 - Bilateral primary osteoarthritis of knee Category: Medical Plan: X-rays done a couple of years ago showed (+) mild osteoarthritis changes in both knees; this remained unchanged on his more recent x-rays done in January 2024 She is encouraged again to continue with regular exercises to help minimize her joint pain and stiffness Will consider referral to Orthopedics if her knee pain progresses (6) Right hip pain: Code(s): M25.551 - Pain in right hip Category: Medical Plan: X-rays of the hips and pelvis done back in July 2023 revealed (+) old healed fractures of the superior and inferior right pubic rami in the region of the pubis with associated degenerative change at the pubic symphysis Right hip x-rays showed a faintly seen low-density region about the neck of the proximal right femur without displacement or angular abnormality. This is likely artifactual in nature, however, a nondisplaced compression fracture cannot be excluded A pelvic CT was subsequently done, which showed no acute fracture or dislocation right hip or pelvis, but there is an old healed fracture with exuberant callus in the right superior pubic ramus She is advised that this is likely the source of her right hip discomfort/pain and if this continues, will consider referring her to orthopedics for further management (7) Lymphedema: Code(s): I89.0 - Lymphedema, not elsewhere classified Category: Medical Plan: (+) Hx of venous ablation Patient has not been able to tolerate the use of compression pumps to help relieve the edema of her lower extremities as these tend to aggravate her right hip/groin pain She was recommended to try following up with occupational therapy at [facility] for them to try to assist with leg wraps on a more regular basis Follow up with vascular surgery as scheduled (8) Schizophrenia: Code(s): F20.9 - Schizophrenia, unspecified Category: Medical Qualifiers: Schizophrenia type: unspecified Qualified Code(s): F20.9 - Schizophrenia, unspecified Plan: Continue Trihexyphenidyl 5 mg once a day, Clozaril 125 mg 1 & 1/2 tablet once a day at bedtime, Abilify 20 mg 2 tablets once a day, Latuda 120 mg once a day and Clonazepam 1 mg once a day as needed Follow-up with Psychiatry as scheduled (9) Obesity (BMI 30-39.9): Code(s): E66.9 - Obesity, unspecified Category: Medical Plan: Reinforced diet/exercise as tolerated/lose weight Plan Follow up in 3 months Orders: Orders Complete Blood Count Auto Diff 3 Months D64.9 - Anemia, unspecified Lipid Panel 3 Months E78.00 - Pure hypercholesterolemia, unspecified Comprehensive [place]. Panel Fast 3 Months E78.00 - Pure hypercholesterolemia, unspecified Microalbumin, Random (w Creat) 3 Months E11.9 - Type 2 diabetes mellitus without complications Hemoglobin A1c 3 Months E11.9 - Type 2 diabetes mellitus without complications
== END 2024-06-15 12:48 | disposition home or self-care (01) ==
PROVIDERS: PCP Internal Medicine; Visit Provider Internal Medicine
DX: E78.00 Pure hypercholesterolemia, unspecified (principal); E11.9 Type 2 diabetes mellitus without complications; F20.9 Schizophrenia, unspecified; Z68.38 Body mass index [BMI] 38.0-38.9, adult; E66.812 Obesity, class 2; E55.9 Vitamin D deficiency, unspecified; K59.00 Constipation, unspecified; M17.0 Bilateral primary osteoarthritis of knee; M25.551 Pain in right hip; I89.0 Lymphedema, not elsewhere classified

== ENCOUNTER → 2024-06-15 11:37 | Outpatient (BNVA) | payer OTHER, SELFPAY | PROVIDERS: PCP Internal Medicine; Visit Provider Internal Medicine | DX: E78.00 Pure hypercholesterolemia, unspecified (principal); E11.9 Type 2 diabetes mellitus without complications; E55.9 Vitamin D deficiency, unspecified; K59.00 Constipation, unspecified; M17.0 Bilateral primary osteoarthritis of knee; M25.551 Pain in right hip; I89.0 Lymphedema, not elsewhere classified; F20.9 Schizophrenia, unspecified; E66.9 Obesity, unspecified; Z79.84 Long term (current) use of oral hypoglycemic drugs; Z79.899 Other long term (current) drug therapy | CPT/HCPCS: 96127; 99212 ==

== ENCOUNTER 2024-06-30 07:40 | Outpatient (REF) | payer OTHER, SELFPAY ==
[2024-06-30 08:08] LABS: MANUAL DIFF FLAG NO
[2024-06-30 08:51] LABS: Basophils Percent Auto 0.2 % (0-2); Hematocrit 35.9 % (37.0-47.0); Hemoglobin 11.6 g/dl (12.0-16.0); Imm Gran Abs Auto 0.09 X10*3/uL (0.00-0.03); Imm Gran Pct Auto 0.6 % (0.0-0.4); Lymphocytes Absolute Auto 4.7 X10*3/uL (1.2-4.9); Lymphocytes Percent Auto 33.2 % (20-40); Mean Corpuscular HGB Conc 32.3 g/dl (31.0-35.0); Mean Corpuscular Hemoglobin 30.8 pg (27.0-33.0); Mean Corpuscular Volume 95.2 fL (80.0-98.0); Mean Platelet Volume 11.2 fL (9.4-12.3); Monocytes Absolute Auto 1.1 X10*3/uL (0.1-1.2); Monocytes Percent Auto 7.9 % (2-11); Neutrophils Absolute Auto 8.2 x10*3/uL (2.0-8.3); Neutrophils Percent Auto 58.1 % (45-73); Platelet Count 360 X10*3/uL (160-400); Red Blood Count 3.77 X10*6/uL (4.20-5.50); Red Cell Distribution Width 14.8 % (11.0-16.0); White Blood Count 14.1 X10*3/uL (4.8-10.8)
[2024-06-30 08:58] LABS: Estimated Average Glucose 154 mg/dL; Hemoglobin A1C 167.5675 umol/L; Total Hemoglobin (HGBA1C) 3156.4774 umol/L
[2024-06-30 09:47] LABS: TSH reflex Free T4 1.26 uIU/mL (0.32-4.0); Vitamin D 25-OH Total 32.1 ng/mL (>30)
[2024-06-30 09:52] LABS: Folate 13.2 ng/mL (> or = 4.0); Vitamin B12 329 pg/mL (200-900)
== END 2024-06-30 07:41 | disposition home or self-care (01) ==
LOC: HO.LAB 07:40
PROVIDERS: Absent Provider Psychiatry & Neurology Psychiatry; PCP Internal Medicine; Visit Provider Internal Medicine
DX: Z79.899 Other long term (current) drug therapy (principal); E11.9 Type 2 diabetes mellitus without complications; E53.8 Deficiency of other specified B group vitamins; D64.9 Anemia, unspecified; E78.00 Pure hypercholesterolemia, unspecified; E55.9 Vitamin D deficiency, unspecified
CPT/HCPCS: 36415; 82306; 82607; 82746; 83036; 84443; 85025

== ENCOUNTER 2024-07-08 07:36 | Outpatient (REF) | payer OTHER, SELFPAY ==
[2024-07-08 09:37] LABS: Estimated Average Glucose 151 mg/dL; Hemoglobin A1C 167.7361 umol/L; Hemoglobin A1c % 6.9 % (<6.0)
[2024-07-08 09:53] LABS: Basophils Percent Auto 0.1 % (0-2); Hematocrit 37.7 % (37.0-47.0); Hemoglobin 12.1 g/dl (12.0-16.0); Imm Gran Abs Auto 0.07 X10*3/uL (0.00-0.03); Imm Gran Pct Auto 0.5 % (0.0-0.4); Lymphocytes Absolute Auto 4.1 X10*3/uL (1.2-4.9); Lymphocytes Percent Auto 29.4 % (20-40); MANUAL DIFF FLAG NO; Mean Corpuscular HGB Conc 32.1 g/dl (31.0-35.0); Mean Corpuscular Hemoglobin 30.6 pg (27.0-33.0); Mean Corpuscular Volume 95.4 fL (80.0-98.0); Mean Platelet Volume 10.6 fL (9.4-12.3); Monocytes Absolute Auto 1.1 X10*3/uL (0.1-1.2); Monocytes Percent Auto 7.6 % (2-11); Neutrophils Absolute Auto 8.7 x10*3/uL (2.0-8.3); Neutrophils Percent Auto 62.4 % (45-73); Platelet Count 427 X10*3/uL (160-400); Red Blood Count 3.95 X10*6/uL (4.20-5.50); Red Cell Distribution Width 14.9 % (11.0-16.0)
[2024-07-08 10:10] LABS: Appearance Urine Clear; Color Urine Yellow; Glucose Urine UA Negative (Negative); Leukocyte Esterase Urine Moderate (2+) (Negative); Nitrite Urine Positive (Negative); Specific Gravity - Urine 1.015 (1.005-1.025); UMIC TRIGGER UACC YES; Urine Blood Negative (Negative); Urine Ketones Negative (Negative); Urine Protein Negative (Neg-Trace)
[2024-07-08 10:13] LABS: Bacteria Urine 4+ (None Seen); Hyaline Casts Urine 0-2 /LPF (0-2); RBC Urine 0-2 /HPF (0-2); Squamous Epithelial Cell Urine 0-2 /HPF (0-2); UACC Culture Trigger YES; WBC Urine 21-50 /HPF (0-5)
[2024-07-08 10:35] LABS: Creatinine Urine 63.53 mg/dL; Microalbum/Creatinine Ratio Ur 7.8 ug/mg cr (<30)
[2024-07-08 10:42] LABS: Alanine Aminotransferase 25 U/L (0-31); Albumin Level 3.9 g/dL (3.5-5.0); Alkaline Phosphatase 127 U/L (39-117); Anion Gap 15 (12-20); Aspartate Amino Transferase 20 U/L (5-31); Bilirubin Total 0.6 mg/dL (0.0-1.0); Blood Urea Nitrogen 19 mg/dL (9-16); Calcium 9.6 mg/dL (8.4-10.2); Carbon Dioxide 29 mmol/L (22-29); Chloride 106 mmol/L (96-108); Cholesterol 195 mg/dL (<200); Estimated Glomerular Filt Rate 53; Glucose Fasting 119 mg/dL (60-99); HDL Cholesterol 50 mg/dL (>40); LDL Cholesterol Calculated 117 mg/dL (<100); Sodium 146 mmol/L (135-145); Total Protein 7.4 g/dL (6.5-8.0); Triglycerides 143 mg/dL (<150)
[2024-07-08 10:51] LABS: TSH reflex Free T4 1.15 uIU/mL (0.32-4.0)
== END 2024-07-08 07:37 | disposition home or self-care (01) ==
LOC: HO.LAB 07:36
PROVIDERS: Absent Provider Psychiatry & Neurology Psychiatry; PCP Internal Medicine; Visit Provider Internal Medicine
DX: E78.00 Pure hypercholesterolemia, unspecified (principal); E11.9 Type 2 diabetes mellitus without complications; D64.9 Anemia, unspecified; R30.0 Dysuria
CPT/HCPCS: 36415; 80053; 80061; 81001; 82043; 82570; 83036; 84443; 85025; 87086; 87088; 87186

== ENCOUNTER 2024-07-19 13:01 | Emergency (ER) | payer OTHER, SELFPAY ==
--- NOTE | ~2024-07-19 | XR_ITS ---
EXAMINATION: XR ABDOMEN KUB CLINICAL INDICATION: no BM x 3 weeks COMPARISON: X-ray dated December 22, 2016 TECHNIQUE: AP view of the abdomen. FINDINGS: Abundant stool throughout the large intestine. No intestinal dilatation. No air-fluid levels. Metallic coils overlapping the left upper abdomen/left lower thorax. Multilevel thoracolumbar spondylosis. Degenerative changes in the symphysis pubis with questionable old traumatic deformity. XR/XR KUB IMPRESSION: No intestinal obstruction pattern. Electronically signed by: Terry Tony MD 07/19/2024 02:59 PM EST
[2024-07-19 13:03] VITALS: BP 127/70; PULSE 100; RESP 19; TEMP 36.6; O2SAT 98; BMI 38.3
--- NOTE | 2024-07-19 13:03 | ED_ITS ---
HPI - General Adult General Chief complaint: General Medical Stated complaint: constipation 3 wks Time Seen by Provider: 07/19/24 13:24 Source: patient Mode of arrival: ambulatory Limitations: no limitations History of Present Illness ED Provider: DR. Pino HPI narrative: Patient is a 64-year-old female with history of chronic constipation, T2DM, schizophrenia presenting with complaint of constipation for the past 3 weeks, Denies abdominal pain. only intra-abdominal surgery is Lonny repair with mesh placement, patient in the emergency department declined using manual disimpaction because it is very painful only asking for enema. No abdominal pain, no nausea, no vomiting. patient stated that she passes gas. Related Data Home Medications ?Medication ?Instructions ?Recorded ?Confirmed aripiprazole 10 mg tablet 10 mg PO DAILY 07/31/20 06/15/24 lurasidone 80 mg tablet 80 mg PO BEDTIME 07/31/20 06/15/24 docusate sodium 100 mg capsule 100 mg PO BID 02/02/23 06/15/24 clonazepam 0.5 mg tablet 0.5 mg PO BID PRN Anxiety 08/23/23 06/15/24 multivitamin 1 tab PO DAILY 08/24/23 06/15/24 Previous Rx's ?Medication ?Instructions ?Recorded nystatin 100,000 unit/gram topical 1 appl topical BID #60 grams 05/22/21 powder (Nystop) clozapine 100 mg tablet 200 mg (2 x 100 mg) PO BEDTIME 30 12/30/21 days #60 tabs clozapine 50 mg tablet 50 mg PO BEDTIME 30 days #30 tabs 12/30/21 Tubi consultant in ergonomics and safety socks #2 ea 09/14/22 compress.stocking,knee,reg,med #2 ea 09/17/22 Linzess 290 mcg capsule 290 mcg PO QAM PRN severe 06/16/23 (linaclotide) constipation 30 days #30 caps metformin 500 mg tablet,extended 500 mg PO BEDTIME 90 days #90 tabs 10/19/23 release 24 hr polyethylene glycol 3350 17 17 g PO DAILY #510 grams 11/23/23 gram/dose oral powder ibuprofen 200 mg tablet 200 mg PO Q6H PRN pain #60 tabs 12/06/23 TUBIGRIP SOCKS (Large) #2 ea 02/10/24 lightweight cane #1 ea 02/10/24 tramadol 50 mg tablet 50 mg PO BID PRN pain 10 days #20 02/10/24 tabs blood sugar diagnostic (Prodigy No #50 ea 03/21/24 Coding strips) blood-glucose meter (Prodigy #1 ea 03/21/24 Pocket Meter kit) lancets 28 gauge (Prodigy Lancets) #100 ea 03/21/24 blood sugar diagnostic (FreeStyle #100 ea 03/24/24 Lite Strips) lancets 28 gauge (FreeStyle #100 ea 03/24/24 Lancets) COMPRESSION STOCKINGS with ZIPPERS #2 ea 05/10/24 blood-glucose meter (FreeStyle #1 ea 05/24/24 Lite Meter kit) lactulose 10 gram/15 mL oral 10 g (15 mL) PO BEDTIME PRN 07/10/24 solution constipation 3 days #45 mL magnesium oxide 400 mg PO BID #60 caps 07/13/24 Januvia 100 mg tablet (sitagliptin 100 mg PO DAILY #30 tabs 07/18/24 phosphate) atorvastatin 10 mg tablet 10 mg PO DAILY #28 tabs 07/18/24 calcium carbonate (Oyster Shell 500 mg PO BID #56 tabs 07/18/24 Calcium 500) hydrochlorothiazide 25 mg tablet 25 mg PO DAILY #90 tabs 07/18/24 peg 3350-electrolytes 236 240 ml PO Q10M #1,000 mL 07/19/24 gram-22.74 gram-6.74 gram-5.86 gram solution (GaviLyte-G) Allergies Allergy/AdvReac Type Severity Reaction Status Date / Time haloperidol [From HALDOL] Allergy Intermediate RASH,ACNE Verified 07/19/24 13:06 lithium [LITHIUM] Allergy Intermediate RASH,ACNE Verified 07/19/24 13:06 simvastatin Allergy Intermediate headaches Verified 07/19/24 13:06 escitalopram Allergy Mild Blister Verified 07/19/24 13:06 risperidone [From Risperdal] Allergy Unknown Verified 07/19/24 13:06 furosemide AdvReac Intermediate rash Verified 07/19/24 13:06 hydroxyzine AdvReac Intermediate rash Verified 07/19/24 13:06 Review of Systems 2 Review of Systems: all other systems are reviewed and are negative Constitutional: Reports as per HPI and Reports no additional constitutional complaints Eyes: Reports as per HPI and Reports no additional eye complaints Reports system reviewed and no additional complaints, except as documented Cardiovascular: Reports as per HPI and Reports no additional cardiovascular complaints Respiratory: Reports as per HPI and Reports no additional respiratory complaints Gastrointestinal: Reports as per HPI and Reports no additional gastrointestinal complaints Genitourinary: Reports no additional female genitourinary complaints Musculoskeletal: Reports no additional musculoskeletal complaints Skin/Breast: Reports system reviewed and no additional complaints, except as docu Psychiatric: Reports no additional psychiatric complaints Endocrine: Reports no additional endocrine complaints Hematologic/Lymphatic: Reports no additional hematologic/lymphatic complaints Allergic/Immunologic: Reports no additional allergic/immunologic complaints Reports system reviewed and no additional complaints, except as documented and Reports Abnormal speech present [facility] [place] Past Medical History Medical History Diabetes mellitus T2DM (type 2 diabetes mellitus) Diabetes mellitus type 2, controlled, without complications Screening for breast cancer Incisional hernia Umbilical hernia Obesity (BMI 30-39.9) Schizophrenia Constipation Pyuria Leukocytosis Primary osteoarthritis of both knees Stasis edema of both lower extremities Vitamin D deficiency Pure hypercholesterolemia Surgical History History of incisional hernia repair (~01/10/21) H/O colonoscopy History of splenectomy Family History Family History Father Medical history unknown Mother Diabetes Family/Other FH: mental illness Mental health disorder Social History Social History Household Members: None Housing: Other Housing Other:: [place] [facility] Do you presently have visiting nurse or other home services: No Alcohol intake: never Patient Tobacco Use Status: Former Tobacco user Smoked in Last 30 Days: No e-Cigarette/Vaping Use: Never Used Second Hand Smoke Exposure: No Advance Directives: No Advance Directives Information Provided: Yes Do you have a plan to hurt others: No Plan service: No Current occupational status: disabled Cognitive needs: No Hearing needs: No Vision needs: No Physical Exam ED Vital Signs: Vital Signs - 24 hr 07/19/24 13:03 07/19/24 16:03 Temperature 98 F Pulse Rate 100 87 Respiratory Rate 19 16 Blood Pressure 127/70 103/57 L Pulse Oximetry 98 97 Oxygen Delivery Method Room Air Room Air BMI result Body Mass Index 38.3 Vital signs have been reviewed and appear to be correct. Blood pressure elevated. Heart rate normal. Respiratory rate normal. Temperature normal. Oxygen saturation normal. Appearance: Alert. Oriented X3. No acute distress. Head: Normal external exam. Normocephalic. Atraumatic. No Contreras signs noted. No raccoon eyes noted Eyes: PERRLA. EOMI. Conjunctiva and sclera normal. Eyelids normal. ENT: TM's Normal. Pharynx normal. Uvula midline. Moist mucous membranes. No trismus noted. No drooling noted. No muffled voice noted. Neck: Normal inspection. Neck supple. FROM. No adenopathy. Thyroid Normal. No meningeal signs. No neck mass noted. CVS: Normal heart rate and rhythm. Heart sound normal. No murmurs noted. Pulses normal throughout. Respiratory: No respiratory distress. Painless inspiration. Breath sounds normal. No wheezes/rales/rhonchi noted. Chest nontender. No accessory muscle usage noted or decreased air movement noted. Abdomen: Soft and nontender. Bowel sounds normal in all 4 quadrants. No distention noted. No organomegaly noted. No visible injury noted. Rectal exam: Hard stool in the vault, no external or internal hemorrhoid, no bleeding. Back: No CVA tenderness. Full range of motion noted. Skin: Skin warm and dry. Normal skin color. Normal skin turgor. No rashes/lesions/lacerations noted. Extremities: No lower extremity edema. Extremities exhibit normal range of motion. Extremities nontender. Neuro: Oriented X 3. Cranial nerve exam: II-XII are grossly intact No motor deficit. No sensory deficit. Reflexes normal. Course Course Course Narrative: This is a rapid medical exam performed by Jules Adorno NP: Additional HPI, ROS, PE not included below will be deferred to primary provider. Patient is a 64-year-old female with history of chronic constipation, T2DM, schizophrenia presenting with complaint of constipation. Denies bowel movement or flatulence for past 3 weeks. Denies abdominal pain. Plan: labs, UA Reevaluation(s) Reevaluation #1: Chronic leukocytosis, no abdominal pain, hard stool in the vault patient is declining manual disimpaction at this point, patient tried Fleet enema which usually do not work for her will get gastric oil enema and milk of magnesia will discharge her to follow-up with PCP. Patient was instructed to drink plenty of fluids. Repeat abdominal exam shows no acute tenderness, no rebound tenderness, no guarding. Hypokalemia repleted orally. Will discharge home on GoLYTELY for patient try at home. Time: 17:05 Medications Administered Discontinued Medications Generic Name Dose Route Start Last Admin Trade Name Jyoti PRN Reason Stop Dose Admin Mineral Oil 133 ml 07/19/24 13:31 07/19/24 13:53 Mineral Oil Enema 133 Ml Enema OK 07/19/24 13:32 133 ml ONCE ONE Administration Potassium Chloride 40 meq 07/19/24 15:25 07/19/24 15:43 Potassium Chloride Packet 20 Meq Packet PO 07/19/24 15:26 40 meq ONCE ONE Administration Medical Decision Making Differential Diagnosis Differential Diagnoses: The differential diagnosis associated with the presentation includes ( Constipation, small-bowel obstruction, electrolyte derangement, severe anemia.) Admission/Observation Consideration of admission/observation: Escalation of care including admission/observation considered Lab Data MDM Lab Attestation statement: I reviewed the patient's lab results. 07/19/24 13:45 07/19/24 13:45 Labs: Lab Results 07/19/24 Range/Units 13:45 WBC 15.0 H (4.8-10.8) X10*3/uL RBC 3.83 L (4.20-5.50) X10*6/uL Hgb 11.8 L (12.0-16.0) g/dl Hct 36.8 L (37.0-47.0) % MCV 96.1 (80.0-98.0) fL MCH 30.8 (27.0-33.0) pg MCHC 32.1 (31.0-35.0) g/dl RDW 15.1 (11.0-16.0) % Plt Count 380 (160-400) X10*3/uL MPV 10.3 (9.4-12.3) fL Immature Gran % (Auto) 0.4 (0.0-0.4) % Neut % (Auto) 65.0 (45-73) % Lymph % (Auto) 26.9 (20-40) % [place] % (Auto) 7.5 (2-11) % Eos % (Auto) 0.0 (0-4) % Baso % (Auto) 0.2 (0-2) % Lymph # (Auto) 4.0 (1.2-4.9) X10*3/uL [place] # (Auto) 1.1 (0.1-1.2) X10*3/uL Eos # (Auto) 0.0 (0.0-0.4) X10*3/uL Baso # (Auto) 0.0 (0.0-0.2) X10*3/uL Abs Immat Gran (auto) 0.06 H (0.00-0.03) X10*3/uL Absolute Neuts (auto) 9.7 H (2.0-8.3) x10*3/uL Absolute Nucleated RBC 0.000 (0.0-0.012) X10*3/uL Nucleated RBC % (auto) 0.0 (0.0-0.2) /100WBC Sodium 144 (135-145) mmol/L Potassium 3.2 L (3.3-5.1) mmol/L Chloride 108 (96-108) mmol/L Carbon Dioxide 31 H (22-29) mmol/L Anion Gap 8 L (12-20) BUN 21 H (9-16) mg/dL Creatinine 0.91 (0.5-1.4) mg/dL Estim Creat Clear Calc 67.7 Estimated GFR > 60 Random Glucose 167 H (60-115) mg/dL Calcium 8.9 D (8.4-10.2) mg/dL Total Bilirubin 0.4 (0.0-1.0) mg/dL AST 20 (5-31) U/L ALT 19 (0-31) U/L Alkaline Phosphatase 119 H (39-117) U/L Total Protein 6.9 (6.5-8.0) g/dL Albumin 3.7 (3.5-5.0) g/dL Independent Interpretation I performed an independent interpretation of an: Plain X-Ray ( Abdomen: No intestinal obstruction pattern.) Radiology Impression Discussion of test interpretation with radiology: I have reviewed the radiologist's reading. Discharge Plan Discharge Clinical Impression: Hypokalemia, Leukocytosis Constipation Qualifiers: Constipation type: unspecified constipation type Qualified Code(s): K59.00 - Constipation, unspecified Patient Disposition: Home, Self-Care Instructions: Constipation (ED), Hypokalemia (ED) Prescriptions: New peg 3350-electrolytes [GaviLyte-G] 236-22.74-6.74 -5.86 gram recon soln 240 ml PO Q10M Qty: 1000 0RF Rx Instructions: until fecal effluent is clear No Action nystatin [Nystop] 100,000 unit/gram powder 1 appl topical BID Qty: 60 0RF clozapine 50 mg tablet 50 mg PO BEDTIME 30 Days Qty: 30 0RF clozapine 100 mg tablet 200 mg PO BEDTIME 30 Days Qty: 60 0RF (DME) Tubi consultant in ergonomics and safety socks Medium See Rx Instructions .Route .MEDSUPPLY Qty: 2 0RF Rx Instructions: As directed (DME) compress.stocking,knee,reg,med Misc See Rx Instructions .Route Qty: 2 0RF Rx Instructions: As directed Linzess 290 mcg capsule 290 mcg PO QAM PRN (Reason: severe constipation) 30 Days Qty: 30 1RF metformin 500 mg tablet extended release 24 hr 500 mg PO BEDTIME 90 Days Qty: 90 3RF polyethylene glycol 3350 17 gram/dose powder 17 g PO DAILY Qty: 510 12RF ibuprofen 200 mg tablet 200 mg PO Q6H PRN (Reason: pain) Qty: 60 1RF Rx Instructions: Take with food (DME) Prodigy No Coding Strip See Rx Instructions .Route Qty: 50 8RF Rx Instructions: test twice per day (DME) blood-glucose meter [Prodigy Pocket Meter] Kit See Rx Instructions .Route Qty: 1 0RF Rx Instructions: test twice per day (DME) lancets [Prodigy Lancets] 28 gauge misc See Rx Instructions .Route Qty: 100 8RF Rx Instructions: test twice per day (DME) FreeStyle Lite Strips Strip See Rx Instructions .ROUTE .MEDSUPPLY Qty: 100 12RF Rx Instructions: As directed once a day (DME) lancets [FreeStyle Lancets] 28 gauge misc See Rx Instructions .ROUTE .MEDSUPPLY Qty: 100 12RF Rx Instructions: As directed once a day (DME) COMPRESSION STOCKINGS with ZIPPERS See Rx Instructions .Route .MEDSUPPLY Qty: 2 1RF Rx Instructions: As directed (DME) blood-glucose meter [FreeStyle Lite Meter] Kit See Rx Instructions .ROUTE .MEDSUPPLY Qty: 1 0RF Rx Instructions: As directed lactulose 10 gram/15 mL solution 10 g PO BEDTIME PRN (Reason: constipation) 3 Days Qty: 45 0RF magnesium oxide 400 mg magnesium capsule 400 mg PO BID Qty: 60 3RF atorvastatin 10 mg tablet 10 mg PO DAILY Qty: 28 0RF calcium carbonate [Oyster Shell Calcium 500] 500 mg calcium (1,250 mg) tablet 500 mg PO BID Qty: 56 0RF hydrochlorothiazide 25 mg tablet 25 mg PO DAILY Qty: 90 0RF Januvia 100 mg tablet 100 mg PO DAILY Qty: 30 0RF clonazepam 0.5 mg Tablet 0.5 mg PO BID PRN (Reason: Anxiety) multivitamin Tablet 1 tab PO DAILY aripiprazole 10 mg tablet 10 mg PO DAILY lurasidone 80 mg tablet 80 mg PO BEDTIME tramadol 50 mg tablet 50 mg PO BID PRN (Reason: pain) 10 Days Qty: 20 0RF (DME) TUBIGRIP SOCKS (Large) large See Rx Instructions .Route .MEDSUPPLY Qty: 2 0RF Rx Instructions: As directed (DME) lightweight cane See Rx Instructions .Route .MEDSUPPLY Qty: 1 0RF Rx Instructions: As directed docusate sodium 100 mg capsule 100 mg PO BID Referrals: Abel Mejía MD [Primary Care Provider] - Rossana Martinez MD [Physician] - Print Language: Maldivian
[2024-07-19 13:49] LABS: MANUAL DIFF FLAG NO
[2024-07-19 13:52] LABS: Basophils Percent Auto 0.2 % (0-2); Hematocrit 36.8 % (37.0-47.0); Hemoglobin 11.8 g/dl (12.0-16.0); Imm Gran Abs Auto 0.06 X10*3/uL (0.00-0.03); Imm Gran Pct Auto 0.4 % (0.0-0.4); Lymphocytes Percent Auto 26.9 % (20-40); Mean Corpuscular HGB Conc 32.1 g/dl (31.0-35.0); Mean Corpuscular Hemoglobin 30.8 pg (27.0-33.0); Mean Corpuscular Volume 96.1 fL (80.0-98.0); Mean Platelet Volume 10.3 fL (9.4-12.3); Monocytes Absolute Auto 1.1 X10*3/uL (0.1-1.2); Monocytes Percent Auto 7.5 % (2-11); Neutrophils Absolute Auto 9.7 x10*3/uL (2.0-8.3); Platelet Count 380 X10*3/uL (160-400); Red Blood Count 3.83 X10*6/uL (4.20-5.50); Red Cell Distribution Width 15.1 % (11.0-16.0)
[2024-07-19] MEDS: Mineral OiL enema 133 ML ENEMA PR (13:53)
[2024-07-19 14:04] LABS: Alanine Aminotransferase 19 U/L (0-31); Albumin Level 3.7 g/dL (3.5-5.0); Alkaline Phosphatase 119 U/L (39-117); Anion Gap 8 (12-20); Aspartate Amino Transferase 20 U/L (5-31); Bilirubin Total 0.4 mg/dL (0.0-1.0); Blood Urea Nitrogen 21 mg/dL (9-16); Calcium 8.9 mg/dL (8.4-10.2); Carbon Dioxide 31 mmol/L (22-29); Chloride 108 mmol/L (96-108); Creatinine Clr Calc Pharmacy 67.7; Estimated Glomerular Filt Rate > 60; Glucose Random 167 mg/dL (60-115); Potassium 3.2 mmol/L (3.3-5.1); Sodium 144 mmol/L (135-145); Total Protein 6.9 g/dL (6.5-8.0)
--- NOTE | 2024-07-19 14:10 | PC.NURSE ---
pt medicated per MAR- effectiveness pending
[2024-07-19] MEDS: Potassium Chloride Packet 20 MEQ PACKET 40 MEQ PO (15:43)
[2024-07-19 16:03] VITALS: BP 103/57; PULSE 87; RESP 16; O2SAT 97
[2024-07-19 17:22] VITALS: BP 103/57; PULSE 87; RESP 16; TEMP 37; O2SAT 97
== END 2024-07-19 17:23 | disposition home or self-care (01) ==
PROVIDERS: Registered Nurse Emergency; Emergency Provider Emergency Medicine; PCP Internal Medicine
DX: K59.00 Constipation, unspecified (principal); E87.6 Hypokalemia; D72.829 Elevated white blood cell count, unspecified; E11.9 Type 2 diabetes mellitus without complications; E78.00 Pure hypercholesterolemia, unspecified; Z79.84 Long term (current) use of oral hypoglycemic drugs; Z79.899 Other long term (current) drug therapy; Z79.02 Long term (current) use of antithrombotics/antiplatelets
CPT/HCPCS: 36415; 74018; 80053; 85025; 99284

== ENCOUNTER → 2024-07-19 13:06 | Outpatient (BNV) | payer OTHER, SELFPAY | PROVIDERS: Emergency Provider Emergency Medicine; PCP Internal Medicine; Visit Provider Radiology Diagnostic Radiology | DX: K59.00 Constipation, unspecified (principal) | CPT/HCPCS: 74018 ==

== ENCOUNTER 2024-09-05 10:55 | Outpatient (REF) | payer OTHER, SELFPAY ==
[2024-09-05 12:24] LABS: MANUAL DIFF FLAG NO
[2024-09-05 13:18] LABS: Basophils Percent Auto 0.2 % (0-2); Hematocrit 38.5 % (37.0-47.0); Hemoglobin 12.5 g/dl (12.0-16.0); Imm Gran Abs Auto 0.07 X10*3/uL (0.00-0.03); Imm Gran Pct Auto 0.5 % (0.0-0.4); Lymphocytes Absolute Auto 3.6 X10*3/uL (1.2-4.9); Lymphocytes Percent Auto 24.1 % (20-40); Mean Corpuscular HGB Conc 32.5 g/dl (31.0-35.0); Mean Corpuscular Hemoglobin 31.2 pg (27.0-33.0); Monocytes Percent Auto 6.4 % (2-11); Neutrophils Absolute Auto 10.3 x10*3/uL (2.0-8.3); Neutrophils Percent Auto 68.8 % (45-73); Platelet Count 401 X10*3/uL (160-400); Red Blood Count 4.01 X10*6/uL (4.20-5.50); Red Cell Distribution Width 15.3 % (11.0-16.0)
== END 2024-09-05 10:56 | disposition home or self-care (01) ==
LOC: HO.LABR 10:55
PROVIDERS: PCP Internal Medicine; Visit Provider Psychiatry & Neurology Psychiatry
DX: Z79.899 Other long term (current) drug therapy (principal)
CPT/HCPCS: 36415; 85025

== ENCOUNTER 2024-09-14 09:39 | Outpatient (REF) | payer OTHER, SELFPAY | END 2024-09-14 09:40 | disposition home or self-care (01) | LOC: HO.MAMMO 09:39 | PROVIDERS: PCP Internal Medicine; Visit Provider Internal Medicine | DX: Z12.31 Encounter for screening mammogram for malignant neoplasm of breast (principal) | CPT/HCPCS: 77063; 77067 ==

== ENCOUNTER 2024-09-29 09:43 | Outpatient (AMB) | payer OTHER, SELFPAY ==
--- NOTE | 2024-09-29 09:45 | MHC.PC.OV ---
Vital Signs 09/29/24 09:47 Height 5 ft 3 in Weight 218 lb 8 oz BMI 38.7 BP 120/74 Blood Pressure Location Lt brachial Position Sitting Pulse 91 Pulse Source Pulse Oximeter Temp 96.9 F Temp Source Skin Pulse Oximetry (%) 96 Oxygen Delivery Method Room Air Intake Visit Reasons: 3mth f/u Intake Note: Patient is here to follow up on DM, Chronic pain. Python Programmer Required: No Digester Operator: Not Required per policy Accompanied by: Self / Same As Patient Allergies haloperidol [From HALDOL] Allergy (Intermediate, Verified 09/29/24 11:10) RASH,ACNE lithium [LITHIUM] Allergy (Intermediate, Verified 09/29/24 11:10) RASH,ACNE simvastatin Allergy (Intermediate, Verified 09/29/24 11:10) headaches escitalopram Allergy (Mild, Verified 09/29/24 11:10) Blister risperidone [From Risperdal] Allergy (Verified 09/29/24 11:10) Unknown furosemide Adverse Reaction (Intermediate, Verified 09/29/24 11:10) rash hydroxyzine Adverse Reaction (Intermediate, Verified 09/29/24 11:10) rash Medication List - Last Reconciled 09/29/24 by Abel Mejía MD aripiprazole 10 mg PO DAILY atorvastatin 10 mg PO DAILY blood sugar diagnostic (Medicine in Practicey No Coding strips) test twice per day blood sugar diagnostic (FreeStyle Lite Strips) As directed once a day blood-glucose meter (Cloudabilityigy Pocket Meter kit) test twice per day blood-glucose meter (FreeStyle Lite Meter kit) As directed calcium carbonate (Oyster Shell Calcium 500) 500 mg PO BID clonazepam 0.5 mg PO BID PRN clozapine 50 mg PO BEDTIME 30 days clozapine 200 mg (2 x 100 mg) PO BEDTIME 30 days compress.stocking,knee,reg,med As directed [COMPRESSION STOCKINGS with ZIPPERS As directed] [diabetic winter boots As directed] docusate sodium 100 mg PO BID hydrochlorothiazide 25 mg PO DAILY ibuprofen 200 mg PO Q6H PRN Januvia (sitagliptin phosphate) 100 mg PO DAILY NS lactulose 10 grams (15 mL) PO BEDTIME PRN 3 days lancets (Prodigy Lancets) test twice per day lancets (FreeStyle Lancets) As directed once a day [lightweight cane As directed] Linzess (linaclotide) 290 mcg PO QAM PRN 30 days NS lurasidone 80 mg PO BEDTIME magnesium oxide 400 mg PO BID metformin ER 500 mg PO BEDTIME 90 days multivitamin 1 tab PO DAILY nystatin (Nystop) 1 appl topical BID peg 3350-electrolytes 236-22.74-6.74 -5.86 gram (GaviLyte-G) 240 mL PO Q10M polyethylene glycol 3350 17 grams PO DAILY tramadol 50 mg PO BID PRN 10 days [Tubi merchandising execution manager socks As directed] [TUBIGRIP SOCKS (Large) As directed] Tobacco use date assessed: 09/29/24 Fall risk assessment: No Falls in past year Last assessed Fall Risk: 09/29/24 Dental Screening Dental Screen Date: 09/29/24 Did you have a dental visit in the last 12 months?: No Did you have a dental problem in the last 6 months where you did not have access to dental care?: No Was dental information given to patient?: No HPI 3mth f/u HPI Details Patient comes in today for her follow up visit States that she currently has no winter boots to wear and is wondering what happened to the Rx for winter boots that she requested for last month States that she also talked to her psychiatrist a couple of weeks ago about feeling more depressed and suicidal lately and that her psychiatrist adjusted some of her meds (she is unable to tell us which one and what dose she is changed to) and that she will be seeing her psychiatrist again in a couple of weeks for follow up States that she feels okay otherwise She denies any headaches or dizziness Denies any chest pains, no increased SOB No nausea/vomiting, no abdominal pain No change in bowel habits noted She had her follow up labs done sometime in June 2024 and would like to know if her labs came out okay back then [facility] Medical History Diabetes mellitus T2DM (type 2 diabetes mellitus) Diabetes mellitus type 2, controlled, without complications Screening for breast cancer Incisional hernia Umbilical hernia Obesity (BMI 30-39.9) Schizophrenia Constipation Pyuria Leukocytosis Primary osteoarthritis of both knees Stasis edema of both lower extremities Vitamin D deficiency Pure hypercholesterolemia Surgical History History of incisional hernia repair (~01/10/21) H/O colonoscopy History of splenectomy Family History Father Medical history unknown Mother Diabetes Family/Other FH: mental illness Mental health disorder Social History Household Members: None Housing: Other Housing Other:: [place] [facility] Do you presently have visiting nurse or other home services: No Alcohol intake: never Patient Tobacco Use Status: Former Tobacco user e-Cigarette/Vaping Use: Never Used Second Hand Smoke Exposure: Yes service: No Current occupational status: disabled Cognitive needs: No Hearing needs: No Vision needs: No Questionnaire PHQ-9 Over the last 2 weeks, how often have you been bothered by any of the following problems? 1. Little interest or pleasure in doing things: not at all 2. Feeling down, depressed, or hopeless: not at all 3. Trouble falling or staying asleep, or sleeping too much: not at all 4. Feeling tired or having little energy: not at all 5. Poor appetite or overeating: not at all 6. Feeling bad about yourself - or that you are a failure or have let yourself or your family down: not at all 7. Trouble concentrating on things, such as reading the newspaper or watching television: not at all 8. Moving or speaking so slowly that other people could have noticed. Or the opposite - being so fidgety or restless that you have been moving around a lot more than usual: not at all 9. Thoughts that you would be better off or of hurting yourself in some way: not at all Total score: 0 Depression Screening Interpretation: Negative (is on Rx for depression/psych disorder) Depression Screening Done: Yes 93633 - PHQ-9 Billing: Yes Source: Developed by Drs. Cody Askew, Coni Madden, Jose L Frost and colleagues, with an educational mansoor from [employer]. Thrive Questionnaire Date Thrive assessed: 09/29/24 I am a: Patient What is your living situation today?: I have a steady place to live Within the past 12 months, did the food you bought not last and you didn't have the money to get more?: Never true Within the past 12 months, did you worry whether your food would run out before you got money to buy more?: Never true Do you have trouble paying for medicines?: No Do you have trouble getting transportation to medical appointments?: No Do you have trouble paying your heating and electricity bill?: No Do you have trouble taking care of your child, family member or friend?: No Do you have trouble with day-to-day activities such as bathing, preparing meals, shopping, managing finances, etc.?: No Are you currently unemployed and looking for a job?: No Are you interested in more education?: No Please select the resources that you would like help with: None Currently or been in a relationship where the following occur: No concerns reported THRIVE Score: 0 AUDIT C Alcohol Use Questionnaire (AUDIT-C) 1. How often do you have a drink containing alcohol?: Never Total Score: 0 Score Reviewed/Action Taken: Yes ROSA-7 AMB Questionnaire ROSA-7 Date ROSA - 7 assessed: 09/29/24 Feeling nervous, anxious, or on edge: 0 = Not at all Not being able to stop or control worryin = Not at all Worrying too much about different things: 0 = Not at all Trouble relaxin = Not at all Being so restless that it is hard to sit still: 0 = Not at all Becoming easily annoyed or irritable: 0 = Not at all Feeling afraid as if something awful might happen: 0 = Not at all Total ROSA-7 score (0-4 normal; 5-9 mild; 10-14 moderate; 15-21 severe): 0 Source: Developed by Drs. Cody Askew, Coni Madden, Jose L Frost and colleagues, with an educational mansoor from [employer]. Review of Systems Const Denies chills, Reports fatigue, Denies fever(s) and Denies headache(s) ENT Denies dysphagia, Denies dizziness, Denies otalgia, Denies headache(s), Denies neck pain, Denies odynophagia and Denies sore throat Card Denies chest pain, Denies palpitations and Denies dyspnea Resp Denies chest congestion, Denies cough and Denies dyspnea GI Denies abdominal pain, Reports constipation (on and off, better controlled lately), Denies dysphagia, Denies heartburn, Denies diarrhea, Denies nausea, Denies odynophagia and Denies vomiting Denies difficulty voiding, Denies nocturia, Denies dysuria and Denies urinary urgency Musc Denies back pain, Reports arthralgias (both knees and right hip) and Denies neck pain Skin/Breast Denies rash Neuro Denies dizziness and Denies headache(s) Psych Denies anxiety and Reports depression Endo Reports fatigue and Denies palpitations Physical exam (Primary Care) Vital Signs: Last Vital Signs Temp 96.9 F 09/29/24 09:47 Pulse 91 09/29/24 09:47 BP 120/74 09/29/24 09:47 Pulse Ox 96 09/29/24 09:47 Oxygen Delivery Method Room Air 09/29/24 09:47 BMI result Body Mass Index 38.7 Tobacco/Smoking Status: Tobacco use Status Tobacco use date assessed 09/29/24 09/29/24 09:51 Patient Tobacco Use Status Former Tobacco user 09/29/24 09:51 e-Cigarette/Vaping Use Never Used 09/29/24 09:51 PHQ-9: PHQ-9 Score PHQ-9: Total score 0 09/29/24 09:51 Depression Screening Interpretation: Negative (is on Rx for depression/psych disorder) Thrive Assessment: Date of Thrive Assessment Date Thrive assessed 09/29/24 09/29/24 09:51 Currently or been in a relationship where the following occur: No concerns reported Const General: no acute distress and alert HENMT Ears: TM's normal bilaterally and EAC's normal Throat: Yes posterior oropharynx normal and Yes tonsils normal (no TP congestion noted) Neck Neck: Yes supple and No lymphadenopathy Thyroid: Thyroid normal Resp Auscultation: clear to auscultation bilaterally, no rales and no wheezes Cardio Rate: regular rate Rhythm: regular rhythm Heart sounds: no murmurs GI Palpation (GI): Soft to palpation and nontender Auscultation: normal bowel sounds General: Yes no CVA tenderness Back/Spine/Pelvis Back: no CVA tenderness Skin Rashes: no rashes Extrem General: No clubbing, No cyanosis and Yes edema (2+ bilaterally) Right lower extremity: hip/thigh Details: tenderness Location: of the hip and knee Details: tenderness; no swelling Left lower extremity: knee Details: tenderness and ecchymosis; no swelling Results Reviewed Results Reviewed: Laboratory Tests 07/31/20 06/30/24 07/08/24 10:31 08:06 03:00 WBC Hgb Hct Plt Count Sodium Potassium Creatinine Estimated GFR Fasting Glucose Hgb A1c (Clinic) 7.2 H Hemoglobin A1c % Calcium AST ALT Triglycerides Cholesterol LDL Cholesterol, Calc HDL Cholesterol Vitamin B12 329 25-OH Vitamin D Total 32.1 Folate 13.2 TSH Ur Specific [place] 1.015 Urine Protein Negative Urine Glucose (UA) Negative Urine Blood Negative Urine Nitrite Positive H Ur Leukocyte Esterase Moderate (2+) H 07/08/24 07/19/24 09/05/24 07:50 13:45 12:23 WBC 15.0 H Hgb 12.5 Hct 38.5 Plt Count 401 H Sodium 144 Potassium 3.2 L Creatinine 0.91 Estimated GFR > 60 Fasting Glucose 119 H Hgb A1c (Clinic) Hemoglobin A1c % 6.9 H Calcium 8.9 D AST 20 ALT 19 Triglycerides 143 Cholesterol 195 LDL Cholesterol, Calc 117 H HDL Cholesterol 50 Vitamin B12 25-OH Vitamin D Total Folate TSH 1.15 Ur Specific [place] Urine Protein Urine Glucose (UA) Urine Blood Urine Nitrite Ur Leukocyte Esterase Coding Level of Care Code Est Pt Level 4 (99355) Diagnoses Pure hypercholesterolemia E78.00 Type 2 diabetes mellitus without complication, without long-term current use of insulin E11.9 Diabetes mellitus type: type 2 Diabetes mellitus termite control 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 representative insulin use: without termite control service representative use Diabetes mellitus complication status: without complication Vitamin D deficiency E55.9 Constipation, unspecified constipation type K59.00 Constipation type: unspecified constipation type Primary osteoarthritis of both knees M17.0 Right hip pain M25.551 Lymphedema I89.0 Schizophrenia, unspecified type F20.9 Schizophrenia type: unspecified Obesity (BMI 30-39.9) E66.9 Additional Codes PHQ-9 - 48485 - PHQ-9 Billing: Yes ([id number]) Assessment & Plan Assessment & Plan (1) Pure hypercholesterolemia: Code(s): E78.00 - Pure hypercholesterolemia, unspecified Category: Medical Plan: Results of her labs done back in June 2024 reviewed and discussed with patient - she is cautioned that her cholesterol levels back then, especially her LDL cholesterol level, have increased significantly from previous Reinforced low cholesterol diet Continue Atorvastatin 10 mg QD for now but advised that we may need to increase this if her numbers do not improve over the next few months Will have patient recheck her labs and fasting lipids in 3 months for follow up (2) Diabetes mellitus: Code(s): E11.9 - Type 2 diabetes mellitus without complications Category: Medical Qualifiers: Diabetes mellitus type: type 2 Diabetes mellitus mcc insulin use: without termite control service representative use Diabetes mellitus complication status: without complication Qualified Code(s): E11.9 - Type 2 diabetes mellitus without complications Plan: Her HgbA1c was at 6.9% on her labs done in June 2024 (in-office HgbA1c was previously at 7.0% back in August 2023) - goal is at least < 7.0% Reinforced diabetic diet Continue Metformin ER 500 mg QD and Januvia 100 mg Q AM Follow up with her (diabetic) wet mix operator as scheduled Per request, will provide her again with Rx for Diabetic winter boots - Rx printed and given to patient (3) Vitamin D deficiency: Code(s): E55.9 - Vitamin D deficiency, unspecified Category: Medical Plan: Continue Vitamin D3 1000 units QD (4) Constipation: Code(s): K59.00 - Constipation, unspecified Category: Medical Qualifiers: Constipation type: unspecified constipation type Qualified Code(s): K59.00 - Constipation, unspecified Plan: Better controlled Reinforced increased oral fluids and dietary fiber Continue Bisacodyl 10 mg suppositories PRN and Lactulose solution when needed; continue Metamucil daily and she can also take Senna additionally as needed (5) Primary osteoarthritis of both knees: Code(s): M17.0 - Bilateral primary osteoarthritis of knee Category: Medical Plan: X-rays done a couple of years ago showed (+) mild osteoarthritis changes in both knees; this remained unchanged on his more recent x-rays done in January 2024 She is encouraged again to continue with regular exercises to help minimize her joint pain and stiffness Will consider referral to Orthopedics if her knee pain progresses (6) Right hip pain: Code(s): M25.551 - Pain in right hip Category: Medical Plan: X-rays of the hips and pelvis done back in July 2023 revealed (+) old healed fractures of the superior and inferior right pubic rami in the region of the pubis with associated degenerative change at the pubic symphysis Right hip x-rays showed a faintly seen low-density region about the neck of the proximal right femur without displacement or angular abnormality. This is likely artifactual in nature, however, a nondisplaced compression fracture cannot be excluded A pelvic CT was subsequently done, which showed no acute fracture or dislocation right hip or pelvis, but there is an old healed fracture with exuberant callus in the right superior pubic ramus She is advised that this is likely the source of her right hip discomfort/pain and if this continues, will consider referring her to orthopedics for further management and/or recommendations (7) Lymphedema: Code(s): I89.0 - Lymphedema, not elsewhere classified Category: Medical Plan: (+) Hx of venous ablation Patient has not been able to tolerate the use of compression pumps to help relieve the edema of her lower extremities as these tend to aggravate her right hip/groin pain She was recommended to try [place] [facility] [place] try to assist with leg wraps on a more regular basis Follow up with vascular surgery as scheduled (8) Schizophrenia: Code(s): F20.9 - Schizophrenia, unspecified Category: Medical Qualifiers: Schizophrenia type: unspecified Qualified Code(s): F20.9 - Schizophrenia, unspecified Plan: Continue Trihexyphenidyl 5 mg once a day, Clozaril 125 mg 1 & 1/2 tablet once a day at bedtime, Abilify 20 mg 2 tablets once a day, Latuda 120 mg once a day and Clonazepam 1 mg once a day as needed Follow-up with Psychiatry as scheduled Patient states that she had some changes/adjustments to her meds made by her psychiatrist recently but she is unable to tell us which ones they are (9) Obesity (BMI 30-39.9): Code(s): E66.9 - Obesity, unspecified Category: Medical Plan: Reinforced diet/exercise as tolerated/lose weight Plan Follow up in 3 months Orders: Orders Lipid Panel 3 Months E78.00 - Pure hypercholesterolemia, unspecified Hemoglobin A1c 3 Months E11.9 - Type 2 diabetes mellitus without complications UA CC w/rflx Micro + Cult 3 Months R30.0 - Dysuria Complete Blood Count Auto Diff 3 Months D64.9 - Anemia, unspecified Comprehensive [place]. Panel Fast 3 Months E78.00 - Pure hypercholesterolemia, unspecified Microalbumin, Random (w Creat) 3 Months E11.9 - Type 2 diabetes mellitus without complications TSH reflex Free T4 3 Months E78.00 - Pure hypercholesterolemia, unspecified Vitamin B12 and Folate 3 Months E53.8 - Deficiency of other specified B group vitamins Vitamin D 25-OH Total 3 Months E55.9 - Vitamin D deficiency, unspecified Medications: Refilled [diabetic winter boots] As directed 1 ea 0RF E11.9 - Type 2 diabetes mellitus without complications
[2024-09-29 09:47] VITALS: BP 120/74; PULSE 91; TEMP 36.1; O2SAT 96; BMI 38.7
== END 2024-09-29 11:16 | disposition home or self-care (01) ==
PROVIDERS: PCP Internal Medicine; Visit Provider Internal Medicine
DX: E78.00 Pure hypercholesterolemia, unspecified (principal); E11.9 Type 2 diabetes mellitus without complications; F20.9 Schizophrenia, unspecified; E55.9 Vitamin D deficiency, unspecified; E66.9 Obesity, unspecified; K59.00 Constipation, unspecified; M17.0 Bilateral primary osteoarthritis of knee; M25.551 Pain in right hip; I89.0 Lymphedema, not elsewhere classified

== ENCOUNTER → 2024-09-29 09:43 | Outpatient (BNVA) | payer OTHER, SELFPAY | PROVIDERS: PCP Internal Medicine; Visit Provider Internal Medicine | DX: E78.00 Pure hypercholesterolemia, unspecified (principal); E11.9 Type 2 diabetes mellitus without complications; E55.9 Vitamin D deficiency, unspecified; K59.00 Constipation, unspecified; M17.0 Bilateral primary osteoarthritis of knee; M25.551 Pain in right hip; I89.0 Lymphedema, not elsewhere classified; F20.9 Schizophrenia, unspecified; E66.9 Obesity, unspecified | CPT/HCPCS: 96127; 99212 ==

== ENCOUNTER 2024-10-09 09:59 | Outpatient (REF) | payer OTHER, SELFPAY ==
[2024-10-09 10:45] LABS: Basophils Percent Auto 0.2 % (0-2); Hematocrit 37.4 % (37.0-47.0); Hemoglobin 11.8 g/dl (12.0-16.0); Imm Gran Abs Auto 0.09 X10*3/uL (0.00-0.03); Imm Gran Pct Auto 0.6 % (0.0-0.4); Lymphocytes Absolute Auto 5.3 X10*3/uL (1.2-4.9); Lymphocytes Percent Auto 32.7 % (20-40); MANUAL DIFF FLAG SCAN; Mean Corpuscular HGB Conc 31.6 g/dl (31.0-35.0); Mean Corpuscular Hemoglobin 30.3 pg (27.0-33.0); Mean Corpuscular Volume 96.1 fL (80.0-98.0); Mean Platelet Volume 10.6 fL (9.4-12.3); Monocytes Absolute Auto 1.3 X10*3/uL (0.1-1.2); Monocytes Percent Auto 7.8 % (2-11); Neutrophils Absolute Auto 9.4 x10*3/uL (2.0-8.3); Neutrophils Percent Auto 58.7 % (45-73); Platelet Count 388 X10*3/uL (160-400); Red Blood Count 3.89 X10*6/uL (4.20-5.50); Red Cell Distribution Width 14.6 % (11.0-16.0); SCAN SMEAR FLAG 1; White Blood Count 16.1 X10*3/uL (4.8-10.8)
--- OUTSIDE RECORDS SUMMARY | 2024-10-09 10:52 | XMS_ITS | Clinical Summary ---
Author Organization Unknown Care Team Providers Care Sanitary Landfill Operator Name Role Phone CECI STEINER MD, MIHAI Unavailable Unavail able SALO REED, RICH Unavailable Unavailable Payers Payer Name Policy Type Policy Number Effective Date Expira tion Date [facility] [place] [id number] MEDICAID [facility] [id number] MEDICARE - [facility] [facility] [place] [id number] Problems Condition Name Condition Details Condition Category Status Onset Date Resolution Date Last Treatment Date Treating Clinician Comments SCHIZOPHRENI A, UNSPECIFIED Active 02-28 00:00: 00 TYPE 2 DIABETES MELLITUS WITHOUT COMPLICATION S Active 03-02 00:00: 00 Allergies, Adverse Reactions, Alerts Allergy Name Allergy Type Status Severity Reaction(s) Onset Date Inactive Date Treating Clinician Comments NKA Propensity to adverse reactions Active 2024-02 22:55:4 6 Medications Ordered Medication Name Filled Medication Name Start Date Stop Date Current Medication? Ordering Clinician Indication Dosage Frequency Signature (SIG) Comments Components aripiprazol e 5 mg tablet 02-22 00:00: 00 Yes [id number] 5 mg DAILY 5 mg KRYSTAL Y (route: oral) Med Classific ation: Central Nervous System Agents atorvastati n 10 mg tablet 02-14 00:00: 00 Yes [id number] 10 mg EVERY PM 10 mg EVERY PM (route: oral) Med Classific ation: Cardiovas cular Therapy Agents docusate sodium 100 mg capsule 02-14 00:00: 00 Yes [id number] 100 capsule DIRECTED 100 capsule DIRECTED (route: oral) Med Classific ation: Gastroint estinal Therapy Agents hydrochloro thiazide 25 mg tablet 02-14 00:00: 00 Yes [id number] 25 mg DAILY 25 mg DAILY (route: oral) Med Classific ation: Cardiovas cular Therapy Agents Januvia 100 mg tablet 02-14 00:00: 00 Yes [id number] 100 mg DAILY 100 mg DAILY (route: oral) Med Classific ation: Endocrine lurasidone 80 mg tablet 02-14 00:00: 00 Yes [id number] 80 mg DAILY 80 mg DAILY (route: oral) Med Classific ation: Central Nervous System Agents metformin ER 500 mg tablet,exte nded release 24 hr 02-14 00:00: 00 Yes [id number] 500 mg DAILY 500 mg DAILY (route: oral) Med Classific ation: Endocrine calcium 500 mg (as calcium carbonate 1,250 mg) tablet 02-14 00:00: 00 Yes [id number] 500 mg EVERY AM 500 mg EVERY AM (route: oral) Med Classific ation: Electroly te Balance-N utritiona l Products clozapine 100 mg tablet 02-07 00:00: 00 Yes [id number] 100 mg BEDTIME 100 mg BEDTIME (route: oral) Med Classific ation: Central Nervous System Agents clozapine 50 mg tablet 02-07 00:00: 00 08-21 23:59 :00 No [id number] 50 mg BEDTIME 50 mg BEDTIME (route: oral) Med Classific ation: Central Nervous System Agents polyethylen e glycol 3350 17 gram/dose oral powder 02-01 00:00: 00 Yes [id number] 17 g NEEDED 17 g NEEDED (route: oral) Med Classific ation: Gastroint estinal Therapy Agents Multivitami n 50 Plus tablet 03-01 00:00: 00 Yes [id number] 1 tablet DAILY 1 tablet DAILY (route: oral) Med Classific ation: Electroly te Balance-N utritiona l Products Vital Signs Vital Name Observation Time Observation Value Commen ts Temperature 2024-10-04 07:55:00.000 98 [degF] Temperature 2024-10-02 07:14:00.000 98 [degF] Temperature 2024-09-27 07:24:00.000 97.9 [degF] Temperature 2024-09-25 07:36:00.000 97.6 [degF] Temperature 2024-09-20 07:48:00.000 98 [degF] Temperature 2024-09-18 08:57:00.000 98.1 [degF] Temperature 2024-09-13 07:21:00.000 98.1 [degF] Temperature 2024-09-06 08:57:00.000 97.5 [degF] Temperature 2024-09-04 07:36:00.000 98.1 [degF] Temperature 2024-08-30 08:27:00.000 98 [degF] Temperature 2024-08-28 09:44:00.000 97.5 [degF] Plan of Treatment Planned Activity Planned Date Details Comments Future Scheduled Test SKILLED NU RSE TO EVALUATE PATIENT, IDENTIFY PRIMARY AND CO-MORBID CONDITIONS CODED PER CODING GUIDELINES, AND DEVELOP PATIENT SPECIFIC PLAN OF CARE THAT INCLUDES PATIENT GOAL FOR HOME HEALTH. [code = SKILLED NURSE TO EVALUATE PATIENT, IDENTIFY PRIMARY AND CO-MORBID CONDITIONS CODED PER CODING GUIDELINES, AND DEVELOP PATIENT SPECIFIC PLAN OF CARE THAT INCLUDES PATIENT GOAL FOR HOME HEALTH.] Future Scheduled Test SKILLED NU RSE TO PERFORM HOME SAFETY AND FALL ASSESSMENT AND PROVIDE INSTRUCTION TO IMPLEMENT HOME SAFETY AND FALL PREVENTION STRATEGIES. [code = SKILLED NURSE TO PERFORM HOME SAFETY AND FALL ASSESSMENT AND PROVIDE INSTRUCTION TO IMPLEMENT HOME SAFETY AND FALL PREVENTION STRATEGIES.] Future Scheduled Test SKILLED NU RSE TO PROVIDE INSTRUCTION TO PATIENT/CAREGIVER RELATED TO DISCHARGE PLANNING. [code = SKILLED NURSE TO PROVIDE INSTRUCTION TO PATIENT/CAREGIVER RELATED TO DISCHARGE PLANNING.] Future Scheduled Test SKILLED NU RSE TO O/A OF PATIENTS MENTAL/BEHAVIORAL STATUS, ASSESS VITAL SIGNS TWICE A WEEK [code = SKILLED NURSE TO O/A OF PATIENTS MENTAL/BEHAVIORAL STATUS, ASSESS VITAL SIGNS TWICE A WEEK ] Future Scheduled Test CLINICAL S MARY ANNY (SOC/RECERT, 10 DAY, 60 DAY): THE PATIENT IS RECEIVING HOMECARE DUE TO NEW ONSET/EXACERBATION OF: YES RECENT HOSPITALIZATION/INPATIENT ADMISSION RELATED TO: NO NEW OR CHANGED MEDICATIONS PERTINENT TO THE PLAN OF CARE: YES PATIENT LIVING SITUATION/CAREGIVER STATUS: ALONE SUMMARIZE SKILLED NEED: MEDICATION MANAGEMENT, VITAL SIGN ASSESSMENT, MENTAL STATUS ASSESSMENT AND DIAGNOSIS MANAGEMENT AND MEDICAL [code = CLINICAL SUMMARY (SOC/RECERT, 10 DAY, 60 DAY): THE PATIENT IS RECEIVING HOMECARE DUE TO NEW ONSET/EXACERBATION OF: YES RECENT HOSPITALIZATION/INPATIENT ADMISSION RELATED TO: NO NEW OR CHANGED MEDICATIONS PERTINENT TO THE PLAN OF CARE: YES PATIENT LIVING SITUATION/CAREGIVER STATUS: ALONE SUMMARIZE SKILLED NEED: MEDICATION MANAGEMENT, VITAL SIGN ASSESSMENT, MENTAL STATUS ASSESSMENT AND DIAGNOSIS MANAGEMENT AND MEDICAL ] Future Scheduled Test SKILLED NU RSE WILL MAINTAIN SITUATIONAL AWARENESS FOR SAFETY AND WILL NOTIFY CLINICAL SALES & SERVICE ASSOCIATE AND PHYSICIAN/PROVIDER WITH ANY CHANGE IN CONDITION. [code = SKILLED NURSE WILL MAINTAIN SITUATIONAL AWARENESS FOR SAFETY AND WILL NOTIFY CLINICAL SALES & SERVICE ASSOCIATE AND PHYSICIAN/PROVIDER WITH ANY CHANGE IN CONDITION.] Future Scheduled Test SKILLED NU RSE TO REVIEW PATIENT MEDICATIONS. INSTRUCT PATIENT/CAREGIVER ON MONITORING OF EFFECTIVENESS, ADVERSE DRUG REACTIONS, SIDE EFFECTS OF ALL MEDICATIONS (PRESCRIPTION/-OTC), AND HOW AND WHEN TO REPORT PROBLEMS. [code = SKILLED NURSE TO REVIEW PATIENT MEDICATIONS. INSTRUCT PATIENT/CAREGIVER ON MONITORING OF EFFECTIVENESS, ADVERSE DRUG REACTIONS, SIDE EFFECTS OF ALL MEDICATIONS (PRESCRIPTION/-OTC), AND HOW AND WHEN TO REPORT PROBLEMS.] Future Scheduled Test SKILLED NU RSE TO ADMINISTER MEDICATIONS TWICE A WEEK AND PRE-POUR MEDICATIONS TILL NEXT FDC VISIT PER MEDICATION LIST. [code = SKILLED NURSE TO ADMINISTER MEDICATIONS TWICE A WEEK AND PRE-POUR MEDICATIONS TILL NEXT FDC VISIT PER MEDICATION LIST.] Future Scheduled Test SKILLED NU RSE FOR MEDICATION ADMINISTRATION PER MEDICATION LIST TO BE PERFORMED TWICE A WEEK [code = SKILLED NURSE FOR MEDICATION ADMINISTRATION PER MEDICATION LIST TO BE PERFORMED TWICE A WEEK ] Future Scheduled Test SKILLED NU RSE TO PRE-POUR MEDICATION PER MEDICATION LIST TILL NEXT FDC VISIT [code = SKILLED NURSE TO PRE-POUR MEDICATION PER MEDICATION LIST TILL NEXT FDC VISIT ] Future Scheduled Test SKILLED NU RSE FOR O/A AND SKILLED TEACHING RELATED TO MANAGEMENT OF DEPRESSIVE SYMPTOMS AND/OR DEPRESSION. SN TO REPORT SIGNIFICANT CHANGE IN DEPRESSIVE SYMPTOMS TO CLINICAL PROVIDER FOR EARLY INTERVENTION. [code = SKILLED NURSE FOR O/A AND SKILLED TEACHING RELATED TO MANAGEMENT OF DEPRESSIVE SYMPTOMS AND/OR DEPRESSION. SN TO REPORT SIGNIFICANT CHANGE IN DEPRESSIVE SYMPTOMS TO CLINICAL PROVIDER FOR EARLY INTERVENTION.] Future Scheduled Test SKILLED NU RSE FOR O/A OF NEUROCOGNITIVE AND BEHAVIORAL STATUS [code = SKILLED NURSE FOR O/A OF NEUROCOGNITIVE AND BEHAVIORAL STATUS] Future Scheduled Test SKILLED NU RSE FOR O/A OF ALTERED THOUGHT PROCESS AND/OR DISRUPTION IN COGNITIVE OPERATIONS AND ACTIVITIES [code = SKILLED NURSE FOR O/A OF ALTERED THOUGHT PROCESS AND/OR DISRUPTION IN COGNITIVE OPERATIONS AND ACTIVITIES ] Future Scheduled Test SKILLED NU RSE TO ASSESS PATIENTS PSYCHOSOCIAL STATUS TO IDENTIFY POTENTIAL ISSUES THAT MAY COMPLICATE THE PROVISION OF THE PLAN OF CARE INCLUDING THE PATIENTS ABILITY TO ACCESS COMMUNITY RESOURCES AND PSYCHOSOCIAL SUPPORT SERVICES. [code = SKILLED NURSE TO ASSESS PATIENTS PSYCHOSOCIAL STATUS TO IDENTIFY POTENTIAL ISSUES THAT MAY COMPLICATE THE PROVISION OF THE PLAN OF CARE INCLUDING THE PATIENTS ABILITY TO ACCESS COMMUNITY RESOURCES AND PSYCHOSOCIAL SUPPORT SERVICES.] Future Scheduled Test SKILLED NU RSE FOR O/A OF CLIENT'S SOCIAL ISOLATION AND PROVIDE ASSISTANCE TO CLIENT IN DEVELOPMENT OF PLANNED ACTIVITIES [code = SKILLED NURSE FOR O/A OF CLIENT'S SOCIAL ISOLATION AND PROVIDE ASSISTANCE TO CLIENT IN DEVELOPMENT OF PLANNED ACTIVITIES] Future Scheduled Test MEDICATION S WILL BE HELD AND STORED IN LOCKBOX [code = MEDICATIONS WILL BE HELD AND STORED IN LOCKBOX] Goal 2024-04-26 Patient Goal - TAKING MY MED S Goal 2024-06-26 Patient Goal - TAKING MY MED S Goal 2024-08-23 Patient Goal - TAKING MY MED S Goal Patient Goal - TAKING MY MED S Goal Provider Goal - A PLAN OF CARE WILL BE ESTABLISHED THAT MEETS PATIENT'S FDC NEEDS AND INCLUDES PATIENT GOAL FOR HOME HEALTH. Goal Provider Goal - PATIENT/CAREGIVER WILL VERBALIZE/DEMONSTRATE EFFECTIVE HOME SAFETY AND FALL PREVENTION STRATEGIES THROUGHOUT CERTIFICATION PERIOD. Goal Provider Goal - PATIENT/CAREGIVER WILL VERBALIZE UNDERSTANDING OF DISCHARGE PLANNING INSTRUCTIONS BY DATE OF DISCHARGE. Goal Provider Goal - ALTERED MENTAL/BEHAVIORAL STATUS WILL BE IDENTIFIED PROMPTLY AND INTERVENTION INITIATED QUICKLY TO MINIMIZE ASSOCIATED RISKS THROUGHOUT CERTIFICATION PERIOD. Goal Provider Goal - PATIENT WILL REMAIN SAFE, FREE FROM HOSPITALIZATION, AND ADHERE TO THE SKILLED NURSES PLAN OF CARE THROUGHOUT THE CERTIFICATION PERIOD. Goal Provider Goal - PATIENT WILL REMAIN SAFE IN THE COMMUNITY AND WILL BE FREE OF DANGER TO SELF AND OTHERS THROUGHOUT THE CERTIFICATION PERIOD. Goal Provider Goal - PATIENT/CAREGIVER WILL VERBALIZE UNDERSTANDING OF EDUCATION PROVIDED ON MEDICATIONS BY THE END OF THE CERTIFICATION PERIOD. Goal Provider Goal - PATIENT WILL COMPLY WITH MEDICATION WHEN SKILLED NURSE ADMINISTERS AND PRE-POURS MEDICATION THROUGHOUT CERTIFICATION PERIOD. Goal Provider Goal - PATIENT WILL COMPLY WITH MEDICATION WHEN NURSE ADMINISTERS THROUGHOUT CERTIFICATION PERIOD. Goal Provider Goal - PATIENT WILL COMPLY WITH MEDICATION WHEN SKILLED NURSE PRE-POURS MEDICATION THROUGHOUT CERTIFICATION PERIOD. Goal Provider Goal - PATIENT WILL REMAIN SAFE WITHOUT DECOMPENSATION IN DEPRESSIVE CONDITION, WHILE MAINTAINING OPTIMAL LEVEL OF MENTAL HEALTH AND WELL BEING THROUGHOUT CERTIFICATION PERIOD. Goal Provider Goal - PATIENT WILL BE ABLE TO PERFORM DAILY FUNCTIONS AND MAINTAIN OPTIMAL BEHAVIORAL/NEUROCOGNITIVE STATUS THROUGHOUT CERTIFICATION PERIOD. Goal Provider Goal - PATIENT WILL BE ABLE TO PERFORM DAILY FUNCTIONS AND HAVE OPTIMAL IMPROVEMENT IN THOUGHT PROCESS THROUGHOUT CERTIFICATION PERIOD. Goal Provider Goal - PSYCHOSOCIAL NEEDS WILL BE IDENTIFIED AND PLAN IMPLEMENTED TO MINIMIZE RISK THROUGHOUT CERTIFICATION PERIOD. Goal Provider Goal - PATIENT WILL DEMONSTRATE AN INCREASED INTEREST IN SOCIALIZATION AND ACTIVITIES BY THE END OF THE CERTIFICATION PERIOD. Goal Provider Goal - MEDICATION WILL BE STORED IN LOCKBOX FOR SAFETY. Encounters Start Date/Time End Date/Time Encounter Type Admission Type Attending [facility] Care Facility Care Department Encounter ID Discharge Date Discharge Status Discharge Condition Discharge Reason Percent Goals Met 2024-03-01 00:00:00 2024-10-26 00:00:00 Outpatient EDWINRTIFIC RICH DAILY [facility] [id number] 8.33
--- OUTSIDE RECORDS SUMMARY | 2024-10-09 10:52 | XMS_ITS ---
Author Organization [facility] Address Unknown Problems Problem Status Start Date End Date TYPE 2 DIABETES MELLITUS WIT H OTHER SPECIFIED COMPLICATION (Primary) (E11.69 - ICD-10-CM) ACTIVE 08/27/2023 OBESITY, UNSPECIFIED (E66.9 - ICD-10-CM) ACTIVE 08/27/2023 INFLUENZA DUE TO IDENTIFIED NOVEL INFLUENZA A VIRUS WITH OTHER RESPIRATORY MANIFESTATIONS (J09.X2 - ICD-10-CM) ACTIVE 2022 RHABDOMYOLYSIS (M62.82 - ICD-10-CM) ACTIVE 08/27 UNSPECIFIED FALL, SUBSEQUENT ENCOUNTER (W19.XXXD - ICD-10-CM) ACTIVE 08/27/2023 OTHER ABNORMALITIES OF GAIT AND MOBILITY (R26.89 - ICD-10-CM) ACTIVE 08/27/2023 OSTEOARTHRITIS OF KNEE, UNSPECIFIED (M17.9 - ICD-10-CM ) ACTIVE 08/27/2023 MUSCLE WEAKNESS (GENERALIZED) (M62.81 - ICD-10-CM) ACT JUAN LUIS 08/27/2023 WEAKNESS (R53.1 - ICD-10-CM) ACTIVE 08/27/2023 ELEVATED WHITE BLOOD CELL CO UNT, UNSPECIFIED (D72.829 - ICD-10-CM) ACTIVE 08/27/2023 UNSPECIFIED ESCHERICHIA COLI [E. COLI] THE CAUSE OF DISEASES CLASSIFIED ELSEWHERE (B96.20 - ICD-10-CM) ACTIVE 3 RETENTION OF URINE, UNSPECIFIED (R33.9 - ICD-10-CM) AC TIVE 08/27/2023 CONSTIPATION, UNSPECIFIED (K59.00 - ICD-10-CM) ACTIVE 08/27/2023 INFLUENZA DUE TO OTHER IDENT IFIED INFLUENZA VIRUS WITH OTHER RESPIRATORY MANIFESTATIONS (J10.1 - ICD-10-CM) ACTIVE 023 SCHIZOPHRENIA, UNSPECIFIED (F20.9 - ICD-10-CM) ACTIVE 08/27/2023 ESSENTIAL (PRIMARY) HYPERTENSION (I10 - ICD-10-CM) ACT JUAN LUIS 08/27/2023 HYPERLIPIDEMIA, UNSPECIFIED (E78.5 - ICD-10-CM) ACTIVE 08/27/2023 GENERALIZED ANXIETY DISORDER (F41.1 - ICD-10-CM) ACTIV E 08/27/[address] IN UNSPECI FIED NON-INSTITUTIONAL (PRIVATE) RESIDENCE THE PLACE OF OCCURRENCE OF THE EXTERNAL CAUSE (Y92.009 - ICD-10-CM) ACTIVE 08/27/2023 URINARY TRACT INFECTION, SIT E NOT SPECIFIED (N39.0 - ICD-10-CM) ACTIVE 08/27/2023 INFLUENZA DUE TO UNIDENTIFIE D INFLUENZA VIRUS WITH OTHER RESPIRATORY MANIFESTATIONS (J11.1 - ICD-10-CM) ACTIVE 08/27/2023 CHRONIC VENOUS HYPERTENSION (IDIOPATHIC) WITHOUT COMPLICATIONS OF UNSPECIFIED LOWER EXTREMITY (I87.309 - ICD-10-CM) ACTIVE 08/27/2023 VITAMIN D DEFICIENCY, UNSPECIFIED (E55.9 - ICD-10-CM) ACTIVE 08/27/2023 PURE HYPERCHOLESTEROLEMIA, U NSPECIFIED (E78.00 - ICD-10-CM) ACTIVE 08/27/2023 REPEATED FALLS (R29.6 - ICD-10-CM) ACTIVE 2022 Encounters Encounter Performer Performer Role Encounter Diagnoses Location Date Discharge - Discharged to home or self care - HOME - Home [facility] 3 04:57 pm EST - 4 01:00 pm EST Social History
--- OUTSIDE RECORDS SUMMARY | 2024-10-09 10:52 | XMS_ITS | Clinical Summary ---
Author Organization Unknown Care Team Providers Care Regulatory Affairs Associate Name Role Phone CECI STEINER MD, MIHAI Unavailable Unavail able SALO REED, RICH Unavailable Unavailable Payers Payer Name Policy Type Policy Number Effective Date Expira tion Date [facility] [place] [id number] MEDICAID [facility] [id number] MEDICARE - [facility] - PD [id number] Problems Condition Name Condition Details Condition Category [...] 5 mg tablet 02-22 00:00: 00 Yes [id number] 5 mg DAILY 5 mg KRYSTAL Y (route: oral) Med Classific ation: Central Nervous System Agents atorvastati n 10 mg tablet 02-14 00:00: 00 Yes [id number] 10 mg EVERY PM 10 mg EVERY PM (route: oral) Med Classific ation: Cardiovas cular Therapy Agents docusate sodium 100 mg capsule 02-14 00:00: 00 Yes [id number] 100 capsule DIRECTED 100 capsule DIRECTED (route: oral) Med Classific ation: Gastroint estinal Therapy Agents hydrochloro thiazide 25 mg tablet 02-14 00:00: 00 Yes [id number] 25 mg DAILY 25 mg DAILY (route: oral) Med Classific ation: Cardiovas cular Therapy Agents Januvia 100 mg tablet 02-14 00:00: 00 Yes [id number] 100 mg DAILY 100 mg DAILY (route: oral) Med Classific ation: Endocrine lurasidone 80 mg tablet 02-14 00:00: 00 Yes [id number] 80 mg DAILY 80 mg DAILY (route: oral) Med Classific ation: Central Nervous System Agents metformin ER 500 mg tablet,exte nded release 24 hr 02-14 00:00: 00 Yes [id number] 500 mg DAILY 500 mg DAILY (route: oral) Med Classific ation: Endocrine calcium 500 mg (as calcium carbonate 1,250 mg) tablet 02-14 00:00: 00 Yes [id number] 500 mg EVERY AM 500 mg EVERY AM (route: oral) Med Classific ation: Electroly te Balance-N utritiona l Products clozapine 100 mg tablet 02-07 00:00: 00 Yes [id number] 100 mg BEDTIME 100 mg BEDTIME (route: oral) Med Classific ation: Central Nervous System Agents clozapine 50 mg tablet 02-07 00:00: 00 08-21 23:59 :00 No [id number] 50 mg BEDTIME 50 mg BEDTIME (route: oral) Med Classific ation: Central Nervous System Agents polyethylen e glycol 3350 17 gram/dose oral powder 02-01 00:00: 00 Yes [id number] 17 g NEEDED 17 g NEEDED (route: oral) Med Classific ation: Gastroint estinal Therapy Agents Multivitami n 50 Plus tablet 03-01 00:00: 00 Yes [id number] 1 tablet DAILY 1 tablet DAILY (route: [...] AWARENESS FOR SAFETY AND WILL NOTIFY CLINICAL PEDIATRIC HOSPITALIST AND PHYSICIAN/PROVIDER WITH ANY CHANGE IN CONDITION. [code = SKILLED NURSE WILL MAINTAIN SITUATIONAL AWARENESS FOR SAFETY AND WILL NOTIFY CLINICAL PEDIATRIC HOSPITALIST AND PHYSICIAN/PROVIDER WITH ANY CHANGE IN CONDITION.] [...] A WEEK AND PRE-POUR MEDICATIONS TILL NEXT INTERMEDIATE VISIT PER MEDICATION LIST. [code = SKILLED NURSE TO ADMINISTER MEDICATIONS TWICE A WEEK AND PRE-POUR MEDICATIONS TILL NEXT INTERMEDIATE VISIT PER MEDICATION LIST.] Future Scheduled Test SKILLED NU RSE FOR MEDICATION ADMINISTRATION PER MEDICATION LIST TO BE PERFORMED TWICE A WEEK [code = SKILLED NURSE FOR MEDICATION ADMINISTRATION PER MEDICATION LIST TO BE PERFORMED TWICE A WEEK ] Future Scheduled Test SKILLED NU RSE TO PRE-POUR MEDICATION PER MEDICATION LIST TILL NEXT INTERMEDIATE VISIT [code = SKILLED NURSE TO PRE-POUR MEDICATION PER MEDICATION LIST TILL NEXT INTERMEDIATE VISIT ] Future Scheduled Test SKILLED NU [...] CARE WILL BE ESTABLISHED THAT MEETS PATIENT'S INTERMEDIATE NEEDS AND INCLUDES PATIENT GOAL FOR HOME [...] End Date/Time Encounter Type Admission Type Attending [facility] Care Facility Care Department Encounter ID Discharge Date Discharge Status Discharge Condition Discharge Reason Percent Goals Met 2024-03-01 00:00:00 2024-10-26 00:00:00 Outpatient EDWINRTIFIC RICH DAILY [facility] [id number] 8.33
[2024-10-09 11:08] LABS: SLIDE REVIEW VERIFIED
== END 2024-10-09 10:00 | disposition home or self-care (01) ==
LOC: HO.LABR 09:59
PROVIDERS: PCP Internal Medicine; Visit Provider Psychiatry & Neurology Psychiatry
DX: Z79.899 Other long term (current) drug therapy (principal)
CPT/HCPCS: 36415; 85025

== ENCOUNTER 2024-11-20 06:35 | Emergency (ER) | payer OTHER, SELFPAY ==
--- NOTE | ~2024-11-20 | CT_ITS ---
EXAMINATION: CT ABDOMEN PELVIS WITH IV CONTRAST HISTORY: abd pain hx of schizo, + constipation COMPARISON: Comparison is made with the prior examination dated 10/25/2020. TECHNIQUE: CT scan of the abdomen and pelvis was performed following administration of 85 mL Omnipaque 350 using standard departmental protocol. Coronal and sagittal reformatted images were generated and reviewed. Oral contrast material was not administered at the request of the referring physician. This CT exam was performed with one or more of the following dose reduction techniques: automated exposure control, adjustment of the mA and/or kV according to patient size, use of iterative reconstruction technique. DLP: 1002 mGy-cm FINDINGS: LOWER CHEST: The visualized lung bases are clear. There is no pleural effusion. CARDIOVASCULATURE: The heart is normal in size. There is no pericardial effusion. LIVER: The liver is normal in size and contour. No liver mass is identified. The hepatic and portal veins are patent. GALLBLADDER / BILE DUCTS: The gallbladder is unremarkable. There is no intra or extrahepatic biliary ductal dilatation. SPLEEN: The patient is status post splenectomy. PANCREAS: The pancreas is unremarkable in appearance. ADRENAL GLANDS: Within normal limits. KIDNEYS/RETROPERITONEUM: No renal calculi are identified. There is no hydronephrosis. No renal masses are identified. LYMPH NODES: No abdominal or pelvic lymphadenopathy. VASCULATURE: The abdominal aorta demonstrates atherosclerotic calcification, but is normal in caliber. MESENTERY/PERITONEUM: No free fluid. No masses. There is no free intraperitoneal gas. STOMACH: There is debris in the stomach. SMALL BOWEL: The small bowel is normal in caliber. COLON: There is a large amount of stool throughout the colon. APPENDIX: Normal. URINARY BLADDER/PELVIC ORGANS: The urinary bladder is unremarkable. The uterus and ovaries are unremarkable. BONES / SOFT TISSUES: No suspicious bony or soft tissue abnormalities. CT/CT abdomen pelvis w IV con IMPRESSION: Large amount of stool throughout the colon. Electronically signed by: Cody Graff MD 11/20/2024 12:45 PM EDT
[2024-11-20 07:03] VITALS: BP 114/72; PULSE 87; RESP 16; TEMP 36.4; O2SAT 97; BMI 38.7
--- NOTE | 2024-11-20 10:07 | ED.FEMALEGU ---
HPI - Female Genitourinary General Chief complaint: Urogenital-Female Stated complaint: constipated Time Seen by Provider: 11/20/24 09:54 History of Present Illness HPI Narrative: Patient is a 64-year-old female with a history of schizophrenia currently on Clozaril presented today with having bloating in the abdomen. No bowel movement. Patient claims that she has had not had a bowel movement in at least 2 weeks. There is no fever no chills. Has a history of diabetes has a history of constipation patient denies any chest pain a diaphoresis any nausea vomiting. Able to tolerate fluids without any difficulties. Claims she has had similar symptoms in the past when she has constipation. Related Data Home Medications ?Medication ?Instructions ?Recorded ?Confirmed aripiprazole 10 mg tablet 10 mg PO DAILY 07/31/20 09/29/24 lurasidone 80 mg tablet 80 mg PO BEDTIME 07/31/20 09/29/24 docusate sodium 100 mg capsule 100 mg PO BID 02/02/23 09/29/24 clonazepam 0.5 mg tablet 0.5 mg PO BID PRN Anxiety 08/23/23 09/29/24 multivitamin 1 tab PO DAILY 08/24/23 09/29/24 Previous Rx's ?Medication ?Instructions ?Recorded nystatin 100,000 unit/gram topical 1 appl topical BID #60 grams 05/22/21 powder (Nystop) clozapine 100 mg tablet 200 mg (2 x 100 mg) PO BEDTIME 30 12/30/21 days #60 tabs clozapine 50 mg tablet 50 mg PO BEDTIME 30 days #30 tabs 12/30/21 Tubi tool programmer socks #2 ea 09/14/22 compress.stocking,knee,reg,med #2 ea 09/17/22 Linzess 290 mcg capsule 290 mcg PO QAM PRN severe 06/16/23 (linaclotide) constipation 30 days #30 caps polyethylene glycol 3350 17 17 g PO DAILY #510 grams 11/23/23 gram/dose oral powder ibuprofen 200 mg tablet 200 mg PO Q6H PRN pain #60 tabs 12/06/23 TUBIGRIP SOCKS (Large) #2 ea 02/10/24 lightweight cane #1 ea 02/10/24 tramadol 50 mg tablet 50 mg PO BID PRN pain 10 days #20 02/10/24 tabs blood sugar diagnostic (Prodigy No #50 ea 03/21/24 Coding strips) blood-glucose meter (Prodigy #1 ea 03/21/24 Pocket Meter kit) lancets 28 gauge (Prodigy Lancets) #100 ea 03/21/24 COMPRESSION STOCKINGS with ZIPPERS #2 ea 05/10/24 blood-glucose meter (FreeStyle #1 ea 05/24/24 Lite Meter kit) lactulose 10 gram/15 mL oral 10 g (15 mL) PO BEDTIME PRN 07/10/24 solution constipation 3 days #45 mL peg 3350-electrolytes 236 240 ml PO Q10M #1,000 mL 07/19/24 gram-22.74 gram-6.74 gram-5.86 gram solution (GaviLyte-G) hydrochlorothiazide 25 mg tablet 25 mg PO DAILY #90 tabs 10/10/24 magnesium oxide 400 mg PO BID #60 caps 10/10/24 diabetic winter boots #1 ea 10/17/24 blood sugar diagnostic (FreeStyle #100 ea 10/20/24 Lite Strips) lancets 28 gauge (FreeStyle #100 ea 10/30/24 Lancets) metformin 500 mg tablet,extended 500 mg PO BEDTIME 90 days #90 tabs 10/30/24 release 24 hr calcium carbonate (Oyster Shell 500 mg PO BID #56 tabs 11/08/24 Calcium 500) Januvia 100 mg tablet (sitagliptin 100 mg PO DAILY #30 tabs 11/20/24 phosphate) atorvastatin 10 mg tablet 10 mg PO DAILY #28 tabs 11/20/24 Allergies Allergy/AdvReac Type Severity Reaction Status Date / Time haloperidol [From HALDOL] Allergy Intermediate RASH,ACNE Verified 11/20/24 07:04 lithium [LITHIUM] Allergy Intermediate RASH,ACNE Verified 11/20/24 07:04 simvastatin Allergy Intermediate headaches Verified 11/20/24 07:04 escitalopram Allergy Mild Blister Verified 11/20/24 07:04 risperidone [From Risperdal] Allergy Unknown Verified 11/20/24 07:04 furosemide AdvReac Intermediate rash Verified 11/20/24 07:04 hydroxyzine AdvReac Intermediate rash Verified 11/20/24 07:04 Review of Systems Review of Systems: Positive constipation Yes all other systems are reviewed and are negative [facility] Past Medical History Attestation statement: The following information was validated with the patient. Medical History Diabetes mellitus T2DM (type 2 diabetes mellitus) Diabetes mellitus type 2, controlled, without complications Screening for breast cancer Incisional hernia Umbilical hernia Obesity (BMI 30-39.9) Schizophrenia Constipation Pyuria Leukocytosis Primary osteoarthritis of both knees Stasis edema of both lower extremities Vitamin D deficiency Pure hypercholesterolemia Surgical History History of incisional hernia repair (~01/10/21) H/O colonoscopy History of splenectomy Family History Family History Father Medical history unknown Mother Diabetes Family/Other FH: mental illness Mental health disorder Social History Social History Household Members: None Housing: Other Housing Other:: [facility] Do you presently have visiting nurse or other home services: No Alcohol intake: never Patient Tobacco Use Status: Former Tobacco user Smoked in Last 30 Days: No e-Cigarette/Vaping Use: Never Used Second Hand Smoke Exposure: Yes Use of substances other than those prescribed or required for medical reasons: No Advance Directives: No Advance Directives Information Provided: Yes Do you have a plan to hurt others: Clear service: No Current occupational status: disabled Cognitive needs: No Hearing needs: No Vision needs: No Physical Exam Vital Signs: Vital Signs: Last Vital Signs Temp 98.1 F 11/20/24 11:39 Pulse 95 11/20/24 11:39 Resp 17 11/20/24 11:39 BP 120/72 11/20/24 11:39 Pulse Ox 96 11/20/24 11:39 O2 Del Method Room Air 11/20/24 11:39 BMI result Body Mass Index 38.7 Appearance: Alert. Oriented X3. No acute distress. Eyes: Pupils equal, round and reactive to light. ENT: Pharynx normal. Neck: Normal inspection. Neck supple. No lymph nodes noted. No crepitus CVS: Normal heart rate and rhythm. Pulses normal. Normal S1 and S2 Respiratory: No respiratory distress. Breath sounds normal. No Wheezing. No rales Abdomen: Soft and nontender. No rigidity. No distention. good BS x4 Rectal exam done with nursing present showed no stool in the rectal vault Skin: Skin warm and dry. Normal skin color. Normal skin turgor. Extremities: No lower extremity edema. Neurovascular intact to all extremities. No Lacerations. No Rash Neuro: Oriented X 3. No motor deficit. No sensory deficit. Moving all extermities. No slurred speech Medications Administered Discontinued Medications Generic Name Dose Route Start Last Admin Trade Name Freq PRN Reason Stop Dose Admin Sodium Chloride 1,000 mls @ 999 mls/hr 11/20/24 10:15 11/20/24 15:41 Ns IV 11/20/24 11:15 Infused .Q1H1M RADHA Infusion Iohexol 100 ml 11/20/24 12:33 11/20/24 12:34 Iohexol 350 Mg/Ml 100 Ml Infus..Btl IV 11/20/24 12:34 85 ml ONCE ONE Administration Magnesium Citrate 300 ml 11/20/24 13:16 11/20/24 13:36 Magnesium Citrate 300 Ml Solution PO 11/20/24 13:17 300 ml ONCE ONE Administration Mineral Oil 133 ml 11/20/24 14:35 11/20/24 14:38 Mineral Oil Enema 133 Ml Enema AK 11/20/24 14:36 133 ml ONCE ONE Administration Medical Decision Making Medical Decision Making MDM Narrative: Patient is 64 years old with a history of being on Clozaril. Complaining of unable to have a good bowel movement for the last few weeks. Passing gas. CT scan of the abdomen was done. Radiology's interpretation showed no evidence of obstruction but there is evidence of large amount of stool. I did finally do a rectal exam there is only minimal amount of stool in her vault nothing to disimpact. Patient was given a at 1st a soapsuds enema and a mineral oil enema both resulted in small amount of stool. A dose of Mag citrate was given. Patient is tolerating p.o. no distress wants to go home. White count is elevated but this is baseline. Patient will be given GoLYTELY. Close follow-up on an outpatient basis. Differential Diagnosis Differential Diagnoses: The differential diagnosis associated with the presentation includes Constipation, obstruction Admission/Observation Consideration of admission/observation: Escalation of care including admission/observation considered Lab Data [facility] Lab Attestation statement: I reviewed the patient's lab results. 11/20/24 10:35 11/20/24 10:35 Labs: Lab Results 11/20/24 11/20/24 Range/Units 10:35 11:38 WBC 16.0 H (4.8-10.8) X10*3/uL RBC 3.91 L (4.20-5.50) X10*6/uL Hgb 11.9 L (12.0-16.0) g/dl Hct 37.2 (37.0-47.0) % MCV 95.1 (80.0-98.0) fL MCH 30.4 (27.0-33.0) pg MCHC 32.0 (31.0-35.0) g/dl RDW 14.7 (11.0-16.0) % Plt Count 397 (160-400) X10*3/uL MPV 10.6 (9.4-12.3) fL Immature Gran % (Auto) 0.5 H (0.0-0.4) % Neut % (Auto) 60.4 (45-73) % Lymph % (Auto) 32.1 (20-40) % [place] % (Auto) 6.9 (2-11) % Eos % (Auto) 0.0 (0-4) % Baso % (Auto) 0.1 (0-2) % Lymph # (Auto) 5.2 H (1.2-4.9) X10*3/uL [place] # (Auto) 1.1 (0.1-1.2) X10*3/uL Eos # (Auto) 0.0 (0.0-0.4) X10*3/uL Baso # (Auto) 0.0 (0.0-0.2) X10*3/uL Abs Immat Gran (auto) 0.08 H (0.00-0.03) X10*3/uL Absolute Neuts (auto) 9.7 H (2.0-8.3) x10*3/uL Absolute Nucleated RBC 0.000 (0.0-0.012) X10*3/uL Nucleated RBC % (auto) 0.0 (0.0-0.2) /100WBC Smear Tech's Comments VERIFIED Sodium 142 (135-145) mmol/L Potassium 3.1 L (3.3-5.1) mmol/L Chloride 106 (96-108) mmol/L Carbon Dioxide 26 (22-29) mmol/L Anion Gap 13 (12-20) BUN 22 H (9-16) mg/dL Creatinine 1.02 (0.5-1.4) mg/dL Estim Creat Clear Calc 61.5 Estimated GFR 54 Random Glucose 225 H (60-115) mg/dL Calcium 8.8 (8.4-10.2) mg/dL Total Bilirubin 0.3 (0.0-1.0) mg/dL Direct Bilirubin 0.1 (0.0-0.5) mg/dL AST 15 (5-31) U/L ALT 22 (0-31) U/L Alkaline Phosphatase 116 (39-117) U/L Total Protein 7.1 (6.5-8.0) g/dL Albumin 3.8 (3.5-5.0) g/dL Lipase 24 (8-78) U/L Urine Color Yellow Urine Appearance Clear Urine pH 5.5 (5.0-9.0) Ur Specific [place] 1.015 (1.005-1.025) Urine Protein Negative (Neg-Trace) mg/dL Urine Glucose (UA) Negative (Negative) mg/dL Urine Ketones Negative (Negative) mg/dL Urine Blood Small (1+) H (Negative) Urine Nitrite Negative (Negative) Ur Leukocyte Esterase Trace H (Negative) Urine RBC 0-2 (0-2) /HPF Urine WBC 6-10 (0-5) /HPF Urine WBC Clumps Present Ur Squamous Epith Cells 3-5 (0-2) /HPF Urine Bacteria 4+ (None Seen) Hyaline Casts 0-2 (0-2) /LPF Radiology Impression Discussion of test interpretation with radiology: I have reviewed the radiologist's reading. External Record Review External record reviewed: Inpatient record Chronic Conditions Schizophrenia Social Determinants Patient?s care significantly limited by Social Determinants of Health including: Problems related to primary support group Discharge Plan Discharge Clinical Impression: Constipation Patient Disposition: Home, Self-Care Instructions: Constipation (ED) Additional Instructions: Take the GoLYTELY as instructed. Lots of vegetables. Close follow-up on an outpatient basis. Prescriptions: No Action nystatin [Nystop] 100,000 unit/gram powder 1 appl topical BID Qty: 60 0RF clozapine 50 mg tablet 50 mg PO BEDTIME 30 Days Qty: 30 0RF clozapine 100 mg tablet 200 mg PO BEDTIME 30 Days Qty: 60 0RF (DME) Tubi tool programmer socks Medium See Rx Instructions .Route .MEDSUPPLY Qty: 2 0RF Rx Instructions: As directed (DME) compress.stocking,knee,reg,med Misc See Rx Instructions .Route Qty: 2 0RF Rx Instructions: As directed Linzess 290 mcg capsule 290 mcg PO QAM PRN (Reason: severe constipation) 30 Days Qty: 30 1RF polyethylene glycol 3350 17 gram/dose powder 17 g PO DAILY Qty: 510 12RF ibuprofen 200 mg tablet 200 mg PO Q6H PRN (Reason: pain) Qty: 60 1RF Rx Instructions: Take with food (DME) Prodigy No Coding Strip See Rx Instructions .Route Qty: 50 8RF Rx Instructions: test twice per day (DME) blood-glucose meter [Prodigy Pocket Meter] Kit See Rx Instructions .Route Qty: 1 0RF Rx Instructions: test twice per day (DME) lancets [Prodigy Lancets] 28 gauge misc See Rx Instructions .Route Qty: 100 8RF Rx Instructions: test twice per day (DME) COMPRESSION STOCKINGS with ZIPPERS See Rx Instructions .Route .MEDSUPPLY Qty: 2 1RF Rx Instructions: As directed (DME) blood-glucose meter [FreeStyle Lite Meter] Kit See Rx Instructions .ROUTE .MEDSUPPLY Qty: 1 0RF Rx Instructions: As directed lactulose 10 gram/15 mL solution 10 g PO BEDTIME PRN (Reason: constipation) 3 Days Qty: 45 0RF hydrochlorothiazide 25 mg tablet 25 mg PO DAILY Qty: 90 0RF magnesium oxide 400 mg magnesium capsule 400 mg PO BID Qty: 60 0RF (DME) diabetic winter boots See Rx Instructions .Route .MEDSUPPLY Qty: 1 0RF Rx Instructions: As directed (DME) FreeStyle Lite Strips Strip See Rx Instructions .ROUTE .MEDSUPPLY Qty: 100 0RF Rx Instructions: As directed once a day (DME) lancets [FreeStyle Lancets] 28 gauge misc See Rx Instructions .ROUTE .MEDSUPPLY Qty: 100 0RF Rx Instructions: As directed once a day metformin 500 mg tablet extended release 24 hr 500 mg PO BEDTIME 90 Days Qty: 90 0RF calcium carbonate [Oyster Shell Calcium 500] 500 mg calcium (1,250 mg) tablet 500 mg PO BID Qty: 56 0RF atorvastatin 10 mg tablet 10 mg PO DAILY Qty: 28 0RF Januvia 100 mg tablet 100 mg PO DAILY Qty: 30 0RF clonazepam 0.5 mg Tablet 0.5 mg PO BID PRN (Reason: Anxiety) multivitamin Tablet 1 tab PO DAILY peg 3350-electrolytes [GaviLyte-G] 236-22.74-6.74 -5.86 gram recon soln 240 ml PO Q10M Qty: 1000 0RF Rx Instructions: until fecal effluent is clear aripiprazole 10 mg tablet 10 mg PO DAILY lurasidone 80 mg tablet 80 mg PO BEDTIME tramadol 50 mg tablet 50 mg PO BID PRN (Reason: pain) 10 Days Qty: 20 0RF (DME) TUBIGRIP SOCKS (Large) large See Rx Instructions .Route .MEDSUPPLY Qty: 2 0RF Rx Instructions: As directed (DME) lightweight cane See Rx Instructions .Route .MEDSUPPLY Qty: 1 0RF Rx Instructions: As directed docusate sodium 100 mg capsule 100 mg PO BID Referrals: Abel Mejía MD [Primary Care Provider] - 11/22/24 Print Language: Korean
--- NOTE | 2024-11-20 10:12 | PC.NURSE ---
Patient refused disimpaction by .
[2024-11-20 10:58] LABS: Basophils Percent Auto 0.1 % (0-2); Hematocrit 37.2 % (37.0-47.0); Hemoglobin 11.9 g/dl (12.0-16.0); Imm Gran Abs Auto 0.08 X10*3/uL (0.00-0.03); Imm Gran Pct Auto 0.5 % (0.0-0.4); Lymphocytes Absolute Auto 5.2 X10*3/uL (1.2-4.9); Lymphocytes Percent Auto 32.1 % (20-40); MANUAL DIFF FLAG SCAN; Mean Corpuscular Hemoglobin 30.4 pg (27.0-33.0); Mean Corpuscular Volume 95.1 fL (80.0-98.0); Mean Platelet Volume 10.6 fL (9.4-12.3); Monocytes Absolute Auto 1.1 X10*3/uL (0.1-1.2); Monocytes Percent Auto 6.9 % (2-11); Neutrophils Absolute Auto 9.7 x10*3/uL (2.0-8.3); Neutrophils Percent Auto 60.4 % (45-73); Platelet Count 397 X10*3/uL (160-400); Red Blood Count 3.91 X10*6/uL (4.20-5.50); Red Cell Distribution Width 14.7 % (11.0-16.0); SCAN SMEAR FLAG 1
[2024-11-20 11:04] LABS: Alanine Aminotransferase 22 U/L (0-31); Albumin Level 3.8 g/dL (3.5-5.0); Alkaline Phosphatase 116 U/L (39-117); Anion Gap 13 (12-20); Aspartate Amino Transferase 15 U/L (5-31); Bilirubin Direct 0.1 mg/dL (0.0-0.5); Bilirubin Total 0.3 mg/dL (0.0-1.0); Blood Urea Nitrogen 22 mg/dL (9-16); Calcium 8.8 mg/dL (8.4-10.2); Carbon Dioxide 26 mmol/L (22-29); Chloride 106 mmol/L (96-108); Creatinine Clr Calc Pharmacy 61.5; Estimated Glomerular Filt Rate 54; Glucose Random 225 mg/dL (60-115); Lipase 24 U/L (8-78); Potassium 3.1 mmol/L (3.3-5.1); Sodium 142 mmol/L (135-145); Total Protein 7.1 g/dL (6.5-8.0)
[2024-11-20 11:39] VITALS: BP 120/72; PULSE 95; RESP 17; TEMP 36.7; O2SAT 96
[2024-11-20 11:53] LABS: Appearance Urine Clear; Color Urine Yellow; Glucose Urine UA Negative (Negative); Leukocyte Esterase Urine Trace (Negative); Nitrite Urine Negative (Negative); PH 5.5 (5.0-9.0); Specific Gravity - Urine 1.015 (1.005-1.025); UMIC TRIGGER UACC YES; Urine Blood Small (1+) (Negative); Urine Ketones Negative (Negative); Urine Protein Negative (Neg-Trace)
[2024-11-20] MEDS: 0.9 % Sodium Chloride 1,000 ML 999 ML IV (11:59)
[2024-11-20 12:01] LABS: SLIDE REVIEW VERIFIED
--- NOTE | 2024-11-20 12:09 | PC.NURSE ---
ssumed care of this patient at 1100, IV access initiated, NS bolus hung. Pt to go to CT scan, resting quietly on stretcher at this time.
[2024-11-20] MEDS: iohexoL 350 MG/ML 100 ML INFUS..BTL IV (12:34)
[2024-11-20 12:47] LABS: Bacteria Urine 4+ (None Seen); Hyaline Casts Urine 0-2 /LPF (0-2); RBC Urine 0-2 /HPF (0-2); UACC Culture Trigger YES
[2024-11-20 12:48] LABS: WBC Clumps Urine Present
--- NOTE | 2024-11-20 13:15 | PC.NURSE ---
Soap suds enema administered, patient currently L side lying retaining enema.
[2024-11-20] MEDS: Magnesium Citrate 300 ML SOLUTION PO (13:36)
[2024-11-20] MEDS: Mineral OiL enema 133 ML ENEMA PR (14:38)
--- NOTE | 2024-11-20 14:44 | PC.NURSE ---
Dr. Lopez at bedside attempted to digitally disimpact patient, unsuccessful, mineral oil enema administered w/o issue. Patient currently retaining enema on her L side.
--- NOTE | 2024-11-20 15:42 | PC.NURSE ---
Pt. unable to have BM after multiple interventions, Dr. Lopez made aware. Patient wants to go home. Plan for pt to be d/c'd w/ yany. Patient currently calling for a ride home now
[2024-11-20 16:41] VITALS: BP 129/78; PULSE 98; RESP 16; TEMP 36.7; O2SAT 95
[2024-11-20] MEDS: PEG 3350/Na Sulf,Bicarb,Cl/KCL 4,000 ML SOLN.RECON 4000 ML PO (17:19)
== END 2024-11-20 16:42 | disposition home or self-care (01) ==
PROVIDERS: Emergency Provider Emergency Medicine Emergency Medical Services; PCP Internal Medicine
DX: K59.00 Constipation, unspecified (principal); E11.9 Type 2 diabetes mellitus without complications; Z79.899 Other long term (current) drug therapy; Z87.891 Personal history of nicotine dependence; Z79.84 Long term (current) use of oral hypoglycemic drugs
CPT/HCPCS: 36415; 74177; 80048; 80076; 81001; 83690; 85025; 87086; 87088; 87186; 96360; 96361; 99284; Q9967

== ENCOUNTER → 2024-11-20 10:03 | Outpatient (BNV) | payer OTHER, SELFPAY | PROVIDERS: Emergency Provider Emergency Medicine Emergency Medical Services; PCP Internal Medicine; Visit Provider Radiology Diagnostic Radiology | DX: K59.00 Constipation, unspecified (principal) | CPT/HCPCS: 74177 ==

== ENCOUNTER 2024-11-23 09:33 | Outpatient (AMB) | payer OTHER, SELFPAY ==
--- NOTE | 2024-11-23 09:51 | MHC.PC.OV ---
Vital Signs 11/23/24 09:52 Height 5 ft 3 in Weight 224 lb 9.6 oz BMI 39.8 BP 110/62 Blood Pressure Location Lt brachial Position Sitting Respiration 20 Pulse 88 Pulse Source Pulse Oximeter Temp 98.0 F Temp Source Oral Pulse Oximetry (%) 95 Oxygen Delivery Method Room Air Intake Visit Reasons: bump on tongue, rash on stomach Personal Financial Representative Required: No Accompanied by: Self / Same As Patient Allergies haloperidol [From HALDOL] Allergy (Intermediate, Verified 11/23/24 10:13) RASH,ACNE lithium [LITHIUM] Allergy (Intermediate, Verified 11/23/24 10:13) RASH,ACNE simvastatin Allergy (Intermediate, Verified 11/23/24 10:13) headaches escitalopram Allergy (Mild, Verified 11/23/24 10:13) Blister risperidone [From Risperdal] Allergy (Verified 11/23/24 10:13) Unknown furosemide Adverse Reaction (Intermediate, Verified 11/23/24 10:13) rash hydroxyzine Adverse Reaction (Intermediate, Verified 11/23/24 10:13) rash Medication List - Last Reconciled 11/23/24 by MEHREEN Givens aripiprazole 10 mg PO DAILY atorvastatin 10 mg PO DAILY blood sugar diagnostic (Prodigy No Coding strips) test twice per day blood sugar diagnostic (FreeStyle Lite Strips) As directed once a day blood-glucose meter (Prodigy Pocket Meter kit) test twice per day blood-glucose meter (FreeStyle Lite Meter kit) As directed calcium carbonate (Oyster Shell Calcium 500) 500 mg PO BID clonazepam 0.5 mg PO BID PRN clozapine 50 mg PO BEDTIME 30 days clozapine 200 mg (2 x 100 mg) PO BEDTIME 30 days compress.stocking,knee,reg,med As directed [COMPRESSION STOCKINGS with ZIPPERS As directed] [diabetic winter boots As directed] docusate sodium 100 mg PO BID hydrochlorothiazide 25 mg PO DAILY ibuprofen 200 mg PO Q6H PRN Januvia (sitagliptin phosphate) 100 mg PO DAILY NS lactulose 10 grams (15 mL) PO BEDTIME PRN 3 days lancets (Prodigy Lancets) test twice per day lancets (FreeStyle Lancets) As directed once a day [lightweight cane As directed] Linzess (linaclotide) 290 mcg PO QAM PRN 30 days NS lurasidone 80 mg PO BEDTIME magnesium oxide 400 mg PO BID metformin ER 500 mg PO BEDTIME 90 days multivitamin 1 tab PO DAILY polyethylene glycol 3350 17 grams PO DAILY tramadol 50 mg PO BID PRN 10 days [Tubi 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 socks As directed] [TUBIGRIP SOCKS (Large) As directed] Tobacco use date assessed: 11/23/24 Fall risk assessment: No Falls in past year Last assessed Fall Risk: 11/23/24 Dental Screening Dental Screen Date: 11/23/24 Did you have a dental visit in the last 12 months?: No Did you have a dental problem in the last 6 months where you did not have access to dental care?: No HPI bump on tongue, rash on stomach HPI Details The patient is 64 year old female presenting with c/o: rash on right elbow and rash on lower abdomen both areas are itchy and dry The patient wants to show old scar-appearing area on tongue reports that she has not smoked in 25 years-but still scared that this might be cancer The patient c/o lump on her neck that been there for few months now and getting bigger right thyroid nodule on inspection-will send for a thyroid US The patient reports that she was in the hospital for constipation, she said she was prescribed golytely but she does not like taking the medication and has not been taking this consistently The patient denies sob, chest pain, heart palpitation and dizziness Reports on and off constipation, denies abdominal pain Denies any urinary symptoms PFSH Medical History Diabetes mellitus T2DM (type 2 diabetes mellitus) Diabetes mellitus type 2, controlled, without complications Screening for breast cancer Incisional hernia Umbilical hernia Obesity (BMI 30-39.9) Schizophrenia Constipation Pyuria Leukocytosis Primary osteoarthritis of both knees Stasis edema of both lower extremities Vitamin D deficiency Pure hypercholesterolemia Surgical History History of incisional hernia repair (~01/10/21) H/O colonoscopy History of splenectomy Family History Father Medical history unknown Mother Diabetes Family/Other FH: mental illness Mental health disorder Social History Household Members: None Housing: Other Housing Other:: [place] [facility] Do you presently have visiting nurse or other home services: No Alcohol intake: never Patient Tobacco Use Status: Former Tobacco user e-Cigarette/Vaping Use: Never Used Second Hand Smoke Exposure: Yes service: No Current occupational status: disabled Cognitive needs: No Hearing needs: No Vision needs: Yes (Reading glasses) Questionnaire PHQ-9 Over the last 2 weeks, how often have you been bothered by any of the following problems? 1. Little interest or pleasure in doing things: not at all 2. Feeling down, depressed, or hopeless: nearly every day 3. Trouble falling or staying asleep, or sleeping too much: not at all 4. Feeling tired or having little energy: nearly every day 5. Poor appetite or overeating: not at all 6. Feeling bad about yourself - or that you are a failure or have let yourself or your family down: not at all 7. Trouble concentrating on things, such as reading the newspaper or watching television: nearly every day 8. Moving or speaking so slowly that other people could have noticed. Or the opposite - being so fidgety or restless that you have been moving around a lot more than usual: not at all 9. Thoughts that you would be better off or of hurting yourself in some way: several days Total score: 10 Depression Screening Interpretation: Positive (is on Rx for depression/psych disorder) Depression Screening Done: Yes 20136 - PHQ-9 Billing: Yes Source: Developed by Drs. Cody Askew, Coni Madden, Jose L Frost and colleagues, with an educational mansoor from [employer]. Thrive Questionnaire Date Thrive assessed: 09/29/24 I am a: Patient What is your living situation today?: I have a steady place to live Within the past 12 months, did the food you bought not last and you didn't have the money to get more?: Never true Within the past 12 months, did you worry whether your food would run out before you got money to buy more?: Never true Do you have trouble paying for medicines?: No Do you have trouble getting transportation to medical appointments?: No Do you have trouble paying your heating and electricity bill?: No Do you have trouble taking care of your child, family member or friend?: No Do you have trouble with day-to-day activities such as bathing, preparing meals, shopping, managing finances, etc.?: No Are you currently unemployed and looking for a job?: No Are you interested in more education?: No Please select the resources that you would like help with: None Currently or been in a relationship where the following occur: No concerns reported THRIVE Score: 0 AUDIT C Alcohol Use Questionnaire (AUDIT-C) 1. How often do you have a drink containing alcohol?: Never Total Score: 0 Score Reviewed/Action Taken: Yes ROSA-7 AMB Questionnaire ROSA-7 Date ROSA - 7 assessed: 11/23/24 Feeling nervous, anxious, or on edge: 0 = Not at all Not being able to stop or control worryin = Nearly every day Worrying too much about different things: 3 = Nearly every day Trouble relaxin = Not at all Being so restless that it is hard to sit still: 0 = Not at all Becoming easily annoyed or irritable: 1 = Several days Feeling afraid as if something awful might happen: 3 = Nearly every day Total ROSA-7 score (0-4 normal; 5-9 mild; 10-14 moderate; 15-21 severe): 10 Source: Developed by Drs. Cody Askew, Coni Madden, Jose L Frost and colleagues, with an educational mansoor from [employer]. ROSA-7 Assessment Billing ROSA-7 Assessment Tool: ROSA-7 Assessment 20804 Review of Systems Const Denies headache(s) Eyes Denies loss of vision ENT Denies vertigo, Denies dizziness, Denies headache(s), Reports mouth lesions (old appearing scar on tongue), Reports neck mass (right neck ) and Denies sore throat Card Denies chest pain, Denies leg edema and Denies lightheadedness Resp Denies cough, Denies hemoptysis and Denies wheezing GI Denies abdominal pain, Denies melena, Reports constipation (on and off), Denies diarrhea and Denies vomiting Denies urinary frequency, Denies dysuria and Denies urinary urgency Musc Denies arthralgias, Denies joint swelling, Denies numbness and Denies tingling Neuro Denies Abnormal speech present, Denies behavioral changes, Denies vertigo, Denies dizziness, Denies headache(s), Denies loss of vision, Denies memory loss, Denies numbness and Denies tingling Psych Denies anxiety, Denies behavioral changes, Denies depression, Denies memory loss and Denies panic attacks Dawood/Lymph Denies easy bleeding and Denies easy bruising Aller/Immun Denies wheezing Physical exam (Primary Care) Vital Signs: Last Vital Signs Temp 98.0 F 11/23/24 09:52 Pulse 88 11/23/24 09:52 Resp 20 11/23/24 09:52 BP 110/62 11/23/24 09:52 Pulse Ox 95 11/23/24 09:52 Oxygen Delivery Method Room Air 11/23/24 09:52 BMI result Body Mass Index 39.8 Tobacco/Smoking Status: Tobacco use Status Tobacco use date assessed 11/23/24 11/23/24 10:06 Patient Tobacco Use Status Former Tobacco user 11/23/24 10:06 e-Cigarette/Vaping Use Never Used 11/23/24 10:06 PHQ-9: PHQ-9 Score PHQ-9: Total score 10 11/23/24 10:19 Depression Screening Interpretation: Positive (is on Rx for depression/psych disorder) Thrive Assessment: Date of Thrive Assessment Date Thrive assessed 09/29/24 11/23/24 10:06 Currently or been in a relationship where the following occur: No concerns reported Const General: healthy appearing, no acute distress, alert and awake Nutritional Appearance: well nourished Orientation/consciousness: oriented to person, oriented to place and oriented to time HENMT Ears: TM's normal bilaterally General nose exam: Normal nasal mucous membranes and turbinates present Mouth/tongue images: 1. small scar appearing area Eyes Conjunctivae: conjunctivae normal Sclerae: sclerae normal Pupils: Equal, round and reactive pupils present Neck Neck: Yes no lymphadenopathy and Yes no JVD Thyroid: Thyroid normal and mass on the right Carotids: no bruits Resp Effort & Inspection: normal respiratory effort and not tachypneic Auscultation: no crackles, no rales, no rhonchi and no wheezes Cardio Rate: regular rate Rhythm: regular rhythm Heart sounds: no murmurs and normal S1 and S2 GI Palpation (GI): Soft to palpation, nontender, no hepatomegaly and no splenomegaly Auscultation: normal bowel sounds Skin General skin exam: no rashes or lesions noted and dry skin Neuro General: oriented to person, oriented to place and oriented to time Cranial nerves: Yes Equal, round and reactive pupils present Speech: No Abnormal speech present Gait exam (Neuro): Normal gait present Motor exam (neuro): no tremor noted Extrem Right upper extremity: full ROM Left upper extremity: full ROM Right lower extremity: full ROM; no edema Left lower extremity: full ROM; no edema Psych Mental Status: mental status grossly normal Speech and movement: Normal speech and movement present Affect: normal affect Attitude: cooperative Thought process: Normal thought process present Results Reviewed Results Reviewed: Laboratory Tests 11/20/24 11/20/24 10:35 11:38 WBC 16.0 H RBC 3.91 L Hgb 11.9 L Hct 37.2 MCV 95.1 RDW 14.7 Plt Count 397 Sodium 142 Potassium 3.1 L Chloride 106 Carbon Dioxide 26 Anion Gap 13 BUN 22 H Creatinine 1.02 Estimated GFR 54 Random Glucose 225 H Calcium 8.8 Total Bilirubin 0.3 Direct Bilirubin 0.1 AST 15 ALT 22 Urine Color Yellow Urine Appearance Clear Urine pH 5.5 Ur Specific Red Level 1.015 Urine Protein Negative Urine Glucose (UA) Negative Urine Ketones Negative Urine Blood Small (1+) H Urine Nitrite Negative Ur Leukocyte Esterase Trace H Urine RBC 0-2 Urine WBC 6-10 Urine WBC Clumps Present Ur Squamous Epith Cells 3-5 Urine Bacteria 4+ Hyaline Casts 0-2 Coding Level of Care Code Est Pt Level 4 (02068) Diagnoses Pruritic rash L28.2 Thyroid mass E07.9 Chronic constipation K59.09 Other microscopic hematuria R31.29 Hematuria type: other microscopic Additional Codes ROSA-7 Assessment Billing - ROSA-7 Assessment Tool: ROSA-7 Assessment 05225 ([id number]) PHQ-9 - 40673 - PHQ-9 Billing: Yes ([id number]) Time Spent (min) 38 Assessment & Plan Assessment & Plan (1) Pruritic rash: Code(s): L28.2 - Other prurigo Category: Medical Plan: Triamcinolone acetonide 0.1% topical BID ordered (2) Thyroid mass: Code(s): E07.9 - Disorder of thyroid, unspecified Category: Medical Plan: Thyroid US ordered. LFTs ordered as well. The patient was encouraged to complete these jameson (3) Chronic constipation: Code(s): K59.09 - Other constipation Category: Medical Plan: CT in the abdomen done in the ER showed no obstruction but large amount of stool. Minimum stool in rectal vault. Soap keren enema given with small amount of stool return. The patient was given a dose of Mag citrate was given in the ED-note stated that the patient tolerated this well and wanted to go home. She was given golitely. The patient reports that she does not like the taste of the golitely. Discussed with the patient that this is only short term and she should take this as ordered to prevent bowel obstruction. She verbalized understanding. (4) Hematuria: Code(s): R31.9 - Hematuria, unspecified Category: Medical Qualifiers: Hematuria type: other microscopic Qualified Code(s): R31.29 - Other microscopic hematuria Plan: Small amount of blood noted in the urine that the patient did in the hospital. The patient already has active urinalysis orders in her chart from labs that she was supposed to complete. Encouraged the patient to get her ordered labs and urine done to reevaluate. The patient verbalized understanding. Orders: Orders US thyroid Today E07.9 - Disorder of thyroid, unspecified Free T4 (Free Thyroxine) Today E07.9 - Disorder of thyroid, unspecified Iodine, Serum/Plasma Today E07.9 - Disorder of thyroid, unspecified Medications: New triamcinolone acetonide 0.1% 1 appl topical BID 80 grams 2RF L28.2 - Other prurigo
[2024-11-23 09:52] VITALS: BP 110/62; PULSE 88; RESP 20; TEMP 36.7; O2SAT 95; BMI 39.8
--- OUTSIDE RECORDS SUMMARY | 2024-11-23 11:31 | XMS_ITS ---
Author Organization [facility] Care Team Providers Care Maintenance Painter Name Role Phone Krupa Cantu Unavailable Unavailable Teresa Veras Unavailable Unavailable Allergies and adverse reactions No Known Allergies Care Team Name Role Address Phone Organization Dates Krupa Zamora Elder PCP [address] [place] [address], [phone], [facility] (Office): : [facility] 08/27/2023 - 09/16/2023 Teresa Veras Attending Physician [address] [place] [address], [id number], [facility] (Office): : [phone] [facility] 08/27/2023 - 09/16/2023 Mental Status Section Date Assessment Total Score Description 09/16/2023 BIMS 12 moderate cognit yvonne impairment CAM 0 No delirium ind icated 08/31/2023 BIMS 13 cognitively int act CAM 0 No delirium ind icated Problems Problem # Description Date of onset Resolved Date Code CodeSystem Concern Status 1 CHRONIC VENOUS HYPERTENSION (IDIOPATHIC) WITHOUT COMPLICATIONS OF UNSPECIFIED LOWER EXTREMITY 08/27/[address] active 2 CONSTIPATION, UNSPECIFIED 08/27/[address] active 3 ELEVATED WHITE BLOOD CELL COUNT, UNSPECIFIED 08/27/[address] active 4 ESSENTIAL (PRIMARY) HYPERTENSION 08/27/[address] active 5 GENERALIZED ANXIETY DISORDER 08/27/[address] active 6 HYPERLIPIDEMIA, UNSPECIFIED 08/27/[address] active 7 INFLUENZA DUE TO IDENTIFIED NOVEL INFLUENZA A VIRUS WITH OTHER RESPIRATORY MANIFESTATIONS 08/27/[address] active 8 INFLUENZA DUE TO OTHER IDENTIFIED INFLUENZA VIRUS WITH OTHER RESPIRATORY MANIFESTATIONS 08/27/[address] active 9 INFLUENZA DUE TO UNIDENTIFIED INFLUENZA VIRUS WITH OTHER RESPIRATORY MANIFESTATIONS 08/27/[address] active 10 MUSCLE WEAKNESS (GENERALIZED) 08/27/[address] active 11 OBESITY, UNSPECIFIED 08/27/[address] active 12 OSTEOARTHRITIS OF KNEE, UNSPECIFIED 08/27/[address] active 13 OTHER ABNORMALITIES OF GAIT AND MOBILITY 08/27/[address] active 14 PURE HYPERCHOLESTEROLE FREDDIE, UNSPECIFIED 08/27/[address] active 15 REPEATED FALLS 08/27/[address] active 16 RETENTION OF URINE, UNSPECIFIED 08/27/[address] active 17 RHABDOMYOLYSIS 08/27/[address] active 18 SCHIZOPHRENIA, UNSPECIFIED 08/27/[address] active 19 TYPE 2 DIABETES MELLITUS WITH OTHER SPECIFIED COMPLICATION 08/27/[address] active 20 UNSPECIFIED ESCHERICHIA COLI [E. COLI] THE CAUSE OF DISEASES CLASSIFIED ELSEWHERE 08/27/[address] active 21 UNSPECIFIED FALL, SUBSEQUENT ENCOUNTER 08/27/[address] active [address] IN UNSPECIFIED NON-INSTITUTIONAL (PRIVATE) RESIDENCE THE PLACE OF OCCURRENCE OF THE EXTERNAL CAUSE 08/27/20 Y92.009 ICD-10-CM active 23 URINARY TRACT INFECTION, SITE NOT SPECIFIED 08/27/[address] active 24 VITAMIN D DEFICIENCY, UNSPECIFIED 08/27/[address] active 25 WEAKNESS 08/27/[address] active Reason for Referral No Reasons for Referral Entered Social History Social History Observation Description Start Date End Date Code Code System Current Smoking Status Tobacco smoking consumption unknown 042093360 SNOMED CT Sex Assigned At Female 1960 22151-0 [facility] Vital Signs Code Code System Vitals Name Values and Units Timing Information 38496-9 [facility] Pain Level Value=0.0 09/16/2023 2339-0 [facility] Blood Sugar Fwkrw=591.0 Units=mg/dL 09/12/2023 91634-6 [facility] Weight Ckgns=796.5 Units=Lbs 01/2024 9279-1 [facility] Respiratory Rate Value=17.0 Units=/m in 09/01/2023 8462-4 [facility] Blood Pressure-Diastolic Value=62 Un its=mmHg 09/01/2023 8480-6 [facility] Blood Pressure-Systolic Svfhz=624 Un its=mmHg 09/01/2023 8310-5 [facility] Body Temperature Value=97.8 Units=?? F 09/01/2023 8867-4 [facility] Heart rate Value=88.0 Units=/min 10/2023 49006-8 [facility] O2 % BldC Oximetry Value=96.0 Units= % 09/01/2023 8302-2 [facility] Height Value=63.0 Units=Inches 08/28/2023
== END 2024-11-23 10:37 | disposition home or self-care (01) ==
LOC: HO.HMCH 09:34
PROVIDERS: PCP Internal Medicine
DX: L28.2 Other prurigo (principal); E07.9 Disorder of thyroid, unspecified; K59.09 Other constipation; R31.29 Other microscopic hematuria

== ENCOUNTER → 2024-11-23 09:33 | Outpatient (BNVA) | payer OTHER, SELFPAY | PROVIDERS: PCP Internal Medicine | DX: L90.5 Scar conditions and fibrosis of skin (principal); L28.2 Other prurigo; E07.9 Disorder of thyroid, unspecified; K59.09 Other constipation; R31.29 Other microscopic hematuria; Z87.891 Personal history of nicotine dependence | CPT/HCPCS: 96127; 99212 ==

== ENCOUNTER 2024-12-05 09:20 | Outpatient (AMB) | payer OTHER, SELFPAY ==
--- NOTE | 2024-12-05 09:34 | A.OFFVIS_ITS ---
Intake Visit Reasons: 6m leg check Intake Note: Patient presents for 6 month leg check. Patient states she has bilateral leg swelling. Accompanied by: Self / Same As Patient Allergies haloperidol [From HALDOL] Allergy (Intermediate, Verified 12/05/24 09:37) RASH,ACNE lithium [LITHIUM] Allergy (Intermediate, Verified 12/05/24 09:37) RASH,ACNE simvastatin Allergy (Intermediate, Verified 12/05/24 09:37) headaches escitalopram Allergy (Mild, Verified 12/05/24 09:37) Blister risperidone [From Risperdal] Allergy (Verified 12/05/24 09:37) Unknown furosemide Adverse Reaction (Intermediate, Verified 12/05/24 09:37) rash hydroxyzine Adverse Reaction (Intermediate, Verified 12/05/24 09:37) rash HPI HPI 6m leg check: Details: The patient is a 64-year-old female presenting with chronic leg swelling. The swelling in her legs has persisted without change since her last assessment. She has not required any hospitalization for this condition. She is scheduled for physical therapy on December 14 at 10:00 AM, where compressive wraps are expected to be introduced to manage the swelling. The patient's inability to lymphedema pumps indicates the magnitude of the swelling, and although she previously attempted to use a pump for relief, it was ineffective and consequently discarded. She now presents for follow-up [facility] Medical History Diabetes mellitus T2DM (type 2 diabetes mellitus) Diabetes mellitus type 2, controlled, without complications Screening for breast cancer Incisional hernia Umbilical hernia Obesity (BMI 30-39.9) Schizophrenia Constipation Pyuria Leukocytosis Primary osteoarthritis of both knees Stasis edema of both lower extremities Vitamin D deficiency Pure hypercholesterolemia Surgical History History of incisional hernia repair (~01/10/21) H/O colonoscopy History of splenectomy Family History Father Medical history unknown Mother Diabetes Family/Other FH: mental illness Mental health disorder Social History Household Members: None Housing: Other Housing Other:: [place] [facility] Do you presently have visiting nurse or other home services: No Alcohol intake: never Patient Tobacco Use Status: Former Tobacco user e-Cigarette/Vaping Use: Never Used Second Hand Smoke Exposure: Yes service: No Current occupational status: disabled Cognitive needs: No Hearing needs: No Vision needs: Yes (Reading glasses) Review of Systems Const All systems reviewed & are unremarkable except as noted in HPI and below Reports no additional complaints ENT Reports Normal hearing present Card Denies chest pain, Denies chest pain at rest, Denies chest pain with activity and Denies pedal edema Resp Denies cough GI Denies abdominal pain Musc Denies abnormal gait, Denies muscle cramps and Denies radiating pain into limb Skin/Breast Denies skin ulcer and Denies wounds Neuro Reports Normal hearing present and Denies abnormal gait Psych Reports no additional complaints Physical Exam Const General: cooperative, healthy appearing and comfortable Orientation/consciousness: oriented to person, oriented to place and oriented to time HEENT Head: Yes normal to inspection Neck Neck: Yes normal visual inspection Carotids: no bruits Chest Chest palpation & inspection: normal inspection of the chest Resp Effort & Inspection: normal respiratory effort and able to speak in complete sentences Auscultation: clear to auscultation bilaterally, no crackles, no rales, no rhonchi and no wheezes Cardio Rate: regular rate Rhythm: regular rhythm Heart sounds: S1 normal heart sound present and S2 normal heart sound present Bruits: no carotid bruits Peripheral pulses: Peripheral pulses 2+ throughout GI Inspection: Yes normal to inspection Skin Wounds: no wounds Hair: normal Neuro General: oriented to person, oriented to place and oriented to time Cranial nerves: Yes CN's II-XII intact bilaterally and Yes Normal hearing present Cognition (Neuro): normal cognition Motor exam (neuro): 5/5 motor strength present throughout Extrem Other: venous exam: +2 edema bilaterally General: No clubbing, No cyanosis and Yes edema Psych Appearance: grossly normal Mental Status: mental status grossly normal Speech and movement: Normal speech and movement present Assessment & Plan Assessment & Plan (1) Lymphedema: Code(s): I89.0 - Lymphedema, not elsewhere classified Category: Medical Plan: In short patient has lymphedema. At the current time we will try to get her into lymphedema clinic which she is scheduled for on the . We confirmed this with [facility] and reiterated with the patient the importance of trying to make this appointment. Hopefully they will be able to provide her some Solutions which she can effectively do her self. She will follow up with us in approximately 6 months to ensure that this is going well. Thank you for allowing us to assist in her care. (2) Varicose veins of right lower extremity with inflammation: Comment: 03/05/2023 - right small saphenous vein radiofrequency ablation Code(s): I83.11 - Varicose veins of right lower extremity with inflammation Category: Medical Plan: See above (3) Varicose veins of left lower extremity with inflammation: Comment: 04/30/2023 - left great saphenous vein Cyanoacralate ablation Code(s): I83.12 - Varicose veins of left lower extremity with inflammation Category: Medical Plan: See above Plan Patient was informed and verbally consented to the use of an ambient scribe for clinic note documentation during this visit. Patient Instructions: - Attend your appointment at [facility] on December 14 at 10:00 AM on the 4th floor to begin compressive wraps. - Use compressive wraps as directed by the therapist to help alleviate leg swelling. - Follow up in six months for reassessment of your condition. - Contact the office if you experience any significant changes in your symptoms or have concerns regarding your treatment. Coding Level of Care Code Est Pt Level 3 (85577) Diagnoses Lymphedema I89.0 Varicose veins of right lower extremity with inflammation I83.11 Varicose veins of left lower extremity with inflammation I83.12
== END 2024-12-05 10:10 | disposition home or self-care (01) ==
LOC: HO.HVS 09:20
PROVIDERS: PCP Internal Medicine; Visit Provider Surgery Vascular Surgery
DX: I89.0 Lymphedema, not elsewhere classified (principal); I83.11 Varicose veins of right lower extremity with inflammation; I83.12 Varicose veins of left lower extremity with inflammation
CPT/HCPCS: 99213

== ENCOUNTER → 2024-12-05 09:20 | Outpatient (BNVA) | payer OTHER, SELFPAY | PROVIDERS: PCP Internal Medicine; Visit Provider Surgery Vascular Surgery | DX: I89.0 Lymphedema, not elsewhere classified (principal); I83.11 Varicose veins of right lower extremity with inflammation; I83.12 Varicose veins of left lower extremity with inflammation | CPT/HCPCS: 99212 ==

== ENCOUNTER 2024-12-14 07:53 | Outpatient (REF) | payer OTHER, SELFPAY ==
--- OUTSIDE RECORDS SUMMARY | 2024-12-14 07:59 | XMS_ITS | Clinical Summary ---
Author Organization Unknown Care Team Providers Care It Account Manager Name Role Phone CECI STEINER MD, MIHAI Unavailable Unavail able SALO REED, RICH Unavailable Unavailable Payers Payer Name Policy Type Policy Number Effective Date Expira tion Date [facility] [place] [id number] MED[place]ID [facility] [id number] MEDICARE - [facility] - [place] [id number] Problems Condition Name Condition Details Condition Category [...] 5 mg tablet 02-22 00:00: 00 Yes [id number] 5 mg DAILY 5 mg KRYSTAL Y (route: oral) Med Classific ation: Central Nervous System Agents atorvastati n 10 mg tablet 02-14 00:00: 00 Yes [id number] 10 mg EVERY PM 10 mg EVERY PM (route: oral) Med Classific ation: Cardiovas cular Therapy Agents docusate sodium 100 mg capsule 02-14 00:00: 00 Yes [id number] 100 capsule DIRECTED 100 capsule DIRECTED (route: oral) Med Classific ation: Gastroint estinal Therapy Agents hydrochloro thiazide 25 mg tablet 02-14 00:00: 00 Yes [id number] 25 mg DAILY 25 mg DAILY (route: oral) Med Classific ation: Cardiovas cular Therapy Agents Januvia 100 mg tablet 02-14 00:00: 00 Yes [id number] 100 mg DAILY 100 mg DAILY (route: oral) Med Classific ation: Endocrine lurasidone 80 mg tablet 02-14 00:00: 00 Yes [id number] 80 mg DAILY 80 mg DAILY (route: oral) Med Classific ation: Central Nervous System Agents metformin ER 500 mg tablet,exte nded release 24 hr 02-14 00:00: 00 Yes [id number] 500 mg DAILY 500 mg DAILY (route: oral) Med Classific ation: Endocrine calcium 500 mg (as calcium carbonate 1,250 mg) tablet 02-14 00:00: 00 Yes [id number] 500 mg EVERY AM 500 mg EVERY AM (route: oral) Med Classific ation: Electroly te Balance-N utritiona l Products clozapine 100 mg tablet 02-07 00:00: 00 10-23 23:59 :00 No [id number] 100 mg BEDTIME 100 mg BEDTIME (route: oral) Med Classific ation: Central Nervous System Agents clozapine 50 mg tablet 02-07 00:00: 00 08-21 23:59 :00 No [id number] 50 mg BEDTIME 50 mg BEDTIME (route: oral) Med Classific ation: Central Nervous System Agents polyethylen e glycol 3350 17 gram/dose oral powder 02-01 00:00: 00 Yes [id number] 17 g NEEDED 17 g NEEDED (route: oral) Med Classific ation: Gastroint estinal Therapy Agents Multivitami n 50 Plus tablet 03-01 00:00: 00 Yes [id number] 1 tablet DAILY 1 tablet DAILY (route: oral) Med Classific ation: Electroly te Balance-N utritiona l Products clozapine 50 mg tablet - 00:00: 00 Yes [id number] 50 mg BEDTIME 50 mg BEDTIME (route: oral) Med Classific ation: Central Nervous System Agents Clozaril 100 mg tablet 2- 00:00: 00 Yes [id number] 100 mg BEDTIME 100 mg BEDTIME (route: oral) Med Classific ation: Central Nervous System Agents Vital Signs Vital Name Observation Time Observation Value Commen ts Temperature 2024-12-11 07:48:00.000 97.3 [degF] Temperature 2024-12-06 07:25:00.000 97.5 [degF] Temperature 2024-12-04 07:34:00.000 97.4 [degF] Temperature 2024-11-29 23:26:00.000 97.7 [degF] Temperature 2024-11-27 07:52:00.000 97.5 [degF] Temperature 2024-11-22 07:51:00.000 97.5 [degF] Temperature 2024-11-22 01:00:00.000 97.7 [degF] Temperature 2024-11-15 07:42:00.000 98 [degF] Temperature 2024-11-13 07:41:00.000 97.8 [degF] Temperature 2024-11-08 12:02:00.000 97.5 [degF] Temperature 2024-11-08 07:55:00.000 98 [degF] Temperature 2024-11-01 22:41:00.000 98.1 [degF] Temperature 2024-10-30 07:21:00.000 98 [degF] Plan of Treatment Planned Activity Planned [...] WEEK ] Future Scheduled Test CLINICAL S UMMARY (SOC/RECERT, 10 DAY, 60 DAY): THE PATIENT IS RECEIVING HOMECARE DUE TO NEW ONSET/EXACERBATION OF: YES RECENT HOSPITALIZATION/INPATIENT ADMISSION RELATED TO: NO NEW OR CHANGED MEDICATIONS PERTINENT TO THE PLAN OF CARE: YES PATIENT LIVING SITUATION/CAREGIVER STATUS: ALONE SUMMARIZE SKILLED NEED: MEDICATION MANAGEMENT, VITAL SIGN ASSESSMENT, MENTAL STATUS ASSESSMENT AND DIAGNOSIS [code = CLINICAL SUMMARY (SOC/RECERT, 10 DAY, 60 DAY): THE PATIENT IS RECEIVING HOMECARE DUE TO NEW ONSET/EXACERBATION OF: YES RECENT HOSPITALIZATION/INPATIENT ADMISSION RELATED TO: NO NEW OR CHANGED MEDICATIONS PERTINENT TO THE PLAN OF CARE: YES PATIENT LIVING SITUATION/CAREGIVER STATUS: ALONE SUMMARIZE SKILLED NEED: MEDICATION MANAGEMENT, VITAL SIGN ASSESSMENT, MENTAL STATUS ASSESSMENT AND DIAGNOSIS ] Future Scheduled Test SKILLED NU RSE WILL MAINTAIN SITUATIONAL AWARENESS FOR SAFETY AND WILL NOTIFY CLINICAL CABANA ATTENDANT AND PHYSICIAN/PROVIDER WITH ANY CHANGE IN CONDITION. [code = SKILLED NURSE WILL MAINTAIN SITUATIONAL AWARENESS FOR SAFETY AND WILL NOTIFY CLINICAL CABANA ATTENDANT AND PHYSICIAN/PROVIDER WITH ANY CHANGE IN CONDITION.] [...] A WEEK AND PRE-POUR MEDICATIONS TILL NEXT [facility] VISIT PER MEDICATION LIST. [code = SKILLED NURSE TO ADMINISTER MEDICATIONS TWICE A WEEK AND PRE-POUR MEDICATIONS TILL NEXT [facility] VISIT PER MEDICATION LIST.] Future Scheduled Test SKILLED NU RSE FOR MEDICATION ADMINISTRATION PER MEDICATION LIST TO BE PERFORMED TWICE A WEEK [code = SKILLED NURSE FOR MEDICATION ADMINISTRATION PER MEDICATION LIST TO BE PERFORMED TWICE A WEEK ] Future Scheduled Test SKILLED NU RSE TO PRE-POUR MEDICATION PER MEDICATION LIST TILL NEXT [facility] VISIT [code = SKILLED NURSE TO PRE-POUR MEDICATION PER MEDICATION LIST TILL NEXT [facility] VISIT ] Future Scheduled Test SKILLED NU [...] NU RSE FOR O/A AND SKILLED TEACHING OF COPING SKILLS TO MANAGE ANXIETY AND MAINTAIN SAFETY. [code = SKILLED NURSE FOR O/A AND SKILLED TEACHING OF COPING SKILLS TO MANAGE ANXIETY AND MAINTAIN SAFETY.] Future Scheduled Test SKILLED NU RSE FOR [...] Goal - TAKING MY MED S Goal 2024-10-23 Patient Goal - TAKING MY MED S Goal Patient Goal - TAKING MY MED S Goal Provider Goal - A PLAN OF CARE WILL BE ESTABLISHED THAT MEETS PATIENT'S [facility] NEEDS AND INCLUDES PATIENT GOAL FOR HOME [...] DAILY FUNCTIONS AND HAVE OPTIMAL IMPROVEMENT IN LEVEL OF ANXIETY THROUGHOUT CERTIFICATION PERIOD. Goal Provider Goal - [...] End Date/Time Encounter Type Admission Type Attending [facility] Care Department Encounter ID Discharge Date Discharge Status Discharge Condition Discharge Reason Percent Goals Met 2024-03-01 00:00:00 2024-12-25 00:00:00 Outpatient RECERTIFIC ATION RICH LEONG [facility] [id number] 8.00
--- OUTSIDE RECORDS SUMMARY | 2024-12-14 07:59 | XMS_ITS | Clinical Summary ---
Author Organization Unknown Care Team Providers Care Scrap Kettle Tender Name Role Phone CECI STEINER MD, MIHAI Unavailable Unavail able SALO REED, RICH Unavailable Unavailable Payers Payer Name Policy Type Policy Number Effective Date Expira tion Date [facility] [place] [id number] MED[place] [facility] [id number] MEDICARE - [facility]/[place] - [place] [id number] Problems Condition Name Condition Details Condition Category [...] 5 mg tablet 02-22 00:00: 00 Yes [id number] 5 mg DAILY 5 mg KRYSTAL Y (route: oral) Med Classific ation: Central Nervous System Agents atorvastati n 10 mg tablet 02-14 00:00: 00 Yes [id number] 10 mg EVERY PM 10 mg EVERY PM (route: oral) Med Classific ation: Cardiovas cular Therapy Agents docusate sodium 100 mg capsule 02-14 00:00: 00 Yes [id number] 100 capsule DIRECTED 100 capsule DIRECTED (route: oral) Med Classific ation: Gastroint estinal Therapy Agents hydrochloro thiazide 25 mg tablet 02-14 00:00: 00 Yes [id number] 25 mg DAILY 25 mg DAILY (route: oral) Med Classific ation: Cardiovas cular Therapy Agents Januvia 100 mg tablet 02-14 00:00: 00 Yes [id number] 100 mg DAILY 100 mg DAILY (route: oral) Med Classific ation: Endocrine lurasidone 80 mg tablet 02-14 00:00: 00 Yes [id number] 80 mg DAILY 80 mg DAILY (route: oral) Med Classific ation: Central Nervous System Agents metformin ER 500 mg tablet,exte nded release 24 hr 02-14 00:00: 00 Yes [id number] 500 mg DAILY 500 mg DAILY (route: oral) Med Classific ation: Endocrine calcium 500 mg (as calcium carbonate 1,250 mg) tablet 02-14 00:00: 00 Yes [id number] 500 mg EVERY AM 500 mg EVERY AM (route: oral) Med Classific ation: Electroly te Balance-N utritiona l Products clozapine 100 mg tablet 02-07 00:00: 00 10-23 23:59 :00 No [id number] 100 mg BEDTIME 100 mg BEDTIME (route: oral) Med Classific ation: Central Nervous System Agents clozapine 50 mg tablet 02-07 00:00: 00 08-21 23:59 :00 No [id number] 50 mg BEDTIME 50 mg BEDTIME (route: oral) Med Classific ation: Central Nervous System Agents polyethylen e glycol 3350 17 gram/dose oral powder 02-01 00:00: 00 Yes [id number] 17 g NEEDED 17 g NEEDED (route: oral) Med Classific ation: Gastroint estinal Therapy Agents Multivitami n 50 Plus tablet 03-01 00:00: 00 Yes [id number] 1 tablet DAILY 1 tablet DAILY (route: oral) Med Classific ation: Electroly te Balance-N utritiona l Products clozapine 50 mg tablet - 00:00: 00 Yes [id number] 50 mg BEDTIME 50 mg BEDTIME (route: oral) Med Classific ation: Central Nervous System Agents Clozaril 100 mg tablet 2- 00:00: 00 Yes [id number] 100 mg BEDTIME 100 mg BEDTIME (route: [...] AWARENESS FOR SAFETY AND WILL NOTIFY CLINICAL BURRER MACHINE AND PHYSICIAN/PROVIDER WITH ANY CHANGE IN CONDITION. [code = SKILLED NURSE WILL MAINTAIN SITUATIONAL AWARENESS FOR SAFETY AND WILL NOTIFY CLINICAL BURRER MACHINE AND PHYSICIAN/PROVIDER WITH ANY CHANGE IN CONDITION.] [...] A WEEK AND PRE-POUR MEDICATIONS TILL NEXT DETENTION VISIT PER MEDICATION LIST. [code = SKILLED NURSE TO ADMINISTER MEDICATIONS TWICE A WEEK AND PRE-POUR MEDICATIONS TILL NEXT DETENTION VISIT PER MEDICATION LIST.] Future Scheduled Test SKILLED NU RSE FOR MEDICATION ADMINISTRATION PER MEDICATION LIST TO BE PERFORMED TWICE A WEEK [code = SKILLED NURSE FOR MEDICATION ADMINISTRATION PER MEDICATION LIST TO BE PERFORMED TWICE A WEEK ] Future Scheduled Test SKILLED NU RSE TO PRE-POUR MEDICATION PER MEDICATION LIST TILL NEXT DETENTION VISIT [code = SKILLED NURSE TO PRE-POUR MEDICATION PER MEDICATION LIST TILL NEXT DETENTION VISIT ] Future Scheduled Test SKILLED NU [...] CARE WILL BE ESTABLISHED THAT MEETS PATIENT'S DETENTION NEEDS AND INCLUDES PATIENT GOAL FOR HOME [...] End Date/Time Encounter Type Admission Type Attending [facility] Care Department Encounter ID Discharge Date Discharge Status Discharge Condition Discharge Reason Percent Goals Met 2024-03-01 00:00:00 2024-12-25 00:00:00 Outpatient RECERTIFIC ATION RICH LEONG [facility] [id number] 8.00
[2024-12-14 08:24] LABS: MANUAL DIFF FLAG NO
[2024-12-14 08:47] LABS: Basophils Percent Auto 0.1 % (0-2); Hematocrit 38.5 % (37.0-47.0); Hemoglobin 12.3 g/dl (12.0-16.0); Imm Gran Abs Auto 0.07 X10*3/uL (0.00-0.03); Imm Gran Pct Auto 0.5 % (0.0-0.4); Lymphocytes Absolute Auto 4.5 X10*3/uL (1.2-4.9); Lymphocytes Percent Auto 31.9 % (20-40); Mean Corpuscular HGB Conc 31.9 g/dl (31.0-35.0); Mean Corpuscular Volume 93.9 fL (80.0-98.0); Mean Platelet Volume 10.4 fL (9.4-12.3); Monocytes Percent Auto 7.1 % (2-11); Neutrophils Absolute Auto 8.6 x10*3/uL (2.0-8.3); Neutrophils Percent Auto 60.4 % (45-73); Platelet Count 419 X10*3/uL (160-400); Red Cell Distribution Width 15.3 % (11.0-16.0); White Blood Count 14.2 X10*3/uL (4.8-10.8)
[2024-12-14 09:00] LABS: Appearance Urine Clear; Color Urine Yellow; Glucose Urine UA Negative (Negative); Leukocyte Esterase Urine Trace (Negative); Nitrite Urine Negative (Negative); PH 5.5 (5.0-9.0); UMIC TRIGGER UACC YES; Urine Blood Negative (Negative); Urine Ketones Negative (Negative); Urine Protein Negative (Neg-Trace)
[2024-12-14 09:03] LABS: Bacteria Urine None Seen (None Seen); Hyaline Casts Urine 0-2 /LPF (0-2); RBC Urine 0-2 /HPF (0-2); WBC Urine 0-5 /HPF (0-5)
[2024-12-14 09:06] LABS: Estimated Average Glucose 169 mg/dL; Hemoglobin A1C 192.8784 umol/L; Hemoglobin A1c % 7.5 % (<6.0); Total Hemoglobin (HGBA1C) 3315.0575 umol/L
[2024-12-14 09:25] LABS: Alanine Aminotransferase 17 U/L (0-31); Albumin Level 3.9 g/dL (3.5-5.0); Anion Gap 12 (12-20); Aspartate Amino Transferase 17 U/L (5-31); Bilirubin Total 0.5 mg/dL (0.0-1.0); Blood Urea Nitrogen 23 mg/dL (9-16); Calcium 9.1 mg/dL (8.4-10.2); Carbon Dioxide 29 mmol/L (22-29); Chloride 105 mmol/L (96-108); Cholesterol 191 mg/dL (<200); Estimated Glomerular Filt Rate > 60; Glucose Fasting 138 mg/dL (60-99); HDL Cholesterol 48 mg/dL (>40); LDL Cholesterol Calculated 104 mg/dL (<100); Potassium 3.4 mmol/L (3.3-5.1); Sodium 143 mmol/L (135-145); Total Protein 7.3 g/dL (6.5-8.0); Triglycerides 195 mg/dL (<150)
[2024-12-14 09:32] LABS: Creatinine Urine 97.03 mg/dL; Microalbum/Creatinine Ratio Ur 7.2 ug/mg cr (<30)
[2024-12-14 09:44] LABS: Folate 8.2 ng/mL (> or = 4.0); Vitamin B12 344 pg/mL (200-900)
[2024-12-14 09:49] LABS: TSH reflex Free T4 1.32 uIU/mL (0.32-4.0)
[2024-12-14 09:54] LABS: Alkaline Phosphatase 125 U/L (39-117)
== END 2024-12-14 07:54 | disposition home or self-care (01) ==
LOC: HO.LAB 07:53
PROVIDERS: PCP Internal Medicine; Visit Provider Internal Medicine
DX: E78.00 Pure hypercholesterolemia, unspecified (principal); D64.9 Anemia, unspecified; E11.9 Type 2 diabetes mellitus without complications; E53.8 Deficiency of other specified B group vitamins; E55.9 Vitamin D deficiency, unspecified
CPT/HCPCS: 36415; 80053; 80061; 81001; 81003; 82043; 82306; 82570; 82607; 82746; 83036; 84443; 85025

== ENCOUNTER 2024-12-27 12:59 | Outpatient (REF) | payer OTHER, SELFPAY ==
--- NOTE | ~2024-12-27 | US_ITS ---
EXAMINATION: US THYROID CLINICAL INFORMATION: Disorder of thyroid, unspecified. Lump on neck. Goiter. COMPARISON: None available. TECHNIQUE: Linear transducer grayscale and color Doppler examination with attention to the region of the thyroid. FINDINGS: SIZE: Measurements of the thyroid lobes and nodules are given in sagittal, anteroposterior and transverse dimensions respectively. Right Thyroid Lobe: 6.0 x 3.7 x 3.2 cm, volume 37 mL. Parenchyma: The gland echotexture is heterogeneous. Thyroid vascularity is normal. Left Thyroid Lobe: 4.7 x 2.4 x 2.0 cm, volume 12 mL. Parenchyma: The gland echotexture is homogeneous. Thyroid vascularity is normal. Isthmus: 0.4 cm in maximum AP dimension. Estimated total number of nodules greater than or equal to 1 cm: 5. Vegetable Trimmer nodules are described as follows: 1. Location: Right mid pole. Size: 3.4 x 3.2 x 2.7 cm, volume 15.4 mL. Nodule characteristics: Composition: Mixed cystic and solid (1). Echogenicity: Cannot be determined (1). Shape: Taller than wide (3). Margins: Smooth (0). Echogenic Foci: None (0). ACR TI-RADS total points: 5 ACR TI-RADS category: 4 2. Location: Right lower pole. Size: 1.6 x 1.3 x 1.5 cm, volume 1.7 mL. Nodule characteristics: Composition: Solid/almost completely solid (2). Echogenicity: Cannot be determined (1). Shape: Not taller than wide (0). Margins: Smooth (0). Echogenic Foci: None (0). ACR TI-RADS total points: 3 ACR TI-RADS category: 3 3. Location: Right lower pole. Size: 1.0 x 1.2 x 1.2 cm, volume 0.79 mL. Nodule characteristics: Composition: Solid/almost completely solid (2). Echogenicity: Isoechoic (1). Shape: Not taller than wide (0). Margins: Smooth (0). Echogenic Foci: None (0). ACR TI-RADS total points: 3 ACR TI-RADS category: 3 4. Location: Left midpole. Size: 1.3 x 1.0 x 1.5 cm, volume 0.969 mL. Nodule characteristics: Composition: Solid (2). Echogenicity: Isoechoic (1). Shape: Not taller than wide (0). Margins: Smooth (0). Echogenic Foci: None (0). ACR TI-RADS total points: 3 ACR TI-RADS category: 3. 5. Location: Left lower pole. Size: 1.4 x 1.3 x 1.6 cm, volume 1.62 mL. Nodule characteristics: Composition: Mixed cystic and solid (1). Echogenicity: Hypoechoic (2). Shape: Not taller than wide (0). Margins: Ill-defined (0). Echogenic Foci: None (0). ACR TI-RADS total points: 3 ACR TI-RADS category: 3 NODES: No lymphadenopathy is seen in the tissue surrounding the thyroid gland. US/US thyroid IMPRESSION: 1. There is a partially cystic 3.4 cm TR category 4 nodule in the right midpole. FNA recommended. 2. There is a 1.6 cm TR category 3 nodule in the right lower pole. Follow-up recommended. 3. There is a 1.2 cm TR category 3 nodule in the right lower pole. No follow-up recommended. 4. There is a 1.5 cm TR category 3 nodule in the left midpole. Follow-up recommended. 5. There is a 1.6 cm TR category 3 nodule in the left lower pole. Follow-up recommended. 6. The surrounding thyroid parenchyma is mildly heterogeneous suggestive of thyroiditis. ACR TI-RADS RECOMMENDATION REFERENCE: Ultrasound-guided fine-needle aspiration, followup ultrasound, no further follow up. * TR1 (0 point) and TR2 (2 points): No FNA or follow up. * TR3 (3 points): FNA if more than or equal to 2.5 cm in maximum dimension, followup ultrasound in 1, 3 and 5 years if 1.5 to 2.4 cm in maximum dimension. * TR4 (4-6 points): FNA if more than or equal to 1.5 cm in maximum dimension, followup ultrasound in 1, 2, 3 and 5 years if 1 to 1.4 cm in maximum dimension. * TR5 (more than or equal to 7 points): FNA if more than or equal to 1 cm in maximum dimension, followup ultrasound every year for 5 years if 0.5 to 0.9 cm in maximum dimension. * TR3, TR4 or TR5 nodules that are below the size threshold for followup receive no follow up. Electronically signed by: Nabor Burnett MD 12/27/2024 02:59 PM EDT RP
--- OUTSIDE RECORDS SUMMARY | 2024-12-27 14:14 | XMS_ITS | Clinical Summary ---
Author Organization Unknown Care Team Providers Care Clinician Oncology Name Role Phone CECI STEINER MD, MIHAI Unavailable Unavail able SALO REED, RICH Unavailable Unavailable Payers Payer Name Policy Type Policy Number Effective Date Expira tion Date [facility] [place] [id number] [place] [facility] [id number] MEDICARE - [facility] [id number] Problems Condition Name Condition Details Condition Category [...] 5 mg tablet 02-22 00:00: 00 Yes [id number] 5 mg DAILY 5 mg KRYSTAL Y (route: oral) Med Classific ation: Central Nervous System Agents atorvastati n 10 mg tablet 02-14 00:00: 00 Yes [id number] 10 mg EVERY PM 10 mg EVERY PM (route: oral) Med Classific ation: Cardiovas cular Therapy Agents docusate sodium 100 mg capsule 02-14 00:00: 00 Yes [id number] 100 capsule DIRECTED 100 capsule DIRECTED (route: oral) Med Classific ation: Gastroint estinal Therapy Agents hydrochloro thiazide 25 mg tablet 02-14 00:00: 00 Yes [id number] 25 mg DAILY 25 mg DAILY (route: oral) Med Classific ation: Cardiovas cular Therapy Agents Januvia 100 mg tablet 02-14 00:00: 00 Yes [id number] 100 mg DAILY 100 mg DAILY (route: oral) Med Classific ation: Endocrine lurasidone 80 mg tablet 02-14 00:00: 00 Yes [id number] 80 mg DAILY 80 mg DAILY (route: oral) Med Classific ation: Central Nervous System Agents metformin ER 500 mg tablet,exte nded release 24 hr 02-14 00:00: 00 Yes [id number] 500 mg DAILY 500 mg DAILY (route: oral) Med Classific ation: Endocrine calcium 500 mg (as calcium carbonate 1,250 mg) tablet 02-14 00:00: 00 Yes [id number] 500 mg EVERY AM 500 mg EVERY AM (route: oral) Med Classific ation: Electroly te Balance-N utritiona l Products clozapine 100 mg tablet 02-07 00:00: 00 10-23 23:59 :00 No [id number] 100 mg BEDTIME 100 mg BEDTIME (route: oral) Med Classific ation: Central Nervous System Agents clozapine 50 mg tablet 02-07 00:00: 00 08-21 23:59 :00 No [id number] 50 mg BEDTIME 50 mg BEDTIME (route: oral) Med Classific ation: Central Nervous System Agents polyethylen e glycol 3350 17 gram/dose oral powder 02-01 00:00: 00 Yes [id number] 17 g NEEDED 17 g NEEDED (route: oral) Med Classific ation: Gastroint estinal Therapy Agents Multivitami n 50 Plus tablet 03-01 00:00: 00 Yes [id number] 1 tablet DAILY 1 tablet DAILY (route: oral) Med Classific ation: Electroly te Balance-N utritiona l Products clozapine 50 mg tablet - 00:00: 00 Yes [id number] 50 mg BEDTIME 50 mg BEDTIME (route: oral) Med Classific ation: Central Nervous System Agents Clozaril 100 mg tablet 2- 00:00: 00 Yes [id number] 100 mg BEDTIME 100 mg BEDTIME (route: oral) Med Classific ation: Central Nervous System Agents Vital Signs Vital Name Observation Time Observation Value Commen ts Temperature 2024-12-25 07:27:00.000 97.5 [degF] Temperature 2024-12-23 23:49:00.000 97.3 [degF] Temperature 2024-12-18 07:34:00.000 97.5 [degF] Temperature 2024-12-13 07:24:00.000 97.5 [degF] Temperature 2024-12-11 07:48:00.000 97.3 [degF] Temperature 2024-12-06 [...] 98.1 [degF] Temperature 2024-10-30 07:21:00.000 98 [degF] Pulse 2024-12-23 23:49:00.000 74 /min Respirations 2024-12-23 23:49:00.000 20 /min Systolic Blood Pressure 2024-12-23 23:49:00.000 120 mm [Hg] Diastolic Blood Pressure 2024-12-23 23:49:00.000 62 mm [Hg] Plan of Treatment Planned Activity Planned Date [...] AWARENESS FOR SAFETY AND WILL NOTIFY CLINICAL UNIX CONSULTANT AND PHYSICIAN/PROVIDER WITH ANY CHANGE IN CONDITION. [code = SKILLED NURSE WILL MAINTAIN SITUATIONAL AWARENESS FOR SAFETY AND WILL NOTIFY CLINICAL UNIX CONSULTANT AND PHYSICIAN/PROVIDER WITH ANY CHANGE IN CONDITION.] [...] Goal - TAKING MY MED S Goal 2024-12-21 Patient Goal - TAKING MY MED S [...] End Date/Time Encounter Type Admission Type Attending [facility] Care Department Encounter ID Discharge Date Discharge Status Discharge Condition Discharge Reason Percent Goals Met 2024-03-01 00:00:00 2024-12-25 00:00:00 Outpatient RECERTIFIC ATRICH GARZA [facility] [id number] 12.00
== END 2024-12-27 13:00 | disposition home or self-care (01) ==
LOC: HO.US 12:59
PROVIDERS: PCP Internal Medicine
DX: E07.9 Disorder of thyroid, unspecified (principal)
CPT/HCPCS: 76536

== ENCOUNTER → 2024-12-27 13:00 | Outpatient (BNV) | payer OTHER, SELFPAY | PROVIDERS: PCP Internal Medicine; Visit Provider Radiology Diagnostic Radiology | DX: E04.1 Nontoxic single thyroid nodule (principal) | CPT/HCPCS: 76536 ==

== ENCOUNTER 2025-02-20 09:35 | Outpatient (AMB) | payer OTHER, SELFPAY ==
[2025-02-20 09:37] VITALS: BP 100/58; PULSE 100; O2SAT 95; BMI 39.5
--- NOTE | 2025-02-20 09:37 | MHC.OFFVIS ---
Vital Signs 02/20/25 09:37 Height 5 ft 3 in Weight 223 lb 1.725 oz BMI 39.5 BP 100/58 L Blood Pressure Location Lt brachial Position Sitting Pulse 100 Pulse Source Pulse Oximeter Pulse Oximetry (%) 95 Oxygen Delivery Method Room Air Intake Visit Reasons: Nontoxic single thyroid nodule Intake Note: New patient present today for Nontoxic single thyroid nodule. 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: No Accompanied by: Self / Same As Patient Allergies haloperidol (From HALDOL) Allergy (Intermediate, Verified 02/20/25 09:41) RASH,ACNE lithium (LITHIUM) Allergy (Intermediate, Verified 02/20/25 09:41) RASH,ACNE simvastatin Allergy (Intermediate, Verified 02/20/25 09:41) headaches escitalopram Allergy (Mild, Verified 02/20/25 09:41) Blister risperidone (From Risperdal) Allergy (Verified 02/20/25 09:41) Unknown furosemide Adverse Reaction (Intermediate, Verified 02/20/25 09:41) rash hydroxyzine Adverse Reaction (Intermediate, Verified 02/20/25 09:41) rash Medication List - Last Reconciled 02/20/25 by Cielo Gann MD aripiprazole 10 mg PO DAILY atorvastatin 10 mg PO DAILY blood sugar diagnostic (Prodigy No Coding strips) test twice per day blood sugar diagnostic (FreeStyle Lite Strips) As directed once a day blood-glucose meter (Prodigy Pocket Meter kit) test twice per day blood-glucose meter (FreeStyle Lite Meter kit) As directed calcium carbonate (Oyster Shell Calcium 500) 500 mg PO BID cefuroxime axetil 250 mg PO BID clonazepam 0.5 mg PO BID PRN clozapine 50 mg PO BEDTIME 30 days clozapine 200 mg (2 x 100 mg) PO BEDTIME 30 days compress.stocking,knee,reg,med As directed [COMPRESSION STOCKINGS with ZIPPERS As directed] [diabetic winter boots As directed] docusate sodium 100 mg PO BID hydrochlorothiazide 25 mg PO DAILY ibuprofen 200 mg PO Q6H PRN Januvia (sitagliptin phosphate) 100 mg PO DAILY NS lactulose 10 grams (15 mL) PO BEDTIME PRN 3 days lancets (Prodigy Lancets) test twice per day lancets (FreeStyle Lancets) As directed once a day [lightweight cane As directed] Linzess (linaclotide) 290 mcg PO QAM PRN 30 days NS lurasidone 80 mg PO BEDTIME magnesium oxide 400 mg PO BID metformin ER 500 mg PO BEDTIME 90 days multivitamin 1 tab PO DAILY polyethylene glycol 3350 17 grams PO DAILY tramadol 50 mg PO BID PRN 10 days triamcinolone acetonide 0.1% 1 appl topical BID [Tubi registered occupational therapist socks As directed] [TUBIGRIP SOCKS (Large) As directed] HPI Comments Details: 65-year-old female here today for initial evaluation of nontoxic multinodular goiter. Patient describes she felt some pain in her neck which prompted the ultrasound. Sometime around November 2024. self resolved. Ultrasound of the thyroid 12/27/2024, I reviewed the images myself which showed a right midpole 3.4 cm cyst. It has barely any solid component to it.. There is a very high likelihood though of getting nondiagnostic biopsies out of mostly cystic nodules. At this time we will continue to follow up. Right lower pole 1.6 cm mixed cystic solid, hypoechoic TR 3 nodule, meets criteria for follow up. Another right lower pole 1.2 cm solid isoechoic TR 3 nodule. Left midpole 1.5 cm solid isoechoic TR 3 nodule meets criteria for follow up. A left lower pole 1.6 cm mixed cystic solid hypoechoic TR 3 nodule also meets criteria for follow up. Normal TSH from November 2024. Patient currently denies heat or cold intolerance, diarrhea or constipation, hair loss, palpitation, anxiety, mood changes, low energy, changes in appearance of eyes or vision changes, tremors, increased diaphoresis or dry skin. Reports weight gain due to increased appetite. ? Patient denies any difficulty swallowing, pain on swallowing or voice changes or difficulty breathing. Patient denies any history of childhood neck radiation. Denies having ever used amiodarone or biotin supplements. Was on lithium in the 80s for 5 or so years , for schizophrenia. Patient denies any family history of thyroid cancer. Mother had thyroid nodules. on disability Lives by herself Quit smoking 40 years ago , was a heavy smoker before PMHx DM type 2 HTN Schizophrenia Laboratory Tests 12/14/24 08:23 TSH 1.32 US THYROID 12/27/24 CLINICAL INFORMATION: Disorder of thyroid, unspecified. Lump on neck. Goiter. COMPARISON: None available. TECHNIQUE: Linear transducer grayscale and color Doppler examination with attention to the region of the thyroid. FINDINGS: SIZE: Measurements of the thyroid lobes and nodules are given in sagittal, anteroposterior and transverse dimensions respectively. Right Thyroid Lobe: 6.0 x 3.7 x 3.2 cm, volume 37 mL. Parenchyma: The gland echotexture is heterogeneous. Thyroid vascularity is normal. Left Thyroid Lobe: 4.7 x 2.4 x 2.0 cm, volume 12 mL. Parenchyma: The gland echotexture is homogeneous. Thyroid vascularity is normal. Isthmus: 0.4 cm in maximum AP dimension. Estimated total number of nodules greater than or equal to 1 cm: 5. Power Distributor nodules are described as follows: 1. Location: Right mid pole. Size: 3.4 x 3.2 x 2.7 cm, volume 15.4 mL. Nodule characteristics: Composition: Mixed cystic and solid (1). Echogenicity: Cannot be determined (1). Shape: Taller than wide (3). Margins: Smooth (0). Echogenic Foci: None (0). ACR TI-RADS total points: 5 ACR TI-RADS category: 4 2. Location: Right lower pole. Size: 1.6 x 1.3 x 1.5 cm, volume 1.7 mL. Nodule characteristics: Composition: Solid/almost completely solid (2). Echogenicity: Cannot be determined (1). Shape: Not taller than wide (0). Margins: Smooth (0). Echogenic Foci: None (0). ACR TI-RADS total points: 3 ACR TI-RADS category: 3 3. Location: Right lower pole. Size: 1.0 x 1.2 x 1.2 cm, volume 0.79 mL. Nodule characteristics: Composition: Solid/almost completely solid (2). Echogenicity: Isoechoic (1). Shape: Not taller than wide (0). Margins: Smooth (0). Echogenic Foci: None (0). ACR TI-RADS total points: 3 ACR TI-RADS category: 3 4. Location: Left midpole. Size: 1.3 x 1.0 x 1.5 cm, volume 0.969 mL. Nodule characteristics: Composition: Solid (2). Echogenicity: Isoechoic (1). Shape: Not taller than wide (0). Margins: Smooth (0). Echogenic Foci: None (0). ACR TI-RADS total points: 3 ACR TI-RADS category: 3. 5. Location: Left lower pole. Size: 1.4 x 1.3 x 1.6 cm, volume 1.62 mL. Nodule characteristics: Composition: Mixed cystic and solid (1). Echogenicity: Hypoechoic (2). Shape: Not taller than wide (0). Margins: Ill-defined (0). Echogenic Foci: None (0). ACR TI-RADS total points: 3 ACR TI-RADS category: 3 NODES: No lymphadenopathy is seen in the tissue surrounding the thyroid gland. US/US thyroid IMPRESSION: 1. There is a partially cystic 3.4 cm TR category 4 nodule in the right midpole. FNA recommended. 2. There is a 1.6 cm TR category 3 nodule in the right lower pole. Follow-up recommended. 3. There is a 1.2 cm TR category 3 nodule in the right lower pole. No follow-up recommended. 4. There is a 1.5 cm TR category 3 nodule in the left midpole. Follow-up recommended. 5. There is a 1.6 cm TR category 3 nodule in the left lower pole. Follow-up recommended. 6. The surrounding thyroid parenchyma is mildly heterogeneous suggestive of thyroiditis. [facility] Medical History Diabetes mellitus T2DM (type 2 diabetes mellitus) Diabetes mellitus type 2, controlled, without complications Screening for breast cancer Incisional hernia Umbilical hernia Obesity (BMI 30-39.9) Schizophrenia Constipation Pyuria Leukocytosis Primary osteoarthritis of both knees Stasis edema of both lower extremities Vitamin D deficiency Pure hypercholesterolemia Surgical History History of incisional hernia repair (~01/10/21) H/O colonoscopy History of splenectomy Family History Father Medical history unknown Mother Diabetes Family/Other FH: mental illness Mental health disorder Social History Household Members: None Housing: Other Housing Other:: [place] Housing Do you presently have visiting nurse or other home services: No Alcohol intake: never Patient Tobacco Use Status: Former Tobacco user e-Cigarette/Vaping Use: Never Used Second Hand Smoke Exposure: Yes service: No Current occupational status: disabled Cognitive needs: No Hearing needs: No Vision needs: Yes (Reading glasses) Physical Exam Vital Signs: Last Vital Signs Pulse 100 02/20/25 09:37 BP 100/58 L 02/20/25 09:37 Pulse Ox 95 02/20/25 09:37 Oxygen Delivery Method Room Air 02/20/25 09:37 BMI result Body Mass Index 39.5 Assessment & Plan Assessment & Plan (1) Multinodular goiter: Code(s): E04.2 - Nontoxic multinodular goiter Category: Medical Plan: 65-year-old female with no family history of thyroid cancer, with no personal history of head or neck radiation who is coming in today for initial evaluation of multinodular goiter. Patient describes she felt some pain in her neck which prompted the ultrasound. Sometime around November 2024. self resolved. Ultrasound of the thyroid 12/27/2024, I reviewed the images myself which showed a right midpole 3.4 cm cyst. It has barely any solid component to it.. There is a very high likelihood of getting nondiagnostic biopsies out of mostly cystic nodules. At this time we will continue to follow up. She does not have any compressive symptoms from this. Right lower pole 1.6 cm mixed cystic solid, hypoechoic TR 3 nodule, meets criteria for follow up. Another right lower pole 1.2 cm solid isoechoic TR 3 nodule. Left midpole 1.5 cm solid isoechoic TR 3 nodule meets criteria for follow up. A left lower pole 1.6 cm mixed cystic solid hypoechoic TR 3 nodule also meets criteria for follow up. Normal TSH November 2024. I explained that it is common to have thyroid nodules. About 95% of the time these nodules are benign. However if the nodule is > 1 cm in size or suspicious on ultrasound then a fine need aspiration biopsy is recommended. At this point given that the right midpole 3.4 cm nodule is mostly a cyst with barely any solid component to it, I would classify this as either benign versus very low suspicion nodule with a less than 3% risk of malignancy. Per DANISHA guidelines you could consider biopsy of very low suspicion nodules when they are greater than 2 cm in size, the even the size of her cyst is large, it has barely any solid component to it and I am quite certain if we attempt a biopsy, it is going to come back as cyst fluid/nondiagnostic. At this point we will continue to monitor, we will plan to repeat an ultrasound in December 2025. She does not have any compressive symptoms despite the size of the cyst, otherwise if patient is bothered by these cysts, 1 could also consider radiofrequency ablation or ethanol ablation or aspiration of the cyst. Though with the aspirations there is a high chance of recurrence. Plan: -ordered ultrasound of the thyroid in December 2025 with follow up in January 2026 to discuss results -ordered TSH and free T4 to be done December 2025 prior to next follow up Plan I spent 45 minutes in reviewing the record, seeing the patient and documenting in the medical record. Orders: Orders Thyroid Stimulating Hormone 01/07/26 E04.2 - Nontoxic multinodular goiter Free T4 (Free Thyroxine) 01/07/26 E04.2 - Nontoxic multinodular goiter US thyroid 01/07/26 E04.2 - Nontoxic multinodular goiter Patient Instructions: Do ultrasound of the thyroid in December 2025, someone will call you to schedule this Do blood work in December 2025, these orders are already placed to the lab Follow up with me after doing the above in January 2026 to discuss results in 1 year Coding Level of Care Code New Pt Level 4 (52080) Diagnoses Multinodular goiter E04.2 Time Spent (min) 45
== END 2025-02-20 10:09 | disposition home or self-care (01) ==
LOC: HO.ENCR 09:36
PROVIDERS: PCP Internal Medicine; Visit Provider Student in an Organized Health Care Education/Training Program
DX: E04.2 Nontoxic multinodular goiter (principal)
CPT/HCPCS: 99204

== ENCOUNTER → 2025-02-20 09:35 | Outpatient (BNVA) | payer OTHER, SELFPAY | PROVIDERS: PCP Internal Medicine; Visit Provider Student in an Organized Health Care Education/Training Program | DX: E04.2 Nontoxic multinodular goiter (principal) | CPT/HCPCS: 99202 ==

== ENCOUNTER 2025-02-22 09:00 | Outpatient (RCR) | payer OTHER, SELFPAY ==
--- NOTE | 2025-02-22 09:56 | MHC.OT.DC ---
[address] [phone] F: [phone] Occupational Therapy Discharge Note Patient Name: Kristin Caceres Provider: Gallito Natarajan Diagnosis: (B)LE lymphedema Date of Surgery: Date of Evaluation: 12/14/24 Date of Discharge: Treatments to Date: 9 Cancellations to Date: No Shows to Date: Discharge Status: Improved Function Discharge Summary: Patient has decreased her (R)LE lymph volume by 46.7cms and (L)LE volume by 39cms achieving her STGS. At this time patient is d/c'd from skilled OT/lymphedema therapy as she has achieved her maximal potential. She has been educated extensively on how to don/doff compression garments but has demonstrated poor carryover of techniques. She does have VNA services and a video was recorded with education and demonstration of how to don/doff appropriately. She is inconsistent with wearing her compression garments due to not having daily support and declined to ask family/friends for assistance. It is recommended that she has daily support. A referral will be made for a Tactile compression pump in order to have daily lymphatic massage. Thank you for your referral. Electronically Signed By: TOMER Seth/Moise, CHRISTINA Reviewed/agree with student documentation: Therapist: Please Sign and return to therapist, thank you for your referral.
== END 2025-02-22 09:57 | disposition home or self-care (01) ==
LOC: HO.OT 09:00
PROVIDERS: PCP Internal Medicine; Visit Provider Surgery Vascular Surgery
DX: I89.0 Lymphedema, not elsewhere classified (principal)
CPT/HCPCS: 97140; 97165; 97535

== ENCOUNTER 2025-03-30 07:28 | Outpatient (AMB) | payer OTHER, SELFPAY ==
[2025-03-30 07:30] VITALS: BP 90/60; PULSE 90; TEMP 36.6; O2SAT 97; BMI 39.0
--- NOTE | 2025-03-30 07:30 | AM.OFFWIN_ITS ---
Intake Vital Signs 03/30/25 07:30 Height 5 ft 3 in Weight 220 lb 2 oz BMI 39.0 BP 90/60 Blood Pressure Location Lt brachial Position Sitting Pulse 90 Pulse Source Pulse Oximeter Temp 97.8 F Temp Source Oral Pulse Oximetry (%) 97 Oxygen Delivery Method Room Air Intake Visit Reasons: EP Rash on legs/stomach/arms Patient Tobacco Use Status: Former Tobacco user Is last menstrual period known: No Post menopausal: Yes Patient : No Allergies haloperidol (From HALDOL) Allergy (Intermediate, Verified 02/20/25 09:41) RASH,ACNE lithium (LITHIUM) Allergy (Intermediate, Verified 02/20/25 09:41) RASH,ACNE simvastatin Allergy (Intermediate, Verified 02/20/25 09:41) headaches escitalopram Allergy (Mild, Verified 02/20/25 09:41) Blister risperidone (From Risperdal) Allergy (Verified 02/20/25 09:41) Unknown furosemide Adverse Reaction (Intermediate, Verified 02/20/25 09:41) rash hydroxyzine Adverse Reaction (Intermediate, Verified 02/20/25 09:41) rash Do you need a note to return to daycare/school/sports/work: No HPI HPI Comments History of Present Illness Details History - The patient is a 65-year-old female pr esenting with a rash. - The rash is widespread, affecting area s such as the legs and belly, and is accompanied by severe itching. - The rash is intermittent with no ident ified triggers, and previous treatment with triamcinolone cream has been ineffective. - The patient suspects a medication caus e, but this was not confirmed by her primary care physician. - No new environmental factors or allerg ens have been identified. - She denies fever, chills, joint pain, bug bites, CP, SOB, abd pain, discharge or bleeding. Physical Exam General: Cooperative, healthy appearing, comfortable, no acute distress and well developed Orientation: Patient oriented x3 Limitations: No limitations Mouth: normal, moist oral mucosa Neck: Normal visual inspection and Yes full ROM Respiratory: Normal respiratory effort and able to speak in complete sentences. Clear to auscultation bilaterally. No w/r/r noted. Cardiovascular: RRR, no m/r/g noted. Normal S1 and S2 Skin: Scattered erythematous flat non-tender blanchable dry patches noted on the left lower leg. No discharge or crusting noted. Patient was informed and verbally consented to the use of an ambient scribe for clinic note documentation during this visit [facility] Medical History (Updated 02/20/25 @ 10:04 by Cielo Gann MD) Multinodular goiter Diabetes mellitus T2DM (type 2 diabetes mellitus) Diabetes mellitus type 2, controlled, without complications Screening for breast cancer Incisional hernia Umbilical hernia Obesity (BMI 30-39.9) Schizophrenia Constipation Pyuria Leukocytosis Primary osteoarthritis of both knees Stasis edema of both lower extremities Vitamin D deficiency Pure hypercholesterolemia Surgical History History of incisional hernia repair (~01/10/21) H/O colonoscopy History of splenectomy Family History Father Medical history unknown Mother Diabetes Family/Other FH: mental illness Mental health disorder Social History Household Members: None Housing: Other Housing Other:: [place] Housing Do you presently have visiting nurse or other home services: No Alcohol intake: never Patient Tobacco Use Status: Former Tobacco user e-Cigarette/Vaping Use: Never Used Second Hand Smoke Exposure: Yes Patient : No service: No Current occupational status: disabled Cognitive needs: No Hearing needs: No Vision needs: Yes (Reading glasses) Review of Systems Const All systems reviewed & are unremarkable except as noted in HPI and below Physical Exam Vital Signs: Last Vital Signs Temp 97.8 F 03/30/25 07:30 Pulse 90 03/30/25 07:30 BP 90/60 03/30/25 07:30 Pulse Ox 97 03/30/25 07:30 Oxygen Delivery Method Room Air 03/30/25 07:30 BMI result Body Mass Index 39.0 Assessment & Plan Assessment & Plan (1) Rash: Code(s): R21 - Rash and other nonspecific skin eruption Plan Most likely contact dermatitis vs allergic reaction vs eczema Plan - betamethasone cream to the rash - prednisone for 5 days - cetirizine daily - can refer to derm if no better - follow up with PCP Medications: New prednisone 40 mg (2 x 20 mg) PO DAILY 10 tabs 0RF 5 days cetirizine 10 mg PO DAILY PRN 30 tabs 0RF allergy symptoms betamethasone dipropionate 0.05% 1 appl topical DAILY PRN 45 grams 0RF skin irritation 7 days Coding Level of Care Code Est Pt Level 3 (20038) Diagnoses Rash R21
--- OUTSIDE RECORDS SUMMARY | 2025-04-23 20:00 | XMS_ITS | Clinical Summary ---
Author Organization Unknown Care Team Providers Care Supply And Distribution Manager Name Role Phone CECI STEINER MD, MIHAI Unavailable Unavail able SALO REED, RICH Unavailable Unavailable Payers Payer Name Policy Type Policy Number Effective Date Expira tion Date [facility] [place] [id number] MEDICAID [facility] [id number] MEDICARE - [facility] [id number] Problems Condition Name Condition Details Condition Category [...] 5 mg tablet 02-22 00:00: 00 Yes [id number] 5 mg DAILY 5 mg KRYSTAL Y (route: oral) Med Classific ation: Central Nervous System Agents atorvastati n 10 mg tablet 02-14 00:00: 00 Yes [id number] 10 mg EVERY PM 10 mg EVERY PM (route: oral) Med Classific ation: Cardiovas cular Therapy Agents docusate sodium 100 mg capsule 02-14 00:00: 00 Yes [id number] 100 capsule DIRECTED 100 capsule DIRECTED (route: oral) Med Classific ation: Gastroint estinal Therapy Agents hydrochloro thiazide 25 mg tablet 02-14 00:00: 00 Yes [id number] 25 mg DAILY 25 mg DAILY (route: oral) Med Classific ation: Cardiovas cular Therapy Agents Januvia 100 mg tablet 02-14 00:00: 00 Yes [id number] 100 mg DAILY 100 mg DAILY (route: oral) Med Classific ation: Endocrine lurasidone 80 mg tablet 02-14 00:00: 00 Yes [id number] 80 mg DAILY 80 mg DAILY (route: oral) Med Classific ation: Central Nervous System Agents metformin ER 500 mg tablet,exte nded release 24 hr 02-14 00:00: 00 Yes [id number] 500 mg DAILY 500 mg DAILY (route: oral) Med Classific ation: Endocrine calcium 500 mg (as calcium carbonate 1,250 mg) tablet 02-14 00:00: 00 Yes [id number] 500 mg EVERY AM 500 mg EVERY AM (route: oral) Med Classific ation: Electroly te Balance-N utritiona l Products clozapine 100 mg tablet 02-07 00:00: 00 10-23 23:59 :00 No [id number] 100 mg BEDTIME 100 mg BEDTIME (route: oral) Med Classific ation: Central Nervous System Agents clozapine 50 mg tablet 02-07 00:00: 00 08-21 23:59 :00 No [id number] 50 mg BEDTIME 50 mg BEDTIME (route: oral) Med Classific ation: Central Nervous System Agents polyethylen e glycol 3350 17 gram/dose oral powder 02-01 00:00: 00 Yes [id number] 17 g NEEDED 17 g NEEDED (route: oral) Med Classific ation: Gastroint estinal Therapy Agents Multivitami n 50 Plus tablet 03-01 00:00: 00 Yes [id number] 1 tablet DAILY 1 tablet DAILY (route: oral) Med Classific ation: Electroly te Balance-N utritiona l Products clozapine 50 mg tablet - 00:00: 00 Yes [id number] 50 mg BEDTIME 50 mg BEDTIME (route: oral) Med Classific ation: Central Nervous System Agents Clozaril 100 mg tablet 2- 00:00: 00 Yes [id number] 100 mg BEDTIME 100 mg BEDTIME (route: oral) Med Classific ation: Central Nervous System Agents Vital Signs Vital Name Observation Time Observation Value Commen ts Temperature 2025-03-28 08:37:00.000 97.5 [degF] Temperature 2025-03-26 09:31:00.000 97.8 [degF] Temperature 2025-03-14 07:42:00.000 97.8 [degF] Temperature 2025-03-12 07:15:00.000 97.5 [degF] Temperature 2025-03-07 07:26:00.000 97.5 [degF] Temperature 2025-03-05 07:31:00.000 97.5 [degF] Temperature 2025-02-28 07:10:00.000 97.8 [degF] Temperature 2025-02-26 07:27:00.000 97.7 [degF] Pulse 2025-03-28 08:37:00.000 90 /min Pulse 2025-03-26 09:31:00.000 98 /min Respirations 2025-03-28 08:37:00.000 18 /min Systolic Blood Pressure 2025-03-28 08:37:00.000 114 mm [Hg] Diastolic Blood Pressure 2025-03-28 08:37:00.000 71 mm [Hg] Plan of Treatment Planned Activity [...] AND FALL PREVENTION STRATEGIES.] Future Scheduled Test PATIENT GANDHI S A RISK OF HOSPITALIZATION AND ED USE. SKILLED NURSE TO ESTABLISH SUPPORT MEASURES TO MINIMIZE RISK OF HOSPITALIZATION AND ED USE, AND INSTRUCT PATIENT/CAREGIVER ON METHODS TO REDUCE AVOIDABLE HOSPITALIZATION AND ED USE. [code = PATIENT HAS A RISK OF HOSPITALIZATION AND ED USE. SKILLED NURSE TO ESTABLISH SUPPORT MEASURES TO MINIMIZE RISK OF HOSPITALIZATION AND ED USE, AND INSTRUCT PATIENT/CAREGIVER ON METHODS TO REDUCE AVOIDABLE HOSPITALIZATION AND ED USE.] Future Scheduled Test SKILLED NU RSE TO PROVIDE INSTRUCTION TO PATIENT/CAREGIVER RELATED TO DISCHARGE PLANNING. [code = SKILLED NURSE TO PROVIDE INSTRUCTION TO PATIENT/CAREGIVER RELATED TO DISCHARGE PLANNING.] Future Scheduled Test SKILLED NU RSE TO ASSESS HIGH RISK PATIENT FOR CHANGE IN CONDITION: MOOD/BEHAVIOR, MISSED MEDICATIONS, CHANGE IN LIVING SITUATION, HOMICIDAL IDEATION, ACTIVE SUBSTANCE USE WITH MOOD ALTERING SUBSTANCES INCLUDING BUT NOT LIMITED TO COCAINE, CRACK, HEROIN, FENTANYL AND ENSURE EARLY IDENTIFICATION TO MAINTAIN SAFETY. SKILLED NURSE WILL MAINTAIN SITUATIONAL AWARENESS FOR SAFETY AND WILL NOTIFY CLINICAL SOCIAL SERVICE TECHNICIAN AND PHYSICIAN/PROVIDER WITH ANY CHANGE IN CONDITION. [code = SKILLED NURSE TO ASSESS HIGH RISK PATIENT FOR CHANGE IN CONDITION: MOOD/BEHAVIOR, MISSED MEDICATIONS, CHANGE IN LIVING SITUATION, HOMICIDAL IDEATION, ACTIVE SUBSTANCE USE WITH MOOD ALTERING SUBSTANCES INCLUDING BUT NOT LIMITED TO COCAINE, CRACK, HEROIN, FENTANYL AND ENSURE EARLY IDENTIFICATION TO MAINTAIN SAFETY. SKILLED NURSE WILL MAINTAIN SITUATIONAL AWARENESS FOR SAFETY AND WILL NOTIFY CLINICAL SOCIAL SERVICE TECHNICIAN AND PHYSICIAN/PROVIDER WITH ANY CHANGE IN CONDITION.] Future Scheduled Test SKILLED NU RSE WILL MAINTAIN SITUATIONAL AWARENESS FOR SAFETY AND WILL NOTIFY CLINICAL SOCIAL SERVICE TECHNICIAN AND PHYSICIAN/PROVIDER WITH ANY CHANGE IN CONDITION. [code = SKILLED NURSE WILL MAINTAIN SITUATIONAL AWARENESS FOR SAFETY AND WILL NOTIFY CLINICAL SOCIAL SERVICE TECHNICIAN AND PHYSICIAN/PROVIDER WITH ANY CHANGE IN CONDITION.] [...] Test SKILLED NU RSE TO ADMINISTER MEDICATIONS THREE TIMES A WEEK AND PRE-POUR MEDICATIONS TILL NEXT CUSTODIAL VISIT PER MEDICATION LIST. [code = SKILLED NURSE TO ADMINISTER MEDICATIONS THREE TIMES A WEEK AND PRE-POUR MEDICATIONS TILL NEXT CUSTODIAL VISIT PER MEDICATION LIST.] Future Scheduled Test SKILLED NU RSE FOR MEDICATION ADMINISTRATION PER MEDICATION LIST TO BE PERFORMED THREE TIMES A WEEK [code = SKILLED NURSE FOR MEDICATION ADMINISTRATION PER MEDICATION LIST TO BE PERFORMED THREE TIMES A WEEK ] Future Scheduled Test SKILLED [...] Goal - TAKING MY MED S Goal 2025-02-19 Patient Goal - TAKING MY MED S Goal Patient Goal - TAKING MY MED S Goal Provider Goal - A PLAN OF CARE WILL BE ESTABLISHED THAT MEETS PATIENT'S CUSTODIAL NEEDS AND INCLUDES PATIENT GOAL FOR HOME HEALTH. Goal Provider Goal - PATIENT/CAREGIVER WILL VERBALIZE/DEMONSTRATE EFFECTIVE HOME SAFETY AND FALL PREVENTION STRATEGIES THROUGHOUT CERTIFICATION PERIOD. Goal Provider Goal - PATIENT WILL HAVE SUPPORT MEASURES ESTABLISHED TO PREVENT HOSPITALIZATION AND ED USE AND PATIENT/CAREGIVER WILL VERBALIZE/DEMONSTRATE METHODS TO REDUCE AVOIDABLE HOSPITALIZATION AND ED USE BY END OF EPISODE. Goal Provider Goal - PATIENT/CAREGIVER WILL VERBALIZE UNDERSTANDING OF DISCHARGE PLANNING INSTRUCTIONS BY DATE OF DISCHARGE. Goal Provider Goal - HIGH SAFETY RISK PATIENT WILL REMAIN SAFE IN THE COMMUNITY AND WILL BE FREE FROM DANGER TO SELF AND OTHERS THROUGHOUT CERTIFICATION PERIOD. Goal Provider Goal - [...] End Date/Time Encounter Type Admission Type Attending [facility] Care Department Encounter ID Discharge Date Discharge Status Discharge Condition Discharge Reason Percent Goals Met 2025-02-24 00:00:00 2025-04-24 00:00:00 Outpatient RECERTIFIC ATION RICH LEONG [facility] [id number] 16.67
== END 2025-03-30 08:12 | disposition home or self-care (01) ==
PROVIDERS: PCP Internal Medicine; Visit Provider Physician Assistant Medical
DX: R21 Rash and other nonspecific skin eruption (principal)

== ENCOUNTER → 2025-03-30 07:28 | Outpatient (BNVA) | payer OTHER, SELFPAY | PROVIDERS: PCP Internal Medicine; Visit Provider Physician Assistant Medical | DX: R21 Rash and other nonspecific skin eruption (principal) | CPT/HCPCS: 99212 ==

== ENCOUNTER 2025-04-24 09:20 | Outpatient (REF) | payer OTHER, SELFPAY ==
[2025-04-24 10:01] LABS: MANUAL DIFF FLAG NO
[2025-04-24 11:02] LABS: Hematocrit 37.8 % (37.0-47.0); Hemoglobin 12.2 g/dl (12.0-16.0); Imm Gran Abs Auto 0.07 X10*3/uL (0.00-0.03); Imm Gran Pct Auto 0.5 % (0.0-0.4); Lymphocytes Absolute Auto 4.9 X10*3/uL (1.2-4.9); Mean Corpuscular HGB Conc 32.3 g/dl (31.0-35.0); Mean Corpuscular Hemoglobin 30.7 pg (27.0-33.0); Mean Corpuscular Volume 95.0 fL (80.0-98.0); NRBC Abs Auto 0.000 X10*3/uL (0.0-0.012); NRBC Pct Auto 0.0 /100WBC (0.0-0.2); Platelet Count 391 X10*3/uL (160-400); Red Blood Count 3.98 X10*6/uL (4.20-5.50); White Blood Count 13.3 X10*3/uL (4.8-10.8)
== END 2025-04-24 09:21 | disposition home or self-care (01) ==
LOC: HO.LABR 09:20
PROVIDERS: PCP Internal Medicine; Visit Provider Psychiatry & Neurology Psychiatry
DX: Z79.899 Other long term (current) drug therapy (principal)
CPT/HCPCS: 36415; 85025

== ENCOUNTER 2025-05-24 09:41 | Outpatient (AMB) | payer OTHER, SELFPAY ==
[2025-05-24 09:50] VITALS: BP 110/60; PULSE 84; O2SAT 96; BMI 39.9
--- NOTE | 2025-05-24 09:50 | A.OFFPC_ITS ---
Vital Signs 05/24/25 09:50 Height 5 ft 3 in Weight 225 lb 8 oz BMI 39.9 BP 110/60 Blood Pressure Location Lt brachial Position Sitting Pulse 84 Pulse Source Pulse Oximeter Pulse Oximetry (%) 96 Oxygen Delivery Method Room Air Intake Visit Reasons: 3 Months f/u- A1C needed Dietary Manager Required: No Accompanied by: Self / Same As Patient Allergies haloperidol (From HALDOL) Allergy (Intermediate, Verified 05/24/25 10:21) RASH,ACNE lithium (LITHIUM) Allergy (Intermediate, Verified 05/24/25 10:21) RASH,ACNE simvastatin Allergy (Intermediate, Verified 05/24/25 10:21) headaches escitalopram Allergy (Mild, Verified 05/24/25 10:21) Blister risperidone (From Risperdal) Allergy (Verified 05/24/25 10:21) Unknown furosemide Adverse Reaction (Intermediate, Verified 05/24/25 10:21) rash hydroxyzine Adverse Reaction (Intermediate, Verified 05/24/25 10:21) rash Medication List - Last Reconciled 05/24/25 by Abel Mejía MD aripiprazole 10 mg PO DAILY atorvastatin 10 mg PO DAILY betamethasone dipropionate 0.05% 1 appl topical DAILY PRN 7 days blood sugar diagnostic (Prodigy No Coding strips) test twice per day blood sugar diagnostic (FreeStyle Lite Strips) As directed once a day blood-glucose meter (Prodigy Pocket Meter kit) test twice per day blood-glucose meter (FreeStyle Lite Meter kit) As directed calcium carbonate (Oyster Shell Calcium 500) 500 mg PO BID cetirizine 10 mg PO DAILY PRN clonazepam 0.5 mg PO BID PRN clozapine 50 mg PO BEDTIME 30 days clozapine 200 mg (2 x 100 mg) PO BEDTIME 30 days compress.stocking,knee,reg,med As directed [COMPRESSION STOCKINGS with ZIPPERS As directed] [diabetic winter boots As directed] hydrochlorothiazide 25 mg PO DAILY ibuprofen 200 mg PO Q6H PRN Januvia (sitagliptin phosphate) 100 mg PO DAILY 90 days NS lactulose 10 grams (15 mL) PO BEDTIME PRN 3 days lancets (Prodigy Lancets) test twice per day lancets (FreeStyle Lancets) As directed once a day [lightweight cane As directed] Linzess (linaclotide) 290 mcg PO QAM PRN 30 days NS lurasidone 80 mg PO BEDTIME magnesium oxide 400 mg PO BID metformin ER 500 mg PO BEDTIME 90 days multivitamin 1 tab PO DAILY polyethylene glycol 3350 17 grams PO DAILY tramadol 50 mg PO BID PRN 10 days [Tubi service liaison representative socks As directed] [TUBIGRIP SOCKS (Large) As directed] Tobacco use date assessed: 05/24/25 Fall risk assessment: No Falls in past year Last assessed Fall Risk: 05/24/25 Dental Screening Dental Screen Date: 05/24/25 Did you have a dental visit in the last 12 months?: No Did you have a dental problem in the last 6 months where you did not have access to dental care?: No Was dental information given to patient?: No HPI 3 Months f/u- A1C needed HPI Details Patient comes in today for her follow-up visit States that she has been experiencing recurrent dizziness for the past few weeks, especially when she gets up too quickly States that there have been times when she feels like she was going to pass out and has to hold onto something and sit down for a while She denies any headaches Denies any exertional chest pains, no increased SOB No nausea/vomiting, no abdominal pain No change in bowel habits noted Other than CBC done last month, patient has no other follow up labs done recently [facility] Medical History (Updated 05/24/25 @ 10:37 by Abel Mejía MD) Multinodular goiter Diabetes mellitus T2DM (type 2 diabetes mellitus) Diabetes mellitus type 2, controlled, without complications Screening for breast cancer Incisional hernia Umbilical hernia Obesity (BMI 30-39.9) Schizophrenia Constipation Pyuria Leukocytosis Primary osteoarthritis of both knees Stasis edema of both lower extremities Vitamin D deficiency Pure hypercholesterolemia Surgical History History of incisional hernia repair (~01/10/21) H/O colonoscopy History of splenectomy Family History Father Medical history unknown Mother Diabetes Family/Other FH: mental illness Mental health disorder Social History Household Members: None Housing: Other Housing Other:: [facility] Do you presently have visiting nurse or other home services: No Alcohol intake: never Patient Tobacco Use Status: Former Tobacco user e-Cigarette/Vaping Use: Never Used Second Hand Smoke Exposure: Yes service: No Current occupational status: disabled Cognitive needs: No Hearing needs: No Vision needs: Yes (Reading glasses) Questionnaire PHQ-9 Over the last 2 weeks, how often have you been bothered by any of the following problems? 1. Little interest or pleasure in doing things: not at all 2. Feeling down, depressed, or hopeless: not at all 3. Trouble falling or staying asleep, or sleeping too much: nearly every day 4. Feeling tired or having little energy: nearly every day 5. Poor appetite or overeating: nearly every day 6. Feeling bad about yourself - or that you are a failure or have let yourself or your family down: more than half the days 7. Trouble concentrating on things, such as reading the newspaper or watching television: several days 8. Moving or speaking so slowly that other people could have noticed. Or the opposite - being so fidgety or restless that you have been moving around a lot more than usual: several days 9. Thoughts that you would be better off or of hurting yourself in some way: several days Total score: 14 Depression Screening Interpretation: Positive Depression Screening Follow-up: Existing condition and In treatment Depression Screening Done: Yes 83965 - PHQ-9 Billing: Yes Source: Developed by Drs. Cody Askew, Coni Madden, Jose L Frost and colleagues, with an educational mansoor from [employer]. Thrive Questionnaire Date Thrive assessed: 05/24/25 I am a: Patient What is your living situation today?: I have a steady place to live Within the past 12 months, did the food you bought not last and you didn't have the money to get more?: Never true Within the past 12 months, did you worry whether your food would run out before you got money to buy more?: Never true Do you have trouble paying for medicines?: No Do you have trouble getting transportation to medical appointments?: No Do you have trouble paying your heating and electricity bill?: No Do you have trouble taking care of your child, family member or friend?: Yes Do you have trouble with day-to-day activities such as bathing, preparing meals, shopping, managing finances, etc.?: No Are you currently unemployed and looking for a job?: No Are you interested in more education?: No Please select the resources that you would like help with: None Currently or been in a relationship where the following occur: No concerns reported THRIVE Score: 0 AUDIT C Alcohol Use Questionnaire (AUDIT-C) 1. How often do you have a drink containing alcohol?: Never 3. How often do you have six or more drinks on one occasion?: Never Total Score: 0 Score Reviewed/Action Taken: Yes ROSA-7 AMB Questionnaire ROSA-7 Date ROSA - 7 assessed: 11/23/24 Feeling nervous, anxious, or on edge: 1 = Several days Not being able to stop or control worryin = Several days Worrying too much about different things: 1 = Several days Trouble relaxin = Not at all Being so restless that it is hard to sit still: 0 = Not at all Becoming easily annoyed or irritable: 0 = Not at all Feeling afraid as if something awful might happen: 0 = Not at all Total ROSA-7 score (0-4 normal; 5-9 mild; 10-14 moderate; 15-21 severe): 3 Source: Developed by Drs. Cody Askew, Coni Madden, Jose L Frost and colleagues, with an educational mansoor from [employer]. Review of Systems Const Denies chills, Reports fatigue, Denies fever(s) and Denies headache(s) ENT Denies dysphagia, Reports dizziness (on and off lately - see HPI), Denies otalgia, Denies headache(s), Denies neck pain, Denies odynophagia and Denies sore throat Card Denies chest pain, Denies palpitations and Denies dyspnea Resp Denies chest congestion, Denies cough and Denies dyspnea GI Denies abdominal pain, Reports constipation (on and off, better controlled l ately), Denies dysphagia, Denies heartburn, Denies diarrhea, Denies nausea, Denies odynophagia and Denies vomiting Denies difficulty voiding, Denies nocturia, Denies dysuria and Denies urinary urgency Musc Denies back pain, Reports arthralgias (both knees and right hip) and Denies neck pain Skin/Breast Denies rash Neuro Reports dizziness (on and off lately - see HPI) and Denies headache(s) Psych Denies anxiety and Reports depression Endo Reports fatigue and Denies palpitations Physical exam (Primary Care) Vital Signs: Last Vital Signs Pulse 84 05/24/25 09:50 BP 110/60 05/24/25 09:50 Pulse Ox 96 05/24/25 09:50 Oxygen Delivery Method Room Air 05/24/25 09:50 BMI result Body Mass Index 39.9 Tobacco/Smoking Status: Tobacco use Status Tobacco use date assessed 05/24/25 05/24/25 09:58 Patient Tobacco Use Status Former Tobacco user 05/24/25 09:58 e-Cigarette/Vaping Use Never Used 05/24/25 09:58 PHQ-9: PHQ-9 Score PHQ-9: Total score 14 05/24/25 10:35 Depression Screening Interpretation: Positive Depression Screening Follow-up: Existing condition and In treatment Thrive Assessment: Date of Thrive Assessment Date Thrive assessed 09/29/24 05/24/25 09:58 Currently or been in a relationship where the following occur: No concerns reported Const General: no acute distress and alert HENMT Ears: TM's normal bilaterally and EAC's normal Throat: Yes posterior oropharynx normal and Yes tonsils normal (no TP congestion noted) Neck Neck: Yes supple and No lymphadenopathy Thyroid: Thyroid normal Resp Auscultation: clear to auscultation bilaterally, no rales and no wheezes Cardio Rate: regular rate Rhythm: regular rhythm Heart sounds: no murmurs GI Palpation (GI): Soft to palpation and nontender Auscultation: normal bowel sounds General: Yes no CVA tenderness Back/Spine/Pelvis Back: no CVA tenderness Thoracic/Lumbar Spine: No lumbar spinal tenderness Skin Rashes: no rashes Extrem General: No clubbing, No cyanosis and Yes edema (2+ bilaterally) Right lower extremity: hip/thigh Details: tenderness Location: of the hip and knee Details: tenderness; no swelling Left lower extremity: knee Details: tenderness and ecchymosis; no swelling Results AMB Hemoglobin A1c AMB Hemoglobin A1c 7.1 % Last Edit by ANALILIA Gross on 05/24/25 10 :35 Results Reviewed Results Reviewed: Laboratory Last Values Hgb A1c (Clinic) 7.1 % (4.0-6.0) H 05/24/25 10:22 Laboratory Tests 07/31/20 12/14/24 04/24/25 10:31 08:23 10:00 WBC 13.3 H Hgb 12.2 Hct 37.8 Plt Count 391 Sodium 143 Potassium 3.4 Creatinine 0.89 Estimated GFR > 60 Fasting Glucose 138 H Hgb A1c (Clinic) 7.2 H Coding Level of Care Code Est Pt Level 4 (26308) Diagnoses Orthostasis I95.1 Pure hypercholesterolemia E78.00 Type 2 diabetes mellitus without complication, without long-term current use of insulin E11.9 Diabetes mellitus type: type 2 Diabetes mellitus middle or intermediate school principal insulin use: without middle or intermediate school principal use Diabetes mellitus complication status: without complication Vitamin D deficiency E55.9 Constipation, unspecified constipation type K59.00 Constipation type: unspecified constipation type Primary osteoarthritis of both knees M17.0 Right hip pain M25.551 Lymphedema I89.0 Schizophrenia, unspecified type F20.9 Schizophrenia type: unspecified Obesity (BMI 30-39.9) E66.9 Additional Codes PHQ-9 - 48025 - PHQ-9 Billing: Yes ([id number]) Assessment & Plan Assessment & Plan (1) Orthostasis: Code(s): I95.1 - Orthostatic hypotension Category: Medical Plan: Her blood pressure appears to be running relatively low over her past few visits but she is not on any medication that should be affecting or lowering her blood pressure Will send patient for some labs NISH for further evaluation Will also send her for EKG and echocardiogram, as well as refer her to cardiology for further evaluation and management (2) Pure hypercholesterolemia: Code(s): E78.00 - Pure hypercholesterolemia, unspecified Category: Medical Plan: Have advised patient that her cholesterol levels when last checked in November 2024 have improved from previous We will be sending her for some labs NISH for further evaluation and will also include a fasting lipid profile for follow-up Reinforced low cholesterol diet Continue Atorvastatin 10 mg QD Will have patient recheck her labs and fasting lipids again in 3 months for follow up (3) Diabetes mellitus: Code(s): E11.9 - Type 2 diabetes mellitus without complications Category: Medical Qualifiers: Diabetes mellitus type: type 2 Diabetes mellitus skilled nursing insulin use: without middle or intermediate school principal use Diabetes mellitus complication status: without complic ation Qualified Code(s): E11.9 - Type 2 diabetes mellitus without complications Plan: Her in-office HgbA1c today is at 7.1% (her HgbA1c was previously at 7.4% a few months ago) - goal is at least < 7.0% Reinforced diabetic diet Continue Metformin ER 500 mg QD and Januvia 100 mg Q AM Follow up with (diabetic) office machine servicer apprentice as scheduled (4) Vitamin D deficiency: Code(s): E55.9 - Vitamin D deficiency, unspecified Category: Medical Plan: Continue Vitamin D3 1000 units QD (5) Constipation: Code(s): K59.00 - Constipation, unspecified Category: Medical Qualifiers: Constipation type: unspecified constipation type Qualified Code(s): K59.00 - Constipation, unspecified Plan: Better controlled Reinforced increased oral fluids and dietary fiber intake Continue Bisacodyl 10 mg suppositories PRN and Lactulose solution when needed; continue Metamucil daily and she also takes Senna additionally as needed (6) Primary osteoarthritis of both knees: Code(s): M17.0 - Bilateral primary osteoarthritis of knee Category: Medical Plan: X-rays done a couple of years ago showed (+) mild osteoarthritis changes in both knees; this remained unchanged on her more recent x-rays done in January 2024 She is encouraged again to continue with regular exercises to help minimize her joint pain and stiffness Will consider referral to Orthopedics if her knee pain progresses (7) Right hip pain: Code(s): M25.551 - Pain in right hip Category: Medical Plan: X-rays of the hips and pelvis done back in July 2023 revealed (+) old healed fractures of the superior and inferior right pubic rami in the region of the pubis with associated degenerative change at the pubic symphysis Right hip x-rays showed a faintly seen low-density region about the neck of the proximal right femur without displacement or angular abnormality. This is likely artifactual in nature, however, a nondisplaced compression fracture cannot be excluded A pelvic CT was subsequently done, which showed no acute fracture or dislocation of the right hip or pelvis, but there is an old healed fracture with exuberant callus in the right superior pubic ramus She is advised that this is likely the source of her right hip discomfort/pain and if this continues, will consider referring her to orthopedics for further management and/or recommendations (8) Lymphedema: Code(s): I89.0 - Lymphedema, not elsewhere classified Category: Medical Plan: (+) Hx of venous ablation Patient has not been able to tolerate the use of compression pumps to help relieve the edema of her lower extremities as these tend to aggravate her right hip/groin pain She was recommended to try following [place] [facility] [place] to try to assist with leg wraps on a more regular basis Follow up with vascular surgery as scheduled (9) Schizophrenia: Code(s): F20.9 - Schizophrenia, unspecified Category: Medical Qualifiers: Schizophrenia type: unspecified Qualified Code(s): F20.9 - Schizophrenia, unspecified Plan: Continue Trihexyphenidyl 5 mg once a day, Clozaril 125 mg 1 & 1/2 tablet once a day at bedtime, Abilify 20 mg 2 tablets once a day, Latuda 120 mg once a day and Clonazepam 1 mg once a day as needed Follow-up with Psychiatry as scheduled (10) Obesity (BMI 30-39.9): Code(s): E66.9 - Obesity, unspecified Category: Medical Plan: Reinforced diet/exercise as tolerated/lose weight Plan Follow up in 3 months Orders: Orders AMB Hemoglobin A1c Today Z13.9 - Encounter for screening, unspecified Complete Blood Count Auto Diff Today D64.9 - Anemia, unspecified, I95.1 - Orthostatic hypotension Vitamin B12 and Folate Today E53.8 - Deficiency of other specified B group vitamins, I95.1 - Orthostatic hypotension Comprehensive [place]. Panel Fast 3 Months E78.00 - Pure hypercholesterolemia, unspecified Microalbumin, Random (w Creat) 3 Months E11.9 - Type 2 diabetes mellitus without complications Hemoglobin A1c 6 Months E11.9 - Type 2 diabetes mellitus without complications UA CC w/rflx Micro + Cult 3 Months R30.0 - Dysuria Vitamin D 25-OH Total 3 Months E55.9 - Vitamin D deficiency, unspecified CA echo transthoracic complete Today I95.1 - Orthostatic hypotension, I95.9 - Hypotension, unspecified Comprehensive [place]. Panel Fast Today E78.00 - Pure hypercholesterolemia, unspe cified, I95.1 - Orthostatic hypotension Lipid Panel Today E78.00 - Pure hypercholesterolemia, unspecified, I95.1 - Orthostatic hypotension TSH reflex Free T4 Today E78.00 - Pure hypercholesterolemia, unspecified, I95.1 - Orthostatic hypotension UA CC w/rflx Micro + Cult Today I95.1 - Orthostatic hypotension, R30.0 - D ysuria Vitamin D 25-OH Total Today E55.9 - Vitamin D deficiency, unspecified, I95.1 - Orthostatic hypotension Microalbumin, Random (w Creat) Today E11.9 - Type 2 diabetes mellitus without complications, I95.1 - Orthostatic hypotension ECG 12 lead EKG Today I95.1 - Orthostatic hypotension Magnesium Today E83.42 - Hypomagnesemia, I95.1 - Orthostatic hypotension Cortisol Random Today I95.1 - Orthostatic hypotension Aldosterone Today I95.1 - Orthostatic hypotension Lipid Panel 3 Months E78.00 - Pure hypercholesterolemia, unspecified Complete Blood Count Auto Diff 4 Months D64.9 - Anemia, unspecified TSH reflex Free T4 3 Months E78.00 - Pure hypercholesterolemia, unspecified Referrals Cardiology Referral I95.1 - Orthostatic hypotension
--- OUTSIDE RECORDS SUMMARY | 2025-06-22 20:00 | XMS_ITS | Clinical Summary ---
Author Organization Unknown Care Team Providers Care Blending Tank Tender Name Role Phone CECI STEINER MD, MIHAI Unavailable Unavail able SALO REED, RICH Unavailable Unavailable Payers Payer Name Policy Type Policy Number Effective Date Expira tion Date [facility] [id number] MEDICAID [facility] [id number] MEDICARE - [facility]/[place] [id number] Problems Condition Name Condition Details Condition Category [...] 5 mg tablet 02-22 00:00: 00 Yes [id number] 5 mg DAILY 5 mg KRYSTAL Y (route: oral) Med Classific ation: Central Nervous System Agents atorvastati n 10 mg tablet 02-14 00:00: 00 Yes [id number] 10 mg EVERY PM 10 mg EVERY PM (route: oral) Med Classific ation: Cardiovas cular Therapy Agents docusate sodium 100 mg capsule 02-14 00:00: 00 Yes [id number] 100 capsule DIRECTED 100 capsule DIRECTED (route: oral) Med Classific ation: Gastroint estinal Therapy Agents hydrochloro thiazide 25 mg tablet 02-14 00:00: 00 Yes [id number] 25 mg DAILY 25 mg DAILY (route: oral) Med Classific ation: Cardiovas cular Therapy Agents Januvia 100 mg tablet 02-14 00:00: 00 Yes [id number] 100 mg DAILY 100 mg DAILY (route: oral) Med Classific ation: Endocrine lurasidone 80 mg tablet 02-14 00:00: 00 Yes [id number] 80 mg DAILY 80 mg DAILY (route: oral) Med Classific ation: Central Nervous System Agents metformin ER 500 mg tablet,exte nded release 24 hr 02-14 00:00: 00 Yes [id number] 500 mg DAILY 500 mg DAILY (route: oral) Med Classific ation: Endocrine calcium 500 mg (as calcium carbonate 1,250 mg) tablet 02-14 00:00: 00 Yes [id number] 500 mg EVERY AM 500 mg EVERY AM (route: oral) Med Classific ation: Electroly te Balance-N utritiona l Products clozapine 100 mg tablet 02-07 00:00: 00 10-23 23:59 :00 No [id number] 100 mg BEDTIME 100 mg BEDTIME (route: oral) Med Classific ation: Central Nervous System Agents clozapine 50 mg tablet 02-07 00:00: 00 08-21 23:59 :00 No [id number] 50 mg BEDTIME 50 mg BEDTIME (route: oral) Med Classific ation: Central Nervous System Agents polyethylen e glycol 3350 17 gram/dose oral powder 02-01 00:00: 00 Yes [id number] 17 g NEEDED 17 g NEEDED (route: oral) Med Classific ation: Gastroint estinal Therapy Agents Multivitami n 50 Plus tablet 03-01 00:00: 00 Yes [id number] 1 tablet DAILY 1 tablet DAILY (route: oral) Med Classific ation: Electroly te Balance-N utritiona l Products clozapine 50 mg tablet - 00:00: 00 Yes [id number] 50 mg BEDTIME 50 mg BEDTIME (route: oral) Med Classific ation: Central Nervous System Agents Clozaril 100 mg tablet 2- 00:00: 00 Yes [id number] 100 mg BEDTIME 100 mg BEDTIME (route: oral) Med Classific ation: Central Nervous System Agents Vital Signs Vital Name Observation Time Observation Value Commen ts Temperature 2025-05-23 07:55:00.000 97.5 [degF] Temperature 2025-05-21 [...] A WEEK AND PRE-POUR MEDICATIONS TILL NEXT RETIREMENT VISIT PER MEDICATION LIST. [code = SKILLED NURSE TO ADMINISTER MEDICATIONS THREE TIMES A WEEK AND PRE-POUR MEDICATIONS TILL NEXT RETIREMENT VISIT PER MEDICATION LIST.] Future Scheduled Test [...] AWARENESS FOR SAFETY AND WILL NOTIFY CLINICAL WEED SCIENCE RESEARCH TECHNICIAN AND PHYSICIAN/PROVIDER WITH ANY CHANGE IN CONDITION. [code = SKILLED NURSE WILL MAINTAIN SITUATIONAL AWARENESS FOR SAFETY AND WILL NOTIFY CLINICAL WEED SCIENCE RESEARCH TECHNICIAN AND PHYSICIAN/PROVIDER WITH ANY CHANGE IN [...] CARE WILL BE ESTABLISHED THAT MEETS PATIENT'S RETIREMENT NEEDS AND INCLUDES PATIENT GOAL FOR HOME [...] Date/Time Encounter Type Admission Type Attending [facility] Care Department Encounter ID Discharge Date Discharge Status Discharge Condition Discharge Reason Percent Goals Met 2025-04-25 00:00:00 2025-06-23 00:00:00 Outpatient RECERTIFIC RICH DAILY [facility] [id number] 13.51
== END 2025-05-24 10:43 | disposition home or self-care (01) ==
LOC: HO.HMCH 09:42
PROVIDERS: PCP Internal Medicine; Visit Provider Internal Medicine
DX: I95.1 Orthostatic hypotension (principal); E78.00 Pure hypercholesterolemia, unspecified; E11.9 Type 2 diabetes mellitus without complications; F20.9 Schizophrenia, unspecified; E55.9 Vitamin D deficiency, unspecified; K59.00 Constipation, unspecified; M17.0 Bilateral primary osteoarthritis of knee; M25.551 Pain in right hip; I89.0 Lymphedema, not elsewhere classified; E66.9 Obesity, unspecified

== ENCOUNTER → 2025-05-24 09:41 | Outpatient (BNVA) | payer OTHER, SELFPAY | PROVIDERS: PCP Internal Medicine; Visit Provider Internal Medicine | DX: I95.1 Orthostatic hypotension (principal); E78.00 Pure hypercholesterolemia, unspecified; E11.9 Type 2 diabetes mellitus without complications; E55.9 Vitamin D deficiency, unspecified; K59.00 Constipation, unspecified; M17.0 Bilateral primary osteoarthritis of knee; M25.551 Pain in right hip; I89.0 Lymphedema, not elsewhere classified; F20.9 Schizophrenia, unspecified; E66.9 Obesity, unspecified; Z68.39 Body mass index [BMI] 39.0-39.9, adult; Z79.84 Long term (current) use of oral hypoglycemic drugs; Z79.899 Other long term (current) drug therapy; Z13.31 Encounter for screening for depression | CPT/HCPCS: 83036; 96127; 99212 ==

== ENCOUNTER 2025-06-03 09:08 | Inpatient (IN) | payer OTHER, SELFPAY ==
[2025-06-03] VITALS (9 sets, daily range): BP systolic 100–160; BP diastolic 55–100; PULSE 77–107; RESP 14–20; TEMP 36.9–38.6; O2SAT 93–97; BMI 40.1
--- NOTE | 2025-06-03 09:43 | ECG_ITS ---
Test Reason : CLEARENCE QTC CHECK Blood Pressure : */* mmHG Vent. Rate : 97 BPM Atrial Rate : 97 BPM P-R Int : 172 ms QRS Dur : 88 ms QT Int : 344 ms P-R-T Axes : 35 40 26 degrees QTcB Int : 436 ms Normal sinus rhythm Normal ECG When compared with ECG of 23-Aug-2023 16:01, No significant change was found Referred By: Generic ED Physician Electronically Signed By: ARMAAN AYERS MD
--- NOTE | 2025-06-03 09:51 | ED.GENADULT ---
HPI - General Adult General Chief complaint: Psychiatric Symptoms Stated complaint: J CARLOS,WEAK X3D,DIFF STANDING/WALKING,CAROLYN 160/100 Time Seen by Provider: 06/03/25 09:51 Source: patient Mode of arrival: EMS Limitations: no limitations History of Present Illness ED Provider: ASHLI Kapadia HPI narrative: 65-year-old female with medical history of T2DM, schizophrenia, lymphedema, constipation, presents to the ED due to 2 days of lower extremity weakness and auditory hallucinations. Patient states she has been hearing her boyfriend's voice telling her to kill herself. Patient states she wants to overdose on medications. Over the past 2 days patient states she has felt weakness in her lower extremities, with intermittent dizziness that last for a few minutes at a time worse with head movement, not associated with nausea, diaphoresis or lightheadedness. MD complaint: JOÃO WHITMAN weakness Related Data Home Medications ?Medication ?Instructions ?Recorded ?Confirmed aripiprazole 10 mg tablet 10 mg PO DAILY 07/31/20 05/24/25 lurasidone 80 mg tablet 80 mg PO BEDTIME 07/31/20 05/24/25 clonazepam 0.5 mg tablet 0.5 mg PO BID PRN Anxiety 08/23/23 05/24/25 multivitamin 1 tab PO DAILY 08/24/23 05/24/25 Previous Rx's ?Medication ?Instructions ?Recorded clozapine 100 mg tablet 200 mg (2 x 100 mg) PO BEDTIME 30 12/30/21 days #60 tabs clozapine 50 mg tablet 50 mg PO BEDTIME 30 days #30 tabs 12/30/21 Tubi womens volleyball coach socks #2 ea 09/14/22 compress.stocking,knee,reg,med #2 ea 09/17/22 Linzess 290 mcg capsule 290 mcg PO QAM PRN severe 06/16/23 (linaclotide) constipation 30 days #30 caps ibuprofen 200 mg tablet 200 mg PO Q6H PRN pain #60 tabs 12/06/23 TUBIGRIP SOCKS (Large) #2 ea 02/10/24 lightweight cane #1 ea 02/10/24 tramadol 50 mg tablet 50 mg PO BID PRN pain 10 days #20 02/10/24 tabs blood sugar diagnostic (Prodigy No #50 ea 03/21/24 Coding strips) blood-glucose meter (Prodigy #1 ea 03/21/24 Pocket Meter kit) lancets 28 gauge (Prodigy Lancets) #100 ea 03/21/24 COMPRESSION STOCKINGS with ZIPPERS #2 ea 05/10/24 blood-glucose meter (FreeStyle #1 ea 05/24/24 Lite Meter kit) lactulose 10 gram/15 mL oral 10 g (15 mL) PO BEDTIME PRN 07/10/24 solution constipation 3 days #45 mL magnesium oxide 400 mg PO BID #60 caps 10/10/24 diabetic winter boots #1 ea 10/17/24 lancets 28 gauge (FreeStyle #100 ea 10/30/24 Lancets) calcium carbonate (Oyster Shell 500 mg PO BID #56 tabs 11/08/24 Calcium 500) polyethylene glycol 3350 17 17 g PO DAILY #510 grams 12/04/24 gram/dose oral powder hydrochlorothiazide 25 mg tablet 25 mg PO DAILY #90 tabs 02/08/25 atorvastatin 10 mg tablet 10 mg PO DAILY #28 tabs 03/12/25 betamethasone dipropionate 0.05 % 1 appl topical DAILY PRN skin 03/30/25 topical cream irritation 7 days #45 grams cetirizine 10 mg tablet 10 mg PO DAILY PRN allergy 03/30/25 symptoms #30 tabs blood sugar diagnostic (FreeStyle #100 ea 04/23/25 Lite Strips) Januvia 100 mg tablet (sitagliptin 100 mg PO DAILY 90 days #90 tabs 04/24/25 phosphate) metformin 500 mg tablet,extended 500 mg PO BEDTIME 90 days #90 tabs 04/24/25 release 24 hr Allergies Allergy/AdvReac Type Severity Reaction Status Date / Time haloperidol (From HALDOL) Allergy Intermediate RASH,ACNE Verified 06/03/25 09:17 lithium (LITHIUM) Allergy Intermediate RASH,ACNE Verified 06/03/25 09:17 simvastatin Allergy Intermediate headaches Verified 06/03/25 09:17 escitalopram Allergy Mild Blister Verified 06/03/25 09:17 risperidone (From Risperdal) Allergy Unknown Verified 06/03/25 09:17 furosemide AdvReac Intermediate rash Verified 06/03/25 09:17 hydroxyzine AdvReac Intermediate rash Verified 06/03/25 09:17 Review of Systems Review of Systems: CONST: Negative for fever, body aches and chills. HENT: Negative for neck pain/stiffness, headache, congestion, sore throat, swelling. EYES: Negative for discharge/pain or vision changes. RESP: Negative for cough/hemoptysis and shortness of breath. CV: Negative chest pain, difficulty breathing, palpitations. ABD: Negative pain, nausea, vomiting. : Negative increase frequency, dysuria, blood in urine or stool. MUSC: Negative for muscle aches, edema. SKIN: Negative rash, lesions/sores. NEURO: Negative headache, dizziness, weakness. POS B/L LE weakness PSYCH: POS auditory hallucinations Yes all other systems are reviewed and are negative [facility] Past Medical History Attestation statement: The following information was validated with the patient. Source: old records reviewed and nursing notes reviewed Medical History Multinodular goiter Diabetes mellitus T2DM (type 2 diabetes mellitus) Diabetes mellitus type 2, controlled, without complications Screening for breast cancer Incisional hernia Umbilical hernia Obesity (BMI 30-39.9) Schizophrenia Constipation Pyuria Leukocytosis Primary osteoarthritis of both knees Stasis edema of both lower extremities Vitamin D deficiency Pure hypercholesterolemia Surgical History History of incisional hernia repair (~01/10/21) H/O colonoscopy History of splenectomy Family History Family History Father Medical history unknown Mother Diabetes Family/Other FH: mental illness Mental health disorder Social History Social History Household Members: None Housing: Other Housing Other:: [place] [facility] Do you presently have visiting nurse or other home services: No Alcohol intake: never Patient Tobacco Use Status: Former Tobacco user Smoked in Last 30 Days: No e-Cigarette/Vaping Use: Never Used Second Hand Smoke Exposure: Yes Use of substances other than those prescribed or required for medical reasons: No Advance Directives: No Advance Directives Information Provided: Yes Nutrition Risks: No Nutritional Risk service: No Current occupational status: disabled Cognitive needs: No Hearing needs: No Vision needs: Yes (Reading glasses) Physical Exam ED Vital Signs: Vital Signs - 24 hr 06/03/25 09:12 06/03/25 10:36 06/03/25 11:04 Temperature 99.1 F 98.9 F 101.4 F H Pulse Rate 99 94 Respiratory Rate 14 16 Blood Pressure 123/70 Pulse Oximetry 93 94 Oxygen Delivery Method Room Air Room Air Oxygen Flow Rate 06/03/25 12:15 06/03/25 12:43 06/03/25 12:48 Temperature 98.4 F Pulse Rate 93 89 86 Respiratory Rate 18 16 18 Blood Pressure 102/62 104/61 100/61 Pulse Oximetry 96 94 Oxygen Delivery Method Room Air Nasal Cannula Oxygen Flow Rate 1 06/03/25 14:48 Temperature Pulse Rate 77 Respiratory Rate 18 Blood Pressure 108/63 Pulse Oximetry 95 Oxygen Delivery Method Nasal Cannula Oxygen Flow Rate 1 BMI result Body Mass Index 40.1 GENERAL APPEARANCE: ?AxOx4, no acute distress. HEENT: ?NC, AT. MMM. EOMI, clear conjunctiva, oropharynx clear. NECK: ?Supple without lymphadenopathy.? No stiffness or restricted ROM. HEART:? Normal rate and regular rhythm, normal S1/S2, no m/r/g LUNGS:? CTAB, moving air well. No crackles or wheezes are heard. ABDOMEN: ?Large rotund abdomen that is soft, nontender, nondistended BACK: No CVAT, no obvious deformity. EXTREMITIES: ?Without cyanosis, clubbing. LE with 2+ pitting edema of the feet, lymphadenopathy over anterior tibialis without pitting. NEUROLOGICAL: ?Grossly nonfocal. Alert and oriented, moving all 4 extremities. Observed to ambulate with normal gait. Skin: ?Warm and dry without any rash. Medications Administered Generic Name Dose Route Start Last Admin Trade Name Freq PRN Reason Stop Dose Admin Lactated Ringer's 1,000 mls @ 999 mls/hr 06/03/25 14:45 06/03/25 14:48 Lr IV 06/03/25 15:45 999 mls/hr .Q1H1M RADHA Administration Discontinued Medications Generic Name Dose Route Start Last Admin Trade Name Freq PRN Reason Stop Dose Admin Acetaminophen 975 mg 06/03/25 10:14 06/03/25 11:04 Acetaminophen 325 Mg Tablet PO 06/03/25 10:15 975 mg ONCE ONE Administration Acetaminophen 975 mg 06/03/25 10:32 06/03/25 11:08 Acetaminophen 325 Mg Tablet PO 06/03/25 10:33 Not Given ONCE ONE Ceftriaxone Sodium 1 gm 06/03/25 11:19 06/03/25 11:30 Ceftriaxone Sodium 1 Gm Vial IVPUSH 06/03/25 11:20 1 gm ONCE ONE Administration Lactated Ringer's 1,000 mls @ 999 mls/hr 06/03/25 11:18 06/03/25 12:41 Lr IV 06/03/25 12:18 Infused .Q1H1M ONE Infusion Potassium Chloride 40 meq 06/03/25 12:34 06/03/25 12:40 Potassium Chloride Er 20 Meq Tab.Er.Prt PO 06/03/25 12:35 40 meq ONCE ONE Administration Medical Decision Making Medical Decision Making MDM Narrative: 65-year-old female with medical history of T2DM, schizophrenia, lymphedema, constipation, presents to the ED due to 2 days of lower extremity weakness, auditory hallucinations of boyfriends voice telling her to kill herself with plan to OD on medications. Patient has not been taking her meds over last 2 days as she has forgotten . Patient has dizziness over last 2 days worse when she moves her head from side to side. VS on initial observation-BP 123/70, pulse rate of 99, respiratory rate of 14, oral temp of 99.1?, O2 saturation 93% on room air, rectal temp of 101.4. Plan: labs, EKG, UA, CARE team evaluation EKG reveals normal sinus rhythm, no ST-elevation/depression, T-wave abnormality, prolonged QT, no chest pain Labs reveal leukocytosis of 20.5, without left shift, normocytic anemia with hemoglobin of 11.8, hematocrit of 35.1, hypokalemia of 3.1, BNP WNL at 154.9, lactic acid of 1. UA reveals 1+ urine protein, 2+ urine blood, positive nitrites, 2+ leukocyte esterase, 11-20 urine WBC, 4+ urine bacteria. Viral serology negative At 11:30am on 06/03/25 I suspected urinary infection worsening mental status and contributing to weakness and started IV LR fluids, 1g IV ceftriaxone for coverage. 975 po tylenol given for elevated rectal temperature of 101.4. Does not meet sepsis criteria at this time. I reached out to Hospitalist ASHLI Pires who will admit to medicine. Fever has resolved at this time with oral temp of 98.4. Differential Diagnosis Differential Diagnoses: The differential diagnosis associated with the presentation includes Schizophrenia exacerbation Suicidal ideation with plan Electrolyte abnormality UTI Admission/Observation Consideration of admission/observation: Escalation of care including admission/observation considered Consult Healthcare Provider Management of the patient was discussed with: Hospitalist (Fanny Pires PA-C ) Lab Data MDM Lab Attestation statement: I reviewed the patient's lab results. 06/03/25 10:14 06/03/25 10:08 Labs: Lab Results 06/03/25 06/03/25 06/03/25 Range/Units 10:08 10:14 10:59 WBC 20.5 H (4.8-10.8) X10*3/uL RBC 3.81 L (4.20-5.50) X10*6/uL Hgb 11.8 L (12.0-16.0) g/dl Hct 35.1 L (37.0-47.0) % MCV 92.1 (80.0-98.0) fL MCH 31.0 (27.0-33.0) pg MCHC 33.6 (31.0-35.0) g/dl RDW 15.3 (11.0-16.0) % Plt Count 312 (160-400) X10*3/uL MPV 10.6 (9.4-12.3) fL Immature Gran % (Auto) 0.7 H (0.0-0.4) % Neut % (Auto) 72.5 (45-73) % Lymph % (Auto) 14.9 L (20-40) % Drew % (Auto) 11.8 H (2-11) % Eos % (Auto) 0.0 (0-4) % Baso % (Auto) 0.1 (0-2) % Lymph # (Auto) 3.1 (1.2-4.9) X10*3/uL Drew # (Auto) 2.4 H (0.1-1.2) X10*3/uL Eos # (Auto) 0.0 (0.0-0.4) X10*3/uL Baso # (Auto) 0.0 (0.0-0.2) X10*3/uL Abs Immat Gran (auto) 0.14 H (0.00-0.03) X10*3/uL Absolute Neuts (auto) 14.8 H (2.0-8.3) x10*3/uL Absolute Nucleated RBC 0.000 (0.0-0.012) X10*3/uL Nucleated RBC % (auto) 0.0 (0.0-0.2) /100WBC Smear Tech's Comments VERIFIED Sodium 139 (135-145) mmol/L Potassium 3.1 L (3.3-5.1) mmol/L Chloride 102 (96-108) mmol/L Carbon Dioxide 29 (22-29) mmol/L Anion Gap 11 L (12-20) BUN 25 H (9-16) mg/dL Creatinine 1.20 (0.5-1.4) mg/dL Estim Creat Clear Calc 52.0 Estimated GFR 45 Random Glucose 184 H (60-115) mg/dL Lactic Acid (0.5-2.0) mmol/L Calcium 8.5 D (8.4-10.2) mg/dL Magnesium 2.2 (1.6-2.6) mg/dL Total Bilirubin 0.7 (0.0-1.0) mg/dL AST 31 (5-31) U/L ALT 30 (0-31) U/L Alkaline Phosphatase 117 (39-117) U/L NT-Pro-B Natriuret Pep 154.9 (<300) pg/mL Total Protein 6.9 (6.5-8.0) g/dL Albumin 3.7 (3.5-5.0) g/dL Urine Color Yellow Urine Appearance Clear Urine pH 5.5 (5.0-9.0) Ur Specific [place] 1.020 (1.005-1.025) Urine Protein 30 (1+) H (Neg-Trace) mg/dL Urine Glucose (UA) Negative (Negative) mg/dL Urine Ketones Negative (Negative) mg/dL Urine Blood Moderate (2+) H (Negative) Urine Nitrite Positive H (Negative) Ur Leukocyte Esterase Moderate (2+) H (Negative) Urine RBC 0-2 (0-2) /HPF Urine WBC 11-20 (0-5) /HPF Ur Squamous Epith Cells 0-2 (0-2) /HPF Urine Bacteria 4+ (None Seen) Hyaline Casts 0-2 (0-2) /LPF COVID-19 (JANICE) (Negative) COVID-19 [facility] Influenza Type A (ALLISON) (Negative) Influenza Type B ([place]ISON) (Negative) Influenza A & B Note 06/03/25 06/03/25 Range/Units 11:15 11:26 WBC (4.8-10.8) X10*3/uL RBC (4.20-5.50) X10*6/uL Hgb (12.0-16.0) g/dl Hct (37.0-47.0) % MCV (80.0-98.0) fL MCH (27.0-33.0) pg MCHC (31.0-35.0) g/dl RDW (11.0-16.0) % Plt Count (160-400) X10*3/uL MPV (9.4-12.3) fL Immature Gran % (Auto) (0.0-0.4) % Neut % (Auto) (45-73) % Lymph % (Auto) (20-40) % Drew % (Auto) (2-11) % Eos % (Auto) (0-4) % Baso % (Auto) (0-2) % Lymph # (Auto) (1.2-4.9) X10*3/uL Drew # (Auto) (0.1-1.2) X10*3/uL Eos # (Auto) (0.0-0.4) X10*3/uL Baso # (Auto) (0.0-0.2) X10*3/uL Abs Immat Gran (auto) (0.00-0.03) X10*3/uL Absolute Neuts (auto) (2.0-8.3) x10*3/uL Absolute Nucleated RBC (0.0-0.012) X10*3/uL Nucleated RBC % (auto) (0.0-0.2) /100WBC Smear Tech's Comments Sodium (135-145) mmol/L Potassium (3.3-5.1) mmol/L Chloride (96-108) mmol/L Carbon Dioxide (22-29) mmol/L Anion Gap (12-20) BUN (9-16) mg/dL Creatinine (0.5-1.4) mg/dL Estim Creat Clear Calc Estimated GFR Random Glucose (60-115) mg/dL Lactic Acid 1.0 (0.5-2.0) mmol/L Calcium (8.4-10.2) mg/dL Magnesium (1.6-2.6) mg/dL Total Bilirubin (0.0-1.0) mg/dL AST (5-31) U/L ALT (0-31) U/L Alkaline Phosphatase (39-117) U/L NT-Pro-B Natriuret Pep (<300) pg/mL Total Protein (6.5-8.0) g/dL Albumin (3.5-5.0) g/dL Urine Color Urine Appearance Urine pH (5.0-9.0) Ur Specific [place] (1.005-1.025) Urine Protein (Neg-Trace) mg/dL Urine Glucose (UA) (Negative) mg/dL Urine Ketones (Negative) mg/dL Urine Blood (Negative) Urine Nitrite (Negative) Ur Leukocyte Esterase (Negative) Urine RBC (0-2) /HPF Urine WBC (0-5) /HPF Ur Squamous Epith Cells (0-2) /HPF Urine Bacteria (None Seen) Hyaline Casts (0-2) /LPF COVID-19 (JANICE) Negative (Negative) COVID-19 Clin Com See Note Influenza Type A (ALLISON) Negative (Negative) Influenza Type B ([place]) Negative (Negative) Influenza A & B Note See Note Independent Interpretation I performed an independent interpretation of an: EKG Interpretation: I personally interpreted the EKG which reveals normal sinus rhythm without ST-elevation/depression, T-wave abnormality, lengthened QT Vent. Rate : 97 BPM Atrial Rate : 97 BPM P-R Int : 172 ms QRS Dur : 88 ms QT Int : 344 ms P-R-T Axes : 35 40 26 degrees QTcB Int : 436 ms Normal sinus rhythm Normal ECG When compared with ECG of 23-Aug-2023 16:01, No significant change was found External Record Review External record reviewed: Inpatient record, Office record and Outpatient record Chronic Conditions Patient?s care impacted by: Diabetes and Other (Schizophrenia, lymphedema, constipation) Social Determinants Patient?s care significantly limited by Social Determinants of Health including: Other Social Determinant of Health Discharge Plan Discharge Clinical Impression: UTI (urinary tract infection), Suicidal ideation Patient Disposition: Admitted As Inpatient Interventions: [place]-Suicide Risk Severity Scale Last Done: 06/03/25 09:19
--- NOTE | 2025-06-03 09:52 | MHC.EDTECH ---
Secured 2 patient belonging bags labeled tied together [facility]
[2025-06-03 10:19] LABS: Hematocrit 35.1 % (37.0-47.0); Hemoglobin 11.8 g/dl (12.0-16.0); Imm Gran Abs Auto 0.14 X10*3/uL (0.00-0.03); Imm Gran Pct Auto 0.7 % (0.0-0.4); Lymphocytes Absolute Auto 3.1 X10*3/uL (1.2-4.9); MANUAL DIFF FLAG SCAN; Mean Corpuscular HGB Conc 33.6 g/dl (31.0-35.0); Mean Corpuscular Hemoglobin 31.0 pg (27.0-33.0); Mean Corpuscular Volume 92.1 fL (80.0-98.0); NRBC Abs Auto 0.000 X10*3/uL (0.0-0.012); NRBC Pct Auto 0.0 /100WBC (0.0-0.2); Platelet Count 312 X10*3/uL (160-400); Red Blood Count 3.81 X10*6/uL (4.20-5.50); SCAN SMEAR FLAG 1; White Blood Count 20.5 X10*3/uL (4.8-10.8)
[2025-06-03 10:37] LABS: Alanine Aminotransferase 30 U/L (0-31); Albumin Level 3.7 g/dL (3.5-5.0); Alkaline Phosphatase 117 U/L (39-117); Anion Gap 11 (12-20); Aspartate Amino Transferase 31 U/L (5-31); Blood Urea Nitrogen 25 mg/dL (9-16); Calcium 8.5 mg/dL (8.4-10.2); Carbon Dioxide 29 mmol/L (22-29); Chloride 102 mmol/L (96-108); Creatinine Clr Calc Pharmacy 52.0; Estimated Glomerular Filt Rate 45; Magnesium 2.2 mg/dL (1.6-2.6); Potassium 3.1 mmol/L (3.3-5.1); Sodium 139 mmol/L (135-145); Total Protein 6.9 g/dL (6.5-8.0)
[2025-06-03 11:07] LABS: NT Pro B Type Natriuretic Pept 154.9 pg/mL (<300)
[2025-06-03 11:12] LABS: Appearance Urine Clear; Glucose Urine UA Negative (Negative); PH 5.5 (5.0-9.0); Specific Gravity - Urine 1.020 (1.005-1.025); UMIC TRIGGER UACC YES
[2025-06-03 11:27] LABS: UACC Culture Trigger YES
[2025-06-03] MEDS: Lactated Ringers 1,000 ML 999 ML IV ×2 (11:27→14:48)
[2025-06-03 11:37] LABS: COVID-19 Test Negative (Negative); IDNOW Serial# 58CA691E
[2025-06-03 11:44] LABS: IDNOW Serial# 55D5AD1C; Influenza B2 Negative (Negative)
[2025-06-03] MEDS: Potassium Chloride ER 20 MEQ TAB.ER.PRT 40 MEQ PO (12:40)
--- NOTE | 2025-06-03 14:22 | P.HPHOSP_ITS ---
History of Present Illness Date of Service: 06/03/25 Attending physician on admission: Us[facility] Chief Complaint: weakness, auditory hallucinations This is a 65 year old female with history of T2DM, schizophrenia, lymphedema who presents to the emergency department with generalized weakness and auditory hallucinations. She states that for the past couple days she's been feeling weak with difficulty walking. She has had dizziness. She is very sleepy on exam but is arousable to verbal stimuli and is able to answer basic questions appropriately but is unable to provide details. She reportedly told the ED provider she was hearing her boyfriend's voice telling her to kill herself but when I asked she said she couldn't remember what the voices were saying. In the emergency department she was febrile with a temperature of 101.4 degrees, lab work significant for leukocytosis of 20.5, potassium of 3.1, BUN and creatinine elevated to 25/1.20. Urinalysis was concerning for UTI. She was treated with IVF and IV antibiotics and will be admitted for further management. Review of Systems 2 Review of Systems: Yes all other systems are reviewed and are negative Constitutional: Constitutional: Denies chills, Reports fever(s) and Reports malaise ENT: Reports dizziness Gastrointestinal: Gastrointestinal: Denies abdominal pain Neurologic: Reports dizziness [facility] Medical History Multinodular goiter Diabetes mellitus T2DM (type 2 diabetes mellitus) Diabetes mellitus type 2, controlled, without complications Screening for breast cancer Incisional hernia Umbilical hernia Obesity (BMI 30-39.9) Schizophrenia Constipation Pyuria Leukocytosis Primary osteoarthritis of both knees Stasis edema of both lower extremities Vitamin D deficiency Pure hypercholesterolemia Family History Father Medical history unknown Mother Diabetes Family/Other FH: mental illness Mental health disorder Surgical History History of incisional hernia repair (~01/10/21) H/O colonoscopy History of splenectomy Social History Household Members: None Housing: Other Housing Other:: [place] Housing Do you presently have visiting nurse or other home services: No Alcohol intake: never Patient Tobacco Use Status: Former Tobacco user Smoked in Last 30 Days: No e-Cigarette/Vaping Use: Never Used Second Hand Smoke Exposure: Yes Use of substances other than those prescribed or required for medical reasons: No Advance Directives: No Advance Directives Information Provided: Yes Nutrition Risks: No Nutritional Risk service: No Current occupational status: disabled Cognitive needs: No Hearing needs: No Vision needs: Yes (Reading glasses) Meds Allergies Allergy/AdvReac Type Severity Reaction Status Date / Time haloperidol (From HALDOL) Allergy Intermediate RASH,ACNE Verified 06/03/25 09:17 lithium (LITHIUM) Allergy Intermediate RASH,ACNE Verified 06/03/25 09:17 simvastatin Allergy Intermediate headaches Verified 06/03/25 09:17 escitalopram Allergy Mild Blister Verified 06/03/25 09:17 risperidone (From Risperdal) Allergy Unknown Verified 06/03/25 09:17 furosemide AdvReac Intermediate rash Verified 06/03/25 09:17 hydroxyzine AdvReac Intermediate rash Verified 06/03/25 09:17 Home Medications ?Medication ?Instructions ?Recorded ?Confirmed ?Last Taken ?Type aripiprazole 10 mg tablet 10 mg PO DAILY 07/31/2001/21 Unknown History lurasidone 80 mg tablet 80 mg PO BEDTIME 07/31/20 Unknown History clonazepam 0.5 mg tablet 0.5 mg PO BID PRN Anxiety 06/03/25 Unknown History docusate sodium 100 mg capsule 100 mg PO BID 06/03/25 06/03/25 Unknown History Physical Exam 2 Vital Signs and Narrative: Vital Signs: Last Vital Signs Temp 98.4 F 06/03/25 12:15 Pulse 86 06/03/25 12:48 Resp 18 06/03/25 12:48 BP 100/61 06/03/25 12:48 Pulse Ox 94 06/03/25 12:48 O2 Del Method Nasal Cannula 06/03/25 12:48 O2 Flow Rate 1 06/03/25 12:48 BMI result Body Mass Index 40.1 Const: Other: lethargic, arousable to verbal stimuli but falls asleep quickly but is able to answer questions appropriately. is oriented to person place and time Nutritional Appearance: obese Orientation/consciousness: patient oriented x3 Resp: Effort & Inspection: normal respiratory effort, paradoxical thoraco- abdominal movements, no respiratory distress and no use of accessory muscles Auscultation: clear to auscultation bilaterally Cardio: Rate: regular rate GI: Inspection: No distended Palpation (GI): Soft to palpation and nontender Neuro: Other: difficult to assess but is able to move all extremities, tongue midline; following commands. no focal deficits appreciated General: patient oriented x3 Results Labs 06/03/25 10:14 06/03/25 10:08 Labs: Laboratory Results - last 24 hr 06/03/25 06/03/25 06/03/25 10:08 10:14 10:59 MCV 92.1 MCH 31.0 MCHC 33.6 RDW 15.3 Plt Count 312 MPV 10.6 Immature Gran % (Auto) 0.7 H Neut % (Auto) 72.5 Lymph % (Auto) 14.9 L [place] % (Auto) 11.8 H Eos % (Auto) 0.0 Baso % (Auto) 0.1 Lymph # (Auto) 3.1 [place] # (Auto) 2.4 H Eos # (Auto) 0.0 Baso # (Auto) 0.0 Abs Immat Gran (auto) 0.14 H Absolute Neuts (auto) 14.8 H Absolute Nucleated RBC 0.000 Nucleated RBC % (auto) 0.0 Smear Tech's Comments VERIFIED Anion Gap 11 L Estim Creat Clear Calc 52.0 Estimated GFR 45 Random Glucose 184 H Lactic Acid Calcium 8.5 D Magnesium 2.2 Total Bilirubin 0.7 AST 31 ALT 30 Alkaline Phosphatase 117 NT-Pro-B Natriuret Pep 154.9 Total Protein 6.9 Albumin 3.7 Urine Color Yellow Urine Appearance Clear Urine pH 5.5 Ur Specific [place] 1.020 Urine Protein 30 (1+) H Urine Glucose (UA) Negative Urine Ketones Negative Urine Blood Moderate (2+) H Urine Nitrite Positive H Ur Leukocyte Esterase Moderate (2+) H Urine RBC 0-2 Urine WBC 11-20 Ur Squamous Epith Cells 0-2 Urine Bacteria 4+ Hyaline Casts 0-2 COVID-19 (JANICE) COVID-19 Clin Com Influenza Type A (ALLISON) Influenza Type B (ALLISON) Influenza A & B Note 06/03/25 06/03/25 11:15 11:26 MCV MCH MCHC RDW Plt Count MPV Immature Gran % (Auto) Neut % (Auto) Lymph % (Auto) [place] % (Auto) Eos % (Auto) Baso % (Auto) Lymph # (Auto) [place] # (Auto) Eos # (Auto) Baso # (Auto) Abs Immat Gran (auto) Absolute Neuts (auto) Absolute Nucleated RBC Nucleated RBC % (auto) Smear Tech's Comments Anion Gap Estim Creat Clear Calc Estimated GFR Random Glucose Lactic Acid 1.0 Calcium Magnesium Total Bilirubin AST ALT Alkaline Phosphatase NT-Pro-B Natriuret Pep Total Protein Albumin Urine Color Urine Appearance Urine pH Ur Specific [place] Urine Protein Urine Glucose (UA) Urine Ketones Urine Blood Urine Nitrite Ur Leukocyte Esterase Urine RBC Urine WBC Ur Squamous Epith Cells Urine Bacteria Hyaline Casts COVID-19 (JANICE) Negative COVID-19 Clin Com See Note Influenza Type A (ALLISON) Negative Influenza Type B (ALLISON) Negative Influenza A & B Note See Note Assessment and Plan (1) UTI (urinary tract infection): Status: Acute Plan This is a 65 year old female with history of schizophrenia, diabetes, hyperlipidemia, hypertension, lymphedema, chronic constipation who presents to the emergency room generalized weakness and auditory hallucinations found to have fever and UTI Sepsis due to UTI leukocytosis and fever with mild tachycardia LA wnl IV ceftriaxone follow urine culture and blood cultures trend cbc - seems to have component of chronic leukocytosis, but currently above baseline ALICE Creatinine has increased from 0.8 to 1.20 IVF avoid nephrotoxins follow BMP acute toxic metabolic encephalopathy Likely due to above No focal neurological deficits Denies the use of alcohol or drugs but we will check tox screen Check ammonia level Check VBG aspiration precautions auditory hallucinations with SI possibly due to encephalopathy from acute infection vs primary psych in pt with szhizophrenia treat infection and monitor for improvement sitter for safety if persistent will need care team evaluation when medically cleared hypokalemia replace K and follow BMP HTN hold HCTZ for sepsis, low bp DM SSI, POCs, ADA diet thyroid dz check TSH schizophrenia due to lethargy will hold sedating meds such as lurasidone and clonazepam - resume when more awake continue clozapine and abilify dvt ppx - heparin med rec pending at the time of admission Patient will likely require 2 midnight stay in the hospital for management of encephalopathy due to sepsis from UTI requiring IV antibiotics and close monitoring in a patient with relative immune compromise in the setting of diabetes Quality Stroke Does the patient have a stroke diagnosis?: No VTE Prior VTE?: No VTE Risk Level:: Medical - moderate - high VTE Device Contraindication: N/A - Device Ordered VTE Drug Contraindication: N/A - Med Ordered
[2025-06-03 14:55] LABS: VBG HCO3 31 mmol/L (22-26); VBG O2 % Saturation 77.0 %
[2025-06-03 14:55] LABS: Venous Blood Gas Refer to POC result
[2025-06-03 15:04] LABS: Cannabinoid Screen Urine Not Detected (Not Detect)
[2025-06-03 15:04] LABS: Ammonia 26 umol/L (13-55)
--- NOTE | 2025-06-03 16:27 | PHA.MEDREC ---
Pharmacy Consult ? Medication Reconciliation Pharmacy has completed the medication reconciliation.PT IS POOR HISTORIAN AND CONFUSED AT BASELINE. UTILIZED CLAIMS TO COMPLETE MED REC.
[2025-06-03 16:28] LABS: Glucose, Whole Blood 133 mg/dL (60-115)
--- NOTE | 2025-06-03 20:16 | PC.NURSE ---
pt resting comfortably at this time, sitter at bedside for safety. no apparent distress at this time
[2025-06-03 21:31] LABS: Glucose, Whole Blood 145 mg/dL (60-115)
--- NOTE | 2025-06-03 22:04 | PC.NURSE ---
assist with repositioning in bed, pt given tea per request
[2025-06-04] VITALS (9 sets, daily range): BP systolic 95–115; BP diastolic 48–75; PULSE 74–95; RESP 16–20; TEMP 36.6–37.3; O2SAT 92–96; BMI 36.6
[2025-06-04 05:49] LABS: NRBC Abs Auto 0.000 X10*3/uL (0.0-0.012); NRBC Pct Auto 0.0 /100WBC (0.0-0.2); PLT CLUMP 1; SCAN SMEAR FLAG 1
[2025-06-04 05:51] LABS: Hematocrit 35.0 % (37.0-47.0); Hemoglobin 11.5 g/dl (12.0-16.0); Imm Gran Abs Auto 0.10 X10*3/uL (0.00-0.03); Imm Gran Pct Auto 0.6 % (0.0-0.4); Lymphocytes Absolute Auto 2.9 X10*3/uL (1.2-4.9); MANUAL DIFF FLAG SCAN; Mean Corpuscular HGB Conc 32.9 g/dl (31.0-35.0); Mean Corpuscular Hemoglobin 30.8 pg (27.0-33.0); Mean Corpuscular Volume 93.8 fL (80.0-98.0); Red Blood Count 3.73 X10*6/uL (4.20-5.50)
[2025-06-04 05:53] LABS: White Blood Count 16.3 X10*3/uL (4.8-10.8)
[2025-06-04 06:05] LABS: Anion Gap 11 (12-20); Blood Urea Nitrogen 19 mg/dL (9-16); Calcium 8.3 mg/dL (8.4-10.2); Carbon Dioxide 27 mmol/L (22-29); Chloride 107 mmol/L (96-108); Creatinine Clr Calc Pharmacy 63.7; Estimated Glomerular Filt Rate 57; Potassium 3.4 mmol/L (3.3-5.1); Sodium 142 mmol/L (135-145)
[2025-06-04 06:13] LABS: Platelet Count 187 X10*3/uL (160-400)
[2025-06-04 08:29] LABS: Glucose, Whole Blood 165 mg/dL (60-115)
--- NOTE | 2025-06-04 10:18 | PC.NURSE ---
Pt took medications without incident.
[2025-06-04 11:46] LABS: Glucose, Whole Blood 120 mg/dL (60-115)
--- NOTE | 2025-06-04 12:01 | P.PNIM_ITS ---
Subjective Subjective Date of Service: 06/04/25 Interval History: BCx positive for GNRs no abd pain or flank pain endorses SI Review of Systems Review of Systems: Yes all other systems are reviewed and are negative Physical Exam 2 Vital Signs: Vital Signs: Last Vital Signs Temp 97.8 F 06/04/25 11:51 Pulse 95 06/04/25 11:51 Resp 18 06/04/25 11:51 BP 98/60 06/04/25 11:51 Pulse Ox 93 06/04/25 11:51 O2 Del Method Room Air 06/04/25 11:51 O2 Flow Rate 2 06/04/25 08:10 BMI result Body Mass Index 36.6 Gen: in no acute distress HEENT: sclera anicteric, moist mucus membranes Neck: supple Lungs: clear to auscultation bilaterally Heart: regular rate and rhythm, no murmurs Abd: soft, non-tender, non-distended Ext: no edema Skin: warm/well-perfused Neuro: alert and oriented x3, no focal findings Psych: appropriate affect Objective Data Active Medications Acetaminophen (Acetaminophen 325 Mg Tablet) 650 mg PO Q6H PRN PRN Reason: Pain, Mild 1-3,fever,headache Last Admin: 06/04/25 08:39 Dose: 650 mg Documented By: RAFAEL Aripiprazole (Aripiprazole 10 Mg Tablet) 10 mg PO DAILY RADHA Last Admin: 06/04/25 10:13 Dose: 10 mg Documented By: JES Calcium Carbonate (Calcium Carbonate 750 Mg Tab.Chew) 750 mg PO Q4H PRN PRN Reason: Heartburn Ceftriaxone Sodium (Ceftriaxone Sodium 2 Gm Vial) 2 gm IVPUSH Q24H RADHA Last Admin: 06/04/25 08:05 Dose: 2 gm Documented By: RAFAEL Clozapine (Clozapine 100 Mg Tablet) 50 mg PO BEDTIME RADHA Stop: 06/04/25 21:01 Clozapine (Clozapine 100 Mg Tablet) 100 mg PO BEDTIME RADHA Stop: 06/05/25 21:01 Clozapine (Clozapine 100 Mg Tablet) 200 mg PO BEDTIME RADHA Stop: 06/06/25 21:01 Clozapine (Clozapine 100 Mg Tablet) 250 mg PO BEDTIME RADHA Dextrose (Dextrose 50 % 25 Gm/50 Ml Syringe) 25 gm IVPUSH Q15M PRN; Protocol PRN Reason: per Hypoglycemia Standing Ord. Docusate Sodium (Docusate Sodium 100 Mg Capsule) 100 mg PO BID [facility] Last Admin: 06/04/25 10:15 Dose: Not Given Documented By: JES Non-Admin Reason: Patient Refused Comments: i don't need that Enoxaparin Sodium (Enoxaparin Sodium 40 Mg/0.4 Ml Syringe) 40 mg SUBCUT Q24H [facility] Last Admin: 06/04/25 08:39 Dose: 40 mg Documented By: RAFAEL Glucose (Glucose Gel 15 Gm Gel..Gram.) 15 gm PO Q15M PRN; Protocol PRN Reason: per Hypoglycemia Standing Ord. Insulin Human Lispro (Insulin Lispro 100 Unit/Ml 3 Ml Vial) 0 unit SUBCUT QIDACHS [facility]; Protocol Last Admin: 06/04/25 11:55 Dose: Not Given Documented By: EMILEE Non-Admin Reason: No Insulin Coverage Magnesium Hydroxide (Milk Of Magnesia 30 Ml Oral.Susp) 30 ml PO DAILY PRN PRN Reason: Constipation Melatonin (Melatonin 3 Mg Tablet) 6 mg PO BEDTIME PRN PRN Reason: Insomnia Polyethylene Glycol (Polyethylene Glycol 3350 17 Gm Powd.Pack) 17 gm PO DAILY [facility] Last Admin: 06/04/25 10:13 Dose: 17 gm Documented By: JES Sodium Chloride (0.9 % Sodium Chloride Flush 3 Ml Syringe) 3 ml IVFLUSH QSHIFT [facility] Last Admin: 06/04/25 08:23 Dose: Not Given Documented By: RAFAEL Non-Admin Reason: IV Running Labs 06/04/25 05:37 06/04/25 05:37 Labs: Laboratory Results - last 24 hr 06/03/25 06/03/25 06/03/25 10:08 10:59 14:46 MCV MCH MCHC RDW Plt Count MPV Immature Gran % (Auto) Neut % (Auto) Lymph % (Auto) [place] % (Auto) Eos % (Auto) Baso % (Auto) Lymph # (Auto) [place] # (Auto) Eos # (Auto) Baso # (Auto) Abs Immat Gran (auto) Absolute Neuts (auto) Absolute Nucleated RBC Nucleated RBC % (auto) Smear Tech's Comments VBG pH VBG pCO2 VBG pO2 VBG HCO3 VBG O2 Saturation VBG Base Excess Anion Gap Estim Creat Clear Calc Estimated GFR POC Glucose Random Glucose Calcium Ammonia 26 TSH 0.52 Urine Opiates Screen Not Detected Ur Buprenorphine Scrn Not Detected Ur Oxycodone Screen Not Detected Urine Methadone Screen Not Detected Urine Fentanyl Screen Not Detected Ur Barbiturates Screen Not Detected Ur Phencyclidine Scrn Not Detected Ur Amphetamines Screen Not Detected U Benzodiazepines Scrn Not Detected Urine Cocaine Screen Not Detected U Marijuana (THC) Screen Not Detected 06/03/25 06/03/25 06/03/25 14:51 16:23 21:28 MCV MCH MCHC RDW Plt Count MPV Immature Gran % (Auto) Neut % (Auto) Lymph % (Auto) [place] % (Auto) Eos % (Auto) Baso % (Auto) Lymph # (Auto) [place] # (Auto) Eos # (Auto) Baso # (Auto) Abs Immat Gran (auto) Absolute Neuts (auto) Absolute Nucleated RBC Nucleated RBC % (auto) Smear Tech's Comments VBG pH 7.43 VBG pCO2 46 VBG pO2 49 VBG HCO3 31 H VBG O2 Saturation 77.0 VBG Base Excess 6.5 Anion Gap Estim Creat Clear Calc Estimated GFR POC Glucose 133 H 145 H Random Glucose Calcium Ammonia TSH Urine Opiates Screen Ur Buprenorphine Scrn Ur Oxycodone Screen Urine Methadone Screen Urine Fentanyl Screen Ur Barbiturates Screen Ur Phencyclidine Scrn Ur Amphetamines Screen U Benzodiazepines Scrn Urine Cocaine Screen U Marijuana (THC) Screen 06/04/25 06/04/25 06/04/25 05:37 08:25 11:42 MCV 93.8 MCH 30.8 MCHC 32.9 RDW 15.1 Plt Count 187 D MPV 11.5 Immature Gran % (Auto) 0.6 H Neut % (Auto) 71.5 Lymph % (Auto) 17.6 L [place] % (Auto) 10.1 Eos % (Auto) 0.0 Baso % (Auto) 0.2 Lymph # (Auto) 2.9 [place] # (Auto) 1.7 H Eos # (Auto) 0.0 Baso # (Auto) 0.0 Abs Immat Gran (auto) 0.10 H Absolute Neuts (auto) 11.7 H Absolute Nucleated RBC 0.000 Nucleated RBC % (auto) 0.0 Smear Tech's Comments VERIFIED VBG pH VBG pCO2 VBG pO2 VBG HCO3 VBG O2 Saturation VBG Base Excess Anion Gap 11 L Estim Creat Clear Calc 63.7 Estimated GFR 57 POC Glucose 165 H 120 H Random Glucose 145 H Calcium 8.3 L Ammonia TSH Urine Opiates Screen Ur Buprenorphine Scrn Ur Oxycodone Screen Urine Methadone Screen Urine Fentanyl Screen Ur Barbiturates Screen Ur Phencyclidine Scrn Ur Amphetamines Screen U Benzodiazepines Scrn Urine Cocaine Screen U Marijuana (THC) Screen Microbiology Microbiology Results: Microbiology 06/03/25 11:26 Blood Culture - Preliminary Blood - Venous Prelim: GNR Gram Stain only 06/03/25 Unknown Urine Culture - Preliminary Urine clean catch - Clean Catch Midstream Gram negative hoda Assessment and Plan (1) Bacteremia: Status: Acute Assessment and Plan: d2, 65yo F with schziophrenia, DM2, HLD, HTN, lymphedema, chronic constipation presenting with generalized weakness + auditory hallucinations, found to have fever and sepsis from UTI, ultimately found to be bacteremic sepsis due to UTI/bacteremic - increase ceftriaxone 1g to 2g/d, follow BCx/UCx, WBCs removing ALICE, prerenal - improving with IV fluid resuscitation hypoK - repleted acute encephalopathy due to infection - continue to treat as above HTN - hold HCTZ due to sepsis/soft BP schizophrenia with SI/AH - will need CARE Team evaluation when medically cleared - Psychiatry consult- pt on 3 antipsychotics and presented with lethargy DM2: correction-dose lispro VTE ppx: enoxaparin dispo: TBD In my clinical judgment, the patient requires continued inpatient hospitalization for the following reasons: IV ABX for bacteremia Total time managing care of this patient today: 35 minutes. Quality Stroke Does the patient have a stroke diagnosis?: No VTE Prior VTE?: No VTE Risk Level:: Medical - moderate - high VTE Device Contraindication: N/A - Device Ordered VTE Drug Contraindication: N/A - Med Ordered
--- NOTE | 2025-06-04 14:29 | MHC.CM.PN ---
PT REPORTS LIVING ALONE HAVING SERVICES THRU MAIRA WHO MANAGES HER MEDICATIONS 2 X A WEEK PT HAS A RIDE HOME WITH PT 1 SHEMNEEDS TO BRET DAY AHEAD DC PLAN JULI Cho/[facility]
[2025-06-04 15:41] LABS: Glucose, Whole Blood 125 mg/dL (60-115)
[2025-06-04] MEDS: 0.9 % Sodium Chloride Flush 3 ML SYRINGE IVFLUSH ×3 (15:54→20:15)
[2025-06-04 20:38] LABS: Glucose, Whole Blood 178 mg/dL (60-115)
[2025-06-05 02:55] VITALS: BP 117/61; PULSE 78; RESP 20; TEMP 36.9; O2SAT 92
--- NOTE | 2025-06-05 05:08 | PC.NURSE ---
0500 Pt sleeping most of the night. Denies pain and admits to having SI and AH in her home and presently denies AH but does not directly answer yes/no to questions regarding self harm. Pt affect is flat and speech is delayed with involuntary movements of her lower jaw. Patient experiencing urinary retention without discomfort resulting in having to be straight cath at 0450 am after attempting to urinate in bathroom x2 with only being able to voids small amounts. Pt tolerated straight cath well and is presently watching television in bed. 1:1 sitter present at bedside.
[2025-06-05 07:40] LABS: Glucose, Whole Blood 112 mg/dL (60-115)
[2025-06-05 07:43] VITALS: BP 109/63; PULSE 77; RESP 20; TEMP 36.9; O2SAT 92
[2025-06-05] MEDS: 0.9 % Sodium Chloride Flush 3 ML SYRINGE IVFLUSH ×2 (09:21→17:36)
[2025-06-05 11:42] LABS: Glucose, Whole Blood 123 mg/dL (60-115)
[2025-06-05 12:00] VITALS: BP 116/67; PULSE 76; RESP 20; TEMP 36.8; O2SAT 93
--- NOTE | 2025-06-05 13:15 | P.PNIM_ITS ---
Subjective Subjective Date of Service: 06/05/25 Interval History: feels well but endorses SI Review of Systems Review of Systems: Yes all other systems are reviewed and are negative Physical Exam 2 Vital Signs: Vital Signs: Last Vital Signs Temp 98.3 F 06/05/25 12:00 Pulse 76 06/05/25 12:00 Resp 20 06/05/25 12:00 BP 116/67 06/05/25 12:00 Pulse Ox 93 06/05/25 12:00 O2 Del Method Room Air 06/05/25 12:00 O2 Flow Rate 2 06/04/25 08:10 BMI result Body Mass Index 36.6 Gen: in no acute distress HEENT: sclera anicteric, moist mucus membranes Neck: supple Lungs: clear to auscultation bilaterally Heart: regular rate and rhythm, no murmurs Abd: soft, non-tender, non-distended Ext: no edema Skin: warm/well-perfused Neuro: alert and oriented x3, no focal findings Psych: appropriate affect Objective Data Active Medications Acetaminophen (Acetaminophen 325 Mg Tablet) 650 mg PO Q6H PRN PRN Reason: Pain, Mild 1-3,fever,headache Last Admin: 06/04/25 08:39 Dose: 650 mg Documented By: RAFAEL Aripiprazole (Aripiprazole 10 Mg Tablet) 10 mg PO DAILY [facility] Last Admin: 06/05/25 09:18 Dose: 10 mg Documented By: KENIA Calcium Carbonate (Calcium Carbonate 750 Mg Tab.Chew) 750 mg PO Q4H PRN PRN Reason: Heartburn Ceftriaxone Sodium (Ceftriaxone Sodium 2 Gm Vial) 2 gm IVPUSH Q24H RADHA Last Admin: 06/05/25 09:19 Dose: 2 gm Documented By: KENIA Clozapine (Clozapine 100 Mg Tablet) 100 mg PO BEDTIME RADHA Stop: 06/05/25 21:01 Clozapine (Clozapine 100 Mg Tablet) 200 mg PO BEDTIME RADHA Stop: 06/06/25 21:01 Clozapine (Clozapine 100 Mg Tablet) 250 mg PO BEDTIME RADHA Dextrose (Dextrose 50 % 25 Gm/50 Ml Syringe) 25 gm IVPUSH Q15M PRN; Protocol PRN Reason: per Hypoglycemia Standing Ord. Docusate Sodium (Docusate Sodium 100 Mg Capsule) 100 mg PO BID [facility] Last Admin: 06/05/25 09:18 Dose: 100 mg Documented By: KENIA Enoxaparin Sodium (Enoxaparin Sodium 40 Mg/0.4 Ml Syringe) 40 mg SUBCUT Q24H [facility] Last Admin: 06/05/25 09:19 Dose: 40 mg Documented By: KENIA Glucose (Glucose Gel 15 Gm Gel..Gram.) 15 gm PO Q15M PRN; Protocol PRN Reason: per Hypoglycemia Standing Ord. Insulin Human Lispro (Insulin Lispro 100 Unit/Ml 3 Ml Vial) 0 unit SUBCUT QIDACHS [facility]; Protocol Last Admin: 06/05/25 07:55 Dose: Not Given Documented By: KENIA Non-Admin Reason: No Insulin Coverage Lurasidone HCl (Lurasidone Hcl 40 Mg Tablet) 40 mg PO BEDTIME [facility] Last Admin: 06/04/25 20:14 Dose: 40 mg Documented By: BRIAN Magnesium Hydroxide (Milk Of Magnesia 30 Ml Oral.Susp) 30 ml PO DAILY PRN PRN Reason: Constipation Melatonin (Melatonin 3 Mg Tablet) 6 mg PO BEDTIME PRN PRN Reason: Insomnia Polyethylene Glycol (Polyethylene Glycol 3350 17 Gm Powd.Pack) 17 gm PO DAILY [facility] Last Admin: 06/05/25 09:19 Dose: 17 gm Documented By: KENIA Sodium Chloride (0.9 % Sodium Chloride Flush 3 Ml Syringe) 3 ml IVFLUSH QSHIFT [facility] Last Admin: 06/05/25 09:21 Dose: 3 ml Documented By: KENIA Labs 06/04/25 05:37 06/04/25 05:37 Labs: Laboratory Results - last 24 hr 06/04/25 06/04/25 06/05/25 15:38 20:28 07:34 POC Glucose 125 H 178 H 112 06/05/25 11:36 POC Glucose 123 H Microbiology Microbiology Results: Microbiology 06/03/25 11:26 Blood Culture - Preliminary Blood - Venous Gram negative hoda 06/03/25 Unknown Urine Culture - Final Urine clean catch - Clean Catch Midstream Escherichia coli 06/03/25 11:26 Blood Culture - Preliminary Blood - Venous No growth after 24 hours. Assessment and Plan (1) Bacteremia: Status: Acute Assessment and Plan: d3, 65yo F with schziophrenia, DM2, HLD, HTN, lymphedema, chronic constipation presenting with generalized weakness + auditory hallucinations, found to have fever and sepsis from UTI, ultimately found to be bacteremic sepsis due to UTI/bacteremic - increased ceftriaxone 1g to 2g/d 06/04-, follow BCx/UCx, WBCs improving ALICE, prerenal - resolved after IV fluid resuscitation hypoK - repleted acute encephalopathy due to infection - continue to treat as above; resolved HTN - hold HCTZ due to sepsis/soft BP schizophrenia with SI/AH - will need CARE Team evaluation when medically cleared - Psychiatry recommended to continue home meds and was not concerned that she is on 3 antipsychotics; reduced lurasidone dose for concern of lethargy on admission DM2: correction-dose lispro VTE ppx: enoxaparin dispo: inpatient psychiatry In my clinical judgment, the patient requires continued inpatient hospitalization for the following reasons: IV ABX for bacteremia Total time managing care of this patient today: 35 minutes. Quality Stroke Does the patient have a stroke diagnosis?: No VTE Prior VTE?: No VTE Risk Level:: Medical - moderate - high VTE Device Contraindication: N/A - Device Ordered VTE Drug Contraindication: N/A - Med Ordered
[2025-06-05 15:40] LABS: Glucose, Whole Blood 130 mg/dL (60-115)
[2025-06-05 15:41] VITALS: BP 110/69; PULSE 73; RESP 18; TEMP 36.4; O2SAT 92
[2025-06-05 20:00] VITALS: BP 91/56; PULSE 78; RESP 16; TEMP 37; O2SAT 96
[2025-06-05 21:42] LABS: Glucose, Whole Blood 133 mg/dL (60-115)
[2025-06-06] VITALS (7 sets, daily range): BP systolic 107–124; BP diastolic 59–69; PULSE 70–86; RESP 16–20; TEMP 36.3–37.2; O2SAT 88–97
[2025-06-06 07:39] LABS: Glucose, Whole Blood 112 mg/dL (60-115)
[2025-06-06] MEDS: 0.9 % Sodium Chloride Flush 3 ML SYRINGE IVFLUSH ×2 (09:29→21:54)
[2025-06-06 11:08] LABS: Glucose, Whole Blood 201 mg/dL (60-115)
--- NOTE | 2025-06-06 15:09 | HO.PM.IMPN ---
Subjective Subjective Date of Service: 06/06/25 Interval History: blood culture final returned states mood improved no fever or pain Review of Systems Review of Systems: Yes all other systems are reviewed and are negative Physical Exam Vital Signs: Vital Signs: Last Vital Signs Temp 97.8 F 06/06/25 11:08 Pulse 86 06/06/25 11:08 Resp 20 06/06/25 11:08 BP 115/69 06/06/25 11:08 Pulse Ox 92 06/06/25 11:08 O2 Del Method Room Air 06/06/25 11:08 O2 Flow Rate 1 06/06/25 07:06 BMI result Body Mass Index 36.6 Gen: in no acute distress HEENT: sclera anicteric, moist mucus membranes Neck: supple Lungs: clear to auscultation bilaterally Heart: regular rate and rhythm, no murmurs Abd: soft, non-tender, non-distended Ext: no edema Skin: warm/well-perfused Neuro: alert and oriented x3, no focal findings Psych: restricted affect Objective Data Active Medications Acetaminophen (Acetaminophen 325 Mg Tablet) 650 mg PO Q6H PRN PRN Reason: Pain, Mild 1-3,fever,headache Last Admin: 06/04/25 08:39 Dose: 650 mg Documented By: RAFAEL Aripiprazole (Aripiprazole 10 Mg Tablet) 10 mg PO DAILY [facility] Last Admin: 06/06/25 09:28 Dose: 10 mg Documented By: DICK Calcium Carbonate (Calcium Carbonate 750 Mg Tab.Chew) 750 mg PO Q4H PRN PRN Reason: Heartburn Ceftriaxone Sodium (Ceftriaxone Sodium 2 Gm Vial) 2 gm IVPUSH Q24H [facility] Last Admin: 06/06/25 09:28 Dose: 2 gm Documented By: DICK Clozapine (Clozapine 100 Mg Tablet) 200 mg PO BEDTIME [facility] Stop: 06/06/25 21:01 Clozapine (Clozapine 100 Mg Tablet) 250 mg PO BEDTIME [facility] Dextrose (Dextrose 50 % 25 Gm/50 Ml Syringe) 25 gm IVPUSH Q15M PRN; Protocol PRN Reason: per Hypoglycemia Standing Ord. Docusate Sodium (Docusate Sodium 100 Mg Capsule) 100 mg PO BID [facility] Last Admin: 06/06/25 09:29 Dose: Not Given Documented By: DICK Non-Admin Reason: diarrhea Enoxaparin Sodium (Enoxaparin Sodium 40 Mg/0.4 Ml Syringe) 40 mg SUBCUT Q24H [facility] Last Admin: 06/06/25 09:28 Dose: 40 mg Documented By: DICK Glucose (Glucose Gel 15 Gm Gel..Gram.) 15 gm PO Q15M PRN; Protocol PRN Reason: per Hypoglycemia Standing Ord. Insulin Human Lispro (Insulin Lispro 100 Unit/Ml 3 Ml Vial) 0 unit SUBCUT QIDACHS [facility]; Protocol Last Admin: 06/06/25 11:33 Dose: 4 unit Documented By: DICK Lurasidone HCl (Lurasidone Hcl 40 Mg Tablet) 40 mg PO BEDTIME [facility] Last Admin: 06/05/25 21:53 Dose: 40 mg Documented By: ROBER Magnesium Hydroxide (Milk Of Magnesia 30 Ml Oral.Susp) 30 ml PO DAILY PRN PRN Reason: Constipation Melatonin (Melatonin 3 Mg Tablet) 6 mg PO BEDTIME PRN PRN Reason: Insomnia Polyethylene Glycol (Polyethylene Glycol 3350 17 Gm Powd.Pack) 17 gm PO DAILY [facility] Last Admin: 06/06/25 09:29 Dose: Not Given Documented By: DICK Non-Admin Reason: diarrhea Sodium Chloride (0.9 % Sodium Chloride Flush 3 Ml Syringe) 3 ml IVFLUSH QSHIFT [facility] Last Admin: 06/06/25 09:29 Dose: 3 ml Documented By: DICK Labs 06/04/25 05:37 06/04/25 05:37 Labs: Laboratory Results - last 24 hr 06/05/25 06/05/25 06/06/25 15:36 21:39 07:35 POC Glucose 130 H 133 H 112 06/06/25 11:02 POC Glucose 201 H Microbiology Microbiology Results: Microbiology 06/03/25 11:26 Blood Culture - Final Blood - Venous Escherichia coli 06/03/25 11:26 Blood Culture - Preliminary Blood - Venous No growth after 48 hours. Assessment and Plan (1) Bacteremia: Status: Acute Assessment and Plan: d4 for 65yo F with schziophrenia, DM2, HLD, HTN, lymphedema, chronic constipation; presenting with generalized weakness + auditory hallucinations, found to have fever and sepsis from UTI, ultimately found to be bacteremic sepsis due to E coli UTI/bacteremia: ceftriaxone 06/04-, change to cefuroxime PO bid to end 06/18 upon discharge ALICE, prerenal: resolved after IV fluid resuscitation hypoK: repleted acute encephalopathy due to infection: continue to treat as above; resolved HTN: held HCTZ due to sepsis/soft BP schizophrenia with SI/AH: medically cleared for IPLOC; CARE Team consultation; Psychiatry recommended to continue home meds and was not concerned that she is on 3 antipsychotics; reduced lurasidone dose for concern of lethargy on admission DM2: correction-dose lispro VTE ppx: enoxaparin dispo: inpatient psychiatry In my clinical judgment, the patient requires continued inpatient hospitalization for the following reasons: SI Total time managing care of this patient today: 35 minutes. Quality Stroke Does the patient have a stroke diagnosis?: No VTE Prior VTE?: No VTE Risk Level:: Medical - moderate - high VTE Device Contraindication: N/A - Device Ordered VTE Drug Contraindication: N/A - Med Ordered
--- NOTE | 2025-06-06 16:23 | MHC.CM.PN ---
EMR REVIEWED AND PER MD ROUNDS, PT IS NOT MEDICALLY CLEARED FOR DISCHARGE DUE TO SI.
[2025-06-06 16:59] LABS: Glucose, Whole Blood 132 mg/dL (60-115)
[2025-06-06 20:23] LABS: Glucose, Whole Blood 179 mg/dL (60-115)
[2025-06-07 07:30] LABS: Glucose, Whole Blood 135 mg/dL (60-115)
[2025-06-07 08:00] VITALS: BP 117/79; PULSE 76; RESP 18; TEMP 36.9; O2SAT 93
--- NOTE | 2025-06-07 09:10 | MHC.CARE ---
Pt does not meet the criteria for a higher level of care or present as an imminent risk. She denies SI, HI, and A/V/H. Pt may D/C home to follow up with CP. Hospitalist in agreement with disposition.
[2025-06-07] MEDS: 0.9 % Sodium Chloride Flush 3 ML SYRINGE IVFLUSH (10:42)
[2025-06-07 11:16] LABS: Glucose, Whole Blood 172 mg/dL (60-115)
[2025-06-07 11:28] VITALS: BP 118/77; PULSE 76; RESP 20; TEMP 36.9; O2SAT 95
--- NOTE | 2025-06-07 12:16 | MHC.CM.PN ---
CM met with Patient to discuss PT's recommendation for STR; Patient does not want to go to STR,she wants to return home and resume [facility]. is aware.
--- NOTE | 2025-06-07 12:36 | P.DS_ITS ---
DS: Providers Provider Date of Service: 06/07/25 Date of admission: 06/03/25 14:50 Date of discharge: 06/07/25 Primary care physician: Abel Mejía MD Consults: 06/03/25 11:20 ED CARE Team Crisis Consult Stat Comment: Reason for consultation: SI with plan to OD on meds, AH hearing vocies to kill self 06/03/25 16:39 Consult to Psychiatry Routine Consulting Provider: [facility] Psych Covering Reason for consultation: schizophrenia on multiple meds; non-compliance; auditory hallucinations Has provider been notified: No 06/04/25 07:34 Consult to Psychiatry Routine Consulting Provider: [facility] Psych Covering Reason for consultation: Polypharmacy/schizophrenia- pt on 3 antipsychotics?!!! 06/06/25 14:20 Inpt CARE Team Crisis Consult Stat Comment: Reason for consultation: Suicidal. Medically cleared for inpatient psychiatr. DS: Diagnosis Discharge Diagnosis (1) Bacteremia: Status: Acute (2) Schizophrenia: Status: Acute (3) E coli bacteremia: Status: Acute (4) UTI (urinary tract infection): Status: Acute (5) Sepsis: Status: Acute (6) Acute kidney failure: Status: Acute DS: Summary Hospital Course Hospital Course: From the history and physical by the admitting hospitalist, ELLIE Peoples, 06/03/25: This is a 65 year old female with history of T2DM, schizophrenia, lymphedema who presents to the emergency department with generalized weakness and auditory hallucinations. She states that for the past couple days she's been feeling weak with difficulty walking. She has had dizziness. She is very sleepy on exam but is arousable to verbal stimuli and is able to answer basic questions appropriately but is unable to provide details. She reportedly told the ED provider she was hearing her boyfriend's voice telling her to kill he rself but when I asked she said she couldn't remember what the voices were saying. In the emergency department she was febrile with a temperature of 101.4 degrees, lab work significant for leukocytosis of 20.5, potassium of 3.1, BUN and creatinine elevated to 25/1.20. Urinalysis was concerning for UTI. She was treated with IVF and IV antibiotics and will be admitted for further management.' 65yo F with schziophrenia, DM2, HLD, HTN, lymphedema, chronic constipation; presenting with generalized weakness + auditory hallucinations, found to have fever and sepsis from UTI, ultimately found to be bacteremic from E. coli infection. She was treated with IV ceftriaxone and discharged on PO cefuroxime. Mild prerenal ALICE resolved after fluid resuscitaiton. Encephalopathy due to infection resolved. She did endorse auditory command hallucinations but inconsistently. She was seen twice by the Behavioral Health [CARE] Team and deemed not to need inpatient psychiatric care. She was discharged home with VNA services, as she declined STR placement. Time Attestation Discharge Coordination Time (in mins): 45 Quality: Safe Use of Opioids Does Pt have an Active Cancer Diagnosis on the Problem List?: No Quality: Stroke Does the patient have a stroke diagnosis?: No Physical Exam Vital Signs: Vital Signs: Last Vital Signs Temp 98.5 F 06/07/25 11:28 Pulse 76 06/07/25 11:28 Resp 20 06/07/25 11:28 BP 118/77 06/07/25 11:28 Pulse Ox 95 06/07/25 11:28 O2 Del Method Room Air 06/07/25 11:28 O2 Flow Rate 1 06/06/25 07:06 BMI result Body Mass Index 36.6 Gen: in no acute distress HEENT: sclera anicteric, moist mucus membranes Neck: supple Lungs: clear to auscultation bilaterally Heart: regular rate and rhythm, no murmurs Abd: soft, non-tender, non-distended Ext: no edema Skin: warm/well-perfused Neuro: alert and oriented x3, no focal findings Psych: restricted affect DS: Data Data Completed and Pending Completed studies during hospitalization [Text1]: Laboratory Results WBC 16.3 X10*3/uL (4.8-10.8) H 06/04/25 05:37 RBC 3.73 X10*6/uL (4.20-5.50) L 06/04/25 05:37 Hgb 11.5 g/dl (12.0-16.0) L 06/04/25 05:37 Hct 35.0 % (37.0-47.0) L 06/04/25 05:37 MCV 93.8 fL (80.0-98.0) 06/04/25 05:37 MCH 30.8 pg (27.0-33.0) 06/04/25 05:37 MCHC 32.9 g/dl (31.0-35.0) 06/04/25 05:37 RDW 15.1 % (11.0-16.0) 06/04/25 05:37 Plt Count 187 X10*3/uL (160-400) D 06/04/25 05:37 MPV 11.5 fL (9.4-12.3) 06/04/25 05:37 Immature Gran % (Auto) 0.6 % (0.0-0.4) H 06/04/25 05:37 Neut % (Auto) 71.5 % (45-73) 06/04/25 05:37 Lymph % (Auto) 17.6 % (20-40) L 06/04/25 05:37 [place] % (Auto) 10.1 % (2-11) 06/04/25 05:37 Eos % (Auto) 0.0 % (0-4) 06/04/25 05:37 Baso % (Auto) 0.2 % (0-2) 06/04/25 05:37 Lymph # (Auto) 2.9 X10*3/uL (1.2-4.9) 06/04/25 05:37 [place] # (Auto) 1.7 X10*3/uL (0.1-1.2) H 06/04/25 05:37 Eos # (Auto) 0.0 X10*3/uL (0.0-0.4) 06/04/25 05:37 Baso # (Auto) 0.0 X10*3/uL (0.0-0.2) 06/04/25 05:37 Abs Immat Gran (auto) 0.10 X10*3/uL (0.00-0.03) H 06/04/25 05:37 Absolute Neuts (auto) 11.7 x10*3/uL (2.0-8.3) H 06/04/25 05:37 Absolute Nucleated RBC 0.000 X10*3/uL (0.0-0.012) 06/04/25 05:37 Nucleated RBC % (auto) 0.0 /100WBC (0.0-0.2) 06/04/25 05:37 Smear Tech's Comments VERIFIED 06/04/25 05:37 VBG pH 7.43 (7.32-7.43) 06/03/25 14:51 VBG pCO2 46 mmHg 06/03/25 14:51 VBG pO2 49 mmHg 06/03/25 14:51 VBG HCO3 31 mmol/L (22-26) H 06/03/25 14:51 VBG O2 Saturation 77.0 % 06/03/25 14:51 VBG Base Excess 6.5 mmol/L 06/03/25 14:51 Sodium 142 mmol/L (135-145) 06/04/25 05:37 Potassium 3.4 mmol/L (3.3-5.1) 06/04/25 05:37 Chloride 107 mmol/L (96-108) 06/04/25 05:37 Carbon Dioxide 27 mmol/L (22-29) 06/04/25 05:37 Anion Gap 11 (12-20) L 06/04/25 05:37 BUN 19 mg/dL (9-16) H 06/04/25 05:37 Creatinine 0.98 mg/dL (0.5-1.4) 06/04/25 05:37 Estim Creat Clear Calc 63.7 06/04/25 05:37 Estimated GFR 57 06/04/25 05:37 POC Glucose 172 mg/dL (60-115) H 06/07/25 11:01 Random Glucose 145 mg/dL (60-115) H 06/04/25 05:37 Lactic Acid 1.0 mmol/L (0.5-2.0) 06/03/25 11:26 Calcium 8.3 mg/dL (8.4-10.2) L 06/04/25 05:37 Magnesium 2.2 mg/dL (1.6-2.6) 06/03/25 10:08 Total Bilirubin 0.7 mg/dL (0.0-1.0) 06/03/25 10:08 AST 31 U/L (5-31) 06/03/25 10:08 ALT 30 U/L (0-31) 06/03/25 10:08 Alkaline Phosphatase 117 U/L (39-117) 06/03/25 10:08 Ammonia 26 umol/L (13-55) 06/03/25 14:46 NT-Pro-B Natriuret Pep 154.9 pg/mL (<300) 06/03/25 10:08 Total Protein 6.9 g/dL (6.5-8.0) 06/03/25 10:08 Albumin 3.7 g/dL (3.5-5.0) 06/03/25 10:08 TSH 0.52 uIU/mL (0.32-4.0) 06/03/25 10:08 Urine Color Yellow 06/03/25 10:59 Urine Appearance Clear 06/03/25 10:59 Urine pH 5.5 (5.0-9.0) 06/03/25 10:59 Ur Specific [place] 1.020 (1.005-1.025) 06/03/25 10:59 Urine Protein 30 (1+) mg/dL (Neg-Trace) H 06/03/25 10:59 Urine Glucose (UA) Negative mg/dL (Negative) 06/03/25 10:59 Urine Ketones Negative mg/dL (Negative) 06/03/25 10:59 Urine Blood Moderate (2+) (Negative) H 06/03/25 10:59 Urine Nitrite Positive (Negative) H 06/03/25 10:59 Ur Leukocyte Esterase Moderate (2+) (Negative) H 06/03/25 10:59 Urine RBC 0-2 /HPF (0-2) 06/03/25 10:59 Urine WBC 11-20 /HPF (0-5) 06/03/25 10:59 Ur Squamous Epith Cells 0-2 /HPF (0-2) 06/03/25 10:59 Urine Bacteria 4+ (None Seen) 06/03/25 10:59 Hyaline Casts 0-2 /LPF (0-2) 06/03/25 10:59 Urine Opiates Screen Not Detected (Not Detect) 06/03/25 10:59 Ur Buprenorphine Scrn Not Detected ng/mL (Not Detect) 06/03/25 10:59 Ur Oxycodone Screen Not Detected ng/mL (Not Detect) 06/03/25 10:59 Urine Methadone Screen Not Detected ng/mL (Not Detect) 06/03/25 10:59 Urine Fentanyl Screen Not Detected (Not Detect) 06/03/25 10:59 Ur Barbiturates Screen Not Detected (Not Detect) 06/03/25 10:59 Ur Phencyclidine Scrn Not Detected (Not Detect) 06/03/25 10:59 Ur Amphetamines Screen Not Detected (Not Detect) 06/03/25 10:59 U Benzodiazepines Scrn Not Detected (Not Detect) 06/03/25 10:59 Urine Cocaine Screen Not Detected (Not Detect) 06/03/25 10:59 U Marijuana (THC) Screen Not Detected (Not Detect) 06/03/25 10:59 COVID-19 (JANICE) Negative (Negative) 06/03/25 11:15 COVID-19 Clin Com See Note 06/03/25 11:15 Influenza Type A (ALLISON) Negative (Negative) 06/03/25 11:15 Influenza Type B (ALLISON) Negative (Negative) 06/03/25 11:15 Influenza A & B Note See Note 06/03/25 11:15 Urine Culture Final 06/05/25-0745 Organism 1 Escherichia coli Quant > 100,000 cfu/mL E coli M.I.C. RX --------- --- Ampicillin >=32 R Cefazolin (Urine) 4 S Cefepime <=0.12 S Ceftriaxone <=0.25 S Ciprofloxacin 0.5 I Gentamicin <=1 S Nitrofurantoin <=16 S Trimethoprim/Sulfamethoxazole <=20 S Organism 1 Escherichia coli Results of Blood Culture gram stain sent by a secure message and confirmed by ISIS/KEVIN on 06/04/25 at 0111 by CORY. E coli M.I.C. RX --------- --- Ampicillin >=32 R Cefazolin (Non-Urine) 4 I Cefepime <=0.12 S Ceftriaxone <=0.25 S Ciprofloxacin 0.5 I Gentamicin <=1 S Trimethoprim/Sulfamethoxazole <=20 S Discharge Plan Discharge Anticipated Discharge Date/Time: 06/07/25 12:33 Patient Disposition: Home Health Service Discharge Diagnosis: E. 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 socks Medium See Rx Instructions .Route .MEDSUPPLY Qty: 2 0RF Rx Instructions: As directed (DME) compress.stocking,knee,reg,med Misc See Rx Instructions .Route Qty: 2 0RF Rx Instructions: As directed (DME) Prodigy No Coding Strip See Rx Instructions .Route Qty: 50 8RF Rx Instructions: test twice per day (DME) blood-glucose meter [Prodigy Pocket Meter] Kit See Rx Instructions .Route Qty: 1 0RF Rx Instructions: test twice per day (DME) lancets [Prodigy Lancets] 28 gauge misc See Rx Instructions .Route Qty: 100 8RF Rx Instructions: test twice per day (DME) COMPRESSION STOCKINGS with ZIPPERS See Rx Instructions .Route .MEDSUPPLY Qty: 2 1RF Rx Instructions: As directed (DME) blood-glucose meter [FreeStyle Lite Meter] Kit See Rx Instructions .ROUTE .MEDSUPPLY Qty: 1 0RF Rx Instructions: As directed (DME) diabetic winter boots See Rx Instructions .Route .MEDSUPPLY Qty: 1 0RF Rx Instructions: As directed (DME) lancets [FreeStyle Lancets] 28 gauge misc See Rx Instructions .ROUTE .MEDSUPPLY Qty: 100 0RF Rx Instructions: As directed once a day polyethylene glycol 3350 17 gram/dose powder 17 g PO DAILY Qty: 510 12RF hydrochlorothiazide 25 mg tablet 25 mg PO DAILY Qty: 90 1RF atorvastatin 10 mg tablet 10 mg PO DAILY Qty: 28 2RF (DME) FreeStyle Lite Strips Strip See Rx Instructions .ROUTE .MEDSUPPLY Qty: 100 0RF Rx Instructions: As directed once a day metformin 500 mg tablet extended release 24 hr 500 mg PO BEDTIME 90 Days Qty: 90 0RF Januvia 100 mg tablet 100 mg PO DAILY 90 Days Qty: 90 0RF clonazepam 0.5 mg Tablet 0.5 mg PO BID PRN (Reason: Anxiety) docusate sodium 100 mg capsule 100 mg PO BID aripiprazole 10 mg tablet 10 mg PO DAILY lurasidone 80 mg tablet 80 mg PO BEDTIME (DME) TUBIGRIP SOCKS (Large) large See Rx Instructions .Route .MEDSUPPLY Qty: 2 0RF Rx Instructions: As directed (DME) lightweight cane See Rx Instructions .Route .MEDSUPPLY Qty: 1 0RF Rx Instructions: As directed cetirizine 10 mg tablet 10 mg PO DAILY PRN (Reason: allergy symptoms) Qty: 30 0RF betamethasone dipropionate 0.05 % cream 1 appl topical DAILY PRN (Reason: skin irritation) 7 Days Qty: 45 0RF Discharge Orders: Discharge Order (Routine); Ordered 06/07/25 Ordered By: Jerrod Salinas Diet: Diabetic diet Activity on Discharge: As tolerated Stand Alone Forms: Patient Portal Discharge page Print Language: Pashto Care Plan Goals: cure infection Health Concerns: E. coli bacteremia/UTI schizophrenia with hallucinations Plan of Treatment: home with VNA/PT cefuroxime 500 mg twice daily for 11 days follow up with your psychiatrist within 2 weeks Please follow up with your primary care doctor within 1 week. Return to the hospital if you experience recurrent or worsening symptoms. Assessment: See Discharge Summary.
--- NOTE | 2025-06-07 12:41 | W.MHC.F2F ---
Service Date Service Date: 06/07/25 Encounter Date of encounter: 06/07/25 Reasons for Services Signs and symptoms assessed: see PT evaluations 06/04-06/06/25 Reason for usp: medication management, medication treatment, teach disease management and other (psychiatric assessment) Reason for physical therapy: home safety and mobility, therapeutic exercises, gait/transfer training, assess need for DME, ADL training and energy conservation MD Overseeing Care: Abel Mejía Homebound: Leaving the home is medically contraindicated at this time without the asist of a device and/or another person due th the listed conditions above and below. Reason homebound: weakness related to hospital stay Certification: Based on the above findings, I certify that this patient is confined to the home and needs intermittent usp care, physical therapy and/or speech therapy, or continues to need occupational therapy. The patient is under my care, and I have initiated the establishment of the plan of care. The patient will be followed by a physician who will periodically review the plan of care. Time Spent With Patient Time: Total time managing care of this patient today ____ minutes.
--- NOTE | 2025-06-07 13:21 | MHC.CM.PN ---
Patient has been medically cleared for dc to home today with services. Patient is active with [facility], who has been notified of today's dc. CM met with Patient at bedside and addressed IMM with her; Patient is very happy to be going home today. Patient will dc via [facility] today at 6PM; [facility] transport booking # is [id number].
[2025-06-07 15:29] VITALS: BP 115/60; PULSE 76; RESP 18; TEMP 36.5; O2SAT 96
[2025-06-07 16:06] LABS: Glucose, Whole Blood 130 mg/dL (60-115)
--- NOTE | 2025-06-07 18:45 | PC.NURSE ---
Patent was set to be discharged at 6pm, when EMS arrived and this RN and EMS brought stretcher into the room to take patient home patient started saying that she was dizzy and was concerned to go home without a walker and that she lives alone. Patient had not expressed any of these concerns prior to EMS getting there. EMS was concerned with taking the patient with the complaints that she was having and this RN reached out to the planting supervisor and charge nurse of the unit. Both RN's said it was up to the doctors discretion whether we continued with the discharge. Per MD keep patient overnight and will reassess in the morning.
[2025-06-07 19:25] VITALS: BP 132/77; PULSE 76; RESP 18; TEMP 37.5; O2SAT 93
[2025-06-07 20:16] LABS: Glucose, Whole Blood 196 mg/dL (60-115)
[2025-06-07 23:57] VITALS: BP 119/67; PULSE 72; RESP 18; TEMP 36.3; O2SAT 95
[2025-06-08 03:04] VITALS: BP 117/60; PULSE 68; RESP 18; TEMP 36.4; O2SAT 92
[2025-06-08 08:00] VITALS: BP 129/77; PULSE 81; RESP 18; TEMP 36.3; O2SAT 96
[2025-06-08 08:21] LABS: Glucose, Whole Blood 145 mg/dL (60-115)
--- NOTE | 2025-06-08 11:12 | MHC.CM.PN ---
Patient did not dc to home yesterday; she became dizzy upon arrival of EMS. Per MD in ROUNDS, will have PT eval today; VNA is aware and CM will follow.
[2025-06-08 11:28] LABS: Glucose, Whole Blood 150 mg/dL (60-115)
[2025-06-08 12:00] VITALS: BP 122/68; PULSE 82; RESP 17; TEMP 36.2; O2SAT 96
--- NOTE | 2025-06-08 14:15 | MHC.CM.PN ---
Per request, referral has been made to [facility] S[facility].
[2025-06-08 15:22] LABS: Glucose, Whole Blood 125 mg/dL (60-115)
--- NOTE | 2025-06-08 15:59 | MHC.CM.PN ---
Per MD, Patient is medically cleared for dc to home today with services; [facility] is aware of today's dc. Last IMM addressed yesterday. [facility] transport auth # is [id number].
[2025-06-08 16:00] VITALS: BP 130/77; PULSE 79; RESP 17; TEMP 36.2; O2SAT 97
--- OUTSIDE RECORDS SUMMARY | 2025-06-22 20:00 | XMS_ITS | Clinical Summary ---
Author Organization Unknown Care Team Providers Care Glue Spreader Name Role Phone CECI STEINER MD, MIHAI Unavailable Unavail able SALO REED, RICH Unavailable Unavailable Payers Payer Name Policy Type Policy Number Effective Date Expira tion Date [facility] [id number] MEDICAID [facility] [id number] MEDICARE - [facility]/[place] [id number] Problems Condition Name Condition Details Condition Category [...] 5 mg tablet 02-22 00:00: 00 Yes [id number] 5 mg DAILY 5 mg KRYSTAL Y (route: oral) Med Classific ation: Central Nervous System Agents atorvastati n 10 mg tablet 02-14 00:00: 00 Yes [id number] 10 mg EVERY PM 10 mg EVERY PM (route: oral) Med Classific ation: Cardiovas cular Therapy Agents docusate sodium 100 mg capsule 02-14 00:00: 00 Yes [id number] 100 capsule DIRECTED 100 capsule DIRECTED (route: oral) Med Classific ation: Gastroint estinal Therapy Agents hydrochloro thiazide 25 mg tablet 02-14 00:00: 00 Yes [id number] 25 mg DAILY 25 mg DAILY (route: oral) Med Classific ation: Cardiovas cular Therapy Agents Januvia 100 mg tablet 02-14 00:00: 00 Yes [id number] 100 mg DAILY 100 mg DAILY (route: oral) Med Classific ation: Endocrine lurasidone 80 mg tablet 02-14 00:00: 00 Yes [id number] 80 mg DAILY 80 mg DAILY (route: oral) Med Classific ation: Central Nervous System Agents metformin ER 500 mg tablet,exte nded release 24 hr 02-14 00:00: 00 Yes [id number] 500 mg DAILY 500 mg DAILY (route: oral) Med Classific ation: Endocrine calcium 500 mg (as calcium carbonate 1,250 mg) tablet 02-14 00:00: 00 Yes [id number] 500 mg EVERY AM 500 mg EVERY AM (route: oral) Med Classific ation: Electroly te Balance-N utritiona l Products clozapine 100 mg tablet 02-07 00:00: 00 10-23 23:59 :00 No [id number] 100 mg BEDTIME 100 mg BEDTIME (route: oral) Med Classific ation: Central Nervous System Agents clozapine 50 mg tablet 02-07 00:00: 00 08-21 23:59 :00 No [id number] 50 mg BEDTIME 50 mg BEDTIME (route: oral) Med Classific ation: Central Nervous System Agents polyethylen e glycol 3350 17 gram/dose oral powder 02-01 00:00: 00 Yes [id number] 17 g NEEDED 17 g NEEDED (route: oral) Med Classific ation: Gastroint estinal Therapy Agents Multivitami n 50 Plus tablet 03-01 00:00: 00 Yes [id number] 1 tablet DAILY 1 tablet DAILY (route: oral) Med Classific ation: Electroly te Balance-N utritiona l Products clozapine 50 mg tablet - 00:00: 00 Yes [id number] 50 mg BEDTIME 50 mg BEDTIME (route: oral) Med Classific ation: Central Nervous System Agents Clozaril 100 mg tablet 2- 00:00: 00 Yes [id number] 100 mg BEDTIME 100 mg BEDTIME (route: oral) Med Classific ation: Central Nervous System Agents Vital Signs Vital Name Observation Time Observation Value Commen ts Temperature 2025-05-30 07:34:00.000 97.1 [degF] Temperature 2025-05-28 07:55:00.000 97.4 [degF] Temperature 2025-05-23 07:55:00.000 97.5 [degF] Temperature 2025-05-21 07:43:00.000 97.5 [degF] Temperature 2025-05-16 07:42:00.000 97.4 [degF] Temperature 2025-05-14 08:02:00.000 97.6 [degF] Temperature 2025-05-09 07:32:00.000 97.5 [degF] Temperature 2025-05-07 07:48:00.000 97.8 [degF] Temperature 2025-05-02 07:15:00.000 97.5 [degF] Temperature 2025-04-30 07:37:00.000 97.5 [degF] Temperature 2025-04-25 07:43:00.000 97.5 [degF] Plan of Treatment Planned Activity [...] AWARENESS FOR SAFETY AND WILL NOTIFY CLINICAL FOUNDRY EQUIPMENT MECHANIC AND PHYSICIAN/PROVIDER WITH ANY CHANGE IN CONDITION. [code = SKILLED NURSE WILL MAINTAIN SITUATIONAL AWARENESS FOR SAFETY AND WILL NOTIFY CLINICAL FOUNDRY EQUIPMENT MECHANIC AND PHYSICIAN/PROVIDER WITH ANY CHANGE IN CONDITION.] [...] DISCHARGE PLANNING INSTRUCTIONS BY DATE OF DISCHARGE. Encounters Start Date/Time End Date/Time Encounter Type Admission Type Attending Clinicians Care Facility Care Department Encounter ID Discharge Date Discharge Status Discharge Condition Discharge Reason Percent Goals Met 2025-04-25 00:00:00 2025-06-23 00:00:00 Outpatient RECERTIFIC ATION SALO RICH [facility] [id number] 16.22
== END 2025-06-08 18:24 | disposition home health service (06) | DRG 871 ==
LOC: HO.ED 14:49 → HO.EDOVER 14:51 → HO.IMC 06-04 10:34
PROVIDERS: Internal Medicine; Admitting Provider Physician Assistant Medical; Emergency Provider Emergency Medicine; PCP Internal Medicine; Visit Provider Family Medicine
DX: A41.51 Sepsis due to Escherichia coli [E. coli] (principal); G92.8 Other toxic encephalopathy; R45.851 Suicidal ideations; N39.0 Urinary tract infection, site not specified; N17.9 Acute kidney failure, unspecified; F20.9 Schizophrenia, unspecified; E87.6 Hypokalemia; I10 Essential (primary) hypertension; E11.9 Type 2 diabetes mellitus without complications; Z20.822 Contact with and (suspected) exposure to COVID-19; Z87.891 Personal history of nicotine dependence; Z79.84 Long term (current) use of oral hypoglycemic drugs; Z79.899 Other long term (current) drug therapy
CPT/HCPCS: 36415; 80048; 80053; 80307; 81001; 82140; 82803; 82947; 83605; 83735; 83880; 84443; 85025; 87040; 87077; 87086; 87088; 87186; 87205; 87502; 87635; 93005; 97116; 97162; 97530; 99285; J0696; J1644; J1650; J7120; S9485

== ENCOUNTER → 2025-06-03 09:43 | Outpatient (BNV) | payer OTHER, SELFPAY | PROVIDERS: Admitting Provider Physician Assistant Medical; Emergency Provider Emergency Medicine; PCP Internal Medicine; Visit Provider Internal Medicine Cardiovascular Disease | DX: Z13.6 Encounter for screening for cardiovascular disorders (principal) | CPT/HCPCS: 93010 ==

== ENCOUNTER → 2025-06-03 14:50 | Outpatient (BNV) | payer OTHER, SELFPAY | PROVIDERS: Admitting Provider Physician Assistant Medical; Emergency Provider Emergency Medicine; PCP Internal Medicine; Visit Provider Family Medicine | DX: N39.0 Urinary tract infection, site not specified (principal); R78.81 Bacteremia | CPT/HCPCS: 99223; 99232; 99239; G0180 ==

== ENCOUNTER 2025-06-14 10:02 | Outpatient (AMB) | payer OTHER, SELFPAY ==
[2025-06-14 10:13] VITALS: BP 112/68; PULSE 97; RESP 18; TEMP 36.6; O2SAT 97; BMI 39.4
--- NOTE | 2025-06-14 10:13 | A.OFFPC_ITS ---
Vital Signs 06/14/25 10:13 Height 5 ft 3 in Weight 222 lb 6 oz BMI 39.4 BP 112/68 Blood Pressure Location Lt brachial Position Sitting Respiration 18 Pulse 97 Pulse Source Pulse Oximeter Temp 97.9 F Temp Source Oral Pulse Oximetry (%) 97 Oxygen Delivery Method Room Air Intake Visit Reasons: [facility] 06/08 UTI [place] Required: No Accompanied by: Self / Same As Patient Allergies haloperidol (From HALDOL) Allergy (Intermediate, Verified 06/17/25 21:00) RASH,ACNE lithium (LITHIUM) Allergy (Intermediate, Verified 06/17/25 21:00) RASH,ACNE simvastatin Allergy (Intermediate, Verified 06/17/25 21:00) headaches escitalopram Allergy (Mild, Verified 06/17/25 21:00) Blister risperidone (From Risperdal) Allergy (Verified 06/17/25 21:00) Unknown furosemide Adverse Reaction (Intermediate, Verified 06/17/25 21:00) rash hydroxyzine Adverse Reaction (Intermediate, Verified 06/17/25 21:00) rash Medication List - Last Reconciled 06/17/25 by MEHREEN Givens aripiprazole 10 mg PO DAILY atorvastatin 10 mg PO DAILY betamethasone dipropionate 0.05% 1 appl topical DAILY PRN 7 days blood sugar diagnostic ([employer] No Coding strips) test twice per day blood sugar diagnostic (FreeStyle Lite Strips) As directed once a day blood-glucose meter ([employer] Pocket Meter kit) test twice per day blood-glucose meter (FreeStyle Lite Meter kit) As directed cefuroxime axetil 500 mg PO BID cetirizine 10 mg PO DAILY PRN clonazepam 0.5 mg PO BID PRN clozapine 50 mg PO BEDTIME 30 days clozapine 200 mg (2 x 100 mg) PO BEDTIME 30 days compress.stocking,knee,reg,med As directed [COMPRESSION STOCKINGS with ZIPPERS As directed] [diabetic winter boots As directed] docusate sodium 100 mg PO BID hydrochlorothiazide 25 mg PO DAILY Januvia (sitagliptin phosphate) 100 mg PO DAILY 90 days NS lancets (Prodigy Lancets) test twice per day lancets (FreeStyle Lancets) As directed once a day [lightweight cane As directed] lurasidone 80 mg PO BEDTIME metformin ER 500 mg PO BEDTIME 90 days polyethylene glycol 3350 17 grams PO DAILY [Tubi catering coordinator socks As directed] [TUBIGRIP SOCKS (Large) As directed] walker As directed Tobacco use date assessed: 06/14/25 Fall risk assessment: No Falls in past year Last assessed Fall Risk: 06/14/25 Dental Screening Dental Screen Date: 05/24/25 Did you have a dental visit in the last 12 months?: No Did you have a dental problem in the last 6 months where you did not have access to dental care?: No Was dental information given to patient?: No HPI [facility] 06/08 UTI HPI Details The patient is a 65-year-old female presenting for post hospital admission follow up Significant past medical history of type 2 diabetes, schizophrenia, lymphedema Patient went into [facility] with generalized weakness and auditory hallucinations Patient reports that she was hearing her boyfriend voice telling her to kill herself She was febrile at 101.4 degrees the ED, leukocytosis of 20.5, low potassium at 3.1, BUN and creatinine elevated at 25/1.2. Urinalysis concerning for UTI. The patient was treated with the IV fluids and IV antibiotics and was admitted for management. Ultimately the patient found to have bacteremia from E coli infection. She was treated with ceftriaxone and was discharged with a p.o. cefuroxime. Mild prerenal ALICE resolved after fluids resuscitation. The patient was seen by behavioral health care team and deemed not to need inpatient psychiatry care. She was discharged with VNA services. Reports that she just started the PO antibiotic yesterday. Reports that she spoke with her psychiatrist yesterday and has an appointment 2 or 3 weeks. She does not remember the exact date. [facility] TCM Information Date of Discharge 06/08/25 Discharged From [facility] Interactive Contact Date (Reference documentation from this date) 06/12/25 [facility] Medical History UTI (urinary tract infection) Multinodular goiter Diabetes mellitus T2DM (type 2 diabetes mellitus) Diabetes mellitus type 2, controlled, without complications Screening for breast cancer Incisional hernia Umbilical hernia Obesity (BMI 30-39.9) Schizophrenia Constipation Pyuria Leukocytosis Primary osteoarthritis of both knees Stasis edema of both lower extremities Vitamin D deficiency Pure hypercholesterolemia Surgical History History of incisional hernia repair (~01/10/21) H/O colonoscopy History of splenectomy Family History Father Medical history unknown Mother Diabetes Family/Other FH: mental illness Mental health disorder Social History Household Members: None Housing: Apartment Housing Other:: [place] [facility] Do you presently have visiting nurse or other home services: Yes (VNA) Alcohol intake: never Comment: 1:1 sitter SI Patient Tobacco Use Status: Former Tobacco user e-Cigarette/Vaping Use: Never Used Second Hand Smoke Exposure: Yes service: No Current occupational status: disabled Cognitive needs: No Hearing needs: No Vision needs: Yes (Reading glasses) Questionnaire Thrive Questionnaire Date Thrive assessed: 05/24/25 I am a: Patient What is your living situation today?: I have a steady place to live Within the past 12 months, did the food you bought not last and you didn't have the money to get more?: Never true Within the past 12 months, did you worry whether your food would run out before you got money to buy more?: Never true Do you have trouble paying for medicines?: No Do you have trouble getting transportation to medical appointments?: No Do you have trouble paying your heating and electricity bill?: No Do you have trouble taking care of your child, family member or friend?: Yes Do you have trouble with day-to-day activities such as bathing, preparing meals, shopping, managing finances, etc.?: No Are you currently unemployed and looking for a job?: No Are you interested in more education?: No Please select the resources that you would like help with: None Currently or been in a relationship where the following occur: No concerns reported THRIVE Score: 0 ROSA-7 AMB Questionnaire ROSA-7 Date ROSA - 7 assessed: 11/23/24 Source: Developed by Drs. Cody Askew, Coni Madden, Jose L Frost and colleagues, with an educational mansoor from [employer] Review of Systems Const Denies headache(s) Eyes Denies loss of vision ENT Denies vertigo, Reports dizziness (ongoing), Denies headache(s) and Denies sore throat Card Denies chest pain, Denies leg edema and Denies lightheadedness Resp Denies cough, Denies hemoptysis and Denies wheezing GI Denies abdominal pain, Denies melena, Reports constipation, Denies diarrhea and Denies vomiting Denies urinary frequency, Denies dysuria and Denies urinary urgency Musc Reports arthralgias (knees, hips), Denies joint swelling, Denies numbness and Denies tingling Neuro Denies Abnormal speech present, Denies behavioral changes, Denies vertigo, Reports dizziness (ongoing), Denies headache(s), Denies loss of vision, Denies memory loss, Denies numbness and Denies tingling Psych Denies anxiety, Denies behavioral changes, Denies depression, Denies memory loss and Denies panic attacks Dawood/Lymph Denies easy bleeding and Denies easy bruising Aller/Immun Denies wheezing Physical exam (Primary Care) Vital Signs: Last Vital Signs Temp 97.9 F 06/14/25 10:13 Pulse 97 06/14/25 10:13 Resp 18 06/14/25 10:13 BP 112/68 06/14/25 10:13 Pulse Ox 97 06/14/25 10:13 Oxygen Delivery Method Room Air 06/14/25 10:13 BMI result Body Mass Index 39.4 Tobacco/Smoking Status: Tobacco use Status Tobacco use date assessed 06/14/25 06/14/25 10:21 Patient Tobacco Use Status Former Tobacco user 06/14/25 10:14 e-Cigarette/Vaping Use Never Used 06/14/25 10:14 Thrive Assessment: Date of Thrive Assessment Date Thrive assessed 05/24/25 06/14/25 10:14 Currently or been in a relationship where the following occur: No concerns repo rted Const General: healthy appearing, no acute distress, alert and awake Nutritional Appearance: well nourished Orientation/consciousness: oriented to person, oriented to place and oriented to time HENMT Ears: TM's normal bilaterally General nose exam: Normal nasal mucous membranes and turbinates present Eyes Conjunctivae: conjunctivae normal Sclerae: sclerae normal Pupils: Equal, round and reactive pupils present Neck Neck: Yes no lymphadenopathy and Yes no JVD Thyroid: Thyroid normal Carotids: no bruits Resp Effort & Inspection: normal respiratory effort and not tachypneic Auscultation: no crackles, no rales, no rhonchi and no wheezes Cardio Rate: regular rate Rhythm: regular rhythm Heart sounds: no murmurs and normal S1 and S2 GI Palpation (GI): Soft to palpation, nontender, no hepatomegaly and no sple nomegaly Auscultation: normal bowel sounds Skin General skin exam: no rashes or lesions noted and dry skin Neuro General: oriented to person, oriented to place and oriented to time Cranial nerves: Yes Equal, round and reactive pupils present Speech: No Abnormal speech present Gait exam (Neuro): Normal gait present Motor exam (neuro): no tremor noted Extrem Right upper extremity: full ROM Left upper extremity: full ROM Right lower extremity: full ROM and knee Details: no tenderness and no swelling; no edema Left lower extremity: full ROM and knee Details: no tenderness and no swelling; no edema Psych Mental Status: mental status grossly normal Speech and movement: Normal speech and movement present Affect: normal affect Attitude: cooperative Thought process: Normal thought process present Coding Level of Care Code TCM Mod MDM <= 7 Days Diagnoses Schizophrenia, unspecified type F20.9 Schizophrenia type: unspecified Urinary tract infection without hematuria, site unspecified N39.0 Urinary tract infection type: site unspecified Hematuria presence: without hematuria Constipation, unspecified constipation type K59.00 Constipation type: unspecified constipation type Primary osteoarthritis of both knees M17.0 Time Spent (min) 34 Assessment & Plan Assessment & Plan (1) Schizophrenia: Code(s): F20.9 - Schizophrenia, unspecified Category: Medical Qualifiers: Schizophrenia type: unspecified Qualified Code(s): F20.9 - Schizophrenia, unspecified Plan: Mood stable. Continue aripiprazole 10 mg daily, clozapine 50 mg at bedtime, clozapine 200 mg at bedtime, lurasidone 80 mg at bedtime, clonazepam 0.5 mg BID prn. Denies si/hi. Spoke with psychiatry yesterday and has a upcoming appointment in two weeks. (2) UTI (urinary tract infection): Code(s): N39.0 - Urinary tract infection, site not specified Category: Medical Qualifiers: Urinary tract infection type: site unspecified Hematuria presence: without hematuria Qualified Code(s): N39.0 - Urinary tract infection, site not specified Plan: The patient was treated with IV ceftriaxone in the hospital. She was discharged with cefuroxime 500 mg b.i.d. Reports she is feeling much better. Asymptomatic. (3) Constipation: Code(s): K59.00 - Constipation, unspecified Category: Medical Qualifiers: Constipation type: unspecified constipation type Qualified Code(s): K59.00 - Constipation, unspecified Plan: Increase fiber in diet (fruits/vegetables 4-5 servings daily) Increase fluid intake and decrease caffeine/energy drinks (may cause mild dehydration) Encouraged regular exercise (e.g., biking, walking, running) Continue docusate sodium 100 mg b.i.d., polyethylene glycol 17 grams daily (4) Primary osteoarthritis of both knees: Code(s): M17.0 - Bilateral primary osteoarthritis of knee Category: Medical Plan: May use NSAIDs and decreased knee stress until improvement is seen with quad strengthening exercises
--- OUTSIDE RECORDS SUMMARY | 2025-06-22 20:00 | XMS_ITS | Clinical Summary ---
Author Organization Unknown Care Team Providers Care Fitness Club Manager Name Role Phone CECI STEINER MD, MIHAI Unavailable Unavail able SALO REED, RICH Unavailable Unavailable Payers Payer Name Policy Type Policy Number Effective Date Expira tion Date [facility] [id number] MEDICAID [facility] [id number] MEDICARE - [facility] [id number] Problems Condition Name Condition Details Condition Category [...] e 5 mg tablet 02-22 00:00: 00 06-09 23:59 :00 No [id number] 5 mg DAILY 5 mg DAILY (route: oral) Med Classific ation: Central Nervous System Agents atorvastati n 10 mg tablet 02-14 00:00: 00 Yes [id number] 10 mg EVERY PM 10 mg EVERY PM (route: oral) Med Classific ation: Cardiovas cular Therapy Agents docusate sodium 100 mg capsule 02-14 00:00: 00 Yes [id number] 100 capsule DIRECTED 100 capsule DIRECTED (route: oral) Med Classific ation: Gastroint estinal Therapy Agents hydrochloro thiazide 25 mg tablet 02-14 00:00: 00 Yes [id number] 25 mg DAILY 25 mg DAILY (route: oral) Med Classific ation: Cardiovas cular Therapy Agents Januvia 100 mg tablet 02-14 00:00: 00 Yes [id number] 100 mg DAILY 100 mg DAILY (route: oral) Med Classific ation: Endocrine lurasidone 80 mg tablet 02-14 00:00: 00 Yes [id number] 80 mg DAILY 80 mg DAILY (route: oral) Med Classific ation: Central Nervous System Agents metformin ER 500 mg tablet,exte nded release 24 hr 02-14 00:00: 00 Yes [id number] 500 mg DAILY 500 mg DAILY (route: oral) Med Classific ation: Endocrine calcium 500 mg (as calcium carbonate 1,250 mg) tablet 02-14 00:00: 00 06-09 23:59 :00 No [id number] 500 mg EVERY AM 500 mg EVERY AM (route: oral) Med Classific ation: Electroly te Balance-N utritiona l Products clozapine 100 mg tablet 02-07 00:00: 00 10-23 23:59 :00 No [id number] 100 mg BEDTIME 100 mg BEDTIME (route: oral) Med Classific ation: Central Nervous System Agents clozapine 50 mg tablet 02-07 00:00: 00 08-21 23:59 :00 No [id number] 50 mg BEDTIME 50 mg BEDTIME (route: oral) Med Classific ation: Central Nervous System Agents polyethylen e glycol 3350 17 gram/dose oral powder 02-01 00:00: 00 Yes [id number] 17 g NEEDED 17 g NEEDED (route: oral) Med Classific ation: Gastroint estinal Therapy Agents Multivitami n 50 Plus tablet 03-01 00:00: 00 06-09 23:59 :00 No [id number] 1 tablet DAILY 1 tablet DAILY (route: oral) Med Classific ation: Electroly te Balance-N utritiona l Products clozapine 50 mg tablet 10-27 00:00: 00 Yes [id number] 50 mg BEDTIME 50 mg BEDTIME (route: oral) Med Classific ation: Central Nervous System Agents Clozaril 100 mg tablet 10-27 00:00: 00 Yes [id number] 100 mg BEDTIME 100 mg BEDTIME (route: oral) Med Classific ation: Central Nervous System Agents aripiprazol e 10 mg tablet 2024-08 00:00: 00 Yes [id number] 10 mg EVERY AM 10 mg EVERY AM (route: oral) Med Classific ation: Central Nervous System Agents cefuroxime axetil 500 mg tablet 2024-08 00:00: 00 06-21 23:59 :00 No [id number] 500 mg 2 TIMES DAILY 500 mg 2 TIMES DAILY (route: oral) Med Classific ation: Anti-Infe ctive Agents cetirizine 10 mg tablet 2024-08 00:00: 00 Yes [id number] 10 mg NEEDED 10 mg NEEDED (route: oral) Med Classific ation: Respirato ry Therapy Agents Vital Signs Vital Name Observation Time Observation Value Commen ts Temperature 2025-06-13 07:51:00.000 97.5 [degF] Temperature 2025-06-12 08:16:00.000 97.5 [degF] Temperature 2025-06-11 20:07:00.000 98 [degF] Temperature 2025-06-09 22:17:00.000 97.6 [degF] Temperature 2025-05-30 07:34:00.000 97.1 [degF] Temperature 2025-05-28 07:55:00.000 97.4 [degF] Temperature 2025-05-23 07:55:00.000 97.5 [degF] Temperature 2025-05-21 07:43:00.000 97.5 [degF] Temperature 2025-05-16 07:42:00.000 97.4 [degF] Temperature 2025-05-14 08:02:00.000 97.6 [degF] Temperature 2025-05-09 07:32:00.000 97.5 [degF] Temperature 2025-05-07 07:48:00.000 97.8 [degF] Temperature 2025-05-02 07:15:00.000 97.5 [degF] Temperature 2025-04-30 07:37:00.000 97.5 [degF] Temperature 2025-04-25 07:43:00.000 97.5 [degF] BMI (%) 2025-06-09 07:39:17.000 36 kg/m2 Height 2025-06-09 07:38:56.000 63 [in_us] Pulse 2025-06-09 22:17:00.000 88 /min Respirations 2025-06-09 22:17:00.000 20 /min Weight (lbs) 2025-06-09 07:39:17.000 208 [lb_av] Systolic Blood Pressure 2025-06-09 22:17:00.000 120 mm [Hg] Diastolic Blood Pressure 2025-06-09 22:17:00.000 64 mm [Hg] Plan of Treatment Planned Activity [...] HEALTH.] Future Scheduled Test SKILLED NU RSE FOR MEDICATION ADMINISTRATION PER MEDICATION LIST TO BE PERFORMED TWICE A WEEK [code = SKILLED NURSE FOR MEDICATION ADMINISTRATION PER MEDICATION LIST TO BE PERFORMED TWICE A WEEK] Future Scheduled Test SKILLED NU RSE FOR O/A OF ALTERED THOUGHT PROCESS AND/OR DISRUPTION IN COGNITIVE OPERATIONS AND ACTIVITIES [code = SKILLED NURSE FOR O/A OF ALTERED THOUGHT PROCESS AND/OR DISRUPTION IN COGNITIVE OPERATIONS AND ACTIVITIES] Future Scheduled Test MEDICATION S WILL BE HELD AND STORED IN LOCKBOX [code = MEDICATIONS WILL BE HELD AND STORED IN LOCKBOX] Future Scheduled Test SKILLED NU RSE FOR O/A OF GENERAL HEALTH STATUS OF PAIN, CARDIAC, RESPIRATORY, GASTROINTESTINAL, GENITOURINARY, SKIN, NEUROLOGIC, ENDOCRINE SYSTEMS TO IDENTIFY CHANGES ASSOCIATED WITH EXACERBATION FOR EARLY INTERVENTION OF COMPLICATIONS WEEKLY. [code = SKILLED NURSE FOR O/A OF GENERAL HEALTH STATUS OF PAIN, CARDIAC, RESPIRATORY, GASTROINTESTINAL, GENITOURINARY, SKIN, NEUROLOGIC, ENDOCRINE SYSTEMS TO IDENTIFY CHANGES ASSOCIATED WITH EXACERBATION FOR EARLY INTERVENTION OF COMPLICATIONS WEEKLY.] Future Scheduled Test SKILLED NU RSE TO [...] Test SKILLED NU RSE FOR O/A AND TEACHING OF ENDOCRINE SYSTEM TO IDENTIFY CHANGES ASSOCIATED WITH EXACERBATION OF DMII FOR EARLY INTERVENTION OF COMPLICATIONS. [code = SKILLED NURSE FOR O/A AND TEACHING OF ENDOCRINE SYSTEM TO IDENTIFY CHANGES ASSOCIATED WITH EXACERBATION OF DMII FOR EARLY INTERVENTION OF COMPLICATIONS.] Future Scheduled Test SKILLED NU RSE FOR O/A AND TEACHING OF DIABETIC MANAGEMENT INCLUDING BLOOD SUGAR MONITORING/USE OF GLUCOMETER, DIABETIC DIET, LOWER EXTREMITY SKIN INSPECTION, PROPER SKIN/FOOT CARE, AND SIGNS AND SYMPTOMS HYPO/HYPERGLYCEMIA TO REPORT. [code = SKILLED NURSE FOR O/A AND TEACHING OF DIABETIC MANAGEMENT INCLUDING BLOOD SUGAR MONITORING/USE OF GLUCOMETER, DIABETIC DIET, LOWER EXTREMITY SKIN INSPECTION, PROPER SKIN/FOOT CARE, AND SIGNS AND SYMPTOMS HYPO/HYPERGLYCEMIA TO REPORT.] Future Scheduled Test SKILLED NU RSE TO OBTAIN BLOOD SUGAR PRN FOR SIGNS AND SYMPTOMS OF HYPO/HYPERGLYCEMIA. IF OBTAINED BY PATIENT/CAREGIVER PRIOR TO VISIT AND PATIENT IS NOT SYMPTOMATIC, SKILLED NURSE TO RECORD READING FROM PATIENT LOG. [code = SKILLED NURSE TO OBTAIN BLOOD SUGAR PRN FOR SIGNS AND SYMPTOMS OF HYPO/HYPERGLYCEMIA. IF OBTAINED BY PATIENT/CAREGIVER PRIOR TO VISIT AND PATIENT IS NOT SYMPTOMATIC, SKILLED NURSE TO RECORD READING FROM PATIENT LOG.] Future Scheduled Test SKILLED NU RSE TO [...] PROBLEMS.] Future Scheduled Test SKILLED NU RSE FOR O/A OF CLIENT'S SOCIAL ISOLATION AND PROVIDE ASSISTANCE TO CLIENT IN DEVELOPMENT OF PLANNED ACTIVITIES [code = SKILLED NURSE FOR O/A OF CLIENT'S SOCIAL ISOLATION AND PROVIDE ASSISTANCE TO CLIENT IN DEVELOPMENT OF PLANNED ACTIVITIES] Future Scheduled Test SKILLED NU RSE TO ASSESS PATIENT S PSYCHOSOCIAL STATUS TO IDENTIFY POTENTIAL ISSUES THAT MAY COMPLICATE THE PROVISION OF THE PLAN OF CARE INCLUDING THE PATIENT S ABILITY TO ACCESS COMMUNITY RESOURCES AND PSYCHOSOCIAL SUPPORT SERVICES. [code = SKILLED NURSE TO ASSESS PATIENT S PSYCHOSOCIAL STATUS TO IDENTIFY POTENTIAL ISSUES THAT MAY COMPLICATE THE PROVISION OF THE PLAN OF CARE INCLUDING THE PATIENT S ABILITY TO ACCESS COMMUNITY RESOURCES AND PSYCHOSOCIAL SUPPORT SERVICES.] Future Scheduled Test SKILLED NU RSE WILL MAINTAIN SITUATIONAL AWARENESS FOR SAFETY AND WILL NOTIFY CLINICAL SHIP PROPELLER FINISHER AND PHYSICIAN/PROVIDER WITH ANY CHANGE IN CONDITION. [code = SKILLED NURSE WILL MAINTAIN SITUATIONAL AWARENESS FOR SAFETY AND WILL NOTIFY CLINICAL SHIP PROPELLER FINISHER AND PHYSICIAN/PROVIDER WITH ANY CHANGE IN CONDITION.] Future Scheduled Test SKILLED NU RSE TO PROVIDE INSTRUCTION TO PATIENT/CAREGIVER RELATED TO DISCHARGE PLANNING. [code = SKILLED NURSE TO PROVIDE INSTRUCTION TO PATIENT/CAREGIVER RELATED TO DISCHARGE PLANNING.] Goal 2024-04-26 Patient Goal - TAKING MY MED S Goal 2024-06-26 Patient Goal - TAKING MY MED S Goal 2024-08-23 Patient Goal - TAKING MY MED S Goal 2024-10-23 Patient Goal - TAKING MY MED S Goal 2024-12-21 Patient Goal - TAKING MY MED S Goal 2025-02-19 Patient Goal - TAKING MY MED S Goal 2025-04-23 Patient Goal - TAKING MY MED S Goal Patient Goal - TAKING MY MED S Goal Provider Goal - A PLAN OF CARE WILL BE ESTABLISHED THAT MEETS PATIENT'S DETENTION NEEDS AND INCLUDES PATIENT GOAL FOR HOME HEALTH. Goal Provider Goal - PATIENT WILL COMPLY WITH MEDICATION WHEN NURSE ADMINISTERS THROUGHOUT CERTIFICATION PERIOD. Goal Provider Goal - PATIENT WILL BE ABLE TO PERFORM DAILY FUNCTIONS AND HAVE OPTIMAL IMPROVEMENT IN THOUGHT PROCESS THROUGHOUT CERTIFICATION PERIOD. Goal Provider Goal - MEDICATION WILL BE STORED IN LOCKBOX FOR SAFETY. Goal Provider Goal - CHANGE IN GENERAL HEALTH STATUS WILL BE IDENTIFIED AND REPORTED TO PHYSICIAN FOR PROMPT INTERVENTION TO MINIMIZE ASSOCIATED RISKS THROUGHOUT CERTIFICATION PERIOD. Goal Provider Goal - PATIENT WILL COMPLY WITH MEDICATION WHEN SKILLED NURSE ADMINISTERS AND PRE-POURS MEDICATION THROUGHOUT CERTIFICATION PERIOD. Goal Provider Goal - PATIENT WILL REMAIN SAFE WITHOUT DECOMPENSATION IN DEPRESSIVE CONDITION, WHILE MAINTAINING OPTIMAL LEVEL OF MENTAL HEALTH AND WELL BEING THROUGHOUT CERTIFICATION PERIOD. Goal Provider Goal - PATIENT/CAREGIVER WILL VERBALIZE SIGNS AND SYMPTOMS OF EXACERBATION OF DMII TO REPORT TO NURSE/PHYSICIAN THROUGHOUT THE CERTIFICATION PERIOD. Goal Provider Goal - PATIENT/CAREGIVER WILL VERBALIZE/DEMONSTRATE KNOWLEDGE OF DIABETIC MANAGEMENT. CHANGES IN DIABETIC STATUS WILL BE IDENTIFIED AND REPORTED TO PHYSICIAN FOR PROMPT INTERVENTION THROUGHOUT THE CERTIFICATION PERIOD. Goal Provider Goal - BLOOD SUGAR READING WILL BE OBTAINED ORDERED THROUGHOUT CERTIFICATION PERIOD. Goal Provider Goal - PATIENT/CAREGIVER WILL VERBALIZE/DEMONSTRATE [...] THE CERTIFICATION PERIOD. Goal Provider Goal - PSYCHOSOCIAL NEEDS WILL BE IDENTIFIED AND PLAN IMPLEMENTED TO MINIMIZE RISK THROUGHOUT CERTIFICATION PERIOD. Goal Provider Goal - PATIENT WILL REMAIN SAFE IN THE COMMUNITY AND WILL BE FREE OF DANGER TO SELF AND OTHERS THROUGHOUT THE CERTIFICATION PERIOD. Goal Provider Goal - PATIENT/CAREGIVER WILL VERBALIZE UNDERSTANDING OF DISCHARGE PLANNING INSTRUCTIONS BY DATE OF DISCHARGE. Progress Notes Progress Notes <paragraph>[Visit Date: 2024 by RICH LEONG RN]:</paragraph><paragraph>PATIENT EDUCATED ABOUT DIET TO HELP MANAGE HYPERTENSION INCLUDING CONSUMING FOODS WITH NO OR LOW SODIUM, FOODS HIGH IN SODIUM ARE XIE, CANNED ENTREES LIKE SOUP OR CHILI, AND FROZEN DINNERS, PATIENT VERBALIZED UNDERSTANDING.</paragraph> Encounters Start Date/Time End Date/Time Encounter Type Admission Type Attending Clinicians Care Facility Care Department Encounter ID Discharge Date Discharge Status Discharge Condition Discharge Reason Percent Goals Met 2025-04-25 00:00:00 2025-06-23 00:00:00 Outpatient [facility] [id number] 17.07
== END 2025-06-14 11:08 | disposition home or self-care (01) ==
LOC: HO.HMCH 10:04
PROVIDERS: PCP Internal Medicine
DX: N39.0 Urinary tract infection, site not specified (principal); F20.9 Schizophrenia, unspecified; K59.00 Constipation, unspecified; M17.0 Bilateral primary osteoarthritis of knee

== ENCOUNTER → 2025-06-14 10:02 | Outpatient (BNVA) | payer OTHER, SELFPAY | PROVIDERS: PCP Internal Medicine | DX: E11.9 Type 2 diabetes mellitus without complications (principal); F20.9 Schizophrenia, unspecified; N39.0 Urinary tract infection, site not specified; K59.00 Constipation, unspecified; M17.0 Bilateral primary osteoarthritis of knee | CPT/HCPCS: 99495 ==

== ENCOUNTER → 2025-07-24 07:27 | Outpatient (REF) | payer OTHER, SELFPAY ==
[2025-07-24 08:15] LABS: Hematocrit 37.4 % (37.0-47.0); Hemoglobin 11.7 g/dl (12.0-16.0); Imm Gran Abs Auto 0.07 X10*3/uL (0.00-0.03); Imm Gran Pct Auto 0.5 % (0.0-0.4); Lymphocytes Absolute Auto 5.1 X10*3/uL (1.2-4.9); MANUAL DIFF FLAG SCAN; Mean Corpuscular HGB Conc 31.3 g/dl (31.0-35.0); Mean Corpuscular Hemoglobin 29.8 pg (27.0-33.0); Mean Corpuscular Volume 95.4 fL (80.0-98.0); NRBC Abs Auto 0.000 X10*3/uL (0.0-0.012); NRBC Pct Auto 0.0 /100WBC (0.0-0.2); Platelet Count 406 X10*3/uL (160-400); Red Blood Count 3.92 X10*6/uL (4.20-5.50); SCAN SMEAR FLAG 1; White Blood Count 13.8 X10*3/uL (4.8-10.8)
[2025-07-24 08:54] LABS: Alanine Aminotransferase 19 U/L (0-31); Albumin Level 4.2 g/dL (3.5-5.0); Alkaline Phosphatase 130 U/L (39-117); Anion Gap 14 (12-20); Aspartate Amino Transferase 20 U/L (5-31); Blood Urea Nitrogen 22 mg/dL (9-16); Calcium 9.3 mg/dL (8.4-10.2); Carbon Dioxide 29 mmol/L (22-29); Chloride 105 mmol/L (96-108); Cholesterol 198 mg/dL (<200); Estimated Glomerular Filt Rate > 60; HDL Cholesterol 51 mg/dL (>40); Magnesium 2.0 mg/dL (1.6-2.6); Potassium 3.5 mmol/L (3.3-5.1); Sodium 144 mmol/L (135-145); Total Protein 7.3 g/dL (6.5-8.0); Triglycerides 195 mg/dL (<150)
--- NOTE | 2025-07-24 09:05 | CA_ITS ---
Transthoracic Echocardiogram Patient (Last, First, Middle): Kristin Caceres C Gender: F Date of : 1960 Age: 65 Procedure Date: 07/24/2025 Procedure Type: Transthoracic Echocardiogram Location: OP Height: 160.02 cm Weight: 100.7 kg BSA: 2.02 m2 Heart Rate: 94 bpm BP: 112 / 68 mmHg Appliances Sample Maker: MICHAEL Referring MD: Abel Mejía MD Symptoms: I95.9 - Hypotension, unspecified Study Quality: Technically Difficult ECG Rhythm: Sinus Conclusions: - The left ventricular systolic function is normal. The visually estimated ejection fraction is between 60-65%. - No obvious valvular pathology seen on this study. Findings Procedure Information The quality of the study was technically difficult and apical images are suboptimal for definitive comment. The study quality is limited by the patients inability to tolerate the test and patients body habitus. The patient declines contrast. Left Ventricle Normal left ventricular cavity size. There is normal left ventricular wall thickness. The left ventricular systolic function is normal. The visually estimated ejection fraction is between 60-65%. There is no evidence of regional wall motion abnormalities. Diastolic function is normal for age. Right Ventricle Normal right ventricular cavity size and systolic function. Atria Both atria are normal in size. Aortic Valve There is a normal trileaflet aortic valve. There is no aortic valve stenosis. There is no aortic valve regurgitation. Mitral Valve The mitral valve appears normal. There is no mitral valve regurgitation. There is no mitral valve stenosis. Pulmonic Valve The pulmonic valve is likely normal. Tricuspid Valve There is trace tricuspid valve regurgitation. There is no evidence of pulmonary hypertension. Great Vessels The asc aorta and aortic arch are normal in size. Small plaque is seen in the sino tubular ridge. Venous The inferior vena cava is normal in size and collapses greater than 50% with inspiration. Pericardium/Pleural There is a trivial pericardial effusion. Prior Study Comparison No prior study available for comparison. Recommendations, Care & Conclusions No obvious valvular pathology seen on this study. Measurements 2D Linear Measurements IVSd: 1.00 0.6-0.9/0.6-1.0 cm LVIDd: 4.37 3.9-5.3/4.2-5.9 cm LVIDd Index: 2.16 2.4-3.2/2.2-3.1 cm/m2 LVIDs: 2.62 2.0-3.6 cm LVPWd: 0.99 0.7-1.1 cm LA Diam: 2.90 2.7-3.8/3.0-4.0 cm LAIDs Index: 1.44 1.5-2.3 cm/m2 LV Mass: 180.63 67-162/88-224 g LV Mass Index: 89.42 43-95/49-115 g/m2 LVOT Diam: 1.90 3.0+(-)1.3 cm Mitral Valve MV Pk E: 0.89 MV PK A: 1.06 MV Decel Time: 159.00 E/A: 0.80 E'Lateral: 7.83 E'Medial: 6.85 E/E' Med: 12.90 E/E' Lat: 11.30 PHT: 47.00 MVA PHT: 4.68 Decel [place]: 5.56 Aortic Valve AoV Pk Jairo: 1.68 AoV Mn Jairo: 1.10 AoV VTI: 0.27 AoV Pk Grad: 11.00 Aov Mn Grad: 6.00 TESFAYE Cont.VTI: 2.13 LVOT LVOT Pk Jairo: 1.02 LVOT Mn Jairo: 0.67 LVOT VTI: 0.20 LVOT Pk Grad: 4.00 LVOT Mn Grad: 2.00 LVOT Diam: 1.90 LVOT Area: 2.84 Diastolic Function MV Pk E: 0.89 MV Pk A: 1.06 E/A: 0.80 E'Medial: 6.85 E/E' Med: 12.90 E' Laterial: 7.83 E/E' Lat: 11.30 Right Ventricle TAPSE (mm): 20.80 TVS' Jairo: 12.00 Tricuspid Valve TR Pk Jairo: 2.54 TR Pk Grad: 26.00 RA Press: 3.00 RVSP: 29.00 Great Vessels Aorta Sinus of Valsalva: 2.50 2.0-3.5 cm Ao Asc: 3.10 2.1-3.4 cm Ao Arch: 2.80 Pulmonary Veins Pulm Vein S/D 1.70 Pulmonary Valve PV Pk Jairo: 1.56 Peak PV Grad: 10.00 Updated in Other Vendor System with Status of Final Arun Marroquin MD electronically signed on 07/24/2025 1:54:39 PM with status of Final
--- NOTE | 2025-07-24 09:05 | ECG_ITS ---
Test Reason : HTN Blood Pressure : */* mmHG Vent. Rate : 107 BPM Atrial Rate : 107 BPM P-R Int : 168 ms QRS Dur : 82 ms QT Int : 346 ms P-R-T Axes : 49 48 31 degrees QTcB Int : 461 ms Sinus tachycardia Otherwise normal ECG When compared with ECG of 03-Jun-2025 09:55, No significant change was found Referred By: Abel Mejía Electronically Signed By: Emile Rodriguez
[2025-07-24 09:23] LABS: Folate 10.0 ng/mL (> or = 4.0); Vitamin B12 250 pg/mL (200-900)
== END ==
LOC: HO.CARD 07:27
PROVIDERS: PCP Internal Medicine; Referring Provider Psychiatry & Neurology Psychiatry; Visit Provider Internal Medicine
DX: I95.1 Orthostatic hypotension (principal); E78.00 Pure hypercholesterolemia, unspecified; E83.42 Hypomagnesemia; D64.9 Anemia, unspecified; E53.8 Deficiency of other specified B group vitamins; I10 Essential (primary) hypertension
CPT/HCPCS: 36415; 80053; 80061; 82088; 82306; 82533; 82607; 82746; 83735; 84443; 85025; 93005; 93306

== ENCOUNTER → 2025-07-24 09:05 | Outpatient (BNV) | payer OTHER, SELFPAY | PROVIDERS: PCP Internal Medicine; Referring Provider Psychiatry & Neurology Psychiatry; Visit Provider Internal Medicine | DX: I95.9 Hypotension, unspecified (principal); R00.0 Tachycardia, unspecified | CPT/HCPCS: 93010; 93306 ==